=== PATIENT | female | born 1930 | race Caucasian/White ===

== ENCOUNTER 2016-11-09 01:35 | Inpatient (IN) | payer MEDICAID, OTHER ==
[~2016-11-09] VITALS: Ht 160 cm; Wt 65.2 kg
[~2016-11-09 01:35] MED LIST: ASPI325T4 PO; ATEN-138 PO; ATOR40TA21 PO; CARV3.1238 PO; CLOP75TA19 PO; DOCU-144 PO; FAMO-18 PO; FURO40TA4 PO; HYDR-906 PO; POTA20PA PO; ZOLP5TAB PO
[2016-11-09 02:07] LABS: ADD SCAN DIFF NO
[2016-11-09 02:17] LABS: BASOPHILS % 0.7 % (0.0-2.0); EOSINOPHILS # 0.3 10^3/ul (0.0-0.5); EOSINOPHILS % 4.7 % (0.0-7.0); HEMATOCRIT 34.3 % (37.0-47.0); HEMOGLOBIN 11.3 g/dl (12.0-16.0); LYMPHOCYTES # 1.2 10^3/ul (0.8-2.9); MEAN CORPUSCULAR HEMOGLOBIN 32.8 pg (29.0-33.0); MEAN CORPUSCULAR HGB CONC 32.9 g/dl (32.0-37.0); MEAN CORPUSCULAR VOLUME 99.4 fl (82.0-101.0); MEAN PLATELET VOLUME 9.7 fl (7.4-10.4); MONOCYTES % 18.6 % (0.0-11.0); NEUTROPHILS % 53.8 % (39.0-77.0); PLATELET COUNT 319 10^3/UL (140-415); RED BLOOD COUNT 3.45 10^6/ul (4.20-5.40); WHITE BLOOD COUNT 5.6 10^3/ul (4.8-10.8)
[2016-11-09 02:25] LABS: ALBUMIN 3.4 g/dl (3.3-4.9)
[2016-11-09 02:26] LABS: POTASSIUM 4.1 mmol/L (3.5-5.1)
[2016-11-09 02:28] LABS: ALBUMIN/GLOBULIN RATIO 0.91; BILIRUBIN,INDIRECT 0.2 mg/dl (0-1.1); BILIRUBIN,TOTAL 0.2 mg/dl (0.2-1.3); TOTAL PROTEIN 7.1 g/dl (6.1-8.1)
[2016-11-09 02:29] LABS: CALCIUM 8.9 mg/dl (8.4-10.2)
--- NOTE | 2016-11-09 02:48 | RADRPT ---
PROCEDURE: US Non-OB Pelvis. CLINICAL INDICATION: Vaginal bleeding. TECHNIQUE: Multiple sonographic images of the pelvis were obtained utilizing a transabdominal and endovaginal technique. The images were reviewed on a PACS workstation. COMPARISON: None. FINDINGS: The uterus is visualized and measures 4.8 x 1.8 x 2.5 cm. The endometrial echo complex is heterogene ous and measures 7 mm. The ovaries are not visualized. No adnexal masses are noted. There is no evidence of free fluid. IMPRESSION: 1. Heterogeneous endometrium measuring 7 mm in thickness. This is abnormal for a postmenopausal pat ient, and endometrial carcinoma cannot be excluded. Referral to gynecology is recommended. Endomet rial biopsy should be considered. 2. The ovaries are not visualized. RPTAT: HTAR .Vinny Castro MD, Date Time Electronically viewed and signed by .Vinny Castro MD, on 11/09/2016 02:47 .R/
[2016-11-09 03:02] LABS: ADD UMIC YES; URINE BILIRUBIN (Dip) NEGATIVE (NEGATIVE); URINE BLOOD (Dip) TRACE (NEGATIVE); URINE COLOR LT. YELLOW (YELLOW); URINE GLUCOSE (Dip) NEGATIVE (NEGATIVE); URINE KETONES (Dip) NEGATIVE (NEGATIVE); URINE LEUKOCYTE ESTERASE (Dip) TRACE (NEGATIVE); URINE NITRITE (Dip) NEGATIVE (NEGATIVE); URINE TOTAL PROTEIN (Dip) NEGATIVE (NEGATIVE); URINE UROBILINOGEN (Dip) 2.0 E.U./dL (0.1-1.0)
[2016-11-09 03:29] LABS: BACTERIA,URINE OCCASIONAL; SQUAMOUS EPITHELIAL CELL,UR MANY
--- NOTE | 2016-11-09 03:53 | ERA ---
ER Documentation Chief Complaint Date/Time DATE: 11/09/16 TIME: 03:52 Chief Complaint PT BIB ambulance for VB X 2 weeks. HPI This is a 86-year-old female by my months of vaginal bleeding for the past 2 weeks. Patient denies any pain. Denies any fevers or chills. Denies any nausea vomiting. Denies any other current complaints. ROS All systems reviewed and are negative except as per history of present illness. Medications Home Meds Reported Medications Potassium Chloride (Klor-Con) 20 Meq/Pkt Packet, PO DAILY 09/22/11 Furosemide (Lasix) 40 Mg Tab, 1 TAB PO DAILY 09/22/11 Famotidine* (Pepcid*) 20 Mg Tablet, 1 TAB PO DAILY 09/22/11 Clopidogrel Bisulfate (Plavix) 75 Mg Tablet, 1 TAB PO DAILY 09/22/11 Carvedilol* (Coreg*) 3.125 Mg Tablet, 1 TAB PO BID 09/22/11 Atorvastatin (Lipitor) 40 Mg Tablet, 40 MG PO DAILY 09/22/11 Zolpidem Tartrate* (Ambien*) 5 Mg Tablet, 5 MG PO 09/15/11 Docusate Sodium* (Colace*) 100 Mg Capsule, 100 MG PO DAILY 09/15/11 Hydrocodone Bit-Acetaminophen (Ferron) 1 Tab Tablet, 5 MG PO 09/15/11 Atenolol (Tenormin) 25 Mg Tab, 25 MG PO DAILY 09/15/11 Aspirin* (Aspirin*) 325 Mg Tablet, 325 MG PO DAILY 09/15/11 Allergies Allergies: Coded Allergies: No Known Drug Allergies (Verified Allergy, Unknown, 09/22/11) PMhx/Soc History of Surgery: Yes (STENT PLACEMENT 09/15/11) Anesthesia Reaction: No Hx Neurological Disorder: No Hx Respiratory Disorders: No Hx Cardiac Disorders: Yes (CARDIAC CATH, STENT, A FIB, HTN, HYPERLIPI) Hx Psychiatric Problems: No Hx Miscellaneous Medical Probl: Yes (HTN, HYPERLIPIDEMIA, A-FIB, , S/P REP. HIP FX) Hx Alcohol Use: No Hx Substance Use: No Hx Tobacco Use: No Smoking Status: Never smoker Physical Exam Vitals Vital Signs Date Time Temp Pulse Resp B/P Pulse Ox O2 Delivery O2 Flow Rate FiO2 11/09/16 02:01 97.9 64 18 116/80 98 Physical Exam Const: [] Head: Atraumatic Eyes: Normal Conjunctiva ENT: Normal External Ears, Nose and Mouth. Neck: Full range of motion..~ No meningismus. Resp: Clear to auscultation bilaterally Cardio: Regular rate and rhythm, no murmurs Abd: Soft, non tender, non distended. Normal bowel sounds Skin: No petechiae or rashes Back: No midline or flank tenderness Ext: No cyanosis, or edema Neur: Awake and alert Psych: Normal Mood and Affect Result Diagram: 11/09/16 0200 11/09/16 0200 Results 24 hrs Laboratory Tests Test 11/09/16 02:00 11/09/16 02:26 White Blood Count 5.610^3/ul Red Blood Count 3.4510^6/ul Hemoglobin 11.3g/dl Hematocrit 34.3% Mean Corpuscular Volume 99.4fl Mean Corpuscular Hemoglobin 32.8pg Mean Corpuscular Hemoglobin Concent 32.9g/dl Red Cell Distribution Width 13.0% Platelet Count 64767^3/UL Mean Platelet Volume 9.7fl Neutrophils % 53.8% Lymphocytes % 22.0% Monocytes % 18.6% Eosinophils % 4.7% Basophils % 0.7% Nucleated Red Blood Cells % 0.0/100WBC Neutrophils # 3.010^3/ul Lymphocytes # 1.210^3/ul Monocytes # 1.010^3/ul Eosinophils # 0.310^3/ul Basophils # 0.010^3/ul Nucleated Red Blood Cells # 0.010^3/ul Sodium Level 142mmol/L Potassium Level 4.1mmol/L Chloride Level 100mmol/L Carbon Dioxide Level 29mmol/L Anion Gap 17 Blood Urea Nitrogen 16mg/dl Creatinine 1.00mg/dl Glucose Level 112mg/dl Calcium Level 8.9mg/dl Total Bilirubin 0.2mg/dl Direct Bilirubin 0.00mg/dl Indirect Bilirubin 0.2mg/dl Aspartate Amino Transf (AST/SGOT) 18IU/L Alanine Aminotransferase (ALT/SGPT) 22IU/L Alkaline Phosphatase 91IU/L Total Protein 7.1g/dl Albumin 3.4g/dl Globulin 3.70g/dl Albumin/Globulin Ratio 0.91 Urine Color LT. 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 Patient was admitted for further evaluation study. Dr. Mann will admit the patient as he is admitted previously Departure Diagnosis: Primary Impression: Vaginal bleeding Condition: Serious SWETHA HANSON November 09, 2016 03:53
[2016-11-09 04:07] VITALS: TEMP 98.1
[2016-11-09 04:56] VITALS: BP 120/64; RESP 18; Ht 160 cm; Wt 65.2 kg
[2016-11-09] MEDS ORDERED: morphine 2 MG INJ IV PRN (05:30)
[2016-11-09] MEDS ORDERED: HYDROCODONE/APAP (5/325) TAB PO PRN (05:30)
[2016-11-09] MEDS: SOD CHLORIDE 0.45% 1,000 ML IV SCH ×2 (05:52→22:10)
[2016-11-09 08:31] VITALS: BP 139/79; RESP 24
--- NOTE | 2016-11-09 09:52 | RADRPT ---
PROCEDURE: XR Chest. CLINICAL INDICATION: Hematuria TECHNIQUE: An AP view of the chest was obtained. COMPARISON: Chest x-ray dated 09/15/2011 FINDINGS: Lung volumes are low. There is prominence of the interstitial and central pulmonary vascular hiram ng. No pleural effusion or pneumothorax is seen. The cardiomediastinal silhouette is mildly enla rged . Calcifications are seen within the aortic arch. The osseous structures demonstrate senescent changes. IMPRESSION: 1. Findings suggestive of pulmonary vascular congestion. 2. Mild cardiomegaly and aortic atherosclerosis. RPTAT: HH .Jennifer Cooper MD, MD Date Time Electronically viewed and signed by .Jennifer Cooper MD, on 11/09/2016 09:51 .G/
[2016-11-09 11:17] LABS: ADD SCAN DIFF NO
[2016-11-09 11:42] LABS: BASOPHILS % 0.5 % (0.0-2.0); EOSINOPHILS # 0.2 10^3/ul (0.0-0.5); EOSINOPHILS % 5.5 % (0.0-7.0); HEMATOCRIT 34.1 % (37.0-47.0); HEMOGLOBIN 11.2 g/dl (12.0-16.0); LYMPHOCYTES # 0.9 10^3/ul (0.8-2.9); LYMPHOCYTES % 23.7 % (15.0-51.0); MEAN CORPUSCULAR HEMOGLOBIN 32.8 pg (29.0-33.0); MEAN CORPUSCULAR HGB CONC 32.8 g/dl (32.0-37.0); MEAN PLATELET VOLUME 9.9 fl (7.4-10.4); MONOCYTE # 0.7 10^3/ul (0.3-0.9); MONOCYTES % 17.1 % (0.0-11.0); NEUTROPHILS % 53.2 % (39.0-77.0); PLATELET COUNT 302 10^3/UL (140-415); RED BLOOD COUNT 3.41 10^6/ul (4.20-5.40); WHITE BLOOD COUNT 3.8 10^3/ul (4.8-10.8)
[2016-11-09 12:02] LABS: INR 2.09; PROTIME 23.7 Sec (12.2-14.2); PT RATIO 1.9
[2016-11-09 12:03] LABS: PARTIAL THROMBOPLASTIN TIME 49.9 Sec (25.0-35.0)
[2016-11-09 13:30] VITALS: BP 115/70; PULSE 56
[2016-11-09] MEDS ORDERED: ATENOLOL 25 MG TAB PO SCH (13:30)
--- NOTE | 2016-11-09 14:27 | HP ---
DATE OF ADMISSION: 11/09/2016 CHIEF COMPLAINT: Vaginal bleeding. HISTORY OF PRESENT ILLNESS: The patient is an 86-year-old [place]-speaking female. The patient pre sented to the emergency room with complaints of vaginal bleeding for the past 2 weeks. The patient is a poor historian, cannot provide detailed history. I tried to contact the patient's daughter, Maria Fernanda toledo; however, nobody answered the phone, so most of the history was obtained from talking to the pat ient and from medical records. The patient with a past medical history of coronary artery disease a nd stent placement in 2011, history of atrial fibrillation, hypertension, hyperlipidemia, status pos t hip fracture. The patient with a history of ischemic cardiomyopathy with ejection fraction of 25% to 30%, history of anemia of chronic disease, and history of left femoral neck fracture, status pos t hemiarthroplasty in 2011. The patient a pelvic ultrasound with notion of a heterogenous endometri um 7 mm thickness which is abnormal for postmenopausal patient. Endometrial carcinoma cannot be exc luded. The ovaries not visualized. The patient's hemoglobin was 11.3, hematocrit 34.3 on admission . There is no leukocytosis. The patient denies any fever or chills. The patient denies any chest pain. The patient denies any nausea, vomiting, diarrhea. The patient is admitted for further evalu ation and management. PAST MEDICAL HISTORY: Per HPI. PAST SURGICAL HISTORY: Status post percutaneous coronary intervention with stent placement to the m id left anterior descending artery in 2011, status post left femoral neck hemiarthroplasty in 2011. FAMILY HISTORY: Noncontributory. SOCIAL HISTORY: The patient denies any tobacco use, denies any alcohol use, denies any illicit drug use. ALLERGIES: NO KNOWN ALLERGIES. MEDICATIONS: On admission: 1. Klor-Con. 2. Lasix. 3. Pepcid. 4. Plavix. 5. Coreg. 6. Lipitor. 7. Ambien. 8. Colace. 9. [place]. 10. Tenormin. 11. Aspirin. REVIEW OF SYSTEMS: A 12-point review of systems is negative unless what is mentioned in the HPI. T he patient also has chronic gait instability. PHYSICAL EXAMINATION: GENERAL: Well-developed well-nourished elderly female. Currently awake, awake, alert. VITAL SIGNS: Temperature 97.7, pulse is 54, blood pressure 139/79, respiratory rate 24, oxygen satu ration 97% on room air. HEENT: Head is atraumatic, normocephalic. Pupils equal, round, reactive to light and accommodation . Oral mucosa is pink, moist. NECK: Supple, no cervical lymphadenopathy, no thyromegaly. CHEST: Lungs clear bilaterally. There is no rhonchi, wheezes, or rales noted. CARDIOVASCULAR: Irregularly irregular rhythm. No murmurs, gallops, clicks, rubs noted. ABDOMEN: Round, soft, nondistended, nontender. Bowel sounds present. There is no guarding, no denise ound tenderness. EXTREMITIES: Mild edema, no cyanosis noted. SKIN: Left lower extremity wound. PSYCHOLOGICAL: The patient is awake, alert and oriented to name and situation. LABORATORY DATA: On admission, white blood cells 5.6, hemoglobin 11.6, hematocrit 34.3, platelets 3 19. Chemistry: Sodium is 142, potassium 4.1, chloride 100, carbon dioxide 29, anion gap 17, BUN is 16, creatinine 1, glucose 112, calcium 8.9. AST is 18, ALT is 22, alkaline phosphatase is 91. PT is 23.7, INR is 2.09, aPTT is 49.9. ASSESSMENT AND PLAN: 1. Vaginal bleeding with ultrasound suspicious for endometrial carcinoma. Will continue to monitor hemoglobin and hematocrit. I will ask Dr. Bah to see patient in surgical consultation. 3. History of atrial fibrillation. Will obtain a 12-lead EKG and 2-D echo. 4. Hypertension by history. Continue patient on atenolol. 5. Hyperlipidemia. Continue statin. 6. Coronary artery disease with history of stent placement in 2011. Will obtain a cardiology consu lt for clearance for any future surgical intervention. 7. Continue sequential compression device for deep venous thrombosis prophylaxis and Pepcid for pep tic ulcer disease prophylaxis. Further recommendations based on clinical course. Plan of care discussed with Dr. Shah. Dictated By: NILES LOPEZ INSTRUCTIONAL COORDINATOR for EMILY SHAH MD SR/NTS Conf#: [id number] DID#: [id number]
[2016-11-09] MEDS: BISACODYL 10 MG SUPP PR PRN (19:50)
[2016-11-09 20:33] VITALS: BP 142/68; RESP 20
--- NOTE | 2016-11-10 00:04 | CONS ---
DATE OF ADMISSION: 11/09/2016 DATE OF CONSULTATION: 11/09/2016 TYPE OF CONSULTATION: Cardiology. REASON FOR CONSULTATION: Cardiomyopathy with decreased left ventricular ejection fraction, history of PA, history of PTCA and stent placement, possible need for surgical intervention. REQUESTING PHYSICIAN: Jayesh An MD HISTORY OF PRESENT ILLNESS: Ms. Brown is an 86-year-old female with a history of PTCA and stent p lacement to LAD in 2011, left femoral neck arthroplasty in 2011, prior PA, ischemic cardiomyopathy w ith last known left ventricular ejection fraction of approximately 30% by chart biopsy from [place] 08/2016 who presents with 2 weeks of vaginal bleeding. Upon arrival, temperature 97.9, blood p ressure 116/80, pulse 64, respiratory rate 18, saturating 98%. The patient's labs revealed a white cell count of 5.6, hemoglobin 11.3, platelet count of 319. Sodium 142, potassium 4.1, creatinine 1, BUN 16, AST 18, ALT 22. INR 2.0. UA positive. The patient underwent a pelvic ultrasound revealin g heterogeneous endometrium measuring 7 mm in thickness and a chest x-ray that revealed findings sug gestive of pulmonary vascular congestion, mild cardiomegaly and aortic atherosclerosis. The patient 's electrocardiogram revealed atrial fibrillation at a rate of 71, normal axis, normal intervals, an teroseptal Q's, nonspecific ST and T abnormalities. The patient subsequently has been admitted to [facility] floor and since admit to the floor denies chest pain, shortness of breath, has had stable vital s igns with some elevated systolic blood pressures. PAST MEDICAL HISTORY: As above in HPI. MEDICATIONS CURRENTLY IN HOSPITAL: 1. Lipitor 40 mg at bedtime. 2. Colace 100 mg daily. 3. Lasix 20 mg daily. 4. Pepcid 20 mg daily. 5. Aspirin 81 mg daily. 6. Carvedilol 6.25 mg p.o. b.i.d. 7. Atenolol 25 mg daily. 8. Dulcolax. 9. IV fluid hydration at 60 mL an hour. 10. Morphine p.r.n. ALLERGIES: NO KNOWN DRUG ALLERGIES. SOCIAL HISTORY: No tobacco, ETOH, illicit drug use. FAMILY HISTORY: No history of sudden cardiac or early CAD. REVIEW OF SYSTEMS: As above in HPI. CONSTITUTIONAL: No fevers, chills. PULMONARY: No shortness of breath. CARDIOVASCULAR: Cardiomyopathy, decreased left ventricular ejection fraction. GASTROINTESTINAL: No vomiting. GENITOURINARY: No hematuria. MUSCULOSKELETAL: Degenerative joint disease. PSYCHIATRIC: The patient denies depression. NEUROLOGIC: No documented history of CVA. ENDOCRINE: No documented history of diabetes mellitus. PHYSICAL EXAMINATION: VITAL SIGNS: Temperature 97.6, blood pressure most recently 142/68, pulse 74, respiratory 20, satur ating 97%. GENERAL: The patient is alert, awake. No acute distress. NECK: JVP approximately 8 to 9 cm water. CHEST: Fair air movement throughout. HEART: Regular rate and rhythm. Normal S1, S2. I/ systolic murmur. Nondisplaced PMI. ABDOMEN: Positive bowel sounds. Soft. EXTREMITIES: No pitting edema. Pulses 1+ bilaterally at posterior tibial. LABORATORY DATA: As above in HPI. No further labs for my review at this time. IMAGING STUDIES: As above in HPI. No further imaging studies for my review at this time. ELECTROCARDIOGRAM: As above in HPI. No further electrocardiograms for my review at this time. IMPRESSION: 1. Cardiomyopathy with decreased left ventricular ejection fraction last seen approximately 30% by echo at outside hospital 08/2016. 2. Hypertension. 3. History of myocardial infarction. 4. History of percutaneous transluminal coronary angioplasty and stent placement last 2011. 5. Coagulopathy, INR of 2.0 at this time. 6. Anemia. 7. Vaginal bleed. 8. Possible endometrial mass, abnormal thickening. RECOMMENDATIONS: 1. At this time would check serial EKGs, assess for any significant ongoing changes and complete a rule-out for myocardial infarction, ensure that the patient's EKG abnormalities are chronic in natur e and not due to any recent acute coronary syndrome. 2. Continue the patient's current carvedilol for control of blood pressure and will discontinue the patient's atenolol, the second beta michael. 3. Will initiate the patient on low-dose ANIL inhibitor, afterload reduction. 4. Continue the patient's statin therapy and adjust it according to a fasting lipid panel that juan aguillon be checked. 5. Continue the patient's gentle Lasix, check a BNP to further assess patient's current volume stat us on IV fluid hydration and will consider holding IV fluid hydration. 6. Given the patient's low EF, if the patient does rule out, then would consider stress testing thi s patient to further evaluate for the possibility of significant obstructive coronary artery disease lending to a low ejection fraction. 7. Pending IMPLEMENTATION PROJECT MANAGER consultation for further evaluation of vaginal bleed and will consider correction of coagulopathy. Thank you for allowing me to take part in the care of this patient. I will continue to follow along very closely with you with further recommendations to be made as the patient progresses through her inpatient hospital clinical course. Dictated By: DEBBIE PRICE/VIDA Conf#: [id number] DID#: [id number]
--- NOTE | 2016-11-10 00:17 | RADRPT ---
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 Location: 2265 Ref. Physician: EMILY SHAH Quality: Adequate Procedures: Transthoracic echocardiogram with complete 2D, M-Mode, and doppler examination. Indications: Per MD Order. 2D/M Mode Doppler Measurement Value Normal Ranges Measurement Value Normal Ranges LVIDd 2D 4.3 3.5 - 5.6 cm MARGARITA Vmax 1.0 cm2 LVIDs 2D 3.8 2.1 - 4.1 cm MARGARITA VTI 1.1 cm2 LVPWd 2D 1.0 0.6 - 1.1 cm AV Mean PG 13.6 mmHg IVSd 2D 1.1 0.6 - 1.1 cm AV Peak Aba 2.4 m/sec AoR Diam 2D 2.7 2.0 - 3.7 cm AV Peak PG 23.8 mmHg EDV 2D 84.4 cm3 LVOT Mean Aba 0.7 m/sec ESV 2D 53.4 cm3 LVOT Mean PG 2.1 mmHg LA Dimen 2D 4.9 2.3 - 4.0 cm LVOT Peak Aba 1.0 m/sec LVOT Diam 1.8 cm LVOT Peak PG 4.0 mmHg LVOT VTI 25.0 cm TR Peak Aba 3.7 m/sec TR Peak PG 54.0 mmHg RVSP 69.0 mmHg Findings Left Ventricle: Normal left ventricular cavity size. Normal left ventricular wall thickness. Moderate global left ventricular systolic dysfunction. Ejection fraction is visually estimated at 35 %. Abnormal Diastolic Function. These segments of the LV are akinetic inferoseptum mid segment, apical cap, apical septum segment and Apical inferior segment. Right Ventricle: Normal right ventricular systolic function. Mild enlargement of right ventricle. Left Atrium: There is moderate enlargement of left atrium. Right Atrium: The right atrium is normal in size. Right atrium at upper limits of normal. Mitral Valve: Mitral valve leaflets appear mildly thickened. Mild mitral annular calcification. Mild to moderate mitral valve regurgitation. Aortic Valve: Moderate aortic stenosis. Aortic valve Max velocity 2.44 m/sec. Max PG 23.80 mmHg. Mean PG 13.60 mmHg. Aortic valve area 1.10 cm2. Aortic cusps appear moderately calcified. Mild aortic valve regurgitation. Tricuspid Valve: Normal appearance of the tricuspid valve. Estimated peak PA systolic pressure 69 mmHg. There is moderate tricuspid regurgitation. Pulmonic Valve: Pulmonic valve not well visualized. There is trace pulmonic regurgitation. Pericardium: There is an anterior echo free space consistent with epicardial fat pad. Aorta: Normal aortic root. IVC: Dilated IVC without respiratory collapse consistent with elevated right atrial pressure. Conclusions 1.Normal left ventricular cavity size. Normal left ventricular wall thickness. Moderate global left ventricular systolic dysfunction. Ejection fraction is visually estimated at 35 %. Abnormal Diastolic Function. 2.Normal right ventricular systolic function. Mild enlargement of right ventricle. 3.There is moderate enlargement of left atrium. 4.Mild to moderate mitral valve regurgitation. 5.Trace aortic valve regurgitation. 6.Significant mismatch between aortic valve gradient and calculated aortic valve area, visually likely consistent with moderate aortic stenosis. 7.Tricuspid valve not well visualized. Estimated peak PA systolic pressure 61 mmHg. There is moderate tricuspid regurgitation. 8.There is trace pulmonic regurgitation. Electronically Signed By: Reynold Egan 11-Nov-2016 20:39:29 -0700 [ADDENDUM] Patient Name: HOSSEIN SENA Study Date: 09-Nov-2016 [id number]
[2016-11-10 05:55] LABS: ADD SCAN DIFF NO
[2016-11-10 06:03] LABS: BASOPHILS % 0.5 % (0.0-2.0); EOSINOPHILS # 0.2 10^3/ul (0.0-0.5); EOSINOPHILS % 3.1 % (0.0-7.0); HEMATOCRIT 35.8 % (37.0-47.0); LYMPHOCYTES % 17.6 % (15.0-51.0); MEAN CORPUSCULAR HEMOGLOBIN 32.9 pg (29.0-33.0); MEAN CORPUSCULAR HGB CONC 33.5 g/dl (32.0-37.0); MEAN CORPUSCULAR VOLUME 98.1 fl (82.0-101.0); MEAN PLATELET VOLUME 9.7 fl (7.4-10.4); MONOCYTE # 0.7 10^3/ul (0.3-0.9); MONOCYTES % 13.2 % (0.0-11.0); NEUTROPHIL # 3.6 10^3/ul (1.6-7.5); NEUTROPHILS % 65.4 % (39.0-77.0); PLATELET COUNT 297 10^3/UL (140-415); RED BLOOD COUNT 3.65 10^6/ul (4.20-5.40); RED CELL DISTRIBUTION WIDTH 12.7 % (11.5-14.5); WHITE BLOOD COUNT 5.5 10^3/ul (4.8-10.8)
[2016-11-10 06:21] LABS: INR 1.33; PROTIME 16.6 Sec (12.2-14.2); PT RATIO 1.3
[2016-11-10 06:24] LABS: POTASSIUM 3.9 mmol/L (3.5-5.1)
[2016-11-10] MEDS: SOD CHLORIDE 0.45% 1,000 ML IV SCH (06:25)
[2016-11-10 06:26] LABS: CREATININE 0.72 mg/dl (0.44-1.00)
[2016-11-10 06:27] LABS: CALCIUM 8.7 mg/dl (8.4-10.2)
[2016-11-10 08:45] VITALS: BP 130/71; RESP 19
[2016-11-10] MEDS: FAMOTIDINE 20 MG TAB PO SCH (09:05)
[2016-11-10] MEDS: FUROSEMIDE 20 MG TAB PO SCH (09:05)
[2016-11-10] MEDS: DOCUSATE SODIUM 100 MG CAP PO SCH (09:05)
[2016-11-10] MEDS: POTASSIUM CHLORIDE 20 MEQ POWDER FOR ORAL SOLN PO SCH (09:05)
[2016-11-10] MEDS: ASPIRIN 81 MG TAB PO SCH (09:06)
[2016-11-10] MEDS: ATORVASTATIN 40 MG TAB PO SCH (09:06)
--- NOTE | 2016-11-10 09:58 | CONS ---
Date/Time of Note Date/Time of Note DATE: 11/10/16 TIME: 09:56 Assessment/Plan Assessment/Plan Additional Assessment/Plan 1. Cardiomyopathy with decreased left ventricular ejection fraction last seen approximately 30% by echo at outside hospital 08/2016- Stress test planned. 2. Hypertension- well Rx, will adjust Rx as needed. 3. History of myocardial infarction- felipe await stress test results, 4. History of percutaneous transluminal coronary angioplasty and stent placement last 2011. 5. Coagulopathy, INR of 2.0 on admit . 6. Anemia- no active bleed now. 7. Vaginal bleed. 8. Possible endometrial mass, abnormal thickening. Consultation Date/Type/Reason Admit Date/Time November 09, 2016 at 04:52 Initial Consult Date 24 HR Interval Summary Free Text/Dictation No acute events - off tele - Stress test planned. ROS: No fever, no chills, no nausea, no vomiting, no diarrhea/constipation No recent weight changes No chest pain, no PND, no orthopnea No dizziness, blurred vision No thirst, no heat or cold intolerance Exam/Review of Systems Vital Signs Vitals Vital Signs Date Time Temp Pulse Resp B/P Pulse Ox O2 Delivery O2 Flow Rate FiO2 11/10/16 08:45 98.5 80 19 130/71 100 11/09/16 04:07 Room Air Intake and Output 11/09/16 11/09/16 11/10/16 15:00 23:00 07:00 Intake Total 500 ml 940 ml Balance 500 ml 940 ml Exam /General: WN/WD/NAD, AOx 1-2 HEENT: Unicetric/atraumatic/EOMI (follows some commands) NECK: JVD elevated, no thyromegaly Lymph: no lymphadenopathy HEART: regular with no S3, II/ systolic murmur at apex and 2/6 at base (mild to mod per ECHO) LUNGS: Coarse sounds ABD: soft, NT, ND, +BS : Intact Neuro: non focal SKIN: chronic changes EXT: trace edema Results Result Diagram: 11/10/1651911/10/16 0520 Results 24 hrs Laboratory Tests Test 11/09/16 10:59 11/09/16 21:45 11/10/16 00:30 11/10/16 05:20 White Blood Count 3.8 #L 5.5 # Red Blood Count 3.41 L 3.65 L Hemoglobin 11.2 L 12.0 Hematocrit 34.1 L 35.8 L Mean Corpuscular Volume 100.0 98.1 Mean Corpuscular Hemoglobin 32.8 32.9 Mean Corpuscular Hemoglobin Concent 32.8 33.5 Red Cell Distribution Width 13.0 12.7 Platelet Count 302 297 Mean Platelet Volume 9.9 9.7 Neutrophils % 53.2 65.4 Lymphocytes % 23.7 17.6 Monocytes % 17.1 H 13.2 H Eosinophils % 5.5 3.1 Basophils % 0.5 0.5 Nucleated Red Blood Cells % 0.0 0.0 Neutrophils # 2.0 3.6 Lymphocytes # 0.9 1.0 Monocytes # 0.7 0.7 Eosinophils # 0.2 0.2 Basophils # 0.0 0.0 Nucleated Red Blood Cells # 0.0 0.0 Prothrombin Time 23.7 H 16.6 #H Prothrombin Time Ratio 1.9 1.3 INR International Normalized Ratio 2.09 1.33 Activated Partial Thromboplast Time 49.9 H B-Type Natriuretic Peptide 4860 H Thyroid Stimulating Hormone (TSH) 5.450 H Troponin I < 0.012 0.017 Sodium Level 137 Potassium Level 3.9 Chloride Level 101 Carbon Dioxide Level 26 Anion Gap 14 Blood Urea Nitrogen 11 Creatinine 0.72 Glucose Level 105 Calcium Level 8.7 Medications Medications Current Medications Sodium Chloride (1/2 NS) 1,000 ml @ 40 mls/hr Q24H IV Last administered on 06:25; Admin Dose 40 MLS/HR; Start 11/09/16 at 05:30 Acetaminophen (Tylenol Tab) 650 mg Q4H PRN PO PAIN AND OR ELEVATED TEMP; Start 11/09/16 at 05:30 Morphine Sulfate (morphine) 2 mg Q3H PRN IV PAIN; Start 11/09/16 at 05:30 Atorvastatin Calcium (Lipitor) 40 mg DAILY PO Last administered on 11/10/16 09 :06; Admin Dose 40 MG; Start 11/10/16 at 09:00 Carvedilol (Coreg) 6.25 mg BID PO Last administered on 11/10/16 09:06; Admin Dose 6.25 MG; Start 11/09/16 at 21:00 Docusate Sodium (Colace) 100 mg DAILY PO Last administered on 11/10/16 09:05; Admin Dose 100 MG; Start 11/10/16 at 09:00 Famotidine (Pepcid) 20 mg DAILY PO Last administered on 11/10/16 09:05; Admin Dose 20 MG; Start 11/10/16 at 09:00 Furosemide (Lasix) 20 mg DAILY PO Last administered on 11/10/16 09:05; Admin Dose 20 MG; Start 11/10/16 at 09:00 Potassium Chloride (Potassium Chloride Pwd/Soln) 20 meq DAILY PO Last administered on 11/10/16 09:05; Admin Dose 20 MEQ; Start 11/10/16 at 09:00 Zolpidem Tartrate (Ambien) 5 mg QHS PRN PO INSOMNIA; Start 11/09/16 at 13:30 Aspirin (Aspirin) 81 mg DAILY PO Last administered on 11/10/16 09:06; Admin Dose 81 MG; Start 11/10/16 at 09:00 Acetaminophen/ Hydrocodone Bitart ([place] (5/325)) 1 tab Q4H PRN PO PAIN LEVEL 4 -7; Start 11/09/16 at 13:30 Bisacodyl (Dulcolax Supp) 10 mg DAILY PRN AL CONSTIPATION Last administered on 11/09/16 19:50; Admin Dose 10 MG; Start 11/09/16 at 20:00 MICHAEL MORE MD November 10, 2016 09:58
[2016-11-10 11:47] LABS: ALBUMIN 3.3 g/dl (3.3-4.9); ALBUMIN/GLOBULIN RATIO 0.8; BILIRUBIN,INDIRECT 0.6 mg/dl (0-1.1); BILIRUBIN,TOTAL 0.6 mg/dl (0.2-1.3); CALCIUM 8.7 mg/dl (8.4-10.2); CREATININE 0.65 mg/dl (0.44-1.00); POTASSIUM 5.7 mmol/L (3.5-5.1); TOTAL PROTEIN 7.4 g/dl (6.1-8.1)
[2016-11-10] MEDS ORDERED: REGADENOSON 0.4 MG/5 ML SYG ONE (11:57)
--- NOTE | 2016-11-10 12:23 | PN ---
Date/Time of Note Date/Time of Note DATE: 11/10/16 TIME: 12:17 Assessment/Plan VTE Prophylaxis VTE Prophylaxis Intervention: SCD's Lines/Catheters IV Catheter Type (from Nrs): Peripheral IV Urinary Cath still in place: No Assessment/Plan Chief Complaint/Hosp Course Patient is currently going to stress test, denies any chest pain denies shortness of breath, continue to have vaginal bleeding. ASSESSMENT AND PLAN: - Vaginal bleeding with ultrasound suspicious for endometrial carcinoma. Continue to monitor hemoglobin and hematocrit. Dr. Bah is following in surgical consultation. Plan for possible biopsy after cardiology clearance. 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 - History of atrial fibrillation. Will obtain a 12-lead EKG and 2-D echo. - Hypertension by history. Continue patient on atenolol. - Hyperlipidemia. Continue statin. - Coronary artery disease with history of stent placement in 2011. Continue sequential compression device for deep venous thrombosis prophylaxis and Pepcid for peptic ulcer disease prophylaxis. Patient's condition and plan of care was discussed in details with daughter Jael at the bedside, all questions answered. Further recommendations based on clinical course. Plan of care discussed with Dr. An. Problems: Exam/Review of Systems Vital Signs Vitals Vital Signs Date Time Temp Pulse Resp B/P Pulse Ox O2 Delivery O2 Flow Rate FiO2 11/10/16 08:45 98.5 80 19 130/71 100 11/09/16 04:07 Room Air Intake and Output 11/09/16 11/09/16 11/10/16 15:00 23:00 07:00 Intake Total 500 ml 940 ml Balance 500 ml 940 ml Exam Constitutional: alert, oriented Head: normocephalic Eyes: nl conjunctiva ENMT: nl external ears & nose Neck: supple Respiratory: clear to auscultation Cardiovascular: irregular rhythm Gastrointestinal: non-tender, soft Genitourinary - Female: nl adnexae Musculoskeletal: nl extremities to inspection Extremities: normal pulses Neurological: BACK WEDGER II-XII intact Results Result Diagram: 11/10/16 0520 11/10/16 1051 Results 24 hrs Laboratory Tests Test 11/09/16 21:45 11/10/16 00:30 11/10/16 05:20 11/10/16 10:51 B-Type Natriuretic Peptide 4860 H Thyroid Stimulating Hormone (TSH) 5.450 H Troponin I < 0.012 0.017 White Blood Count 5.5 # Red Blood Count 3.65 L Hemoglobin 12.0 Hematocrit 35.8 L Mean Corpuscular Volume 98.1 Mean Corpuscular Hemoglobin 32.9 Mean Corpuscular Hemoglobin Concent 33.5 Red Cell Distribution Width 12.7 Platelet Count 297 Mean Platelet Volume 9.7 Neutrophils % 65.4 Lymphocytes % 17.6 Monocytes % 13.2 H Eosinophils % 3.1 Basophils % 0.5 Nucleated Red Blood Cells % 0.0 Neutrophils # 3.6 Lymphocytes # 1.0 Monocytes # 0.7 Eosinophils # 0.2 Basophils # 0.0 Nucleated Red Blood Cells # 0.0 Prothrombin Time 16.6 #H Prothrombin Time Ratio 1.3 INR International Normalized Ratio 1.33 Sodium Level 137 132 L Potassium Level 3.9 5.7 H Chloride Level 101 105 Carbon Dioxide Level 26 22 Anion Gap 14 11 Blood Urea Nitrogen 11 10 Creatinine 0.72 0.65 Glucose Level 105 95 Calcium Level 8.7 8.7 Total Bilirubin 0.6 Direct Bilirubin 0.00 Indirect Bilirubin 0.6 Aspartate Amino Transf (AST/SGOT) 42 Alanine Aminotransferase (ALT/SGPT) 14 Alkaline Phosphatase 79 Total Protein 7.4 Albumin 3.3 Globulin 4.10 H Albumin/Globulin Ratio 0.80 Medications Medications Current Medications Sodium Chloride (1/2 NS) 1,000 ml @ 40 mls/hr Q24H IV Last administered on 06:25; Admin Dose 40 MLS/HR; Start 11/09/16 at 05:30 Acetaminophen (Tylenol Tab) 650 mg Q4H PRN PO PAIN AND OR ELEVATED TEMP; Start 11/09/16 at 05:30 Morphine Sulfate (morphine) 2 mg Q3H PRN IV PAIN; Start 11/09/16 at 05:30 Atorvastatin Calcium (Lipitor) 40 mg DAILY PO Last administered on 11/10/16 09 :06; Admin Dose 40 MG; Start 11/10/16 at 09:00 Carvedilol (Coreg) 6.25 mg BID PO Last administered on 11/10/16 09:06; Admin Dose 6.25 MG; Start 11/09/16 at 21:00 Docusate Sodium (Colace) 100 mg DAILY PO Last administered on 11/10/16 09:05; Admin Dose 100 MG; Start 11/10/16 at 09:00 Famotidine (Pepcid) 20 mg DAILY PO Last administered on 11/10/16 09:05; Admin Dose 20 MG; Start 11/10/16 at 09:00 Furosemide (Lasix) 20 mg DAILY PO Last administered on 11/10/16 09:05; Admin Dose 20 MG; Start 11/10/16 at 09:00 Potassium Chloride (Potassium Chloride Pwd/Soln) 20 meq DAILY PO Last administered on 11/10/16 09:05; Admin Dose 20 MEQ; Start 11/10/16 at 09:00 Zolpidem Tartrate (Ambien) 5 mg QHS PRN PO INSOMNIA; Start 11/09/16 at 13:30 Aspirin (Aspirin) 81 mg DAILY PO Last administered on 11/10/16 09:06; Admin Dose 81 MG; Start 11/10/16 at 09:00 Acetaminophen/ Hydrocodone Bitart ([place] (5/325)) 1 tab Q4H PRN PO PAIN LEVEL 4 -7; Start 11/09/16 at 13:30 Bisacodyl (Dulcolax Supp) 10 mg DAILY PRN [place] CONSTIPATION Last administered on 11/09/16 19:50; Admin Dose 10 MG; Start 11/09/16 at 20:00 NILES LOPEZ November 10, 2016 12:23
--- NOTE | 2016-11-10 14:12 | RADRPT ---
Vent Rate: 71 bpm RR Interval: 0 msec WA Interval: 0 msec QRS Duration: 94 msec QT Interval: 390 msec QTC Interval: 423 msec P-R-T [place]: 0 - 18 - 61 degrees Atrial fibrillation Low voltage QRS Septal infarct , age undetermined Abnormal ECG Electronically Signed By: Hugh Orourke [id number]
--- NOTE | 2016-11-10 14:22 | RADRPT ---
Vent Rate: 74 bpm RR Interval: 0 msec [place] Interval: 0 msec QRS Duration: 92 msec QT Interval: 400 msec QTC Interval: 444 msec P-R-T [place]: 0 - -7 - 68 degrees Atrial fibrillation Low voltage QRS Cannot rule out Anteroseptal infarct , age undetermined Abnormal ECG Electronically Signed By: Hugh Orourke [id number]
--- NOTE | 2016-11-10 15:03 | RADRPT ---
PROCEDURE: Lexiscan myocardial perfusion study CLINICAL INDICATION: 86 -year-old patient complaining of chest pain. TECHNIQUE: Lexiscan 0.4 mg intravenously separate acquisition gated myocardial perfusion SPECT usi ng Tc 99m Myoview 29.3 mCi intravenously at stress and Tc-99m Myoview, 8.6 mCi intravenously at rest was performed using the rest/stress sequence. Poststress Myoview SPECT images were obtained in the supine position. COMPARISON: No prior studies. FINDINGS: Perfusion images reveal a large size moderate to severe in degree nonreversible perfusion defect inv olving the apical, distal anterior, distal to mid septal, distal lateral and distal inferior jiménez. Lexiscan post stress gated SPECT images demonstrate akinetic apical wall and mild hypokinesis of the remainder of the left ventricle. IMPRESSION: 1. The type and distribution of the scintigraphic abnormalities are most consistent with a large si ze nonreversible perfusion defect in the apex, distal anterior, distal to mid septal, distal lateral and distal inferior jiménez. 2. Akinetic apical wall and mild hypokinesis of the remainder of the left ventricle. 3. The left ventricle ejection fraction at stress is 41%. A call report was made to Dr. Nielsen at 03:00 p.m. on November 10, 2016. RPTAT: HH .Amanda Hobbs MD, MD Date Time Electronically viewed and signed by .Amanda Hobbs MD, on 11/10/2016 15:03 .L/
--- NOTE | 2016-11-10 17:05 | CONS ---
Date/Time of Note Date/Time of Note DATE: 11/10/16 TIME: 17:04 Consultation Date/Type/Reason Admit Date/Time November 09, 2016 at 04:52 Reason for Consultation Woody Bah M.D. [facility] History and Physical Examination Amanda Brown November 10, 2016 Age: 86 : 1930 Physicians: Reliability Technician: Guitar Teacher: Oncologist: Other: History of the Present Illness: An 86- year old admitted with SOB and some chest pain and several weeks of post menopausal bleeding. SHERIDAN revealed a 7mm endometrium. Past Medical History: Surgical: reviewed Medical: reviewed Medications: gardisil Colonoscopy Allergies: No active allergies recorded Family History: Noncontributory Social History: Noncontributory Review of Systems: Negative except for above noted Physical Examination General: Alert but not conversational HEENT: Pupils are equal, round, reactive to light and accommodation. Neck: Supple with no masses of lymphadenopathy. Breast: Deferred due to recent examination and responsibility of primary care physician. Chest: Clear to auscultation and percussion with no rales, ronchi, or wheeze. Heart: Normal rhythm Abdomen: Non tender. No masses, ascites, or organomegaly. Pelvis: Vagina very narrow and long, cervix small and difficult to access. Uterus sl enlgd, no masses Rectal: Confirmatory with pelvic exam. Neurological: Grossly intact Assessment: Possibly endometrial cancer. Plan: D&C as EMB not feasible. All risks and benefits of this procedure have been discussed in detail with the patient, as well as alternative treatment strategies and their implications. The patient is aware that there is some possibility of a blood transfusion and its associated risks and benefits. She wishes to proceed and gives her informed consent. Woody Bah M.D. Social History Smoking Status: Never smoker Exam/Review of Systems Vital Signs Vitals Vital Signs Date Time Temp Pulse Resp B/P Pulse Ox O2 Delivery O2 Flow Rate FiO2 11/10/16 08:45 98.5 80 19 130/71 100 11/09/16 04:07 Room Air Intake and Output 11/09/16 11/09/16 11/10/16 15:00 23:00 07:00 Intake Total 500 ml 940 ml Balance 500 ml 940 ml Results Result Diagram: 11/10/16 0520 11/10/16 1051 Results 24 hrs Laboratory Tests Test 11/09/16 21:45 11/10/16 00:30 11/10/16 05:20 11/10/16 10:51 B-Type Natriuretic Peptide 4860 H Thyroid Stimulating Hormone (TSH) 5.450 H Troponin I < 0.012 0.017 White Blood Count 5.5 # Red Blood Count 3.65 L Hemoglobin 12.0 Hematocrit 35.8 L Mean Corpuscular Volume 98.1 Mean Corpuscular Hemoglobin 32.9 Mean Corpuscular Hemoglobin Concent 33.5 Red Cell Distribution Width 12.7 Platelet Count 297 Mean Platelet Volume 9.7 Neutrophils % 65.4 Lymphocytes % 17.6 Monocytes % 13.2 H Eosinophils % 3.1 Basophils % 0.5 Nucleated Red Blood Cells % 0.0 Neutrophils # 3.6 Lymphocytes # 1.0 Monocytes # 0.7 Eosinophils # 0.2 Basophils # 0.0 Nucleated Red Blood Cells # 0.0 Prothrombin Time 16.6 #H Prothrombin Time Ratio 1.3 INR International Normalized Ratio 1.33 Sodium Level 137 132 L Potassium Level 3.9 5.7 H Chloride Level 101 105 Carbon Dioxide Level 26 22 Anion Gap 14 11 Blood Urea Nitrogen 11 10 Creatinine 0.72 0.65 Glucose Level 105 95 Calcium Level 8.7 8.7 Total Bilirubin 0.6 Direct Bilirubin 0.00 Indirect Bilirubin 0.6 Aspartate Amino Transf (AST/SGOT) 42 Alanine Aminotransferase (ALT/SGPT) 14 Alkaline Phosphatase 79 Total Protein 7.4 Albumin 3.3 Globulin 4.10 H Albumin/Globulin Ratio 0.80 Test 11/10/16 16:00 Troponin I < 0.012 Medications Medications Current Medications Sodium Chloride (1/2 NS) 1,000 ml @ 40 mls/hr Q24H IV Last administered on 06:25; Admin Dose 40 MLS/HR; Start 11/09/16 at 05:30 Acetaminophen (Tylenol Tab) 650 mg Q4H PRN PO PAIN AND OR ELEVATED TEMP; Start 11/09/16 at 05:30 Morphine Sulfate (morphine) 2 mg Q3H PRN IV PAIN; Start 11/09/16 at 05:30 Atorvastatin Calcium (Lipitor) 40 mg DAILY PO Last administered on 11/10/16 09 :06; Admin Dose 40 MG; Start 11/10/16 at 09:00 Carvedilol (Coreg) 6.25 mg BID PO Last administered on 11/10/16 09:06; Admin Dose 6.25 MG; Start 11/09/16 at 21:00 Docusate Sodium (Colace) 100 mg DAILY PO Last administered on 11/10/16 09:05; Admin Dose 100 MG; Start 11/10/16 at 09:00 Famotidine (Pepcid) 20 mg DAILY PO Last administered on 11/10/16 09:05; Admin Dose 20 MG; Start 11/10/16 at 09:00 Furosemide (Lasix) 20 mg DAILY PO Last administered on 11/10/16 09:05; Admin Dose 20 MG; Start 11/10/16 at 09:00 Potassium Chloride (Potassium Chloride Pwd/Soln) 20 meq DAILY PO Last administered on 11/10/16 09:05; Admin Dose 20 MEQ; Start 11/10/16 at 09:00 Zolpidem Tartrate (Ambien) 5 mg QHS PRN PO INSOMNIA; Start 11/09/16 at 13:30 Aspirin (Aspirin) 81 mg DAILY PO Last administered on 11/10/16 09:06; Admin Dose 81 MG; Start 11/10/16 at 09:00 Acetaminophen/ Hydrocodone Bitart ([place] (5/325)) 1 tab Q4H PRN PO PAIN LEVEL 4 -7; Start 11/09/16 at 13:30 Bisacodyl (Dulcolax Supp) 10 mg DAILY PRN [place] CONSTIPATION Last administered on 11/09/16 19:50; Admin Dose 10 MG; Start 11/09/16 at 20:00 WOODY BAH MD November 10, 2016 17:05
--- NOTE | 2016-11-10 19:29 | CARRPT ---
DATE OF PROCEDURE: PROCEDURE: Lexiscan cardiac stress test REASON FOR PROCEDURE: Chest pain. PREOPERATIVE ASSESSMENT: ____ The patient had Lexiscan cardiac stress test performed. Blood press ure was 102/68. She tolerated the procedure well. ____ Dictated By: MICHAEL MORE MD ML/NTS Conf#: [id number] DID#: [id number] CC: EMILY SHAH MD; ____;*End*
[2016-11-10 20:00] VITALS: BP 140/59; RESP 18
[2016-11-10] MEDS: ZOLPIDEM 5 MG TAB PO PRN (21:16)
[2016-11-11 06:44] LABS: ADD SCAN DIFF NO
[2016-11-11 06:55] LABS: BASOPHILS % 0.4 % (0.0-2.0); EOSINOPHILS # 0.2 10^3/ul (0.0-0.5); EOSINOPHILS % 4.2 % (0.0-7.0); HEMATOCRIT 35.8 % (37.0-47.0); LYMPHOCYTES % 19.9 % (15.0-51.0); MEAN CORPUSCULAR HEMOGLOBIN 33.1 pg (29.0-33.0); MEAN CORPUSCULAR HGB CONC 33.5 g/dl (32.0-37.0); MEAN CORPUSCULAR VOLUME 98.9 fl (82.0-101.0); MEAN PLATELET VOLUME 9.9 fl (7.4-10.4); MONOCYTE # 0.6 10^3/ul (0.3-0.9); MONOCYTES % 12.5 % (0.0-11.0); NEUTROPHIL # 3.1 10^3/ul (1.6-7.5); NEUTROPHILS % 62.8 % (39.0-77.0); PLATELET COUNT 304 10^3/UL (140-415); RED BLOOD COUNT 3.62 10^6/ul (4.20-5.40); RED CELL DISTRIBUTION WIDTH 12.6 % (11.5-14.5)
[2016-11-11 07:20] VITALS: BP 140/64; RESP 20
[2016-11-11 07:54] LABS: CALCIUM 8.9 mg/dl (8.4-10.2); CREATININE 0.7 mg/dl (0.44-1.00)
[2016-11-11] MEDS: POTASSIUM CHLORIDE 20 MEQ POWDER FOR ORAL SOLN PO SCH (09:51)
[2016-11-11] MEDS: ATORVASTATIN 40 MG TAB PO SCH (09:51)
[2016-11-11] MEDS: ASPIRIN 81 MG TAB PO SCH (09:51)
[2016-11-11] MEDS: DOCUSATE SODIUM 100 MG CAP PO SCH (09:51)
[2016-11-11] MEDS: FAMOTIDINE 20 MG TAB PO SCH (09:51)
[2016-11-11] MEDS: FUROSEMIDE 20 MG TAB PO SCH (09:52)
--- NOTE | 2016-11-11 15:55 | CONS ---
Date/Time of Note Date/Time of Note DATE: 11/11/16 TIME: 15:46 Assessment/Plan Assessment/Plan Chief Complaint/Hosp Course IMPRESSION: 1. Cardiomyopathy with decreased left ventricular ejection fraction last seen approximately 30% by echo at outside hospital 08/2016. EF 35% by echo this admit with lexiscan negative for ischemia with scar and EF 40%. 2. Hypertension. 3. History of myocardial infarction. 4. History of percutaneous transluminal coronary angioplasty and stent placement last 2011. 5. Coagulopathy, INR of 2.0 at this time. 6. Anemia. 7. Vaginal bleed. 8. Possible endometrial mass, abnormal thickening. Rec: -OK to proceed to OR at moderate CV risk, due to low EF, on current medications continued pre-postoperatively without further non-invasive evaluation. Check post-op ECG and follow closely for s/sx of cv complications -Contineu BB/lasix and start ACEI afterload reduction -ASA as tolerated only given vaginal bleeding Problems: Consultation Date/Type/Reason Admit Date/Time November 11, 2016 at 10:47 Initial Consult Date 11/09/2016 Type of Consultation: Cardiology Reason for Consultation Pre-op Referring Provider: EMILY SHAH MD Exam/Review of Systems Vital Signs Vitals Vital Signs Date Time Temp Pulse Resp B/P Pulse Ox O2 Delivery O2 Flow Rate FiO2 11/11/16 07:20 98.6 76 20 140/64 96 11/09/16 04:07 Room Air Intake and Output 11/10/16 11/10/16 11/11/16 15:00 23:00 07:00 Intake Total 760 ml 120 ml Balance 760 ml 120 ml Exam Review of Systems: CONSTITUTIONAL: No fevers, chills. PULMONARY: No sob CARDIOVASCULAR: No chest pain/palpitations GASTROINTESTINAL: No nausea/vomiting. GENITOURINARY: No hematuria/dysuria. MUSCULOSKELETAL: No myagias/arthalgias. PSYCHIATRIC: The patient denies depression. NEUROLOGIC: No weakness Constitutional: alert Psych: no complaints Head: normocephalic ENMT: mucosa pink and moist Neck: jvd (9 cm water), supple Respiratory: diminished breath sounds Cardiovascular: regular rate and rhythm Gastrointestinal: non-tender, soft Musculoskeletal: muscle tone (normal) Extremities: edema (none) Neurological: other (No focal deficits) Results Result Diagram: 11/11/16 0550 11/11/16 0550 Results 24 hrs Laboratory Tests Test 11/10/16 16:00 11/11/16 05:50 Troponin I < 0.012 White Blood Count 5.0 Red Blood Count 3.62 L Hemoglobin 12.0 Hematocrit 35.8 L Mean Corpuscular Volume 98.9 Mean Corpuscular Hemoglobin 33.1 H Mean Corpuscular Hemoglobin Concent 33.5 Red Cell Distribution Width 12.6 Platelet Count 304 Mean Platelet Volume 9.9 Neutrophils % 62.8 Lymphocytes % 19.9 Monocytes % 12.5 H Eosinophils % 4.2 Basophils % 0.4 Nucleated Red Blood Cells % 0.0 Neutrophils # 3.1 Lymphocytes # 1.0 Monocytes # 0.6 Eosinophils # 0.2 Basophils # 0.0 Nucleated Red Blood Cells # 0.0 Sodium Level 134 L Potassium Level 4.0 Chloride Level 103 Carbon Dioxide Level 27 Anion Gap 8 Blood Urea Nitrogen 9 Creatinine 0.70 Glucose Level 112 Calcium Level 8.9 Medications Medications Current Medications Acetaminophen (Tylenol Tab) 650 mg Q4H PRN PO PAIN AND OR ELEVATED TEMP; Start 11/09/16 at 05:30 Morphine Sulfate (morphine) 2 mg Q3H PRN IV PAIN; Start 11/09/16 at 05:30 Atorvastatin Calcium (Lipitor) 40 mg DAILY PO Last administered on 11/11/16 09 :51; Admin Dose 40 MG; Start 11/10/16 at 09:00 Carvedilol (Coreg) 6.25 mg BID PO Last administered on 11/11/16 09:52; Admin Dose 6.25 MG; Start 11/09/16 at 21:00 Docusate Sodium (Colace) 100 mg DAILY PO Last administered on 11/11/16 09:51; Admin Dose 100 MG; Start 11/10/16 at 09:00 Famotidine (Pepcid) 20 mg DAILY PO Last administered on 11/11/16 09:51; Admin Dose 20 MG; Start 11/10/16 at 09:00 Furosemide (Lasix) 20 mg DAILY PO Last administered on 11/11/16 09:52; Admin Dose 20 MG; Start 11/10/16 at 09:00 Potassium Chloride (Potassium Chloride Pwd/Soln) 20 meq DAILY PO Last administered on 11/11/16 09:51; Admin Dose 20 MEQ; Start 11/10/16 at 09:00 Zolpidem Tartrate (Ambien) 5 mg QHS PRN PO INSOMNIA Last administered on 21:16; Admin Dose 5 MG; Start 11/09/16 at 13:30 Aspirin (Aspirin) 81 mg DAILY PO Last administered on 11/11/16 09:51; Admin Dose 81 MG; Start 11/10/16 at 09:00 Acetaminophen/ Hydrocodone Bitart ([place] (5/325)) 1 tab Q4H PRN PO PAIN LEVEL 4 -7; Start 11/09/16 at 13:30 Bisacodyl (Dulcolax Supp) 10 mg DAILY PRN [place] CONSTIPATION Last administered on 11/09/16 19:50; Admin Dose 10 MG; Start 11/09/16 at 20:00 DEBBIE QUINTANA November 11, 2016 15:55
[2016-11-11] MEDS: BISACODYL 10 MG SUPP PR PRN (17:04)
--- NOTE | 2016-11-11 18:25 | PN ---
Date/Time of Note Date/Time of Note DATE: 11/11/16 TIME: 18:22 Assessment/Plan VTE Prophylaxis VTE Prophylaxis Intervention: LMWH Lines/Catheters IV C[facility]from [facility] [place] Urinary Cath still in place: No Assessment/Plan Chief Complaint/Hosp Course Post menopausal bleeding with thickened endometrium, medical issues Problems: Assessment/Plan A- doing reasonably well and medically cleared P- discussed with Family and patient and will proceed with D&C tomorrow Subjective 24 Hr Interval Summary Free Text/Dictation Feels about the same with impvt in SOB Exam/Review of Systems Vital Signs Vitals Vital Signs Date Time Temp Pulse Resp B/P Pulse Ox O2 Delivery O2 Flow Rate FiO2 11/11/16 07:20 98.6 76 20 140/64 96 11/09/16 04:07 Room Air Intake and Output 11/10/16 11/10/16 11/11/16 15:00 23:00 07:00 Intake Total 760 ml 120 ml Balance 760 ml 120 ml Results Result Diagram: 11/11/16 0550 11/11/16 0550 Results 24 hrs Laboratory Tests Test 11/11/16 05:50 White Blood Count 5.0 Red Blood Count 3.62 L Hemoglobin 12.0 Hematocrit 35.8 L Mean Corpuscular Volume 98.9 Mean Corpuscular Hemoglobin 33.1 H Mean Corpuscular Hemoglobin Concent 33.5 Red Cell Distribution Width 12.6 Platelet Count 304 Mean Platelet Volume 9.9 Neutrophils % 62.8 Lymphocytes % 19.9 Monocytes % 12.5 H Eosinophils % 4.2 Basophils % 0.4 Nucleated Red Blood Cells % 0.0 Neutrophils # 3.1 Lymphocytes # 1.0 Monocytes # 0.6 Eosinophils # 0.2 Basophils # 0.0 Nucleated Red Blood Cells # 0.0 Sodium Level 134 L Potassium Level 4.0 Chloride Level 103 Carbon Dioxide Level 27 Anion Gap 8 Blood Urea Nitrogen 9 Creatinine 0.70 Glucose Level 112 Calcium Level 8.9 Medications Medications Current Medications Acetaminophen (Tylenol Tab) 650 mg Q4H PRN PO PAIN AND OR ELEVATED TEMP; Start 11/09/16 at 05:30 Morphine Sulfate (morphine) 2 mg Q3H PRN IV PAIN; Start 11/09/16 at 05:30 Atorvastatin Calcium (Lipitor) 40 mg DAILY PO Last administered on 11/11/16t 09 :51; Admin Dose 40 MG; Start 11/10/16 at 09:00 Carvedilol (Coreg) 6.25 mg BID PO Last administered on 11/11/16 09:52; Admin Dose 6.25 MG; Start 11/09/16 at 21:00 Docusate Sodium (Colace) 100 mg DAILY PO Last administered on 11/11/16 09:51; Admin Dose 100 MG; Start 11/10/16 at 09:00 Famotidine (Pepcid) 20 mg DAILY PO Last administered on 11/11/16 09:51; Admin Dose 20 MG; Start 11/10/16 at 09:00 Furosemide (Lasix) 20 mg DAILY PO Last administered on 11/11/16 09:52; Admin Dose 20 MG; Start 11/10/16 at 09:00 Potassium Chloride (Potassium Chloride Pwd/Soln) 20 meq DAILY PO Last administered on 11/11/16 09:51; Admin Dose 20 MEQ; Start 11/10/16 at 09:00 Zolpidem Tartrate (Ambien) 5 mg QHS PRN PO INSOMNIA Last administered on 21:16; Admin Dose 5 MG; Start 11/09/16 at 13:30 Aspirin (Aspirin) 81 mg DAILY PO Last administered on 11/11/16 09:51; Admin Dose 81 MG; Start 11/10/16 at 09:00 Acetaminophen/ Hydrocodone Bitart ([place] (5/325)) 1 tab Q4H PRN PO PAIN LEVEL 4 -7; Start 11/09/16 at 13:30 Bisacodyl (Dulcolax Supp) 10 mg DAILY PRN [place] CONSTIPATION Last administered on 11/11/16 17:04; Admin Dose 10 MG; Start 11/09/16 at 20:00 Lisinopril (Zestril) 5 mg DAILY PO ; Start 11/12/16 at 09:00 STEFFANIE KATE MD November 11, 2016 18:25
--- NOTE | 2016-11-11 19:17 | PN ---
Date/Time of Note Date/Time of Note DATE: 11/11/16 TIME: 19:11 Assessment/Plan VTE Prophylaxis VTE Prophylaxis Intervention: SCD's Lines/Catheters IV Catheter Type (from [facility] [place] Urinary Cath still in place: No Assessment/Plan Chief Complaint/Hosp Course No acute events of the night, patient looks comfortable. Discussed with Dr. Egan cardiology, patient is cleared for D&C tomorrow. N.p.o. after midnight. ASSESSMENT AND PLAN: - Vaginal bleeding with ultrasound suspicious for endometrial carcinoma. Continue to monitor hemoglobin and hematocrit. Dr. Bah is following in surgical consultation. Medically cleared for procedure tomorrow. 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 Stress test is negative for ischemia with scar. - Atrial fibrillation, continue aspirin. Patient is not a candidate for anticoagulation due to bleeding. - History of [place]. - Hypertension, continue Coreg and lisinopril. - Hyperlipidemia. Continue statin. - Coronary artery disease with history of stent placement in 2011. Continue aspirin. - Coagulopathy, INR is 1.33 yesterday. Continue sequential compression device for deep venous thrombosis prophylaxis and Pepcid for peptic ulcer disease prophylaxis. Patient's condition and plan of care was discussed in details with daughter Jael at the bedside, all questions answered. Further recommendations based on clinical course. Plan of care discussed with Dr. An. Problems: Exam/Review of Systems Vital Signs Vitals Vital Signs Date Time Temp Pulse Resp B/P Pulse Ox O2 Delivery O2 Flow Rate FiO2 11/11/16 07:20 98.6 76 20 140/64 96 11/09/16 04:07 Room Air Intake and Output 11/10/16 11/10/16 11/11/16 15:00 23:00 07:00 Intake Total 760 ml 120 ml Balance 760 ml 120 ml Exam Constitutional: alert Head: normocephalic Neck: supple Respiratory: clear to auscultation Cardiovascular: regular rate and rhythm Gastrointestinal: non-tender, soft Extremities: normal pulses Results Result Diagram: 11/11/16 0550 11/11/16 0550 Results 24 hrs Laboratory Tests Test 11/11/16 05:50 White Blood Count 5.0 Red Blood Count 3.62 L Hemoglobin 12.0 Hematocrit 35.8 L Mean Corpuscular Volume 98.9 Mean Corpuscular Hemoglobin 33.1 H Mean Corpuscular Hemoglobin Concent 33.5 Red Cell Distribution Width 12.6 Platelet Count 304 Mean Platelet Volume 9.9 Neutrophils % 62.8 Lymphocytes % 19.9 Monocytes % 12.5 H Eosinophils % 4.2 Basophils % 0.4 Nucleated Red Blood Cells % 0.0 Neutrophils # 3.1 Lymphocytes # 1.0 Monocytes # 0.6 Eosinophils # 0.2 Basophils # 0.0 Nucleated Red Blood Cells # 0.0 Sodium Level 134 L Potassium Level 4.0 Chloride Level 103 Carbon Dioxide Level 27 Anion Gap 8 Blood Urea Nitrogen 9 Creatinine 0.70 Glucose Level 112 Calcium Level 8.9 Medications Medications Current Medications Acetaminophen (Tylenol Tab) 650 mg Q4H PRN PO PAIN AND OR ELEVATED TEMP; Start 11/09/16 at 05:30 Morphine Sulfate (morphine) 2 mg Q3H PRN IV PAIN; Start 11/09/16 at 05:30 Atorvastatin Calcium (Lipitor) 40 mg DAILY PO Last administered on 11/11/16 09 :51; Admin Dose 40 MG; Start 11/10/16 at 09:00 Carvedilol (Coreg) 6.25 mg BID PO Last administered on 11/11/16 09:52; Admin Dose 6.25 MG; Start 11/09/16 at 21:00 Docusate Sodium (Colace) 100 mg DAILY PO Last administered on 11/11/16 09:51; Admin Dose 100 MG; Start 11/10/16 at 09:00 Famotidine (Pepcid) 20 mg DAILY PO Last administered on 11/11/16 09:51; Admin Dose 20 MG; Start 11/10/16 at 09:00 Furosemide (Lasix) 20 mg DAILY PO Last administered on 11/11/16 09:52; Admin Dose 20 MG; Start 11/10/16 at 09:00 Potassium Chloride (Potassium Chloride Pwd/Soln) 20 meq DAILY PO Last administered on 11/11/16 09:51; Admin Dose 20 MEQ; Start 11/10/16 at 09:00 Zolpidem Tartrate (Ambien) 5 mg QHS PRN PO INSOMNIA Last administered on 21:16; Admin Dose 5 MG; Start 11/09/16 at 13:30 Aspirin (Aspirin) 81 mg DAILY PO Last administered on 11/11/16 09:51; Admin Dose 81 MG; Start 11/10/16 at 09:00 Acetaminophen/ Hydrocodone Bitart ([place] (5/325)) 1 tab Q4H PRN PO PAIN LEVEL 4 -7; Start 11/09/16 at 13:30 Bisacodyl (Dulcolax Supp) 10 mg DAILY PRN [place] CONSTIPATION Last administered on 11/11/16t 17:04; Admin Dose 10 MG; Start 11/09/16 at 20:00 Lisinopril (Zestril) 5 mg DAILY PO ; Start 11/12/16 at 09:00 NILES LOPEZ November 11, 2016 19:17
[2016-11-11 20:10] VITALS: BP 105/68; RESP 17
[2016-11-12] VITALS (10 sets, daily range): BP systolic 100–165; BP diastolic 62–90; PULSE 74–94; RESP 14–23
[2016-11-12] MEDS: DEXTROSE 5%-0.45% NACL 1,000 ML IV SCH ×2 (00:13→15:21)
[2016-11-12 05:14] LABS: ADD SCAN DIFF NO
[2016-11-12 05:17] LABS: BASOPHILS % 0.5 % (0.0-2.0); EOSINOPHILS # 0.3 10^3/ul (0.0-0.5); EOSINOPHILS % 4.2 % (0.0-7.0); HEMATOCRIT 35.7 % (37.0-47.0); HEMOGLOBIN 12.1 g/dl (12.0-16.0); LYMPHOCYTES # 1.3 10^3/ul (0.8-2.9); LYMPHOCYTES % 21.6 % (15.0-51.0); MEAN CORPUSCULAR HEMOGLOBIN 32.8 pg (29.0-33.0); MEAN CORPUSCULAR HGB CONC 33.9 g/dl (32.0-37.0); MEAN CORPUSCULAR VOLUME 96.7 fl (82.0-101.0); MEAN PLATELET VOLUME 9.9 fl (7.4-10.4); MONOCYTE # 0.9 10^3/ul (0.3-0.9); MONOCYTES % 15.6 % (0.0-11.0); NEUTROPHIL # 3.5 10^3/ul (1.6-7.5); NEUTROPHILS % 57.8 % (39.0-77.0); PLATELET COUNT 355 10^3/UL (140-415); RED BLOOD COUNT 3.69 10^6/ul (4.20-5.40); RED CELL DISTRIBUTION WIDTH 12.6 % (11.5-14.5)
[2016-11-12 05:34] LABS: POTASSIUM 4.1 mmol/L (3.5-5.1)
[2016-11-12 05:36] LABS: CREATININE 0.72 mg/dl (0.44-1.00)
[2016-11-12 05:37] LABS: CALCIUM 8.9 mg/dl (8.4-10.2)
[2016-11-12 06:02] LABS: INR 1.14; PROTIME 14.6 Sec (12.2-14.2); PT RATIO 1.1
[2016-11-12 06:04] LABS: THROMBIN TIME 15.3 SEC (13.8-19.1)
[2016-11-12 06:08] LABS: PARTIAL THROMBOPLASTIN TIME 36.4 Sec (25.0-35.0)
[2016-11-12] MEDS ORDERED: FENTAnyl 50 MCG/ML VIAL ONE (08:00)
[2016-11-12] MEDS ORDERED: MIDAZOLAM 1 MG/ML 2 ML INJ ONE (08:00)
[2016-11-12] MEDS ORDERED: SILVER NITRATE SWAB ONE (08:27)
[2016-11-12] MEDS ORDERED: CEFAZOLIN 1 GM INJ ONE (08:53)
[2016-11-12] MEDS ORDERED: ONDANSETRON 4 MG INJ ONE (08:53)
[2016-11-12] MEDS ORDERED: LIDOCAINE 2% (SDV) 5 ML INJ ONE (08:53)
[2016-11-12] MEDS ORDERED: ETOMIDATE 20 MG INJ ONE (08:53)
[2016-11-12] MEDS ORDERED: MEPERIDINE 25 MG INJ IV PRN (09:00)
[2016-11-12] MEDS: FUROSEMIDE 20 MG TAB PO SCH (09:00)
[2016-11-12] MEDS: ASPIRIN 81 MG TAB PO SCH (09:00)
[2016-11-12] MEDS: LISINOPRIL 5 MG TAB PO SCH ×2 (09:00→16:25)
[2016-11-12] MEDS ORDERED: morphine (1 MG/ML) 10ML SYRINGE IV PRN (09:00)
[2016-11-12] MEDS: ATORVASTATIN 40 MG TAB PO SCH (09:00)
[2016-11-12] MEDS: DOCUSATE SODIUM 100 MG CAP PO SCH (09:00)
[2016-11-12] MEDS ORDERED: DIPHENHYDRAMINE 50 MG INJ IV PRN (09:00)
[2016-11-12] MEDS: FAMOTIDINE 20 MG TAB PO SCH (09:00)
[2016-11-12] MEDS ORDERED: ONDANSETRON 4 MG INJ IV PRN (09:00)
[2016-11-12] MEDS: POTASSIUM CHLORIDE 20 MEQ POWDER FOR ORAL SOLN PO SCH (09:00)
[2016-11-12 10:12] LABS: CREATININE 0.65 mg/dl (0.44-1.00)
[2016-11-12 10:13] LABS: CALCIUM 8.6 mg/dl (8.4-10.2)
[2016-11-12 17:26] LABS: INR 1.15; PROTIME 14.7 Sec (12.2-14.2); PT RATIO 1.1
[2016-11-12 17:45] LABS: POTASSIUM 4.2 mmol/L (3.5-5.1)
[2016-11-12 17:47] LABS: CREATININE 0.66 mg/dl (0.44-1.00)
[2016-11-12 17:48] LABS: CALCIUM 8.7 mg/dl (8.4-10.2)
[2016-11-12 17:48] LABS: ADD SCAN DIFF NO
[2016-11-12 17:49] LABS: BASOPHILS % 0.3 % (0.0-2.0); EOSINOPHILS # 0.2 10^3/ul (0.0-0.5); EOSINOPHILS % 3.1 % (0.0-7.0); HEMATOCRIT 34.9 % (37.0-47.0); HEMOGLOBIN 11.5 g/dl (12.0-16.0); LYMPHOCYTES % 16.2 % (15.0-51.0); MEAN CORPUSCULAR HEMOGLOBIN 32.6 pg (29.0-33.0); MEAN CORPUSCULAR VOLUME 98.9 fl (82.0-101.0); MEAN PLATELET VOLUME 9.4 fl (7.4-10.4); MONOCYTE # 0.9 10^3/ul (0.3-0.9); MONOCYTES % 14.7 % (0.0-11.0); NEUTROPHIL # 4.2 10^3/ul (1.6-7.5); NEUTROPHILS % 65.4 % (39.0-77.0); PLATELET COUNT 300 10^3/UL (140-415); RED BLOOD COUNT 3.53 10^6/ul (4.20-5.40); RED CELL DISTRIBUTION WIDTH 12.7 % (11.5-14.5); WHITE BLOOD COUNT 6.4 10^3/ul (4.8-10.8)
--- NOTE | 2016-11-12 18:38 | CONS ---
Date/Time of Note Date/Time of Note DATE: 11/12/16 TIME: 18:35 Assessment/Plan Assessment/Plan Chief Complaint/Hosp Course IMPRESSION: 1. Cardiomyopathy with decreased left ventricular ejection fraction last seen approximately 30% by echo at outside hospital 08/2016. EF 35% by echo this admit with lexiscan negative for ischemia with scar and EF 40%. 2. Hypertension. 3. History of myocardial infarction. 4. History of percutaneous transluminal coronary angioplasty and stent placement last 2011. 5. Coagulopathy, INR of 2.0 at this time. 6. Anemia. 7. Vaginal bleed now post-op s/p D+C with Bx POD#0 8. Possible endometrial mass, abnormal thickening. Rec: -Check post-op ECG and follow closely for s/sx of cv complications -Continue BB/ACEI -Continue lasix and follow volume status closely -ASA as tolerated only given vaginal bleeding Problems: Consultation Date/Type/Reason Admit Date/Time November 11, 2016 at 10:47 Initial Consult Date 11/09/2016 Type of Consultation: Cardiology Reason for Consultation pre-op/cardiomyopathy Referring Provider: EMILY SHAH MD Exam/Review of Systems Vital Signs Vitals Vital Signs Date Time Temp Pulse Resp B/P Pulse Ox O2 Delivery O2 Flow Rate FiO2 11/12/16 10:21 98.0 18 125/80 97 Room Air 11/12/16 09:23 88 Intake and Output 11/11/16 11/11/16 11/12/16 15:00 23:00 07:00 Intake Total 120 ml 550 ml 460 ml Balance 120 ml 550 ml 460 ml Exam Review of Systems: CONSTITUTIONAL: No fevers, chills. PULMONARY: No sob CARDIOVASCULAR: No chest pain/palpitations GASTROINTESTINAL: No nausea/vomiting. GENITOURINARY: No hematuria/dysuria. MUSCULOSKELETAL: No myagias/arthalgias. PSYCHIATRIC: The patient denies depression. NEUROLOGIC: No weakness Constitutional: alert Psych: no complaints Head: normocephalic ENMT: mucosa pink and moist Neck: jvd (9 cm water), supple Respiratory: diminished breath sounds (at bases/B) Cardiovascular: regular rate and rhythm Gastrointestinal: non-tender, soft Musculoskeletal: muscle tone (normal) Extremities: edema (none) Neurological: other (No focal deficits) Results Result Diagram: 11/12/16 1740 11/12/16 1645 Results 24 hrs Laboratory Tests Test 11/12/16 04:20 11/12/16 04:30 11/12/16 09:42 11/12/16 16:45 Sodium Level 137 138 138 Potassium Level 4.1 4.0 4.2 Chloride Level 101 102 102 Carbon Dioxide Level 25 27 26 Anion Gap 15 # 13 14 Blood Urea Nitrogen 10 8 7 Creatinine 0.72 0.65 0.66 Glucose Level 113 107 104 Calcium Level 8.9 8.6 8.7 White Blood Count 6.0 Red Blood Count 3.69 L Hemoglobin 12.1 Hematocrit 35.7 L Mean Corpuscular Volume 96.7 Mean Corpuscular Hemoglobin 32.8 Mean Corpuscular Hemoglobin Concent 33.9 Red Cell Distribution Width 12.6 Platelet Count 349 Mean Platelet Volume 9.9 Neutrophils % 57.8 Lymphocytes % 21.6 Monocytes % 15.6 H Eosinophils % 4.2 Basophils % 0.5 Nucleated Red Blood Cells % 0.0 Neutrophils # 3.5 Lymphocytes # 1.3 Monocytes # 0.9 Eosinophils # 0.3 Basophils # 0.0 Nucleated Red Blood Cells # 0.0 Prothrombin Time 14.6 H 14.7 H Prothrombin Time Ratio 1.1 1.1 INR International Normalized Ratio 1.14 1.15 Activated Partial Thromboplast Time 36.4 H Thrombin Time 15.3 Test 11/12/16 17:40 White Blood Count 6.4 Red Blood Count 3.53 L Hemoglobin 11.5 L Hematocrit 34.9 L Mean Corpuscular Volume 98.9 Mean Corpuscular Hemoglobin 32.6 Mean Corpuscular Hemoglobin Concent 33.0 Red Cell Distribution Width 12.7 Platelet Count 300 Mean Platelet Volume 9.4 Neutrophils % 65.4 Lymphocytes % 16.2 Monocytes % 14.7 H Eosinophils % 3.1 Basophils % 0.3 Nucleated Red Blood Cells % 0.0 Neutrophils # 4.2 Lymphocytes # 1.0 Monocytes # 0.9 Eosinophils # 0.2 Basophils # 0.0 Nucleated Red Blood Cells # 0.0 Medications Medications Current Medications Acetaminophen (Tylenol Tab) 650 mg Q4H PRN PO PAIN AND OR ELEVATED TEMP; Start 11/09/16 at 05:30 Morphine Sulfate (morphine) 2 mg Q3H PRN IV PAIN; Start 11/09/16 at 05:30 Atorvastatin Calcium (Lipitor) 40 mg DAILY PO Last administered on 11/11/16 09 :51; Admin Dose 40 MG; Start 11/10/16 at 09:00 Carvedilol (Coreg) 6.25 mg BID PO Last administered on 11/12/16 16:25; Admin Dose 6.25 MG; Start 11/09/16 at 21:00 Docusate Sodium (Colace) 100 mg DAILY PO Last administered on 11/11/16 09:51; Admin Dose 100 MG; Start 11/10/16 at 09:00 Famotidine (Pepcid) 20 mg DAILY PO Last administered on 11/11/16 09:51; Admin Dose 20 MG; Start 11/10/16 at 09:00 Furosemide (Lasix) 20 mg DAILY PO Last administered on 11/11/16 09:52; Admin Dose 20 MG; Start 11/10/16 at 09:00 Potassium Chloride (Potassium Chloride Pwd/Soln) 20 meq DAILY PO Last administered on 11/11/16 09:51; Admin Dose 20 MEQ; Start 11/10/16 at 09:00 Zolpidem Tartrate (Ambien) 5 mg QHS PRN PO INSOMNIA Last administered on 21:16; Admin Dose 5 MG; Start 11/09/16 at 13:30 Acetaminophen/ Hydrocodone Bitart ([place] (5/325)) 1 tab Q4H PRN PO PAIN LEVEL 4 -7; Start 11/09/16 at 13:30 Bisacodyl (Dulcolax Supp) 10 mg DAILY PRN [place] CONSTIPATION Last administered on 11/11/16 17:04; Admin Dose 10 MG; Start 11/09/16 at 20:00 Lisinopril 5 mg 5 mg DAILY PO Last administered on 11/12/16 16:25; Admin Dose 5 MG; Start 11/12/16 at 09:00 Dextrose/Sodium Chloride (D5-1/2ns) 1,000 ml @ 60 mls/hr [id number] IV Last administered on 11/12/16 00:13; Admin Dose 60 MLS/HR; Start 11/12/16 at 00:00 DEBBIE QUINTANA November 12, 2016 18:38
--- NOTE | 2016-11-12 19:20 | PN ---
Date/Time of Note Date/Time of Note DATE: 11/12/16 TIME: 19:06 Assessment/Plan VTE Prophylaxis VTE Prophylaxis Intervention: SCD's Lines/Catheters IV [facility] Type [facility]from [facility]): Peripheral IV Urinary Cath still in place: No Assessment/Plan Assessment/Plan -Hyperplastic or Prolapsed urethral meatus noted.Will consult Dr Rosen - Dr Rosen notified - Vaginal bleeding with ultrasound suspicious for endometrial carcinoma. Continue to monitor hemoglobin and hematocrit. - sp D & C today- During procedure, Hyperplastic or Prolapsed urethral meatus noted.. Will consult Dr Rosen - per Dr. Bah in surgery . 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 Stress test is negative for ischemia with scar. - Atrial fibrillation, continue aspirin. Patient is not a candidate for anticoagulation due to bleeding. - History of [place]. - Hypertension, continue Coreg and lisinopril. - Hyperlipidemia. Continue statin. - Coronary artery disease with history of stent placement in 2011. Continue aspirin. - Coagulopathy- improving - PTT 14.7, INR is 1.15 today Continue sequential compression device for deep venous thrombosis prophylaxis and Pepcid for peptic ulcer disease prophylaxis. Further recommendations based on clinical course. Plan of care discussed with Dr. An. Subjective 24 Hr Interval Summary Free Text/Dictation alert, awake, denies any abdominal pain, vaginal bleeding, , afebrile, family at bed side- all Qs answered. During doing her D and C, hyperplastic or prolapsed urethral meatus wa found by Dr Bah and he recommended urologist consultation.we will notify Dr Rosen. staff Respiratory: no complaints Cardiovascular: no complaints Gastrointestinal: no complaints Genitourinary: other (sp D&C today.vaginal bledding - none now.) Musculoskeletal: no complaints Skin: no complaints Neurologic: no complaints Exam/Review of Systems Vital Signs Vitals Vital Signs Date Time Temp Pulse Resp B/P Pulse Ox O2 Delivery O2 Flow Rate FiO2 11/12/16 18:36 127/69 11/12/16 16:25 18 Room Air 11/12/16 10:21 98.0 97 11/12/16 09:23 88 Intake and Output 11/11/16 11/11/16 11/12/16 15:00 23:00 07:00 Intake Total 120 ml 550 ml 460 ml Balance 120 ml 550 ml 460 ml Exam Constitutional: alert, well developed Psych: no complaints Eyes: EOMI, nl sclera Neck: non-tender, supple Respiratory: diminished breath sounds, normal air movement Cardiovascular: nl pulses, regular rate and rhythm Gastrointestinal: non-tender, soft Musculoskeletal: nl extremities to inspection Extremities: normal pulses Neurological: nl mental status, nl speech Skin: other Lymph: nontender Results Result Diagram: 11/12/16 1740 11/12/16 1645 Results 24 hrs Laboratory Tests Test 11/12/16 04:20 11/12/16 04:30 11/12/16 09:42 11/12/16 16:45 Sodium Level 137 138 138 Potassium Level 4.1 4.0 4.2 Chloride Level 101 102 102 Carbon Dioxide Level 25 27 26 Anion Gap 15 # 13 14 Blood Urea Nitrogen 10 8 7 Creatinine 0.72 0.65 0.66 Glucose Level 113 107 104 Calcium Level 8.9 8.6 8.7 White Blood Count 6.0 Red Blood Count 3.69 L Hemoglobin 12.1 Hematocrit 35.7 L Mean Corpuscular Volume 96.7 Mean Corpuscular Hemoglobin 32.8 Mean Corpuscular Hemoglobin Concent 33.9 Red Cell Distribution Width 12.6 Platelet Count 349 Mean Platelet Volume 9.9 Neutrophils % 57.8 Lymphocytes % 21.6 Monocytes % 15.6 H Eosinophils % 4.2 Basophils % 0.5 Nucleated Red Blood Cells % 0.0 Neutrophils # 3.5 Lymphocytes # 1.3 Monocytes # 0.9 Eosinophils # 0.3 Basophils # 0.0 Nucleated Red Blood Cells # 0.0 Prothrombin Time 14.6 H 14.7 H Prothrombin Time Ratio 1.1 1.1 INR International Normalized Ratio 1.14 1.15 Activated Partial Thromboplast Time 36.4 H Thrombin Time 15.3 Test 11/12/16 17:40 White Blood Count 6.4 Red Blood Count 3.53 L Hemoglobin 11.5 L Hematocrit 34.9 L Mean Corpuscular Volume 98.9 Mean Corpuscular Hemoglobin 32.6 Mean Corpuscular Hemoglobin Concent 33.0 Red Cell Distribution Width 12.7 Platelet Count 300 Mean Platelet Volume 9.4 Neutrophils % 65.4 Lymphocytes % 16.2 Monocytes % 14.7 H Eosinophils % 3.1 Basophils % 0.3 Nucleated Red Blood Cells % 0.0 Neutrophils # 4.2 Lymphocytes # 1.0 Monocytes # 0.9 Eosinophils # 0.2 Basophils # 0.0 Nucleated Red Blood Cells # 0.0 Medications Medications Current Medications Acetaminophen (Tylenol Tab) 650 mg Q4H PRN PO PAIN AND OR ELEVATED TEMP; Start 11/09/16 at 05:30 Morphine Sulfate (morphine) 2 mg Q3H PRN IV PAIN; Start 11/09/16 at 05:30 Atorvastatin Calcium (Lipitor) 40 mg DAILY PO Last administered on 11/11/16 09 :51; Admin Dose 40 MG; Start 11/10/16 at 09:00 Carvedilol (Coreg) 6.25 mg BID PO Last administered on 11/12/16 16:25; Admin Dose 6.25 MG; Start 11/09/16 at 21:00 Docusate Sodium (Colace) 100 mg DAILY PO Last administered on 11/11/16 09:51; Admin Dose 100 MG; Start 11/10/16 at 09:00 Famotidine (Pepcid) 20 mg DAILY PO Last administered on 11/11/16 09:51; Admin Dose 20 MG; Start 11/10/16 at 09:00 Furosemide (Lasix) 20 mg DAILY PO Last administered on 11/11/16 09:52; Admin Dose 20 MG; Start 11/10/16 at 09:00 Potassium Chloride (Potassium Chloride Pwd/Soln) 20 meq DAILY PO Last administered on 11/11/16 09:51; Admin Dose 20 MEQ; Start 11/10/16 at 09:00 Zolpidem Tartrate (Ambien) 5 mg QHS PRN PO INSOMNIA Last administered on 21:16; Admin Dose 5 MG; Start 11/09/16 at 13:30 Acetaminophen/ Hydrocodone Bitart ([place] (5/325)) 1 tab Q4H PRN PO PAIN LEVEL 4 -7; Start 11/09/16 at 13:30 Bisacodyl (Dulcolax Supp) 10 mg DAILY PRN [place] CONSTIPATION Last administered on 11/11/16 17:04; Admin Dose 10 MG; Start 11/09/16 at 20:00 Lisinopril 5 mg 5 mg DAILY PO Last administered on 11/12/16 16:25; Admin Dose 5 MG; Start 11/12/16 at 09:00 Dextrose/Sodium Chloride (D5-1/2ns) 1,000 ml @ 60 mls/hr [id number] IV Last administered on 11/12/16 00:13; Admin Dose 60 MLS/HR; Start 11/12/16 at 00:00 DEIRDRE MORSE November 12, 2016 19:18
--- NOTE | 2016-11-12 19:32 | OPR ---
Date/Time of Note Date/Time of Note DATE: 11/12/16 TIME: 19:32 Operative Report Free Text/Dictation OPERATIVE REPORT [facility] Name: Amanda Brown Medical Date: 11/12/16 Preoperative Diagnosis: Post menopausal bleeding and endometrial stripe 7 mm Postoperative Diagnosis: 1- Same with pathology pending 2- Circumferential urethral mass- pathology pending Procedures: 1- EUA with periurethral biopsy 2- Dilatation and curettage Surgeon: Dr. Bah Analyst Microbiology Lab: [facility] Anaesthesia: General Findings and Procedure: After being prepped and draped an EUA was performed with the following findings : the cervix was not palpated and a tiny dot was noted at the apex of the vagina consistent with the opening. Most notably, the urethral meatus was surrounded by a circumferential exophytic firm but friable nodular lesion that would bleed on contact. Biopsies were taken and on frozen section hyperplasia was noted. Subsequently, narrow deavors were placed and the aforementioned cervix was dilated appropriately. At this time the cavity was curetted without incident, although minimal tissue was obtaine. A frozen section was was not performed. Tissue was sent for permanent section. The patient tolerated the procedure well. Steffanie Bah M.D. STEFFANIE BAH MD November 12, 2016 19:32
[2016-11-13 05:54] LABS: ADD SCAN DIFF NO
[2016-11-13 05:58] LABS: BASOPHILS % 0.5 % (0.0-2.0); EOSINOPHILS # 0.3 10^3/ul (0.0-0.5); EOSINOPHILS % 4.5 % (0.0-7.0); HEMATOCRIT 32.6 % (37.0-47.0); LYMPHOCYTES # 1.1 10^3/ul (0.8-2.9); LYMPHOCYTES % 18.1 % (15.0-51.0); MEAN CORPUSCULAR HEMOGLOBIN 33.2 pg (29.0-33.0); MEAN CORPUSCULAR HGB CONC 33.7 g/dl (32.0-37.0); MEAN CORPUSCULAR VOLUME 98.5 fl (82.0-101.0); MEAN PLATELET VOLUME 9.8 fl (7.4-10.4); MONOCYTE # 0.7 10^3/ul (0.3-0.9); MONOCYTES % 12.7 % (0.0-11.0); NEUTROPHIL # 3.7 10^3/ul (1.6-7.5); PLATELET COUNT 281 10^3/UL (140-415); RED BLOOD COUNT 3.31 10^6/ul (4.20-5.40); RED CELL DISTRIBUTION WIDTH 12.7 % (11.5-14.5); WHITE BLOOD COUNT 5.8 10^3/ul (4.8-10.8)
[2016-11-13 06:59] LABS: POTASSIUM 4.5 mmol/L (3.5-5.1)
[2016-11-13 07:01] LABS: CREATININE 0.66 mg/dl (0.44-1.00)
[2016-11-13 07:30] VITALS: BP 160/56; RESP 20
[2016-11-13] MEDS: POTASSIUM CHLORIDE 20 MEQ POWDER FOR ORAL SOLN PO SCH (08:55)
[2016-11-13] MEDS: ATORVASTATIN 40 MG TAB PO SCH (08:55)
[2016-11-13] MEDS: FUROSEMIDE 20 MG TAB PO SCH (08:55)
[2016-11-13] MEDS: FAMOTIDINE 20 MG TAB PO SCH (08:55)
[2016-11-13] MEDS: LISINOPRIL 5 MG TAB PO SCH (08:55)
[2016-11-13] MEDS: DOCUSATE SODIUM 100 MG CAP PO SCH (08:55)
--- NOTE | 2016-11-13 09:04 | CONS ---
DATE OF ADMISSION: 11/11/2016 DATE OF CONSULTATION: 11/13/2016 REQUESTING PHYSICIAN: Emily An MD Dear Dr. An: Thank you for asking me to see this patient in urological consultation. HISTORY OF PRESENT ILLNESS: This is an 86-year-old [place] female who has been having vaginal bleed for about 2 weeks. She presented to the emergency room and was evaluated and admitted. She did hav e a pelvic ultrasound which showed some thickening in the endometrium and therefore the patient unde rwent an endometrial biopsy yesterday by Dr. Bah. Also it was noted that she has urethral meata l mass that was biopsied and had a frozen section which showed hyperplasia. The [facility]rological [facility]at [facility] was therefore requested. The patient herself speaks [place]cu[place], however, her daughter, Sanaz, was at her bedside and the daughter stated that the patient is usually constipated and she has to strain to have a bowel movement and that makes her bleeding even worse. PAST MEDICAL HISTORY: The patient does have a history of atrial fibrillation, hypertension, hyperli pidemia, left hip fracture status post left hemiarthroplasty and the patient has also coronary arter y disease, has had stent placement and the patient has been on Plavix and aspirin, but these were st opped after admission. SOCIAL HISTORY: Patient does not smoke, does not drink any alcohol, and there is no history of drug abuse. ALLERGIES: SHE HAS NO KNOWN DRUG ALLERGIES. MEDICATIONS: That she presently is on include: 1. Lisinopril. 2. Atorvastatin. 3. Colace. 4. Pepcid. 5. Lasix. 6. Potassium chloride. 7. Coreg. 8. Dulcolax. 9. Ambien. 10. [place]. 11. Tylenol. 12. Morphine sulfate. PHYSICAL EXAMINATION: GENERAL: Reveals an elderly female. VITAL SIGNS: Temperature is 97.8, pulse is 95, respiration 20, blood pressure 160/56. ABDOMEN: Soft. There is no abdominal mass palpable. PELVIC: Revealed a urethral meatal mass protruding out of the meatus and has some necrosis and may be because of the electrocoagulation from the biopsy yesterday. The pelvic exam otherwise did not sh ow any additional mass, but she did have also the endometrial biopsy yesterday. EXTREMITIES: Normal. LABORATORY DATA: Her CBC shows a white count of 5.8, hemoglobin is 11.0, hematocrit 32.6. BUN is 7 , creatinine 0.66. Electrolytes are normal. The PT is 14.7, INR 1.15. The urine culture is no attila wth after 48 hours. 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 PLAN: To excise this and do a cystoscopy and see if there is any mass in the bladder and if there i s any mass we shall biopsy and electrocoagulate it/fulgurate it. I have explained this to the daught er and to the patient and the daughter did translate to her and they understood and they are agreeab le to proceed. Dictated By: MILANA BOSE MD BB/VIDA Conf#: [id number] DID#: [id number] CC: EMILY AN MD;*EndCC*
[2016-11-13 10:00] VITALS: BP 125/75
--- NOTE | 2016-11-13 11:30 | RADRPT ---
Vent Rate: 80 bpm RR Interval: 0 msec ND Interval: 0 msec QRS Duration: 92 msec QT Interval: 380 msec QTC Interval: 438 msec P-R-T [place]: 0 - 0 - 82 degrees Atrial fibrillation Abnormal ECG Electronically Signed By: Hugh Orourke [id number]
--- NOTE | 2016-11-13 15:10 | CONS ---
Date/Time of Note Date/Time of Note DATE: 11/13/16 TIME: 15:08 Assessment/Plan Assessment/Plan Chief Complaint/Hosp Course IMPRESSION: 1. Cardiomyopathy with decreased left ventricular ejection fraction last seen approximately 30% by echo at outside hospital 08/2016. EF 35% by echo this admit with lexiscan negative for ischemia with scar and EF 40%. 2. Hypertension. 3. History of myocardial infarction. 4. History of percutaneous transluminal coronary angioplasty and stent placement last 2011. 5. Coagulopathy, INR of 2.0 at this time. 6. Anemia. 7. Vaginal bleed now post-op s/p D+C with Bx POD#0 8. Possible endometrial mass, abnormal thickening. Rec: -Check post-op ECG and follow closely for s/sx of cv complications -Continue BB/ACEI -Continue lasix and follow volume status closely -check cxr to assess for ongoing CHF and need for increased diuresis -ASA d/c'd given vaginal bleeding Problems: Consultation Date/Type/Reason Admit Date/Time November 11, 2016 at 10:47 Initial Consult Date 11/09/2016 Type of Consultation: Cardiology Reason for Consultation cardiomyopathy Referring Provider: EMILY SHAH MD Exam/Review of Systems Vital Signs Vitals Vital Signs Date Time Temp Pulse Resp B/P Pulse Ox O2 Delivery O2 Flow Rate FiO2 11/13/16 10:00 125/75 11/13/16 07:30 97.8 95 20 98 11/12/16 16:25 Room Air Intake and Output 11/12/16 11/12/16 11/13/16 15:00 23:00 07:00 Intake Total 800 ml 460 ml 350 ml Output Total 655 ml 4 ml Balance 145 ml 456 ml 350 ml Exam Review of Systems: CONSTITUTIONAL: No fevers, chills. PULMONARY: No sob CARDIOVASCULAR: No chest pain/palpitations GASTROINTESTINAL: No nausea/vomiting. GENITOURINARY: No hematuria/dysuria. MUSCULOSKELETAL: No myagias/arthalgias. PSYCHIATRIC: The patient denies depression. NEUROLOGIC: somewhat lethargic Constitutional: alert Psych: no complaints Head: normocephalic ENMT: mucosa pink and moist Neck: jvd (9 cm water), supple Respiratory: diminished breath sounds (at bases/B) Cardiovascular: regular rate and rhythm Gastrointestinal: non-tender, soft Musculoskeletal: muscle tone (normal), muscle weakness (mild generalized) Extremities: edema (none) Neurological: lethargic Results Result Diagram: 11/13/16 0530 11/13/16 0530 Results 24 hrs Laboratory Tests Test 11/12/16 16:45 11/12/16 17:40 11/13/16 05:30 Prothrombin Time 14.7 H Prothrombin Time Ratio 1.1 INR International Normalized Ratio 1.15 Sodium Level 138 138 Potassium Level 4.2 4.5 Chloride Level 102 105 Carbon Dioxide Level 26 22 Anion Gap 14 16 Blood Urea Nitrogen 7 7 Creatinine 0.66 0.66 Glucose Level 104 95 Calcium Level 8.7 9.0 B-Type Natriuretic Peptide 3910 H White Blood Count 6.4 5.8 Red Blood Count 3.53 L 3.31 L Hemoglobin 11.5 L 11.0 L Hematocrit 34.9 L 32.6 L Mean Corpuscular Volume 98.9 98.5 Mean Corpuscular Hemoglobin 32.6 33.2 H Mean Corpuscular Hemoglobin Concent 33.0 33.7 Red Cell Distribution Width 12.7 12.7 Platelet Count 300 281 Mean Platelet Volume 9.4 9.8 Neutrophils % 65.4 64.0 Lymphocytes % 16.2 18.1 Monocytes % 14.7 H 12.7 H Eosinophils % 3.1 4.5 Basophils % 0.3 0.5 Nucleated Red Blood Cells % 0.0 0.0 Neutrophils # 4.2 3.7 Lymphocytes # 1.0 1.1 Monocytes # 0.9 0.7 Eosinophils # 0.2 0.3 Basophils # 0.0 0.0 Nucleated Red Blood Cells # 0.0 0.0 Medications Medications Current Medications Acetaminophen (Tylenol Tab) 650 mg Q4H PRN PO PAIN AND OR ELEVATED TEMP; Start 11/09/16 at 05:30 Morphine Sulfate (morphine) 2 mg Q3H PRN IV PAIN; Start 11/09/16 at 05:30 Atorvastatin Calcium (Lipitor) 40 mg DAILY PO Last administered on 11/13/16 08 :55; Admin Dose 40 MG; Start 11/10/16 at 09:00 Carvedilol (Coreg) 6.25 mg BID PO Last administered on 11/13/16 08:56; Admin Dose 6.25 MG; Start 11/09/16 at 21:00 Docusate Sodium (Colace) 100 mg DAILY PO Last administered on 11/13/16 08:55; Admin Dose 100 MG; Start 11/10/16 at 09:00 Famotidine (Pepcid) 20 mg DAILY PO Last administered on 11/13/16 08:55; Admin Dose 20 MG; Start 11/10/16 at 09:00 Furosemide (Lasix) 20 mg DAILY PO Last administered on 11/13/16 08:55; Admin Dose 20 MG; Start 11/10/16 at 09:00 Potassium Chloride (Potassium Chloride Pwd/Soln) 20 meq DAILY PO Last administered on 11/13/16 08:55; Admin Dose 20 MEQ; Start 11/10/16 at 09:00 Zolpidem Tartrate (Ambien) 5 mg QHS PRN PO INSOMNIA Last administered on 21:16; Admin Dose 5 MG; Start 11/09/16 at 13:30 Acetaminophen/ Hydrocodone Bitart ([place] (5/325)) 1 tab Q4H PRN PO PAIN LEVEL 4 -7; Start 11/09/16 at 13:30 Bisacodyl (Dulcolax Supp) 10 mg DAILY PRN [place] CONSTIPATION Last administered on 11/11/16 17:04; Admin Dose 10 MG; Start 11/09/16 at 20:00 Lisinopril (Zestril) 5 mg DAILY PO Last administered on 11/13/16 08:55; Admin Dose 5 MG; Start 11/12/16 at 09:00 DEBBIE QUINTANA November 13, 2016 15:10
--- NOTE | 2016-11-13 16:44 | PN ---
Date/Time of Note Date/Time of Note DATE: 11/13/16 TIME: 16:40 Assessment/Plan VTE Prophylaxis VTE Prophylaxis Intervention: SCD's Lines/Catheters IV C[facility]ter Type (from [facility] Saline [facility] Urinary Cath still in place: No Assessment/Plan Chief Complaint/Hosp Course Hemoglobin is stable however patient's daughter stated that patient is as generalized weakness, here to monitor hemoglobin and hematocrit, start physical therapy. Anticipate discharge back to [facility] over the weekend if patient is stable. 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 Dr. Rosen evaluated patient in urology consultation. Patient daughter refused cystoscopy. - Vaginal bleeding with ultrasound suspicious for endometrial carcinoma. Continue to monitor hemoglobin and hematocrit. Dr. Bah is following in surgical consultation. 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 Stress test is negative for ischemia with scar. - Atrial fibrillation, continue aspirin. Patient is not a candidate for anticoagulation due to bleeding. - History of [place]. - Hypertension, continue Coreg and lisinopril. - Hyperlipidemia. Continue statin. - Coronary artery disease with history of stent placement in 2011. Continue aspirin. Continue sequential compression device for deep venous thrombosis prophylaxis and Pepcid for peptic ulcer disease prophylaxis. Patient's condition and plan of care was discussed in details with daughter Jael at the bedside, all questions answered. Further recommendations based on clinical course. Plan of care discussed with Dr. An. Problems: Exam/Review of Systems Vital Signs Vitals Vital Signs Date Time Temp Pulse Resp B/P Pulse Ox O2 Delivery O2 Flow Rate FiO2 11/13/16 10:00 125/75 11/13/16 07:30 97.8 95 20 98 11/12/16 16:25 Room Air Intake and Output 11/12/16 11/12/16 11/13/16 15:00 23:00 07:00 Intake Total 800 ml 460 ml 350 ml Output Total 655 ml 4 ml Balance 145 ml 456 ml 350 ml Exam Constitutional: alert Head: normocephalic Neck: supple Respiratory: clear to auscultation Cardiovascular: regular rate and rhythm Gastrointestinal: non-tender, soft Extremities: normal pulses Results Result Diagram: 11/13/16 0530 11/13/16 0530 Results 24 hrs Laboratory Tests Test 11/12/16 16:45 11/12/16 17:40 11/13/16 05:30 Prothrombin Time 14.7 H Prothrombin Time Ratio 1.1 INR International Normalized Ratio 1.15 Sodium Level 138 138 Potassium Level 4.2 4.5 Chloride Level 102 105 Carbon Dioxide Level 26 22 Anion Gap 14 16 Blood Urea Nitrogen 7 7 Creatinine 0.66 0.66 Glucose Level 104 95 Calcium Level 8.7 9.0 B-Type Natriuretic Peptide 3910 H White Blood Count 6.4 5.8 Red Blood Count 3.53 L 3.31 L Hemoglobin 11.5 L 11.0 L Hematocrit 34.9 L 32.6 L Mean Corpuscular Volume 98.9 98.5 Mean Corpuscular Hemoglobin 32.6 33.2 H Mean Corpuscular Hemoglobin Concent 33.0 33.7 Red Cell Distribution Width 12.7 12.7 Platelet Count 300 281 Mean Platelet Volume 9.4 9.8 Neutrophils % 65.4 64.0 Lymphocytes % 16.2 18.1 Monocytes % 14.7 H 12.7 H Eosinophils % 3.1 4.5 Basophils % 0.3 0.5 Nucleated Red Blood Cells % 0.0 0.0 Neutrophils # 4.2 3.7 Lymphocytes # 1.0 1.1 Monocytes # 0.9 0.7 Eosinophils # 0.2 0.3 Basophils # 0.0 0.0 Nucleated Red Blood Cells # 0.0 0.0 Medications Medications Current Medications Acetaminophen (Tylenol Tab) 650 mg Q4H PRN PO PAIN AND OR ELEVATED TEMP; Start 11/09/16 at 05:30 Morphine Sulfate (morphine) 2 mg Q3H PRN IV PAIN; Start 11/09/16 at 05:30 Atorvastatin Calcium (Lipitor) 40 mg DAILY PO Last administered on 11/13/16 08 :55; Admin Dose 40 MG; Start 11/10/16 at 09:00 Carvedilol (Coreg) 6.25 mg BID PO Last administered on 11/13/16 08:56; Admin Dose 6.25 MG; Start 11/09/16 at 21:00 Docusate Sodium (Colace) 100 mg DAILY PO Last administered on 11/13/16 08:55; Admin Dose 100 MG; Start 11/10/16 at 09:00 Famotidine (Pepcid) 20 mg DAILY PO Last administered on 11/13/16 08:55; Admin Dose 20 MG; Start 11/10/16 at 09:00 Furosemide (Lasix) 20 mg DAILY PO Last administered on 11/13/16 08:55; Admin Dose 20 MG; Start 11/10/16 at 09:00 Potassium Chloride (Potassium Chloride Pwd/Soln) 20 meq DAILY PO Last administered on 11/13/16 08:55; Admin Dose 20 MEQ; Start 11/10/16 at 09:00 Zolpidem Tartrate (Ambien) 5 mg QHS PRN PO INSOMNIA Last administered on 21:16; Admin Dose 5 MG; Start 11/09/16 at 13:30 Acetaminophen/ Hydrocodone Bitart ([place] (5/325)) 1 tab Q4H PRN PO PAIN LEVEL 4 -7; Start 11/09/16 at 13:30 Bisacodyl (Dulcolax Supp) 10 mg DAILY PRN [place] CONSTIPATION Last administered on 11/11/16 17:04; Admin Dose 10 MG; Start 11/09/16 at 20:00 Lisinopril (Zestril) 5 mg DAILY PO Last administered on 11/13/16 08:55; Admin Dose 5 MG; Start 11/12/16 at 09:00 NILES LOPEZ November 13, 2016 16:44
[2016-11-13 22:35] VITALS: BP 129/70; RESP 18
[2016-11-13 23:50] VITALS: BP 129/70; RESP 18
--- NOTE | 2016-11-14 00:25 | PN ---
Date/Time of Note Date/Time of Note DATE: 11/14/16 TIME: 00:21 Assessment/Plan VTE Prophylaxis VTE Prophylaxis Intervention: SCD's Lines/Catheters IV Catheter Type (from Nrs): Saline Lock Urinary Cath still in place: No Assessment/Plan Chief Complaint/Hosp Course Post menopausal bleeding with thickened endometrium, medical issues Problems: Assessment/Plan A- stable and improved; path pending P- Will discuss with Dr. Goss; Note thart minimal electrocautery was done. Urethral meatus was quite friable, vascular and hemorrhagic; all of which necessitated cautery Subjective 24 Hr Interval Summary Free Text/Dictation Feels less pain and less bleeding. Exam/Review of Systems Vital Signs Vitals Vital Signs Date Time Temp Pulse Resp B/P Pulse Ox O2 Delivery O2 Flow Rate FiO2 11/13/16 22:35 97.7 57 18 129/70 100 11/12/16 16:25 Room Air Intake and Output 11/13/16 11/13/16 11/14/16 15:00 23:00 07:00 Intake Total 450 ml Balance 450 ml Exam Resp- clear CVS- NSR Abd- NT Ext- Nt Results Result Diagram: 11/13/16 0530 11/13/16 0530 Results 24 hrs Laboratory Tests Test 11/13/16 05:30 White Blood Count 5.8 Red Blood Count 3.31 L Hemoglobin 11.0 L Hematocrit 32.6 L Mean Corpuscular Volume 98.5 Mean Corpuscular Hemoglobin 33.2 H Mean Corpuscular Hemoglobin Concent 33.7 Red Cell Distribution Width 12.7 Platelet Count 281 Mean Platelet Volume 9.8 Neutrophils % 64.0 Lymphocytes % 18.1 Monocytes % 12.7 H Eosinophils % 4.5 Basophils % 0.5 Nucleated Red Blood Cells % 0.0 Neutrophils # 3.7 Lymphocytes # 1.1 Monocytes # 0.7 Eosinophils # 0.3 Basophils # 0.0 Nucleated Red Blood Cells # 0.0 Sodium Level 138 Potassium Level 4.5 Chloride Level 105 Carbon Dioxide Level 22 Anion Gap 16 Blood Urea Nitrogen 7 Creatinine 0.66 Glucose Level 95 Calcium Level 9.0 Medications Medications Current Medications Acetaminophen (Tylenol Tab) 650 mg Q4H PRN PO PAIN AND OR ELEVATED TEMP; Start 11/09/16 at 05:30 Morphine Sulfate (morphine) 2 mg Q3H PRN IV PAIN; Start 11/09/16 at 05:30 Atorvastatin Calcium (Lipitor) 40 mg DAILY PO Last administered on 11/13/16 08 :55; Admin Dose 40 MG; Start 11/10/16 at 09:00 Carvedilol (Coreg) 6.25 mg BID PO Last administered on 11/13/16 21:49; Admin Dose 6.25 MG; Start 11/09/16 at 21:00 Docusate Sodium (Colace) 100 mg DAILY PO Last administered on 11/13/16 08:55; Admin Dose 100 MG; Start 11/10/16 at 09:00 Famotidine (Pepcid) 20 mg DAILY PO Last administered on 11/13/16 08:55; Admin Dose 20 MG; Start 11/10/16 at 09:00 Furosemide (Lasix) 20 mg DAILY PO Last administered on 11/13/16 08:55; Admin Dose 20 MG; Start 11/10/16 at 09:00 Potassium Chloride (Potassium Chloride Pwd/Soln) 20 meq DAILY PO Last administered on 11/13/16 08:55; Admin Dose 20 MEQ; Start 11/10/16 at 09:00 Zolpidem Tartrate (Ambien) 5 mg QHS PRN PO INSOMNIA Last administered on 21:16; Admin Dose 5 MG; Start 11/09/16 at 13:30 Acetaminophen/ Hydrocodone Bitart ([place] (5/325)) 1 tab Q4H PRN PO PAIN LEVEL 4 -7; Start 11/09/16 at 13:30 Bisacodyl (Dulcolax Supp) 10 mg DAILY PRN [place] CONSTIPATION Last administered on 11/11/16 17:04; Admin Dose 10 MG; Start 11/09/16 at 20:00 Lisinopril (Zestril) 5 mg DAILY PO Last administered on 11/13/16 08:55; Admin Dose 5 MG; Start 11/12/16 at 09:00 STEFFANIE KATE MD November 14, 2016 00:25
[2016-11-14 06:02] LABS: ADD SCAN DIFF NO
[2016-11-14 06:14] LABS: BASOPHILS % 0.3 % (0.0-2.0); EOSINOPHILS # 0.3 10^3/ul (0.0-0.5); EOSINOPHILS % 3.9 % (0.0-7.0); HEMATOCRIT 33.4 % (37.0-47.0); LYMPHOCYTES # 0.9 10^3/ul (0.8-2.9); LYMPHOCYTES % 14.1 % (15.0-51.0); MEAN CORPUSCULAR HEMOGLOBIN 32.6 pg (29.0-33.0); MEAN CORPUSCULAR HGB CONC 32.9 g/dl (32.0-37.0); MEAN CORPUSCULAR VOLUME 99.1 fl (82.0-101.0); MEAN PLATELET VOLUME 9.9 fl (7.4-10.4); MONOCYTES % 15.4 % (0.0-11.0); NEUTROPHIL # 4.4 10^3/ul (1.6-7.5); NEUTROPHILS % 66.2 % (39.0-77.0); PLATELET COUNT 299 10^3/UL (140-415); RED BLOOD COUNT 3.37 10^6/ul (4.20-5.40); RED CELL DISTRIBUTION WIDTH 12.3 % (11.5-14.5); WHITE BLOOD COUNT 6.7 10^3/ul (4.8-10.8)
[2016-11-14 06:35] LABS: POTASSIUM 4.2 mmol/L (3.5-5.1)
[2016-11-14 06:37] LABS: CREATININE 0.63 mg/dl (0.44-1.00)
[2016-11-14 06:39] LABS: CALCIUM 8.5 mg/dl (8.4-10.2)
[2016-11-14 08:32] VITALS: BP 127/66; RESP 15
[2016-11-14] MEDS: POTASSIUM CHLORIDE 20 MEQ POWDER FOR ORAL SOLN PO SCH (09:01)
[2016-11-14] MEDS: DOCUSATE SODIUM 100 MG CAP PO SCH (09:01)
[2016-11-14] MEDS: ATORVASTATIN 40 MG TAB PO SCH (09:02)
[2016-11-14] MEDS: FAMOTIDINE 20 MG TAB PO SCH (09:02)
[2016-11-14] MEDS: LISINOPRIL 5 MG TAB PO SCH (09:02)
[2016-11-14] MEDS: FUROSEMIDE 20 MG TAB PO SCH (09:02)
--- NOTE | 2016-11-14 11:04 | RADRPT ---
PROCEDURE: XR Chest. CLINICAL INDICATION: CHF. TECHNIQUE: Single frontal view of the chest was obtained. COMPARISON: Chest x-ray 09/15/2011 07:43 a.m. FINDINGS: The soft tissues are normal. There is a dextroscoliosis of the lower thoracic spine. The heart is enlarged. The cardiomediastinal silhouette and hilar structures are normal. The pulmonary vasculatu re is equilibrated. There are vascular calcifications and ectasia of the left-sided thoracic aorta. There is compressive atelectasis in the bases of the lungs from a poor inspiration. The costophren ic angles are normal. IMPRESSION: 1. Cardiomegaly. 2. Atherosclerosis with ectasia of the thoracic aorta. 3. Equilibration the pulmonary vasculature. Mild pulmonary venous obstruction is not excluded. 4. Minimal apical pleural scarring. RPTAT:AAJJ Physician Noni Date Time Electronically viewed and signed by Primo Lauren Physician on 11/14/2016 11:03 VIDAL/
--- NOTE | 2016-11-14 11:08 | PN ---
DATE: 11/14/2016 SUBJECTIVE: Urethral meatal lesion mass from which she does bleed and according to her daughter radha breen, she just had a stain, a few drops of blood came out from that. OBJECTIVE: VITAL SIGNS: She is afebrile, temperature 97.6, pulse is 80, respirations 15, blood pressure 127/66 . LABORATORY DATA: Her CBC shows a white count of 6.7, hemoglobin 11.0, hematocrit 33.4, platelet cou nt is 299,000. BUN is 6, creatinine 0.63. The pathology report from the procedure that Dr. Bah did is still pending. I did see Dr. oJrge alonzo's note and the patient does have from the clinical examination, that she does have either a uret hral caruncle or urethral mucosal prolapse. In either case, that mass is big and eventually it will need to be excised and removed. Usually, it is a vascular mass and that it does bleed, but I was g oing to do that yesterday and the daughter was afraid because her mother is old and she already had one time anesthesia. So at the present, we will just watch and wait until we get the pathology repo rt. Then, if she has a problem and she is in the hospital, we shall go ahead and do the procedure i f she agrees. Dictated By: MILANA THOMAS/VIDA Conf#: [id number] DID#: [id number]
--- NOTE | 2016-11-14 14:01 | PN ---
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 Dr. Rosen evaluated patient in urology consultation. Patient daughter refused cystoscopy. - Vaginal bleeding with ultrasound suspicious for endometrial carcinoma. Continue to monitor hemoglobin and hematocrit. Dr. Bah is following in surgical consultation. 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 Stress test is negative for ischemia with scar. - Atrial fibrillation, continue aspirin. Patient is not a candidate for anticoagulation due to bleeding. - History of [place]. - Hypertension, continue Coreg and lisinopril. - Hyperlipidemia. Continue statin. - Coronary artery disease with history of stent placement in 2011. Continue aspirin. Problems: Subjective 24 Hr Interval Summary Free Text/Dictation Patient has no complaints Exam/Review of Systems Vital Signs Vitals Vital Signs Date Time Temp Pulse Resp B/P Pulse Ox O2 Delivery O2 Flow Rate FiO2 11/14/16 08:32 97.6 80 15 127/66 100 11/14/16 08:15 2.0 11/12/16 16:25 Room Air Intake and Output 11/13/16 11/13/16 11/14/16 15:00 23:00 07:00 Intake Total 450 ml 80 ml Balance 450 ml 80 ml Exam Constitutional: well developed Head: atraumatic, normocephalic Neck: supple Respiratory: clear to auscultation Cardiovascular: regular rate and rhythm Gastrointestinal: non-tender, soft Extremities: normal pulses Results Result Diagram: 11/14/16 0544 11/14/16 0544 Results 24 hrs Laboratory Tests Test 11/14/16 05:44 White Blood Count 6.7 Red Blood Count 3.37 L Hemoglobin 11.0 L Hematocrit 33.4 L Mean Corpuscular Volume 99.1 Mean Corpuscular Hemoglobin 32.6 Mean Corpuscular Hemoglobin Concent 32.9 Red Cell Distribution Width 12.3 Platelet Count 299 Mean Platelet Volume 9.9 Neutrophils % 66.2 Lymphocytes % 14.1 L Monocytes % 15.4 H Eosinophils % 3.9 Basophils % 0.3 Nucleated Red Blood Cells % 0.0 Neutrophils # 4.4 Lymphocytes # 0.9 Monocytes # 1.0 H Eosinophils # 0.3 Basophils # 0.0 Nucleated Red Blood Cells # 0.0 Sodium Level 134 L Potassium Level 4.2 Chloride Level 100 Carbon Dioxide Level 25 Anion Gap 13 Blood Urea Nitrogen 6 L Creatinine 0.63 Glucose Level 104 Calcium Level 8.5 Medications Medications Current Medications Acetaminophen (Tylenol Tab) 650 mg Q4H PRN PO PAIN AND OR ELEVATED TEMP; Start 11/09/16 at 05:30 Morphine Sulfate (morphine) 2 mg Q3H PRN IV PAIN; Start 11/09/16 at 05:30 Atorvastatin Calcium (Lipitor) 40 mg DAILY PO Last administered on 11/14/16 09 :02; Admin Dose 40 MG; Start 11/10/16 at 09:00 Carvedilol (Coreg) 6.25 mg BID PO Last administered on 11/14/16 09:02; Admin Dose 6.25 MG; Start 11/09/16 at 21:00 Docusate Sodium (Colace) 100 mg DAILY PO Last administered on 11/14/16 09:01; Admin Dose 100 MG; Start 11/10/16 at 09:00 Famotidine (Pepcid) 20 mg DAILY PO Last administered on 11/14/16 09:02; Admin Dose 20 MG; Start 11/10/16 at 09:00 Furosemide (Lasix) 20 mg DAILY PO Last administered on 11/14/16 09:02; Admin Dose 20 MG; Start 11/10/16 at 09:00 Potassium Chloride (Potassium Chloride Pwd/Soln) 20 meq DAILY PO Last administered on 11/14/16 09:01; Admin Dose 20 MEQ; Start 11/10/16 at 09:00 Zolpidem Tartrate (Ambien) 5 mg QHS PRN PO INSOMNIA Last administered on 21:16; Admin Dose 5 MG; Start 11/09/16 at 13:30 Acetaminophen/ Hydrocodone Bitart ([place] (5/325)) 1 tab Q4H PRN PO PAIN LEVEL 4 -7; Start 11/09/16 at 13:30 Bisacodyl (Dulcolax Supp) 10 mg DAILY PRN [place] CONSTIPATION Last administered on 11/11/16 17:04; Admin Dose 10 MG; Start 11/09/16 at 20:00 Lisinopril (Zestril) 5 mg DAILY PO Last administered on 11/14/16t 09:02; Admin Dose 5 MG; Start 11/12/16 at 09:00 LILLI RUIZ November 14, 2016 14:01
--- NOTE | 2016-11-14 14:55 | CONS ---
Date/Time of Note Date/Time of Note DATE: 11/14/16 TIME: 14:49 Assessment/Plan Assessment/Plan Additional Assessment/Plan CAD s/ p OR, s/p PTCA and stenting Ischemic cardiomyopathy with EF 30-35% Acute exacerbation of CHF Hypertension Anemia Vaginal bleeding s/p excision of urethral meatal mass and fulguration. Hemodynamically stable Continue Coreg Continue Lisinopril Continue Lipitor Continue Lasix Continue GI and DVT Prophylaxis Consultation Date/Type/Reason Admit Date/Time November 11, 2016 at 10:47 Psychological: no complaints Social History Smoking Status: Never smoker Exam/Review of Systems Vital Signs Vitals Vital Signs Date Time Temp Pulse Resp B/P Pulse Ox O2 Delivery O2 Flow Rate FiO2 11/14/16 08:32 97.6 80 15 127/66 100 11/14/16 08:15 2.0 11/12/16 16:25 Room Air Intake and Output 11/13/16 11/13/16 11/14/16 15:00 23:00 07:00 Intake Total 450 ml 80 ml Balance 450 ml 80 ml Exam Constitutional: alert, oriented Head: atraumatic, normocephalic Neck: non-tender, supple Respiratory: clear to auscultation Cardiovascular: regular rate and rhythm Gastrointestinal: nl liver, spleen, non-tender, soft Extremities: normal pulses Results Result Diagram: 11/14/16 0544 11/14/16 0544 Results 24 hrs Laboratory Tests Test 11/14/16 05:44 White Blood Count 6.7 Red Blood Count 3.37 L Hemoglobin 11.0 L Hematocrit 33.4 L Mean Corpuscular Volume 99.1 Mean Corpuscular Hemoglobin 32.6 Mean Corpuscular Hemoglobin Concent 32.9 Red Cell Distribution Width 12.3 Platelet Count 299 Mean Platelet Volume 9.9 Neutrophils % 66.2 Lymphocytes % 14.1 L Monocytes % 15.4 H Eosinophils % 3.9 Basophils % 0.3 Nucleated Red Blood Cells % 0.0 Neutrophils # 4.4 Lymphocytes # 0.9 Monocytes # 1.0 H Eosinophils # 0.3 Basophils # 0.0 Nucleated Red Blood Cells # 0.0 Sodium Level 134 L Potassium Level 4.2 Chloride Level 100 Carbon Dioxide Level 25 Anion Gap 13 Blood Urea Nitrogen 6 L Creatinine 0.63 Glucose Level 104 Calcium Level 8.5 Medications Medications Current Medications Acetaminophen (Tylenol Tab) 650 mg Q4H PRN PO PAIN AND OR ELEVATED TEMP; Start 11/09/16 at 05:30 Morphine Sulfate (morphine) 2 mg Q3H PRN IV PAIN; Start 11/09/16 at 05:30 Atorvastatin Calcium (Lipitor) 40 mg DAILY PO Last administered on 11/14/16 09 :02; Admin Dose 40 MG; Start 11/10/16 at 09:00 Carvedilol (Coreg) 6.25 mg BID PO Last administered on 11/14/16 09:02; Admin Dose 6.25 MG; Start 11/09/16 at 21:00 Docusate Sodium (Colace) 100 mg DAILY PO Last administered on 11/14/16 09:01; Admin Dose 100 MG; Start 11/10/16 at 09:00 Famotidine (Pepcid) 20 mg DAILY PO Last administered on 11/14/16 09:02; Admin Dose 20 MG; Start 11/10/16 at 09:00 Furosemide (Lasix) 20 mg DAILY PO Last administered on 11/14/16 09:02; Admin Dose 20 MG; Start 11/10/16 at 09:00 Potassium Chloride (Potassium Chloride Pwd/Soln) 20 meq DAILY PO Last administered on 11/14/16 09:01; Admin Dose 20 MEQ; Start 11/10/16 at 09:00 Zolpidem Tartrate (Ambien) 5 mg QHS PRN PO INSOMNIA Last administered on 21:16; Admin Dose 5 MG; Start 11/09/16 at 13:30 Acetaminophen/ Hydrocodone Bitart ([place] (5/325)) 1 tab Q4H PRN PO PAIN LEVEL 4 -7; Start 11/09/16 at 13:30 Bisacodyl (Dulcolax Supp) 10 mg DAILY PRN [place] CONSTIPATION Last administered on 11/11/16 17:04; Admin Dose 10 MG; Start 11/09/16 at 20:00 Lisinopril (Zestril) 5 mg DAILY PO Last administered on 11/14/16 09:02; Admin Dose 5 MG; Start 11/12/16 at 09:00 JAYNE TAPIA M.D. November 14, 2016 14:55
[2016-11-14 20:58] VITALS: BP 121/73; RESP 19
[2016-11-15 08:04] VITALS: BP 140/72; RESP 18
[2016-11-15] MEDS: LISINOPRIL 5 MG TAB PO SCH (09:13)
[2016-11-15] MEDS: FAMOTIDINE 20 MG TAB PO SCH (09:13)
[2016-11-15] MEDS: POTASSIUM CHLORIDE 20 MEQ POWDER FOR ORAL SOLN PO SCH (09:13)
[2016-11-15] MEDS: DOCUSATE SODIUM 100 MG CAP PO SCH (09:13)
[2016-11-15] MEDS: FUROSEMIDE 20 MG TAB PO SCH (09:14)
[2016-11-15] MEDS: ATORVASTATIN 40 MG TAB PO SCH (09:14)
--- NOTE | 2016-11-15 11:45 | PN ---
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 Rosen P- path still pending and await Attempted to locate family member able to communicate to encourage to cooperate with Dr. Rosen; left message to call me. Subjective 24 Hr Interval Summary Free Text/Dictation Feels better and tolerates diet but not OOB. Minimal communication due to communication barrier. Exam/Review of Systems Vital Signs Vitals Vital Signs Date Time Temp Pulse Resp B/P Pulse Ox O2 Delivery O2 Flow Rate FiO2 11/15/16 08:04 98.5 77 18 140/72 97 11/14/16 08:15 2.0 11/12/16 16:25 Room Air Intake and Output 11/14/16 11/14/16 11/15/16 15:00 23:00 07:00 Intake Total 960 ml 480 ml Balance 960 ml 480 ml Exam Resp- clear CVS- NSR Abd - soft NT Ext- NT Pelvis- deferred but no bleeding Results Result Diagram: 11/14/16 0544 11/14/16 0544 Medications Medications Current Medications Acetaminophen (Tylenol Tab) 650 mg Q4H PRN PO PAIN AND OR ELEVATED TEMP; Start 11/09/16 at 05:30 Morphine Sulfate (morphine) 2 mg Q3H PRN IV PAIN; Start 11/09/16 at 05:30 Atorvastatin Calcium (Lipitor) 40 mg DAILY PO Last administered on 11/15/16 09 :14; Admin Dose 40 MG; Start 11/10/16 at 09:00 Carvedilol (Coreg) 6.25 mg BID PO Last administered on 11/15/16 09:13; Admin Dose 6.25 MG; Start 11/09/16 at 21:00 Docusate Sodium (Colace) 100 mg DAILY PO Last administered on 11/15/16 09:13; Admin Dose 100 MG; Start 11/10/16 at 09:00 Famotidine (Pepcid) 20 mg DAILY PO Last administered on 11/15/16 09:13; Admin Dose 20 MG; Start 11/10/16 at 09:00 Furosemide (Lasix) 20 mg DAILY PO Last administered on 11/15/16 09:14; Admin Dose 20 MG; Start 11/10/16 at 09:00 Potassium Chloride (Potassium Chloride Pwd/Soln) 20 meq DAILY PO Last administered on 11/15/16 09:13; Admin Dose 20 MEQ; Start 11/10/16 at 09:00 Zolpidem Tartrate (Ambien) 5 mg QHS PRN PO INSOMNIA Last administered on 21:16; Admin Dose 5 MG; Start 11/09/16 at 13:30 Acetaminophen/ Hydrocodone Bitart ([place] (5/325)) 1 tab Q4H PRN PO PAIN LEVEL 4 -7; Start 11/09/16 at 13:30 Bisacodyl (Dulcolax Supp) 10 mg DAILY PRN [place] CONSTIPATION Last administered on 11/11/16 17:04; Admin Dose 10 MG; Start 11/09/16 at 20:00 Lisinopril (Zestril) 5 mg DAILY PO Last administered on 11/15/16 09:13; Admin Dose 5 MG; Start 11/12/16 at 09:00 STEFFANIE KATE MD November 15, 2016 11:45
--- NOTE | 2016-11-15 14:01 | PN ---
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 Dr. Rosen evaluated patient in urology consultation. Patient daughter refused cystoscopy. - Vaginal bleeding with ultrasound suspicious for endometrial carcinoma. Continue to monitor hemoglobin and hematocrit. Dr. Bah is following in surgical consultation. 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 Stress test is negative for ischemia with scar. - Atrial fibrillation, continue aspirin. Patient is not a candidate for anticoagulation due to bleeding. - History of [place]. - Hypertension, continue Coreg and lisinopril. - Hyperlipidemia. Continue statin. - Coronary artery disease with history of stent placement in 2011. Continue aspirin. - right knee pain - will check xray of knee and further treatment as needed Problems: Subjective 24 Hr Interval Summary Free Text/Dictation Patient complain of right knee pain and swelling Exam/Review of Systems Vital Signs Vitals Vital Signs Date Time Temp Pulse Resp B/P Pulse Ox O2 Delivery O2 Flow Rate FiO2 11/15/16 08:04 98.5 77 18 140/72 97 11/14/16 08:15 2.0 11/12/16 16:25 Room Air Intake and Output 11/14/16 11/14/16 11/15/16 15:00 23:00 07:00 Intake Total 960 ml 480 ml Balance 960 ml 480 ml Exam Constitutional: well developed Head: atraumatic, normocephalic Neck: supple Respiratory: diminished breath sounds Cardiovascular: regular rate and rhythm Gastrointestinal: non-tender, soft Extremities: normal pulses Results Result Diagram: 11/14/16 0544 11/14/16 0544 Medications Medications Current Medications Acetaminophen (Tylenol Tab) 650 mg Q4H PRN PO PAIN AND OR ELEVATED TEMP; Start 11/09/16 at 05:30 Morphine Sulfate (morphine) 2 mg Q3H PRN IV PAIN; Start 11/09/16 at 05:30 Atorvastatin Calcium (Lipitor) 40 mg DAILY PO Last administered on 11/15/16t 09 :14; Admin Dose 40 MG; Start 11/10/16 at 09:00 Carvedilol (Coreg) 6.25 mg BID PO Last administered on 11/15/16 09:13; Admin Dose 6.25 MG; Start 11/09/16 at 21:00 Docusate Sodium (Colace) 100 mg DAILY PO Last administered on 11/15/16 09:13; Admin Dose 100 MG; Start 11/10/16 at 09:00 Famotidine (Pepcid) 20 mg DAILY PO Last administered on 11/15/16 09:13; Admin Dose 20 MG; Start 11/10/16 at 09:00 Furosemide (Lasix) 20 mg DAILY PO Last administered on 11/15/16 09:14; Admin Dose 20 MG; Start 11/10/16 at 09:00 Potassium Chloride (Potassium Chloride Pwd/Soln) 20 meq DAILY PO Last administered on 11/15/16 09:13; Admin Dose 20 MEQ; Start 11/10/16 at 09:00 Zolpidem Tartrate (Ambien) 5 mg QHS PRN PO INSOMNIA Last administered on 21:16; Admin Dose 5 MG; Start 11/09/16 at 13:30 Acetaminophen/ Hydrocodone Bitart ([place] (5/325)) 1 tab Q4H PRN PO PAIN LEVEL 4 -7; Start 11/09/16 at 13:30 Bisacodyl (Dulcolax Supp) 10 mg DAILY PRN [place] CONSTIPATION Last administered on 11/11/16 17:04; Admin Dose 10 MG; Start 11/09/16 at 20:00 Lisinopril (Zestril) 5 mg DAILY PO Last administered on 11/15/16 09:13; Admin Dose 5 MG; Start 11/12/16 at 09:00 LILLI RUIZ November 15, 2016 14:01
--- NOTE | 2016-11-15 14:42 | RADRPT ---
PROCEDURE: XR Knee. CLINICAL INDICATION: Right knee pain and swelling TECHNIQUE: 2 images of the right knee are available for review. COMPARISON: None available FINDINGS: The bones are osteopenic. There are moderate to severe patellofemoral and mild medial/lateral femor otibial compartment degenerative change with chondrocalcinosis and a moderate sized knee joint effus ion with some chronic appearing density in the superior aspect of the joint effusion. There is no r adiographic evidence of acute osseous abnormality. IMPRESSION: 1. No radiographic evidence of acute fracture noting osteopenia. 2. Tricompartmental degenerative changes, patellofemoral compartment predominant with chondrocalcin osis and moderate nonspecific joint effusion, query CBD arthropathy/pseudogout flare. RPTAT: UU .Bang Baird MD, Date Time Electronically viewed and signed by .Bang Baird MD, on 11/15/2016 14:41 .K/
--- NOTE | 2016-11-15 16:03 | CONS ---
Date/Time of Note Date/Time of Note DATE: 11/15/16 TIME: 16:01 Assessment/Plan Assessment/Plan Additional Assessment/Plan CAD s/ p [place], s/p PTCA and stenting Ischemic cardiomyopathy with EF 30-35% Acute exacerbation of CHF Hypertension Anemia Vaginal bleeding s/p excision of urethral meatal mass and fulguration. Hemodynamically stable Continue Coreg Continue Lisinopril Continue Lipitor Continue Lasix Continue GI and DVT Prophylaxis Scheduled for Knee X Ray Consultation Date/Type/Reason Admit Date/Time November 11, 2016 at 10:47 Initial Consult Date Type of Consultation: Cardiology Referring Provider: EMILY SHAH MD Exam/Review of Systems Vital Signs Vitals Vital Signs Date Time Temp Pulse Resp B/P Pulse Ox O2 Delivery O2 Flow Rate FiO2 11/15/16 08:04 98.5 77 18 140/72 97 11/14/16 08:15 2.0 11/12/16 16:25 Room Air Intake and Output 11/14/16 11/14/16 11/15/16 15:00 23:00 07:00 Intake Total 960 ml 480 ml Balance 960 ml 480 ml Exam Constitutional: alert, oriented Head: atraumatic, normocephalic Neck: non-tender, supple Respiratory: clear to auscultation Cardiovascular: regular rate and rhythm Gastrointestinal: nl liver, spleen, non-tender, soft Extremities: normal pulses Results Result Diagram: 11/14/16 0544 11/14/16 0544 Medications Medications Current Medications Acetaminophen (Tylenol Tab) 650 mg Q4H PRN PO PAIN AND OR ELEVATED TEMP; Start 11/09/16 at 05:30 Morphine Sulfate (morphine) 2 mg Q3H PRN IV PAIN; Start 11/09/16 at 05:30 Atorvastatin Calcium (Lipitor) 40 mg DAILY PO Last administered on 11/15/16 09 :14; Admin Dose 40 MG; Start 11/10/16 at 09:00 Carvedilol (Coreg) 6.25 mg BID PO Last administered on 11/15/16 09:13; Admin Dose 6.25 MG; Start 11/09/16 at 21:00 Docusate Sodium (Colace) 100 mg DAILY PO Last administered on 11/15/16 09:13; Admin Dose 100 MG; Start 11/10/16 at 09:00 Famotidine (Pepcid) 20 mg DAILY PO Last administered on 11/15/16 09:13; Admin Dose 20 MG; Start 11/10/16 at 09:00 Furosemide (Lasix) 20 mg DAILY PO Last administered on 11/15/16 09:14; Admin Dose 20 MG; Start 11/10/16 at 09:00 Potassium Chloride (Potassium Chloride Pwd/Soln) 20 meq DAILY PO Last administered on 11/15/16 09:13; Admin Dose 20 MEQ; Start 11/10/16 at 09:00 Zolpidem Tartrate (Ambien) 5 mg QHS PRN PO INSOMNIA Last administered on 21:16; Admin Dose 5 MG; Start 11/09/16 at 13:30 Acetaminophen/ Hydrocodone Bitart ([place] (5/325)) 1 tab Q4H PRN PO PAIN LEVEL 4 -7; Start 11/09/16 at 13:30 Bisacodyl (Dulcolax Supp) 10 mg DAILY PRN [place] CONSTIPATION Last administered on 11/11/16 17:04; Admin Dose 10 MG; Start 11/09/16 at 20:00 Lisinopril (Zestril) 5 mg DAILY PO Last administered on 11/15/16 09:13; Admin Dose 5 MG; Start 11/12/16 at 09:00 JAYNE TAPIA M.D. November 15, 2016 16:03
[2016-11-15 20:10] VITALS: BP 99/58; RESP 18
[2016-11-15 20:57] VITALS: BP 109/61; PULSE 79
[2016-11-16 07:46] VITALS: BP 100/53; RESP 18
[2016-11-16] MEDS: LISINOPRIL 5 MG TAB PO SCH (09:00)
[2016-11-16] MEDS: POTASSIUM CHLORIDE 20 MEQ POWDER FOR ORAL SOLN PO SCH (09:18)
[2016-11-16] MEDS: DOCUSATE SODIUM 100 MG CAP PO SCH (09:18)
[2016-11-16] MEDS: FAMOTIDINE 20 MG TAB PO SCH (09:19)
[2016-11-16] MEDS: ATORVASTATIN 40 MG TAB PO SCH (09:19)
[2016-11-16] MEDS: FUROSEMIDE 20 MG TAB PO SCH (09:20)
--- NOTE | 2016-11-16 11:46 | PN ---
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 Dr. Rosen evaluated patient in urology consultation. Patient daughter refused cystoscopy. - Vaginal bleeding with ultrasound suspicious for endometrial carcinoma. Continue to monitor hemoglobin and hematocrit. Dr. Bah is following in surgical consultation. 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 Stress test is negative for ischemia with scar. - Atrial fibrillation, continue aspirin. Patient is not a candidate for anticoagulation due to bleeding. - History of [place]. - Hypertension, continue Coreg and lisinopril. - Hyperlipidemia. Continue statin. - Coronary artery disease with history of stent placement in 2011. Continue aspirin. - right knee pain - will check xray of knee and further treatment as needed Problems: Subjective 24 Hr Interval Summary Free Text/Dictation Patient continues to have joint pain in right knee Exam/Review of Systems Vital Signs Vitals Vital Signs Date Time Temp Pulse Resp B/P Pulse Ox O2 Delivery O2 Flow Rate FiO2 11/16/16 07:46 97.6 84 18 100/53 95 11/14/16 08:15 2.0 11/12/16 16:25 Room Air Intake and Output 11/15/16 11/15/16 11/16/16 15:00 23:00 07:00 Intake Total 650 ml 100 ml Balance 650 ml 100 ml Exam Constitutional: well developed Head: atraumatic, normocephalic Neck: supple Respiratory: diminished breath sounds Cardiovascular: regular rate and rhythm Gastrointestinal: non-tender, soft Extremities: normal pulses Results Result Diagram: 11/14/16 0544 11/14/16 0544 Medications Medications Current Medications Acetaminophen (Tylenol Tab) 650 mg Q4H PRN PO PAIN AND OR ELEVATED TEMP; Start 11/09/16 at 05:30 Morphine Sulfate (morphine) 2 mg Q3H PRN IV PAIN; Start 11/09/16 at 05:30 Atorvastatin Calcium (Lipitor) 40 mg DAILY PO Last administered on 11/16/16t 09 :19; Admin Dose 40 MG; Start 11/10/16 at 09:00 Carvedilol (Coreg) 6.25 mg BID PO Last administered on 11/15/16 20:58; Admin Dose 6.25 MG; Start 11/09/16 at 21:00 Docusate Sodium (Colace) 100 mg DAILY PO Last administered on 11/16/16 09:18; Admin Dose 100 MG; Start 11/10/16 at 09:00 Famotidine (Pepcid) 20 mg DAILY PO Last administered on 11/16/16 09:19; Admin Dose 20 MG; Start 11/10/16 at 09:00 Furosemide (Lasix) 20 mg DAILY PO Last administered on 11/16/16 09:20; Admin Dose 20 MG; Start 11/10/16 at 09:00 Potassium Chloride (Potassium Chloride Pwd/Soln) 20 meq DAILY PO Last administered on 11/16/16 09:18; Admin Dose 20 MEQ; Start 11/10/16 at 09:00 Zolpidem Tartrate (Ambien) 5 mg QHS PRN PO INSOMNIA Last administered on 21:16; Admin Dose 5 MG; Start 11/09/16 at 13:30 Acetaminophen/ Hydrocodone Bitart ([place] (5/325)) 1 tab Q4H PRN PO PAIN LEVEL 4 -7; Start 11/09/16 at 13:30 Bisacodyl (Dulcolax Supp) 10 mg DAILY PRN [place] CONSTIPATION Last administered on 11/11/16 17:04; Admin Dose 10 MG; Start 11/09/16 at 20:00 Lisinopril (Zestril) 5 mg DAILY PO Last administered on 11/15/16 09:13; Admin Dose 5 MG; Start 11/12/16 at 09:00 LILLI RUIZ November 16, 2016 11:46
--- NOTE | 2016-11-16 12:19 | CONS ---
Date/Time of Note Date/Time of Note DATE: 11/16/16 TIME: 12:18 Assessment/Plan Assessment/Plan Additional Assessment/Plan CAD s/ p [place], s/p PTCA and stenting Ischemic cardiomyopathy with EF 30-35% Acute exacerbation of CHF Hypertension Anemia Vaginal bleeding s/p excision of urethral meatal mass and fulguration. Hemodynamically stable Knee X Ray - Joint effusion ? Pseudo gout Continue Coreg Continue Lisinopril Continue Lipitor Continue Lasix Continue GI and DVT Prophylaxis Consultation Date/Type/Reason Admit Date/Time November 11, 2016 at 10:47 Type of Consultation: Cardiology Referring Provider: EMILY SHAH MD Exam/Review of Systems Vital Signs Vitals Vital Signs Date Time Temp Pulse Resp B/P Pulse Ox O2 Delivery O2 Flow Rate FiO2 11/16/16 07:46 97.6 84 18 100/53 95 11/14/16 08:15 2.0 11/12/16 16:25 Room Air Intake and Output 11/15/16 11/15/16 11/16/16 15:00 23:00 07:00 Intake Total 650 ml 100 ml Balance 650 ml 100 ml Exam Constitutional: alert, oriented Head: atraumatic, normocephalic Neck: non-tender, supple Respiratory: clear to auscultation Cardiovascular: regular rate and rhythm Gastrointestinal: nl liver, spleen, non-tender, soft Extremities: normal pulses Results Result Diagram: 11/14/16 0544 11/14/16 0544 Medications Medications Current Medications Acetaminophen (Tylenol Tab) 650 mg Q4H PRN PO PAIN AND OR ELEVATED TEMP; Start 11/09/16 at 05:30 Morphine Sulfate (morphine) 2 mg Q3H PRN IV PAIN; Start 11/09/16 at 05:30 Atorvastatin Calcium (Lipitor) 40 mg DAILY PO Last administered on 11/16/16 09 :19; Admin Dose 40 MG; Start 11/10/16 at 09:00 Carvedilol (Coreg) 6.25 mg BID PO Last administered on 11/15/16 20:58; Admin Dose 6.25 MG; Start 11/09/16 at 21:00 Docusate Sodium (Colace) 100 mg DAILY PO Last administered on 11/16/16 09:18; Admin Dose 100 MG; Start 11/10/16 at 09:00 Famotidine (Pepcid) 20 mg DAILY PO Last administered on 11/16/16 09:19; Admin Dose 20 MG; Start 11/10/16 at 09:00 Furosemide (Lasix) 20 mg DAILY PO Last administered on 11/16/16 09:20; Admin Dose 20 MG; Start 11/10/16 at 09:00 Potassium Chloride (Potassium Chloride Pwd/Soln) 20 meq DAILY PO Last administered on 11/16/16 09:18; Admin Dose 20 MEQ; Start 11/10/16 at 09:00 Zolpidem Tartrate (Ambien) 5 mg QHS PRN PO INSOMNIA Last administered on 21:16; Admin Dose 5 MG; Start 11/09/16 at 13:30 Acetaminophen/ Hydrocodone Bitart ([place] (5/325)) 1 tab Q4H PRN PO PAIN LEVEL 4 -7; Start 11/09/16 at 13:30 Bisacodyl (Dulcolax Supp) 10 mg DAILY PRN [place] CONSTIPATION Last administered on 11/11/16 17:04; Admin Dose 10 MG; Start 11/09/16 at 20:00 Lisinopril (Zestril) 5 mg DAILY PO Last administered on 11/15/16 09:13; Admin Dose 5 MG; Start 11/12/16 at 09:00 JAYNE TAPIA M.D. November 16, 2016 12:19
[2016-11-16 20:27] VITALS: BP 103/68; RESP 18
[2016-11-17 08:11] VITALS: BP 120/70; RESP 17
[2016-11-17] MEDS: DOCUSATE SODIUM 100 MG CAP PO SCH (08:50)
[2016-11-17] MEDS: FUROSEMIDE 20 MG TAB PO SCH (08:51)
[2016-11-17] MEDS: FAMOTIDINE 20 MG TAB PO SCH (08:51)
[2016-11-17] MEDS: POTASSIUM CHLORIDE 20 MEQ POWDER FOR ORAL SOLN PO SCH (08:52)
[2016-11-17] MEDS: LISINOPRIL 5 MG TAB PO SCH (08:52)
[2016-11-17] MEDS: ATORVASTATIN 40 MG TAB PO SCH (08:52)
--- NOTE | 2016-11-17 09:44 | CONS ---
Date/Time of Note Date/Time of Note DATE: 11/17/16 TIME: 09:42 Assessment/Plan Assessment/Plan Additional Assessment/Plan 1. Cardiomyopathy with decreased left ventricular ejection fraction last seen approximately 30% by echo at outside hospital 08/2016. EF 35% by echo this admit with lexiscan negative for ischemia with scar and EF 40%. MED Rx - no intervention planned. 2. Hypertension- well rx, in good status now. 3. History of myocardial infarction - on meds, now moistly fixed defect. 4. History of percutaneous transluminal coronary angioplasty and stent placement last 2011. 5. Coagulopathy, INR of 2.0 at this time. 6. Anemia. 7. Vaginal bleed now post-op s/p D+C with Bx - family declined surgery for now 8. Possible endometrial mass, abnormal thickening. Consultation Date/Type/Reason Admit Date/Time November 11, 2016 at 10:47 Type of Consultation: Cardiology Referring Provider: EMILY SHAH MD 24 HR Interval Summary Free Text/Dictation NO acute events - knee pain - awaiting ortho evaluation ROS: No fever, no chills, no nausea, no vomiting, no diarrhea/constipation No recent weight changes No chest pain, no PND, no orthopnea No dizziness, blurred vision No thirst, no heat or cold intolerance Exam/Review of Systems Vital Signs Vitals Vital Signs Date Time Temp Pulse Resp B/P Pulse Ox O2 Delivery O2 Flow Rate FiO2 11/17/16 08:11 98.5 80 17 120/70 98 11/14/16 08:15 2.0 Intake and Output 11/16/16 11/16/16 11/17/16 15:00 23:00 07:00 Intake Total 590 ml 300 ml Balance 590 ml 300 ml Exam General: WN/WD/NAD, AOx 0-1 HEENT: Unicetric/atraumatic/EOMI (follow commands) NECK: JVD elevated, no thyromegaly Lymph: no lymphadenopathy HEART: regular with no S3, II/ systolic murmur at apex LUNGS: Coarse sounds ABD: soft, NT, ND, +BS : Intact Neuro: non focal SKIN: chronic changes EXT: trace edema, knee swelling Results Result Diagram: 11/14/16 0544 11/14/1644 Medications Medications Current Medications Acetaminophen (Tylenol Tab) 650 mg Q4H PRN PO PAIN AND OR ELEVATED TEMP; Start 11/09/16 at 05:30 Morphine Sulfate (morphine) 2 mg Q3H PRN IV PAIN; Start 11/09/16 at 05:30 Atorvastatin Calcium (Lipitor) 40 mg DAILY PO Last administered on 11/17/16 08 :52; Admin Dose 40 MG; Start 11/10/16 at 09:00 Carvedilol (Coreg) 6.25 mg BID PO Last administered on 11/17/16 08:52; Admin Dose 6.25 MG; Start 11/09/16 at 21:00 Docusate Sodium (Colace) 100 mg DAILY PO Last administered on 11/17/16 08:50; Admin Dose 100 MG; Start 11/10/16 at 09:00 Famotidine (Pepcid) 20 mg DAILY PO Last administered on 11/17/16 08:51; Admin Dose 20 MG; Start 11/10/16 at 09:00 Furosemide (Lasix) 20 mg DAILY PO Last administered on 11/17/16 08:51; Admin Dose 20 MG; Start 11/10/16 at 09:00 Potassium Chloride (Potassium Chloride Pwd/Soln) 20 meq DAILY PO Last administered on 11/17/16 08:52; Admin Dose 20 MEQ; Start 11/10/16 at 09:00 Zolpidem Tartrate (Ambien) 5 mg QHS PRN PO INSOMNIA Last administered on 21:16; Admin Dose 5 MG; Start 11/09/16 at 13:30 Acetaminophen/ Hydrocodone Bitart ([place] (5/325)) 1 tab Q4H PRN PO PAIN LEVEL 4 -7; Start 11/09/16 at 13:30 Bisacodyl (Dulcolax Supp) 10 mg DAILY PRN [place] CONSTIPATION Last administered on 11/11/16 17:04; Admin Dose 10 MG; Start 11/09/16 at 20:00 Lisinopril (Zestril) 5 mg DAILY PO Last administered on 11/17/16 08:52; Admin Dose 5 MG; Start 11/12/16 at 09:00 MICHAEL MORE MD November 17, 2016 09:44
[2016-11-17] MEDS ORDERED: BETAMET NA PHOS/AC(6 MG/ML) 5ML INJ INJ ONE (17:00)
[2016-11-17] MEDS ORDERED: BUPIVACAINE 0.5%/EPI (SDV) 30 ML INJ INJ ONE (17:00)
--- NOTE | 2016-11-17 17:22 | PN ---
Date/Time of Note Date/Time of Note DATE: 11/17/16 TIME: 17:15 Assessment/Plan VTE Prophylaxis VTE Prophylaxis Intervention: SCD's Lines/Catheters IV [facility]from [facility] Saline Lock Urinary Cath still in place: No Assessment/Plan Chief Complaint/Hosp Course Patient's complains of right knee swelling and tenderness, unable to get out of bed. ASSESSMENT AND PLAN: - Right knee swelling and tenderness, Dr. Hernandez is asked to see patient in orthopedic surgery consultation. 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 Dr. Rosen evaluated patient in urology consultation. Patient daughter refused cystoscopy. - Vaginal bleeding with ultrasound suspicious for endometrial carcinoma. Continue to monitor hemoglobin and hematocrit. Dr. Bah is following in surgical consultation. 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 Stress test is negative for ischemia with scar. - Atrial fibrillation, continue aspirin. Patient is not a candidate for anticoagulation due to bleeding. - History of [place]. - Hypertension, continue Coreg and lisinopril. - Hyperlipidemia. Continue statin. - Coronary artery disease with history of stent placement in 2011. Continue aspirin. Continue sequential compression device for deep venous thrombosis prophylaxis and Pepcid for peptic ulcer disease prophylaxis. Patient's condition and plan of care was discussed in details with daughter Jael at the bedside, all questions answered. Further recommendations based on clinical course. Plan of care discussed with Dr. An. Problems: Exam/Review of Systems Vital Signs Vitals Vital Signs Date Time Temp Pulse Resp B/P Pulse Ox O2 Delivery O2 Flow Rate FiO2 11/17/16 08:11 98.5 80 17 120/70 98 11/14/16 08:15 2.0 Intake and Output 11/16/16 11/16/16 11/17/16 15:00 23:00 07:00 Intake Total 590 ml 300 ml Balance 590 ml 300 ml Exam Constitutional: alert, oriented Head: normocephalic Neck: supple Respiratory: clear to auscultation Cardiovascular: nl pulses Gastrointestinal: non-tender, soft Extremities: normal pulses, other (Left knee swelling and tenderness) Results Result Diagram: 11/14/16 0544 11/14/16 0544 Medications Medications Current Medications Acetaminophen (Tylenol Tab) 650 mg Q4H PRN PO PAIN AND OR ELEVATED TEMP; Start 11/09/16 at 05:30 Morphine Sulfate (morphine) 2 mg Q3H PRN IV PAIN; Start 11/09/16 at 05:30 Atorvastatin Calcium (Lipitor) 40 mg DAILY PO Last administered on 11/17/16 08 :52; Admin Dose 40 MG; Start 11/10/16 at 09:00 Carvedilol (Coreg) 6.25 mg BID PO Last administered on 11/17/16 08:52; Admin Dose 6.25 MG; Start 11/09/16 at 21:00 Docusate Sodium (Colace) 100 mg DAILY PO Last administered on 11/17/16 08:50; Admin Dose 100 MG; Start 11/10/16 at 09:00 Famotidine (Pepcid) 20 mg DAILY PO Last administered on 11/17/16 08:51; Admin Dose 20 MG; Start 11/10/16 at 09:00 Furosemide (Lasix) 20 mg DAILY PO Last administered on 11/17/16 08:51; Admin Dose 20 MG; Start 11/10/16 at 09:00 Potassium Chloride (Potassium Chloride Pwd/Soln) 20 meq DAILY PO Last administered on 11/17/16 08:52; Admin Dose 20 MEQ; Start 11/10/16 at 09:00 Zolpidem Tartrate (Ambien) 5 mg QHS PRN PO INSOMNIA Last administered on 21:16; Admin Dose 5 MG; Start 11/09/16 at 13:30 Acetaminophen/ Hydrocodone Bitart ([place] (5/325)) 1 tab Q4H PRN PO PAIN LEVEL 4 -7; Start 11/09/16 at 13:30 Bisacodyl (Dulcolax Supp) 10 mg DAILY PRN [place] CONSTIPATION Last administered on 11/11/16 17:04; Admin Dose 10 MG; Start 11/09/16 at 20:00 Lisinopril (Zestril) 5 mg DAILY PO Last administered on 11/17/16 08:52; Admin Dose 5 MG; Start 11/12/16 at 09:00 NILES LOPEZ November 17, 2016 17:22
[2016-11-17 20:00] VITALS: BP 130/60; RESP 19
--- NOTE | 2016-11-18 00:40 | PN ---
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 The patient did have an endometrial biopsy last week, and the patient at the present is feeling comfortable and she denies having any pain except for pain in her right knee. OBJECTIVE: VITAL SIGNS: Temperature is 98.5, blood pressure 120/70, respirations 17, pulse is 80. ABDOMEN: Soft. There is no tenderness and the daughter states that she still had some blood stain on the pad that she has on. LABORATORY DATA: Her CBC shows a white count 6.7, hemoglobin 11.0. The BUN is 6, creatinine 0.63. Electrolytes are normal. The pathology report from the endometrial biopsy shows blood fragments of squamous epithelial tissue and rare strips of glandular epithelium. No evidence of malignancy. Clin ical correlation is recommended. The preurethral biopsy was showing squamous mucosa, showing acute and chronic inflammation with parakeratoses. 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 The patient will do better if this is excised and removed. However, as the daughter is concerned about her having anesthesia and so I would basically for now watch it. If the daughter agrees to have it resected then we could add her on to the schedule and do it whenever she is agreeable to do it. Dictated By: MILANA THOMAS/VIDA Conf#: [id number] DID#: [id number]
[2016-11-18 04:51] LABS: ADD SCAN DIFF NO
[2016-11-18 04:53] LABS: BASOPHILS % 0.3 % (0.0-2.0); EOSINOPHILS # 0.2 10^3/ul (0.0-0.5); EOSINOPHILS % 2.5 % (0.0-7.0); HEMATOCRIT 28.8 % (37.0-47.0); LYMPHOCYTES # 0.8 10^3/ul (0.8-2.9); LYMPHOCYTES % 13.3 % (15.0-51.0); MEAN CORPUSCULAR HGB CONC 34.7 g/dl (32.0-37.0); MEAN PLATELET VOLUME 10.2 fl (7.4-10.4); MONOCYTE # 1.1 10^3/ul (0.3-0.9); NEUTROPHIL # 4.2 10^3/ul (1.6-7.5); NEUTROPHILS % 66.8 % (39.0-77.0); PLATELET COUNT 363 10^3/UL (140-415); RED BLOOD COUNT 3.03 10^6/ul (4.20-5.40); RED CELL DISTRIBUTION WIDTH 11.9 % (11.5-14.5); WHITE BLOOD COUNT 6.3 10^3/ul (4.8-10.8)
[2016-11-18 05:13] LABS: MONOCYTES % 16.8 % (0.0-11.0)
[2016-11-18 05:47] LABS: CALCIUM 8.1 mg/dl (8.4-10.2); CREATININE 0.6 mg/dl (0.44-1.00); POTASSIUM 4.6 mmol/L (3.5-5.1)
[2016-11-18 07:45] VITALS: BP 125/66; RESP 18
[2016-11-18] MEDS: ATORVASTATIN 40 MG TAB PO SCH (08:34)
[2016-11-18] MEDS: FAMOTIDINE 20 MG TAB PO SCH (08:34)
[2016-11-18] MEDS: POTASSIUM CHLORIDE 20 MEQ POWDER FOR ORAL SOLN PO SCH (08:34)
[2016-11-18] MEDS: DOCUSATE SODIUM 100 MG CAP PO SCH (08:34)
[2016-11-18] MEDS: FUROSEMIDE 20 MG TAB PO SCH (08:35)
[2016-11-18] MEDS: LISINOPRIL 5 MG TAB PO SCH (08:36)
--- NOTE | 2016-11-18 11:12 | PN ---
DATE: 11/18/2016 SUBJECTIVE: This patient is comfortable at the present, and she still has some spotting of blood on her diaper. 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 Bah, and certainly did not show any cancer. I was supposed to excise that the d ay I was consulted on her, but the daughter did refuse at that time and so far now her condition has not changed OBJECTIVE: VITAL SIGNS: Temperature 98, respirations 18, pulse is 93, blood pressure 125/66. LABORATORY DATA: CBC shows a white count of 6.3, hemoglobin 10.0, hematocrit 28.8. BUN is 13, crea tinine 0.6. The urine culture no growth after 48 hours. IMPRESSION: Urethral caruncle and/or urethral meatal prolapse. I recommend that that should be exc ised, but if the daughter does not agree, therefore we just leave it alone and observe. Hopefully, she does not bleed to where she may need intervention later on. Dictated By: MILANA THOMAS/VIDA Conf#: [id number] DID#: [id number]
[2016-11-18] MEDS ORDERED: SOD CHLORIDE 0.9% 1,000 ML IV SCH (11:30)
[2016-11-18] MEDS: ACETAMINOPHEN 325 MG TAB PO PRN ×2 (12:55→20:37)
--- NOTE | 2016-11-18 14:47 | PN ---
Date/Time of Note Date/Time of Note DATE: 11/18/16 TIME: 14:43 Assessment/Plan VTE Prophylaxis VTE Prophylaxis Intervention: SCD's Lines/Catheters IV [facility]ter [facility]from [facility] [facility] Urinary Cath still in place: No Assessment/Plan Chief Complaint/Hosp Course No acute events overnight, patient continues to complain of right knee swelling and tenderness. ASSESSMENT AND PLAN: - Right knee swelling and tenderness, Dr. Hernandez is following in orthopedic surgery consultation. 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 Dr. Rosen evaluated patient in urology consultation. Patient daughter refused any interventions. - Vaginal bleeding with ultrasound suspicious for endometrial carcinoma. Continue to monitor hemoglobin and hematocrit. Dr. Bah is following in surgical consultation. 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 Stress test is negative for ischemia with scar. - Atrial fibrillation, continue aspirin. Patient is not a candidate for anticoagulation due to bleeding. - History of [place]. - Hypertension, continue Coreg and lisinopril. - Hyperlipidemia. Continue statin. - Coronary artery disease with history of stent placement in 2011. Continue aspirin. - Hyponatremia. Continue IV fluids. Continue sequential compression device for deep venous thrombosis prophylaxis and Pepcid for peptic ulcer disease prophylaxis. Patient's condition and plan of care was discussed in details with daughter Jael at the bedside, all questions answered. Further recommendations based on clinical course. Plan of care discussed with Dr. An. Problems: Exam/Review of Systems Vital Signs Vitals Vital Signs Date Time Temp Pulse Resp B/P Pulse Ox O2 Delivery O2 Flow Rate FiO2 11/18/16 07:45 98.0 93 18 125/66 100 11/14/16 08:15 2.0 Intake and Output 11/17/16 11/17/16 11/18/16 15:00 23:00 07:00 Intake Total 940 ml 250 ml Balance 940 ml 250 ml Exam Constitutional: alert, oriented Head: normocephalic Neck: supple Respiratory: clear to auscultation Cardiovascular: nl pulses Gastrointestinal: non-tender, soft Extremities: normal pulses, other (Left knee swelling and tenderness) Results Result Diagram: 11/18/16 0430 11/18/16 0430 Results 24 hrs Laboratory Tests Test 11/18/16 04:30 White Blood Count 6.3 Red Blood Count 3.03 L Hemoglobin 10.0 L Hematocrit 28.8 L Mean Corpuscular Volume 95.0 Mean Corpuscular Hemoglobin 33.0 Mean Corpuscular Hemoglobin Concent 34.7 Red Cell Distribution Width 11.9 Platelet Count 363 # Mean Platelet Volume 10.2 Neutrophils % 66.8 Lymphocytes % 13.3 L Monocytes % 16.8 H Eosinophils % 2.5 Basophils % 0.3 Nucleated Red Blood Cells % 0.0 Neutrophils # 4.2 Lymphocytes # 0.8 Monocytes # 1.1 H Eosinophils # 0.2 Basophils # 0.0 Nucleated Red Blood Cells # 0.0 Sodium Level 121 L Potassium Level 4.6 Chloride Level 94 L Carbon Dioxide Level 23 Anion Gap 9 Blood Urea Nitrogen 13 Creatinine 0.60 Glucose Level 125 Calcium Level 8.1 L Medications Medications Current Medications Acetaminophen (Tylenol Tab) 650 mg Q4H PRN PO PAIN AND OR ELEVATED TEMP Last administered on 11/18/16 12:55; Admin Dose 650 MG; Start 11/09/16 at 05:30 Morphine Sulfate (morphine) 2 mg Q3H PRN IV PAIN; Start 11/09/16 at 05:30 Atorvastatin Calcium (Lipitor) 40 mg DAILY PO Last administered on 11/18/16 08 :34; Admin Dose 40 MG; Start 11/10/16 at 09:00 Carvedilol (Coreg) 6.25 mg BID PO Last administered on 11/18/16 08:36; Admin Dose 6.25 MG; Start 11/09/16 at 21:00 Docusate Sodium (Colace) 100 mg DAILY PO Last administered on 11/18/16 08:34; Admin Dose 100 MG; Start 11/10/16 at 09:00 Famotidine (Pepcid) 20 mg DAILY PO Last administered on 11/18/16 08:34; Admin Dose 20 MG; Start 11/10/16 at 09:00 Furosemide (Lasix) 20 mg DAILY PO Last administered on 11/18/16 08:35; Admin Dose 20 MG; Start 11/10/16 at 09:00 Potassium Chloride (Potassium Chloride Pwd/Soln) 20 meq DAILY PO Last administered on 11/18/16 08:34; Admin Dose 20 MEQ; Start 11/10/16 at 09:00 Zolpidem Tartrate (Ambien) 5 mg QHS PRN PO INSOMNIA Last administered on 21:16; Admin Dose 5 MG; Start 11/09/16 at 13:30 Acetaminophen/ Hydrocodone Bitart ([place] (5/325)) 1 tab Q4H PRN PO PAIN LEVEL 4 -7; Start 11/09/16 at 13:30 Bisacodyl (Dulcolax Supp) 10 mg DAILY PRN [place] CONSTIPATION Last administered on 11/11/16 17:04; Admin Dose 10 MG; Start 11/09/16 at 20:00 Lisinopril 5 mg 5 mg DAILY PO Last administered on 11/18/16 08:36; Admin Dose 5 MG; Start 11/12/16 at 09:00 Sodium Chloride (NS) 1,000 ml @ 70 mls/hr [id number] IV Last administered on 11/18 11:36; Admin Dose 70 MLS/HR; Start 11/18/16 at 11:30 NILES LOPEZ November 18, 2016 14:47
--- NOTE | 2016-11-18 15:01 | CONS ---
Date/Time of Note Date/Time of Note DATE: 11/18/16 TIME: 14:56 Assessment/Plan Assessment/Plan Chief Complaint/Hosp Course IMPRESSION: 1. Cardiomyopathy with decreased left ventricular ejection fraction last seen approximately 30% by echo at outside hospital 08/2016. EF 35% by echo this admit with lexiscan negative for ischemia with scar and EF 40%. 2. Hypertension. 3. History of myocardial infarction. 4. History of percutaneous transluminal coronary angioplasty and stent placement last 2011. 5. Coagulopathy-improved 6. Anemia. 7. Vaginal bleed now post-op s/p D+C with Bx 8. Possible endometrial mass, abnormal thickening. 9. 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 PULMONARY: No sob CARDIOVASCULAR: No chest pain/palpitations GASTROINTESTINAL: No nausea/vomiting. GENITOURINARY: No hematuria/dysuria. MUSCULOSKELETAL: Pain in knee PSYCHIATRIC: The patient denies depression. NEUROLOGIC: No weakness Constitutional: alert Psych: no complaints Head: normocephalic ENMT: mucosa pink and moist Neck: jvd (9 cm water), supple Respiratory: diminished breath sounds (at bases/B) Cardiovascular: regular rate and rhythm Gastrointestinal: non-tender, soft Musculoskeletal: muscle weakness (generalized), other Extremities: other (trace) Results Result Diagram: 11/18/16 0430 11/18/16 0430 Results 24 hrs Laboratory Tests Test 11/18/16 04:30 White Blood Count 6.3 Red Blood Count 3.03 L Hemoglobin 10.0 L Hematocrit 28.8 L Mean Corpuscular Volume 95.0 Mean Corpuscular Hemoglobin 33.0 Mean Corpuscular Hemoglobin Concent 34.7 Red Cell Distribution Width 11.9 Platelet Count 363 # Mean Platelet Volume 10.2 Neutrophils % 66.8 Lymphocytes % 13.3 L Monocytes % 16.8 H Eosinophils % 2.5 Basophils % 0.3 Nucleated Red Blood Cells % 0.0 Neutrophils # 4.2 Lymphocytes # 0.8 Monocytes # 1.1 H Eosinophils # 0.2 Basophils # 0.0 Nucleated Red Blood Cells # 0.0 Sodium Level 121 L Potassium Level 4.6 Chloride Level 94 L Carbon Dioxide Level 23 Anion Gap 9 Blood Urea Nitrogen 13 Creatinine 0.60 Glucose Level 125 Calcium Level 8.1 L Medications Medications Current Medications Acetaminophen (Tylenol Tab) 650 mg Q4H PRN PO PAIN AND OR ELEVATED TEMP Last administered on 11/18/16 12:55; Admin Dose 650 MG; Start 11/09/16 at 05:30 Morphine Sulfate (morphine) 2 mg Q3H PRN IV PAIN; Start 11/09/16 at 05:30 Atorvastatin Calcium (Lipitor) 40 mg DAILY PO Last administered on 11/18/16 08 :34; Admin Dose 40 MG; Start 11/10/16 at 09:00 Carvedilol (Coreg) 6.25 mg BID PO Last administered on 11/18/16 08:36; Admin Dose 6.25 MG; Start 11/09/16 at 21:00 Docusate Sodium (Colace) 100 mg DAILY PO Last administered on 11/18/16 08:34; Admin Dose 100 MG; Start 11/10/16 at 09:00 Famotidine (Pepcid) 20 mg DAILY PO Last administered on 11/18/16 08:34; Admin Dose 20 MG; Start 11/10/16 at 09:00 Furosemide (Lasix) 20 mg DAILY PO Last administered on 11/18/16 08:35; Admin Dose 20 MG; Start 11/10/16 at 09:00 Potassium Chloride (Potassium Chloride Pwd/Soln) 20 meq DAILY PO Last administered on 11/18/16 08:34; Admin Dose 20 MEQ; Start 11/10/16 at 09:00 Zolpidem Tartrate (Ambien) 5 mg QHS PRN PO INSOMNIA Last administered on 21:16; Admin Dose 5 MG; Start 11/09/16 at 13:30 Acetaminophen/ Hydrocodone Bitart ([place] (5/325)) 1 tab Q4H PRN PO PAIN LEVEL 4 -7; Start 11/09/16 at 13:30 Bisacodyl (Dulcolax Supp) 10 mg DAILY PRN [place] CONSTIPATION Last administered on 11/11/16 17:04; Admin Dose 10 MG; Start 11/09/16 at 20:00 Lisinopril 5 mg 5 mg DAILY PO Last administered on 11/18/16 08:36; Admin Dose 5 MG; Start 11/12/16 at 09:00 Sodium Chloride (NS) 1,000 ml @ 70 mls/hr [id number] IV Last administered on 11/18 11:36; Admin Dose 70 MLS/HR; Start 11/18/16 at 11:30 DEBBIE QUINTANA November 18, 2016 15:01
[2016-11-18] MEDS ORDERED: morphine 2 MG INJ IV PRN (15:03)
[2016-11-18] MEDS ORDERED: FUROSEMIDE 20 MG INJ IV ONE (15:30)
--- NOTE | 2016-11-18 15:57 | RADRPT ---
PROCEDURE: CHEST 1VW CLINICAL INDICATION: Congestive heart failure TECHNIQUE: Single frontal view of the chest was obtained COMPARISON: 11/13/2016 FINDINGS: The cardiac size is normal. Aortic vascular calcifications are demonstrated. There is no pulmonary vascular congestion. Senescent interstitial changes are seen. The lungs are clear. No consolidation, effusion, or pneumothorax. Mild degenerative changes of the visualized osseous structures are visualized. IMPRESSION: 1. No acute cardiopulmonary process. Senescent interstitial changes are stable from prior study. 2. Atherosclerosis. 3. No significant congestive failure seen. RPTAT:PP .Samir Grant MD, Date Time Electronically viewed and signed by .Samir Grant MD, on 11/18/2016 15:57 .V/
--- NOTE | 2016-11-18 16:41 | CONS ---
DATE OF ADMISSION: 11/11/2016 DATE OF CONSULTATION: 11/18/2016 TYPE OF CONSULTATION: Orthopedic surgical consultation. HISTORY OF PRESENT ILLNESS: The patient is an 86-year-old [place]-speaking female who was a dmitted on 11/09/2016 when she came to the emergency room complaining of vaginal bleeding of 2 weeks ' duration. Orthopedic surgery was consulted because of the painful swelling involving her right kn ee which she developed about 2 or 3 days before my evaluation. PHYSICAL EXAMINATION: My examination revealed an 86-year-old female who was not in any acute distre ss. There was considerable effusion involving the right knee and the range of motion of the right k nee was limited because of the effusion and also because of the pain. There was tenderness along th e joint line. There were no effusions or tenderness or limit of motion involving the left knee. In the right knee, there were no signs of acute pyogenic process such as acute tenderness or increased warmth or redness. There were no signs of acute trauma such as ecchymosis or abrasions. X-rays of the right knee revealed the presence of fairly advanced degenerative osteoarthritis involv ing all 3 compartments. There also seems to be signs of a chondrocalcinosis. DIAGNOSTIC IMPRESSION: Painful effusion of the right knee, possible differential diagnosis should i nclude symptomatic exacerbation of the preexisting degenerative osteoarthritis and possible crystall ine arthritis such as pseudogout. RECOMMENDATIONS FOR MANAGEMENT: A steroid injection into the right knee joint, and this was carried out right after my evaluation. The patient has been afebrile since her admission. There has not b een any leukocytosis on CBC. Dictated By: ADILIA COLBERT/VIDA Conf#: [id number] DID#: [id number]
[2016-11-18 20:18] VITALS: BP 124/75; RESP 18
[2016-11-19 06:15] LABS: ADD SCAN DIFF NO
[2016-11-19 06:29] LABS: ABNORMAL IP MESSAGE 1; HEMATOCRIT 31.4 % (37.0-47.0); HEMOGLOBIN 10.9 g/dl (12.0-16.0); LYMPHOCYTES # 0.5 10^3/ul (0.8-2.9); LYMPHOCYTES % 11.3 % (15.0-51.0); MEAN CORPUSCULAR HEMOGLOBIN 32.8 pg (29.0-33.0); MEAN CORPUSCULAR HGB CONC 34.7 g/dl (32.0-37.0); MEAN CORPUSCULAR VOLUME 94.6 fl (82.0-101.0); MONOCYTE # 0.1 10^3/ul (0.3-0.9); MONOCYTES % 3.2 % (0.0-11.0); NEUTROPHIL # 3.7 10^3/ul (1.6-7.5); PLATELET COUNT 388 10^3/UL (140-415); RED BLOOD COUNT 3.32 10^6/ul (4.20-5.40); RED CELL DISTRIBUTION WIDTH 11.8 % (11.5-14.5); WHITE BLOOD COUNT 4.3 10^3/ul (4.8-10.8)
[2016-11-19 06:40] LABS: CALCIUM 8.4 mg/dl (8.4-10.2); CREATININE 0.56 mg/dl (0.44-1.00); POTASSIUM 4.8 mmol/L (3.5-5.1)
[2016-11-19 07:51] VITALS: BP 113/55; RESP 16
[2016-11-19] MEDS: DOCUSATE SODIUM 100 MG CAP PO SCH (08:37)
[2016-11-19] MEDS: POTASSIUM CHLORIDE 20 MEQ POWDER FOR ORAL SOLN PO SCH (08:38)
[2016-11-19] MEDS: ATORVASTATIN 40 MG TAB PO SCH (08:39)
[2016-11-19] MEDS: LISINOPRIL 5 MG TAB PO SCH (08:39)
[2016-11-19] MEDS: FAMOTIDINE 20 MG TAB PO SCH (08:39)
[2016-11-19] MEDS: FUROSEMIDE 20 MG TAB PO SCH (08:39)
--- NOTE | 2016-11-19 15:41 | PN ---
DATE: 11/19/2016 SUBJECTIVE: The patient does have a urethral caruncle and urethral meatal prolapse and she has had bleeding from that area and she did have a biopsy done that showed it is benign. The patient speaks very little [place]ovan and her other daughter at her bedside also does not speak much [place]ovan. The nu rse's notes were reviewed and she did have, it looks earlier, an episode of confusion and anxiety an d they called her daughter and talked to her. The patient is urinating and she still has a stain of blood from the urethral caruncle. OBJECTIVE: VITAL SIGNS: Her temperature is 98.0, pulse is 69, respirations 16, blood pressure 113/55. LABORATORY DATA: Her CBC shows a white count of 4.3, hemoglobin 10.9, hematocrit 31.4. BUN is 10, creatinine 0.56, sodium 129, potassium 4.8, chloride 99, CO2 24. IMPRESSION: Urethral caruncle and urethral meatal collapse causing some bleeding. [facility] has refused to have the surgery at the present time. Therefore, we will just watc h it and hopefully that could not bleed to where we would be forced to operate on her on emergency. Dictated By: MILANA THOMAS/VIDA Conf#: [id number] DID#: [id number]
--- NOTE | 2016-11-19 18:26 | CONS ---
Date/Time of Note Date/Time of Note DATE: 11/19/16 TIME: 18:25 Assessment/Plan Assessment/Plan Chief Complaint/Hosp Course IMPRESSION: 1. Cardiomyopathy with decreased left ventricular ejection fraction last seen approximately 30% by echo at outside hospital 08/2016. EF 35% by echo this admit with lexiscan negative for ischemia with scar and EF 40%. 2. Hypertension. 3. History of myocardial infarction. 4. History of percutaneous transluminal coronary angioplasty and stent placement last 2011. 5. Coagulopathy-improved 6. Anemia. 7. Vaginal bleed now post-op s/p D+C with Bx 8. Possible endometrial mass, abnormal thickening. 9. 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 PULMONARY: No sob CARDIOVASCULAR: No chest pain/palpitations GASTROINTESTINAL: No nausea/vomiting. GENITOURINARY: No hematuria/dysuria. MUSCULOSKELETAL: Mild pain in knee PSYCHIATRIC: The patient denies depression. NEUROLOGIC: No weakness Constitutional: alert Psych: no complaints Head: normocephalic ENMT: mucosa pink and moist Neck: jvd (8 cm water), supple Respiratory: clear to auscultation Cardiovascular: regular rate and rhythm Gastrointestinal: non-tender, soft Musculoskeletal: muscle tone (normal) Extremities: edema (none) Neurological: other (No focal deficits) Results Result Diagram: 11/19/16 0529 11/19/1629 Results 24 hrs Laboratory Tests Test 11/19/16 05:29 White Blood Count 4.3 #L Red Blood Count 3.32 L Hemoglobin 10.9 L Hematocrit 31.4 L Mean Corpuscular Volume 94.6 Mean Corpuscular Hemoglobin 32.8 Mean Corpuscular Hemoglobin Concent 34.7 Red Cell Distribution Width 11.8 Platelet Count 388 Mean Platelet Volume 10.0 Neutrophils % 85.0 H Lymphocytes % 11.3 L Monocytes % 3.2 Eosinophils % 0.0 Basophils % 0.0 Nucleated Red Blood Cells % 0.0 Neutrophils # 3.7 Lymphocytes # 0.5 L Monocytes # 0.1 L Eosinophils # 0.0 Basophils # 0.0 Nucleated Red Blood Cells # 0.0 Sodium Level 129 L Potassium Level 4.8 Chloride Level 99 Carbon Dioxide Level 24 Anion Gap 11 Blood Urea Nitrogen 10 Creatinine 0.56 Glucose Level 193 Calcium Level 8.4 Medications Medications Current Medications Acetaminophen (Tylenol Tab) 650 mg Q4H PRN PO PAIN AND OR ELEVATED TEMP Last administered on 11/18/16 20:37; Admin Dose 650 MG; Start 11/09/16 at 05:30 Atorvastatin Calcium (Lipitor) 40 mg DAILY PO Last administered on 11/19/16 08: 39; Admin Dose 40 MG; Start 11/10/16 at 09:00 Carvedilol (Coreg) 6.25 mg BID PO Last administered on 11/19/16 08:38; Admin Dose 6.25 MG; Start 11/09/16 at 21:00 Docusate Sodium (Colace) 100 mg DAILY PO Last administered on 11/19/16 08:37; Admin Dose 100 MG; Start 11/10/16 at 09:00 Famotidine (Pepcid) 20 mg DAILY PO Last administered on 11/19/16 08:39; Admin Dose 20 MG; Start 11/10/16 at 09:00 Furosemide (Lasix) 20 mg DAILY PO Last administered on 11/19/16 08:39; Admin Dose 20 MG; Start 11/10/16 at 09:00 Potassium Chloride (Potassium Chloride Pwd/Soln) 20 meq DAILY PO Last administered on 11/19/16 08:38; Admin Dose 20 MEQ; Start 11/10/16 at 09:00 Zolpidem Tartrate (Ambien) 5 mg QHS PRN PO INSOMNIA Last administered on 21:16; Admin Dose 5 MG; Start 11/09/16 at 13:30 Acetaminophen/ Hydrocodone Bitart ([place] (5/325)) 1 tab Q4H PRN PO PAIN LEVEL 4 -7; Start 11/09/16 at 13:30 Bisacodyl (Dulcolax Supp) 10 mg DAILY PRN [place] CONSTIPATION Last administered on 11/11/16 17:04; Admin Dose 10 MG; Start 11/09/16 at 20:00 Lisinopril (Zestril) 5 mg DAILY PO Last administered on 11/19/16 08:39; Admin Dose 5 MG; Start 11/12/16 at 09:00 Morphine Sulfate (morphine) 1 mg Q3H PRN IV PAIN Last administered on 15:07; Admin Dose 1 MG; Start 11/18/16 at 15:03 DEBBIE QUINTANA Nov 19, 2016 18:26
[2016-11-19 20:24] VITALS: BP 124/76; RESP 18
[2016-11-19] MEDS: SOD CHLORIDE 0.9% 1,000 ML IV SCH (20:55)
--- NOTE | 2016-11-19 22:51 | CONS ---
DATE OF ADMISSION: 11/11/2016 DATE OF CONSULTATION: 11/19/2016 REASON FOR CONSULTATION: Hyponatremia, persistent, with a sodium of 121. HISTORY OF PRESENT ILLNESS: This is an 86-year-old female with a past medical history of dementia, spinal stenosis, Alzheimer's dementia, hypertension, hyperlipidemia, congestive heart failure, coron minesh artery disease, status post previous stent placement, and history of right hip replacement. She has been admitted because of right knee swelling and tenderness, evaluated by Dr. Callie Hernandez for ort hopedic consultation. She also has vaginal bleeding with a possible suspicious endometrial carcinom a. Cardiology has been following for her congestive heart failure. She is noted to have a hyponatr emia with a sodium of 121 and then nephrology has been consulted. Because of hyponatremia. The pat ient had a BNP of 4930 and there is also concern about congestive heart failure, systolic and diasto lic, for which cardiology has been following. REVIEW OF SYSTEMS: Unable to obtain from the patient since she is currently demented. PAST MEDICAL HISTORY: As per HPI. PAST SURGICAL HISTORY: History of right knee replacement, history of coronary artery stent placemen t with cardiac catheterization, history of previous falls and requiring surgery for that. SOCIAL HISTORY: The patient is living in a senior living facility. No smoking, alcohol, or recre ational drug use. FAMILY HISTORY: Not available. PHYSICAL EXAMINATION: VITAL SIGNS: Temperature 97.6, heart rate 68, respiration 18, blood pressure 124/76, saturation 97 to 98% on room air. GENERAL: Awake, alert, not oriented to place and person. HEENT: Pupils equal, round, reactive to light and accommodation. Extraocular muscles are intact. NECK: Supple. No JVD, no lymphadenopathy. LUNGS: Decreased breath sounds at both lung bases. HEART: S1, S2, with regular rhythm. No murmur. ABDOMEN: Soft, nontender, nondistended. Bowel sounds are present. EXTREMITIES: Tender to palpation in the left lower quadrant. No rebound, no guarding. NEUROLOGICAL: Uncooperative for exam. LABORATORY DATA/DIAGNOSTIC IMAGIN. Sodium 121, potassium 4.6, chloride 94, bicarbonate 22, BUN 13, creatinine 0.6, calcium 8.1. BN P 4930, WBC 4.3, hemoglobin 10.9, platelet count 388. Urinalysis: Trace leukocyte esterase. PT 14 .7, INR 1.1. 2. Chest x-ray shows no acute cardiopulmonary process. Atherosclerosis. 2. The patient had a Lexiscan myocardial perfusion scan done on 11/10/2016, which shows a large siz ed nonreversible perfusion defect in the apex, distal anterior, distal to mid septal, distal lateral , and distal inferior jiménez. Ejection fraction 41%. Akinesis of the apical wall and mild hypokines is of the remainder of the left ventricle. IMPRESSION: This is an 86-year-old female who has been admitted for right knee swelling. Also note d to have possible endometrial carcinoma. The patient is also being treated and followed up by card iology for congestive heart failure and nephrology has been consulted for hyponatremia. IMPRESSION: 1. Hyponatremia, multifactorial secondary to hypovolemic hyponatremia and possible component of ashly stolic heart failure. 2. Hypokalemia. 3. Right knee swelling and erythema. 4. 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 5. History of coronary artery disease, status post previous stent placement in 2011. 6. History of atrial fibrillation. 7. History of vaginal bleeding, now status post dilatation and curettage with biopsy. 8. Coagulopathy, improved. 9. History of hypertension. PLAN: 1. Thank you, Dr. An, for this consultation. The patient likely has hypovolemic hyponatremia . Her chest x-ray is negative for any congestion. She will need IV fluid hydration at 40 mL per ho ur x1 liter and then we will reassess her sodium in morning. 2. Continue the current potassium replacement with Lasix 20 mg p.o. daily for her congestive heart failure, lisinopril 5 mg p.o. daily for her afterload reduction, and potassium chloride 20 mEq p.o. daily. 3. The patient's current creatinine has been normal, so I would avoid doing any kidney ultrasound a t this point. Depending on the patient's course and response to the IV fluid hydration, we will fol low up on her sodium in the morning labs. Currently, she is seen on the med/surg floor, and she felipe l be followed up along with cardiology service and primary care service. Dictated By: DEMETRIO OLSEN MD, KP/VIDA Conf#: [id number] DID#: [id number]
[2016-11-20 07:35] VITALS: BP 142/74; RESP 24
[2016-11-20] MEDS: FAMOTIDINE 20 MG TAB PO SCH (10:00)
[2016-11-20] MEDS: FUROSEMIDE 20 MG TAB PO SCH (10:01)
[2016-11-20] MEDS: DOCUSATE SODIUM 100 MG CAP PO SCH (10:02)
[2016-11-20] MEDS: POTASSIUM CHLORIDE 20 MEQ POWDER FOR ORAL SOLN PO SCH (10:03)
[2016-11-20] MEDS: ATORVASTATIN 40 MG TAB PO SCH (10:03)
[2016-11-20] MEDS: LISINOPRIL 5 MG TAB PO SCH (10:03)
--- NOTE | 2016-11-20 11:53 | CONS ---
Date/Time of Note Date/Time of Note DATE: 11/20/16 TIME: 11:51 Assessment/Plan Assessment/Plan Additional Assessment/Plan 1. Hyponatremia, multifactorial secondary to hypovolemic hyponatremia and possible component of diastolic heart failure. 2. Hypokalemia. 3. Right knee swelling and erythema. 4. 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 5. History of coronary artery disease, status post previous stent placement in 2011. 6. History of atrial fibrillation. 7. History of vaginal bleeding, now status post dilatation and curettage with biopsy. 8. Coagulopathy, improved. 9. History of hypertension. PLAN: Na imrpoved to 129- IVF NS at 40cc/hr x 1 liter then stop it due to patient age and other comorbidites BP stable, continue lisinopril and other BP meds continue lasix 20mg po daily will follow up Consultation Date/Type/Reason Admit Date/Time November 11, 2016 at 10:47 Initial Consult Date Type of Consultation: NEPHROLOGY Referring Provider: EMILY SHAH MD 24 HR Interval Summary Free Text/Dictation Na imrpoved to 129 with gentle IVF at 40 cc/hr, no acute events overnight k Exam/Review of Systems Vital Signs Vitals Vital Signs Date Time Temp Pulse Resp B/P Pulse Ox O2 Delivery O2 Flow Rate FiO2 11/20/16 07:35 97.6 72 24 142/74 98 Intake and Output 11/19/16 11/19/16 11/20/16 15:00 23:00 07:00 Intake Total 780 ml 610 ml Balance 780 ml 610 ml Exam GENERAL: Awake, alert, not oriented to place and person. HEENT: Pupils equal, round, reactive to light and accommodation. Extraocular muscles are intact. NECK: Supple. No JVD, no lymphadenopathy. LUNGS: Decreased breath sounds at both lung bases. HEART: S1, S2, with regular rhythm. No murmur. ABDOMEN: Soft, nontender, nondistended. Bowel sounds are present. EXTREMITIES: Tender to palpation in the left lower quadrant. No rebound, no guarding. NEUROLOGICAL: Uncooperative for exam. Results Result Diagram: 11/19/1629 11/19/16528 Medications Medications Current Medications Acetaminophen (Tylenol Tab) 650 mg Q4H PRN PO PAIN AND OR ELEVATED TEMP Last administered on 11/18/16 20:37; Admin Dose 650 MG; Start 11/09/16 at 05:30 Atorvastatin Calcium (Lipitor) 40 mg DAILY PO Last administered on 11/20/16 10: 03; Admin Dose 40 MG; Start 11/10/16 at 09:00 Carvedilol (Coreg) 6.25 mg BID PO Last administered on 11/20/16 10:02; Admin Dose 6.25 MG; Start 11/09/16 at 21:00 Docusate Sodium (Colace) 100 mg DAILY PO Last administered on 11/20/16 10:02; Admin Dose 100 MG; Start 11/10/16 at 09:00 Famotidine (Pepcid) 20 mg DAILY PO Last administered on 11/20/16 10:00; Admin Dose 20 MG; Start 11/10/16 at 09:00 Furosemide (Lasix) 20 mg DAILY PO Last administered on 11/20/16 10:01; Admin Dose 20 MG; Start 11/10/16 at 09:00 Potassium Chloride (Potassium Chloride Pwd/Soln) 20 meq DAILY PO Last administered on 11/20/16 10:03; Admin Dose 20 MEQ; Start 11/10/16 at 09:00 Zolpidem Tartrate (Ambien) 5 mg QHS PRN PO INSOMNIA Last administered on 21:16; Admin Dose 5 MG; Start 11/09/16 at 13:30 Acetaminophen/ Hydrocodone Bitart ([place] (5/325)) 1 tab Q4H PRN PO PAIN LEVEL 4 -7; Start 11/09/16 at 13:30 Bisacodyl (Dulcolax Supp) 10 mg DAILY PRN [place] CONSTIPATION Last administered on 11/11/16 17:04; Admin Dose 10 MG; Start 11/09/16 at 20:00 Lisinopril (Zestril) 5 mg DAILY PO Last administered on 11/20/16 10:03; Admin Dose 5 MG; Start 11/12/16 at 09:00 Morphine Sulfate 1 mg 1 mg Q3H PRN IV PAIN Last administered on 11/18/16 15:07 ; Admin Dose 1 MG; Start 11/18/16 at 15:03 Sodium Chloride (NS) 1,000 ml @ 40 mls/hr Q24H IV Last administered on 6/1/ 17at 20:55; Admin Dose 40 MLS/HR; Start 11/19/16 at 20:00 DEMETRIO OLSEN MD Nov 20, 2016 11:53
[2016-11-20 12:10] LABS: CALCIUM 8.6 mg/dl (8.4-10.2); CREATININE 0.6 mg/dl (0.44-1.00); POTASSIUM 5.5 mmol/L (3.5-5.1)
--- NOTE | 2016-11-20 16:15 | CONS ---
Date/Time of Note Date/Time of Note DATE: 11/20/16 TIME: 16:12 Assessment/Plan Assessment/Plan Chief Complaint/Hosp Course IMPRESSION: 1. Cardiomyopathy with decreased left ventricular ejection fraction last seen approximately 30% by echo at outside hospital 08/2016. EF 35% by echo this admit with lexiscan negative for ischemia with scar and EF 40%. 2. Hypertension. 3. History of myocardial infarction. 4. History of percutaneous transluminal coronary angioplasty and stent placement last 2011. 5. Coagulopathy-improved 6. Anemia. 7. Vaginal bleed now post-op s/p D+C with Bx 8. Possible endometrial mass, abnormal thickening. 9. R knee pain and swelling acute s/p steroid injection with improvement in sx 10.Hyponatremia-ow slowly iproving Rec: - continue BB/ACEI -Continue lasix PO and follow volume status closely on gentle IVF NS -ASA d/c'd given vaginal bleeding -Follow hgb closely -F/U [employer] Rec[employer]iter path -PT as tolerated Problems: Consultation Date/Type/Reason Admit Date/Time November 11, 2016 at 10:47 Initial Consult Date 11/09/2016 Type of Consultation: Cardiology Reason for Consultation CHF/AF Referring Provider: EMILY SHAH MD Exam/Review of Systems Vital Signs Vitals Vital Signs Date Time Temp Pulse Resp B/P Pulse Ox O2 Delivery O2 Flow Rate FiO2 11/20/16 07:35 97.6 72 24 142/74 98 Intake and Output 11/19/16 11/19/16 11/20/16 15:00 23:00 07:00 Intake Total 780 ml 610 ml Balance 780 ml 610 ml Exam Review of Systems: CONSTITUTIONAL: No fevers, chills. PULMONARY: No sob CARDIOVASCULAR: No chest pain/palpitations GASTROINTESTINAL: No nausea/vomiting. GENITOURINARY: No hematuria/dysuria. MUSCULOSKELETAL: No myagias/arthalgias. PSYCHIATRIC: The patient denies depression. NEUROLOGIC: No weakness Constitutional: alert Psych: no complaints Head: normocephalic ENMT: mucosa pink and moist Neck: jvd (9 cm water), supple Respiratory: diminished breath sounds (at bases/B) Cardiovascular: regular rate and rhythm Gastrointestinal: non-tender, soft Musculoskeletal: muscle tone (normal) Extremities: edema (none) Neurological: other (No mfocal deficits) Results Result Diagram: 11/19/16 0529 11/20/16 1130 Results 24 hrs Laboratory Tests Test 11/20/16 11:30 Sodium Level 130 L Potassium Level 5.5 H Chloride Level 98 Carbon Dioxide Level 25 Anion Gap 13 Blood Urea Nitrogen 13 Creatinine 0.60 Glucose Level 149 # Calcium Level 8.6 Medications Medications Current Medications Acetaminophen (Tylenol Tab) 650 mg Q4H PRN PO PAIN AND OR ELEVATED TEMP Last administered on 11/18/16 20:37; Admin Dose 650 MG; Start 11/09/16 at 05:30 Atorvastatin Calcium (Lipitor) 40 mg DAILY PO Last administered on 11/20/16 10: 03; Admin Dose 40 MG; Start 11/10/16 at 09:00 Carvedilol (Coreg) 6.25 mg BID PO Last administered on 11/20/16 10:02; Admin Dose 6.25 MG; Start 11/09/16 at 21:00 Docusate Sodium (Colace) 100 mg DAILY PO Last administered on 11/20/16 10:02; Admin Dose 100 MG; Start 11/10/16 at 09:00 Famotidine (Pepcid) 20 mg DAILY PO Last administered on 11/20/16 10:00; Admin Dose 20 MG; Start 11/10/16 at 09:00 Furosemide (Lasix) 20 mg DAILY PO Last administered on 11/20/16 10:01; Admin Dose 20 MG; Start 11/10/16 at 09:00 Potassium Chloride (Potassium Chloride Pwd/Soln) 20 meq DAILY PO Last administered on 11/20/16 10:03; Admin Dose 20 MEQ; Start 11/10/16 at 09:00 Zolpidem Tartrate (Ambien) 5 mg QHS PRN PO INSOMNIA Last administered on 21:16; Admin Dose 5 MG; Start 11/09/16 at 13:30 Acetaminophen/ Hydrocodone Bitart ([place] (5/325)) 1 tab Q4H PRN PO PAIN LEVEL 4 -7; Start 11/09/16 at 13:30 Bisacodyl (Dulcolax Supp) 10 mg DAILY PRN [place] CONSTIPATION Last administered on 11/11/16 17:04; Admin Dose 10 MG; Start 11/09/16 at 20:00 Lisinopril (Zestril) 5 mg DAILY PO Last administered on 11/20/16 10:03; Admin Dose 5 MG; Start 11/12/16 at 09:00 Morphine Sulfate 1 mg 1 mg Q3H PRN IV PAIN Last administered on 11/18/16 15:07 ; Admin Dose 1 MG; Start 11/18/16 at 15:03 Sodium Chloride (NS) 1,000 ml @ 40 mls/hr Q24H IV Last administered on 20:55; Admin Dose 40 MLS/HR; Start 11/19/16 at 20:00; Stop 11/21/16 at 20:00 DEBBIE QUINTANA Nov 20, 2016 16:15
--- NOTE | 2016-11-20 18:33 | PN ---
Date/Time of Note Date/Time of Note DATE: 11/20/16 TIME: 18:33 Assessment/Plan VTE Prophylaxis VTE Prophylaxis Intervention: SCD's Lines/Catheters IV Catheter Type (from [facility]): Peripheral IV Urinary Cath still in place: No Assessment/Plan Chief Complaint/Hosp Course Pt s/p steroid injection in to r knee, was able to get out of bed with PT. K is 5.5, Pt is on Lasix, K supplements d/mayela. BMP tomorrow. ASSESSMENT AND PLAN: - Right knee swelling and tenderness, Dr. Hernandez is following in orthopedic surgery consultation. S/p steroid injection in R knee joint. 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 Dr. Rosen evaluated patient in urology consultation. Patient daughter refused any surgical interventions. - Vaginal bleeding with ultrasound suspicious for endometrial carcinoma. S/p D& C with biopsy by Dr. Bah. 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 Stress test is negative for ischemia with scar. Continue Lasix. - Atrial fibrillation, continue aspirin. Patient is not a candidate for anticoagulation due to bleeding. - History of UT. - Hypertension, continue Coreg and lisinopril. - Hyperlipidemia. Continue statin. - Coronary artery disease with history of stent placement in 2011. Continue aspirin. Continue sequential compression device for deep venous thrombosis prophylaxis and Pepcid for peptic ulcer disease prophylaxis. Patient's condition and plan of care was discussed in details with daughter Jael at the bedside, all questions answered. Further recommendations based on clinical course. Plan of care discussed with Dr. An. Problems: Exam/Review of Systems Vital Signs Vitals Vital Signs Date Time Temp Pulse Resp B/P Pulse Ox O2 Delivery O2 Flow Rate FiO2 11/20/16 07:35 97.6 72 24 142/74 98 Intake and Output 11/19/16 11/19/16 11/20/16 15:00 23:00 07:00 Intake Total 780 ml 610 ml Balance 780 ml 610 ml Exam Constitutional: alert, oriented Head: normocephalic Neck: supple Respiratory: clear to auscultation Cardiovascular: nl pulses Gastrointestinal: soft, BS+ Extremities: normal pulses Results Result Diagram: 11/19/16 0546 11/20/16 1130 Results 24 hrs Laboratory Tests Test 11/20/16 11:30 Sodium Level 130 L Potassium Level 5.5 H Chloride Level 98 Carbon Dioxide Level 25 Anion Gap 13 Blood Urea Nitrogen 13 Creatinine 0.60 Glucose Level 149 # Calcium Level 8.6 Medications Medications Current Medications Acetaminophen (Tylenol Tab) 650 mg Q4H PRN PO PAIN AND OR ELEVATED TEMP Last administered on 11/18/16 20:37; Admin Dose 650 MG; Start 11/09/16 at 05:30 Atorvastatin Calcium (Lipitor) 40 mg DAILY PO Last administered on 11/20/16 10: 03; Admin Dose 40 MG; Start 11/10/16 at 09:00 Carvedilol (Coreg) 6.25 mg BID PO Last administered on 11/20/16 10:02; Admin Dose 6.25 MG; Start 11/09/16 at 21:00 Docusate Sodium (Colace) 100 mg DAILY PO Last administered on 11/20/16 10:02; Admin Dose 100 MG; Start 11/10/16 at 09:00 Famotidine (Pepcid) 20 mg DAILY PO Last administered on 11/20/16 10:00; Admin Dose 20 MG; Start 11/10/16 at 09:00 Furosemide (Lasix) 20 mg DAILY PO Last administered on 11/20/16 10:01; Admin Dose 20 MG; Start 11/10/16 at 09:00 Zolpidem Tartrate (Ambien) 5 mg QHS PRN PO INSOMNIA Last administered on 21:16; Admin Dose 5 MG; Start 11/09/16 at 13:30 Acetaminophen/ Hydrocodone Bitart ([place] (5/325)) 1 tab Q4H PRN PO PAIN LEVEL 4 -7; Start 11/09/16 at 13:30 Bisacodyl (Dulcolax Supp) 10 mg DAILY PRN [place] CONSTIPATION Last administered on 11/11/16 17:04; Admin Dose 10 MG; Start 11/09/16 at 20:00 Lisinopril (Zestril) 5 mg DAILY PO Last administered on 11/20/16 10:03; Admin Dose 5 MG; Start 11/12/16 at 09:00 Morphine Sulfate 1 mg 1 mg Q3H PRN IV PAIN Last administered on 11/18/16 15:07 ; Admin Dose 1 MG; Start 11/18/16 at 15:03 Sodium Chloride (NS) 1,000 ml @ 40 mls/hr Q24H IV Last administered on t 20:55; Admin Dose 40 MLS/HR; Start 11/19/16 at 20:00; Stop 11/21/16 at 20:00 NILES LOPEZ Nov 20, 2016 18:33
[2016-11-20] MEDS ORDERED: NA POLYST SULFON 15 GM/60 ML BTL PO ONE (19:00)
[2016-11-20] MEDS: SOD CHLORIDE 0.9% 1,000 ML IV SCH (20:00)
[2016-11-20 21:56] VITALS: BP 115/63; RESP 20
[2016-11-21] VITALS (24 sets, daily range): BP systolic 113–171; BP diastolic 62–122; PULSE 70–115; RESP 14–30
[2016-11-21] MEDS: SOD CHLORIDE 0.9% 1,000 ML IV SCH (05:58)
[2016-11-21 08:03] LABS: CALCIUM 8.4 mg/dl (8.4-10.2); CREATININE 0.65 mg/dl (0.44-1.00); POTASSIUM 4.3 mmol/L (3.5-5.1)
[2016-11-21] MEDS: DOCUSATE SODIUM 100 MG CAP PO SCH (08:34)
[2016-11-21] MEDS: FAMOTIDINE 20 MG TAB PO SCH (08:36)
[2016-11-21] MEDS: ATORVASTATIN 40 MG TAB PO SCH (08:36)
[2016-11-21] MEDS: FUROSEMIDE 20 MG TAB PO SCH (08:36)
[2016-11-21] MEDS: LISINOPRIL 5 MG TAB PO SCH (08:37)
[2016-11-21] MEDS ORDERED: DEXTROSE 50% 50 ML SYRINGE ONE (09:52)
[2016-11-21] MEDS ORDERED: DEXTROSE 50% 50 ML SYRINGE IV ONE (10:00)
--- NOTE | 2016-11-21 10:22 | RADRPT ---
PROCEDURE: CT Brain without contrast. CLINICAL INDICATION: Altered mental status. Rapid response. TECHNIQUE: A CT of the brain was performed on a multidetector CT scanner utilizing axial sections from the skull base through the vertex without contrast. Images were reviewed on a high-resolution [employer] workstation. Exam CTDI = 44.19 mGy and the DLP = 720.23 mGy-cm. One or more of the following dose reduction techniques were used: Automated exposure control Adjustment of the mA and/or kV according to patient size. Use of iterative reconstruction technique. COMPARISON: None available FINDINGS: There is an area of hypoattenuation in the right parietal lobe with sulcal effacement suggesting rec ent infarction. There is no hemorrhagic conversion or significant associated mass effect. 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 Mild diffuse cerebral and cerebellar atrophy is presen t. There is proportionate dilatation of the ventricular system and sulci in a symmetric fashion. Th ere is prominence of the extraaxial spaces secondary to atrophy. There is no evidence of intracrania l hemorrhage, mass effect or midline shift. No abnormal intra-axial or extra-axial fluid collection s are seen. The density of the brain is normal and the yuan/white matter differentiation is well pr eserved. Mild to moderate patchy diffuse deep white matter microangiopathic ischemic change is seen . The osseous structures are unremarkable. There is a small osteoma in the right ethmoidal air c ells. The patient is status post right mastoidectomy and resection of the middle ear ossicles. Soft tissue thickening is seen in the mastoid vault. Vascular calcifications are identified. A call report was made to Blanca Chavez at 11/21/2016 10:21:21 AM following completion of the e xamination. IMPRESSION: 1. Hypoattenuated area with sulcal effacement in the right parietal lobe suggesting recent infarcti on. No hemorrhagic conversion. 2. No intracranial hemorrhage, mass effect or midline shift. 3. Mild generalized atrophy. Mild to moderate microangiopathic ischemic change. 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 4. Intracranial atherosclerosis. RPTAT: EE .Gerda Sargent MD, MD Date Time Electronically viewed and signed by .Gerda Sargent MD, on 11/21/2016 10:22 .O/
[2016-11-21 10:23] LABS: INR 1.09; PROTIME 14.1 Sec (12.2-14.2); PT RATIO 1.1
[2016-11-21 10:25] LABS: MAGNESIUM 1.9 mg/dl (1.7-2.5)
--- NOTE | 2016-11-21 10:27 | EN ---
Date/Time of Note Date/Time of Note DATE: 11/21/16 TIME: 10:21 Event Note Medicine Medicine Event Note RELATIONSHIP ADVISOR Note Date: November 21, 2016 Indication: Acute alteration in mental status Findings: Slurred speech and left-sided weakness and the patient was reviewed as normal blood lethargic earlier Vitals: Reviewed , good oxygenation on NC at 2L, systolic blood pressure in the 140s heart rates between 80 and 90, atrial fibrillation on the monitor Quick Physical Exam: GENERAL: Altered, Afebrile to touch, mildly responsive to deep sternal rub NEUROLOGIC: Slurred, difficult to understand but oriented speech,patient seemingly unresponsive to stimuli on the left side, able however to move both upper extremity against gravity, seemed to have a delay on the left side and responding to commands. HEENT: NC/AT, LONNIE SKIN: Gross inspection of the skin reveals no rashes, ulcerations or petechiae. NECK: Supple and symmetric. CHEST: Normal AP diameter and movement . LUNGS: Auscultation of the lungs revealed normal breath sounds without any other adventitious sounds or rubs. CARDIOVASCULAR: Irregular rhythm with normal rate without any murmurs, gallops , rubs. Radial pulses were 1+ and symmetric. ABDOMEN: Soft and nontender with normal bowel sounds. No ascites was noted. MUSCULOSKELETAL: There was no tenderness or effusions noted. Muscle strength and tone were normal. EXTREMITIES: No cyanosis, clubbing or edema. PSYCHIATRIC:Unable to assess LABs: Recent Labs were reviewed and compared with prior and the following interventions were done 1. Code stroke was activated 2. Stat EKG on my review showed atrial fibrillation with controlled ventricular rate in the 70s 3. Stat bedside blood glucose was 107, I ordered half an amp of D50 to be given 4. Reviewed medication list from the last 2 days, no narcotic or mood altering medication had been given 5. Patient was immediately transferred and transported to CT scan for a stat CT of the brain from where she will be transferred to the intensive care unit for telemetry neurology review and possible TPA therapy if CT is negative for acute bleed. 6. Stat ABG ordered will be done in the intensive care unit and reviewed by myself or primary attending Disposition: Transfer to ICU, await radiology findings, awaiting neurology recommendations. Time spent with patient is critical care time. REMEDIOS GUPTA Nov 21, 2016 10:27
[2016-11-21 10:37] LABS: CK-MB 1.68 ng/ml (0.0-2.4); TROPONIN-I 0.013 ng/ml (0.00-0.12)
[2016-11-21 10:50] LABS: Allen Test ACCEPTAB; Arterial Base Excess 3.8 mmol/L (-3.0-3); Arterial COHb 0.2 % (0.0-3.0); Arterial Fraction of Oxyhgb 98.3 % (93.0-99.0); Arterial HCO3 26.5 mmol/L (22.0-26.0); Arterial MetHb 0.1 % (0.0-1.5); Arterial Total Hemglobin 11.4 g/dl (12.0-18.0); MODE ROOM AIR
[2016-11-21] MEDS ORDERED: ASPIRIN 300 MG SUPP PR ONE (11:00)
[2016-11-21] MEDS ORDERED: LIDOCAINE 1% (MPF) 5 ML VIAL SC ONE (11:00)
[2016-11-21] MEDS ORDERED: CEFTRIAXONE 1 GM/50 ML (PMX) 50 ML IVPB SCH (11:00)
[2016-11-21 11:02] LABS: CHOL/HDL RATIO 4.1 RATIO
--- NOTE | 2016-11-21 11:13 | PN ---
Date/Time of Note Date/Time of Note DATE: 11/21/16 TIME: 10:45 Assessment/Plan VTE Prophylaxis VTE Prophylaxis Intervention: other Lines/Catheters IV Catheter Type (from [facility]): Saline Lock Urinary Cath still in place: No Assessment/Plan Assessment/Plan DO NOT RESUSCITATE - Altered Mental status - Code stroke called - ICU monitoring - aspiration precautions - ASA 300 mg NE X1, daily - Lipid Panel, MRI brain, Neurochecks Q 4hrs, NPO, scd - Bilateral Carotid Doppler stat - Gentle fluids- d51/2 ns at 40 cc /hr - FC - Neurology consult- Dr Huizar notified - Possible Afib stroke with left Hemiplegia - per cardio - per neuro - Right knee swelling and tenderness, Dr. Hernandez is following in orthopedic surgery consultation. S/p steroid injection in R knee joint. 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 Dr. Rosen evaluated patient in urology consultation. Patient daughter refused any surgical interventions. - Vaginal bleeding with ultrasound suspicious for endometrial carcinoma. S/p D& C with biopsy by Dr. Bah. 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 Stress test is negative for ischemia with scar. Continue Lasix. - Atrial fibrillation, continue aspirin. Patient is not a candidate for anticoagulation due to bleeding. - History of [place]. - Hypertension, continue Coreg and lisinopril. - Hyperlipidemia. Continue statin. - Coronary artery disease with history of stent placement in 2011. Continue aspirin. Continue sequential compression device for deep venous thrombosis prophylaxis and Pepcid for peptic ulcer disease prophylaxis. Patient's condition and plan of care was discussed in details with daughter Jael at the bedside, all questions answered. Further recommendations based on clinical course. Dr An has discussed with daughter regarding Code Status- patient will be " Do Not Resuscitate" per daughter. Total critical care time spent 60 mins.Plan of care discussed with Dr. An. Subjective 24 Hr Interval Summary Free Text/Dictation Alert, open eyes, awake, Dr An has discussed with daughter regarding Code Status- patient is " Do Not Resuscitate" per daughter.Patient's condition and plan of care was discussed in details with yari Elder at the bedside, all questions answered. By mistake, RN gave wrong information about Elevated Lactic Acid- Dr Cooper consult was notified- Cancelled, - Rocephin 1 gm IV daily- DCD Exam/Review of Systems Vital Signs Vitals Vital Signs Date Time Temp Pulse Resp B/P Pulse Ox O2 Delivery O2 Flow Rate FiO2 11/21/16 10:23 97.9 82 20 128/96 98 Room Air Intake and Output 11/20/16 11/20/16 11/21/16 15:00 23:00 07:00 Intake Total 1250 ml 480 ml Balance 1250 ml 480 ml Exam Constitutional: alert, well developed Psych: nl mood/affect Eyes: nl sclera Neck: non-tender Respiratory: clear to auscultation, normal air movement Cardiovascular: nl pulses Gastrointestinal: non-tender, soft Musculoskeletal: nl extremities to inspection Extremities: normal pulses Neurological: confused, other (left sidedd weakness) Skin: laceration Lymph: nontender Results Result Diagram: 11/19/16 0529 11/21/16 0552 Results 24 hrs Laboratory Tests Test 11/20/16 11:30 11/21/16 05:52 11/21/16 09:37 11/21/16 09:50 Sodium Level 130 L 134 L Potassium Level 5.5 H 4.3 Chloride Level 98 101 Carbon Dioxide Level 25 25 Anion Gap 13 12 Blood Urea Nitrogen 13 14 Creatinine 0.60 0.65 Glucose Level 149 # 114 Calcium Level 8.6 8.4 Bedside Glucose 107 Prothrombin Time 14.1 Prothrombin Time Ratio 1.1 INR International Normalized Ratio 1.09 Magnesium Level 1.9 Creatine Kinase 41 Creatine Kinase Index 4.1 Creatinine Kinase MB (Mass) 1.68 Troponin I 0.013 Medications Medications Current Medications Acetaminophen (Tylenol Tab) 650 mg Q4H PRN PO PAIN AND OR ELEVATED TEMP Last administered on 11/18/16 20:37; Admin Dose 650 MG; Start 11/09/16 at 05:30 Atorvastatin Calcium (Lipitor) 40 mg DAILY PO Last administered on 11/21/16 08: 36; Admin Dose 40 MG; Start 11/10/16 at 09:00 Carvedilol (Coreg) 6.25 mg BID PO Last administered on 11/21/16 08:36; Admin Dose 6.25 MG; Start 11/09/16 at 21:00 Docusate Sodium (Colace) 100 mg DAILY PO Last administered on 11/21/16 08:34; Admin Dose 100 MG; Start 11/10/16 at 09:00 Famotidine (Pepcid) 20 mg DAILY PO Last administered on 11/21/16 08:36; Admin Dose 20 MG; Start 11/10/16 at 09:00 Furosemide (Lasix) 20 mg DAILY PO Last administered on 11/21/16 08:36; Admin Dose 20 MG; Start 11/10/16 at 09:00 Zolpidem Tartrate (Ambien) 5 mg QHS PRN PO INSOMNIA Last administered on 21:16; Admin Dose 5 MG; Start 11/09/16 at 13:30 Acetaminophen/ Hydrocodone Bitart ([place] (5/325)) 1 tab Q4H PRN PO PAIN LEVEL 4 -7; Start 11/09/16 at 13:30 Bisacodyl (Dulcolax Supp) 10 mg DAILY PRN [place] CONSTIPATION Last administered on 11/11/16 17:04; Admin Dose 10 MG; Start 11/09/16 at 20:00 Lisinopril (Zestril) 5 mg DAILY PO Last administered on 11/21/16 08:37; Admin Dose 5 MG; Start 11/12/16 at 09:00 Morphine Sulfate (morphine) 1 mg Q3H PRN IV PAIN Last administered on 15:07; Admin Dose 1 MG; Start 11/18/16 at 15:03 Lidocaine (Xylocaine 1% (Mpf)) 5 ml ONCE ONCE SC ; Start 11/21/16 at 11:00; Stop 11/21/16 at 11:01 Aspirin (Aspirin) 300 mg DAILY NE ; Start 11/22/16 at 09:00; Status UNV Aspirin 300 mg 300 mg ONCE ONCE NE ; Start 11/21/16 at 11:00; Stop 11/21/16 at 11 :01; Status UNV Dextrose/Sodium Chloride (D5-1/2ns) 1,000 ml @ 40 mls/hr Q24H IV ; Start at 11:00; Status UNV DEIRDRE MORSE Nov 21, 2016 11:04 DEIRDRE MROSE Nov 21, 2016 11:04
--- NOTE | 2016-11-21 11:36 | CONS ---
Date/Time of Note Date/Time of Note DATE: 11/21/16 TIME: 11:27 Assessment/Plan Assessment/Plan Chief Complaint/Hosp Course Altered mental status and left-sided weakness Problems: Additional Assessment/Plan 86-year-old woman with history of cardiomyopathy with ejection fraction of about 30% has been followed by cardiology and a history of hypertension, myocardial infarction, status post angioplasty was admitted on 11/09/2016 with vagina bleeding. 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 She was noted to be confused and left-sided weakness this morning and was seen by telemetry neurology and was transferred to ICU for further management. A stat CT scan of the brain has been ordered but is pending at this time. Neurology consult was called to evaluate her neurological status. CT scan of the brain without contrast showed hypoattenuated area with sulcal effacement in the right parietal lobe suggesting recent infarction, mild generalized atrophy, mild to moderate microangiopathic ischemic change, chronic infarct in the left occipital lobe. Plan 1 MRI of the brain 2 carotid ultrasound 3 no anticoagulation due to recent vaginal bleeding and surgery 4 neuro check per ICU protocol 5 discussed with patient daughter who is present in the room 6 DNR status as per family 7 will follow Consultation Date/Type/Reason Admit Date/Time November 11, 2016 at 10:47 Date of Consultation: Nov 21, 2016 Type of Consultation: Neurology Reason for Consultation Altered mental status and left-sided weakness Referring Provider: DEIRDRE MORSE Hx of Present Illness Patient is a 86-year-old woman with history of cardiomyopathy with ejection fraction of about 30% has been followed by cardiology and a history of hypertension, myocardial infarction, status post angioplasty was admitted on with vagina bleeding. 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 She was noted to be confused and left-sided weakness this morning and was seen by telemetry neurology and was transferred to ICU for further management. A stat CT scan of the brain has been ordered but is pending at this time. Neurology consult was called to evaluate her neurological status. CT scan of the brain without contrast showed hypoattenuated area with sulcal effacement in the right parietal lobe suggesting recent infarction, mild generalized atrophy, mild to moderate microangiopathic ischemic change, chronic infarct in the left occipital lobe. RPTAT: EE .Gerda Sargent MD, MD Date Time Electronically viewed and signed by .Gerda Sargent MD, on 11/21/2016 10:22 Respiratory: no complaints Cardiovascular: no complaints Gastrointestinal: no complaints Genitourinary: other (sp D&C today.vaginal bledding - none now.) Musculoskeletal: no complaints Skin: no complaints Neurologic: no complaints Psychological: no complaints Past Medical History Medical History: hypertension, other (Cardiomyopathy) Past Surgical History Past Surgical Hx: other (D&C and endometrial biopsy) Social History Alcohol Use: none Smoking Status: Never smoker Exam/Review of Systems Vital Signs Vitals Vital Signs Date Time Temp Pulse Resp B/P Pulse Ox O2 Delivery O2 Flow Rate FiO2 11/21/16 10:23 97.9 82 20 128/96 98 Room Air Intake and Output 11/20/16 11/20/16 11/21/16 15:00 23:00 07:00 Intake Total 1250 ml 480 ml Balance 1250 ml 480 ml Exam Constitutional: non-verbal Head: atraumatic, normocephalic Eyes: EOMI, nl conjunctiva, nl lids, nl sclera ENMT: mucosa pink and moist, nl external ears & nose, nl lips & teeth, nl nasal mucosa & septum Neck: non-tender, supple Respiratory: clear to auscultation, normal air movement Gastrointestinal: nl liver, spleen, non-tender, soft Neurological: other (Alert but confused, does not follow commands, left facial droop, left hemiparesis, limited exam) Skin: nl turgor, rash or lesions Results Result Diagram: 11/19/16 0529 11/21/16 0552 Results 24 hrs Laboratory Tests Test 11/20/16 11:30 11/21/16 05:52 11/21/16 09:37 11/21/16 09:43 Sodium Level 130 L 134 L Potassium Level 5.5 H 4.3 Chloride Level 98 101 Carbon Dioxide Level 25 25 Anion Gap 13 12 Blood Urea Nitrogen 13 14 Creatinine 0.60 0.65 Glucose Level 149 # 114 Calcium Level 8.6 8.4 Bedside Glucose 107 Blood Gas Specimen Source Blood arterial Arterial Blood Date Drawn 11/21/2016 10:39:51 AM Arterial Blood pH (Temp corrected) 7.514 H Arterial Blood pCO2 (Temp correct) 33.7 L Arterial Blood pO2 (Temp corrected) 125.8 H Arterial Blood HCO3 26.5 H Arterial Blood Base Excess 3.8 H Arterial Blood Oxygen Saturation 98.6 Sancho Test ACCEPTAB Arterial Blood Gas Puncture Site Right Radial Arterial Blood Carboxyhemoglobin 0.2 Arterial Blood Methemoglobin 0.1 Oxyhemoglobin Percent 98.3 Total Hemoglobin 11.4 L Blood Gas Temperature 37.0 Blood Gas Modality ROOM AIR FiO2 21.0 Blood Gas Critical Value Read Back MAGEN OSBORN Blood Gas Notified Whom LYUBOV Blood Gas Notified Time 11/21/2016 10:49:48 AM Test 11/21/16 09:50 11/21/16 09:52 Prothrombin Time 14.1 Prothrombin Time Ratio 1.1 INR International Normalized Ratio 1.09 Magnesium Level 1.9 Creatine Kinase 41 Creatine Kinase Index 4.1 Creatinine Kinase MB (Mass) 1.68 Troponin I 0.013 Triglycerides Level 80 Cholesterol Level 111 LDL Cholesterol, Calculated 68 HDL Cholesterol 27 L Cholesterol/HDL Ratio 4.1 Medications Medications Current Medications Acetaminophen (Tylenol Tab) 650 mg Q4H PRN PO PAIN AND OR ELEVATED TEMP Last administered on 11/18/16 20:37; Admin Dose 650 MG; Start 11/09/16 at 05:30 Atorvastatin Calcium (Lipitor) 40 mg DAILY PO Last administered on 11/21/16 08: 36; Admin Dose 40 MG; Start 11/10/16 at 09:00 Carvedilol (Coreg) 6.25 mg BID PO Last administered on 11/21/16 08:36; Admin Dose 6.25 MG; Start 11/09/16 at 21:00 Docusate Sodium (Colace) 100 mg DAILY PO Last administered on 11/21/16 08:34; Admin Dose 100 MG; Start 11/10/16 at 09:00 Famotidine (Pepcid) 20 mg DAILY PO Last administered on 11/21/16 08:36; Admin Dose 20 MG; Start 11/10/16 at 09:00 Furosemide (Lasix) 20 mg DAILY PO Last administered on 11/21/16 08:36; Admin Dose 20 MG; Start 11/10/16 at 09:00 Zolpidem Tartrate (Ambien) 5 mg QHS PRN PO INSOMNIA Last administered on 21:16; Admin Dose 5 MG; Start 11/09/16 at 13:30 Acetaminophen/ Hydrocodone Bitart ([place] (5/325)) 1 tab Q4H PRN PO PAIN LEVEL 4 -7; Start 11/09/16 at 13:30 Bisacodyl (Dulcolax Supp) 10 mg DAILY PRN [place] CONSTIPATION Last administered on 11/11/16 17:04; Admin Dose 10 MG; Start 11/09/16 at 20:00 Lisinopril (Zestril) 5 mg DAILY PO Last administered on 11/21/16 08:37; Admin Dose 5 MG; Start 11/12/16 at 09:00 Morphine Sulfate (morphine) 1 mg Q3H PRN IV PAIN Last administered on 15:07; Admin Dose 1 MG; Start 11/18/16 at 15:03 Aspirin 300 mg 300 mg DAILY MA ; Start 11/22/16 at 09:00 Dextrose/Sodium Chloride 1,000 ml @ 40 mls/hr Q24H IV ; Start 11/21/16 at 11:00 Ceftriaxone Sodium (Rocephin) 50 ml @ 100 mls/hr Q24H IVPB ; Start 11/21/16 at 11:[address] scan of the brain 11/21/2016 IMPRESSION: 1. Hypoattenuated area with sulcal effacement in the right parietal lobe suggesting recent infarction. No hemorrhagic conversion. 2. No intracranial hemorrhage, mass effect or midline shift. 3. Mild generalized atrophy. Mild to moderate microangiopathic ischemic change. 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 4. Intracranial atherosclerosis. RPTAT: EE .Gerda Sargent MD, MD Date Time Electronically viewed and signed by .Gerda Sargent MD, MD on 11/21/2016 10:22 ABILIO PERERA MD Nov 21, 2016 11:36
--- NOTE | 2016-11-21 11:45 | CONS ---
Date/Time of Note Date/Time of Note DATE: 11/21/16 TIME: 11:41 Assessment/Plan Assessment/Plan Additional Assessment/Plan 1. Cardiomyopathy with decreased left ventricular ejection fraction last seen approximately 30% by echo at outside hospital 08/2016. EF 35% by echo this admit with lexiscan negative for ischemia with scar and EF 40%- no intervention planned now 2. Hypertension- well rx, allow for now given CVA 3. History of myocardial infarction- no cp now 4. History of percutaneous transluminal coronary angioplasty and stent placement last 2011. 5. Coagulopathy-improved 6. Anemia. 7. Vaginal bleed now post-op s/p D+C with Bx 8. Possible endometrial mass, abnormal thickening. 9. R knee pain and swelling acute s/p steroid injection with improvement in sx 10.Hyponatremia-ow slowly iproving 11. now with aCUTE CVA - neuro recs noted, not a candidate for TPA - medr x now 12. A. fib - rate controled - con't to follow Consultation Date/Type/Reason Admit Date/Time November 11, 2016 at 10:47 Type of Consultation: Neurology Referring Provider: DEIRDRE MORSE 24 HR Interval Summary Free Text/Dictation Nos with acute CVA and a.fib - not a candidate for ant-coagulatin - family does not want any agressive measures - will monitor clinically DNR/DNI now ROS: No fever, no chills, no nausea, no vomiting, no diarrhea/constipation No recent weight changes No chest pain, no PND, no orthopnea s/p CVA No thirst, no heat or cold intolerance Exam/Review of Systems Vital Signs Vitals Vital Signs Date Time Temp Pulse Resp B/P Pulse Ox O2 Delivery O2 Flow Rate FiO2 11/21/16 10:23 97.9 82 20 128/96 98 Room Air Intake and Output 11/20/16 11/20/16 11/21/16 15:00 23:00 07:00 Intake Total 1250 ml 480 ml Balance 1250 ml 480 ml Exam General: WN/WD/NAD, AOx0 s/p CVA, agitated HEENT: Unicetric/atraumatic/EOMI (does not follow commands) NECK: JVD elevated, no thyromegaly Lymph: no lymphadenopathy HEART: IRregular with no S3, II/ systolic murmur at apex LUNGS: Coarse sounds ABD: soft, NT, ND, +BS : Intact Neuro: non focal SKIN: chronic changes EXT: trace edema Results Result Diagram: 11/19/16 0529 11/21/16 0552 Results 24 hrs Laboratory Tests Test 11/21/16 05:52 11/21/16 09:37 11/21/16 09:43 11/21/16 09:50 Sodium Level 134 L Potassium Level 4.3 Chloride Level 101 Carbon Dioxide Level 25 Anion Gap 12 Blood Urea Nitrogen 14 Creatinine 0.65 Glucose Level 114 Calcium Level 8.4 Bedside Glucose 107 Blood Gas Specimen Source Blood arterial Arterial Blood Date Drawn 11/21/2016 10:39:51 AM Arterial Blood pH (Temp corrected) 7.514 H Arterial Blood pCO2 (Temp correct) 33.7 L Arterial Blood pO2 (Temp corrected) 125.8 H Arterial Blood HCO3 26.5 H Arterial Blood Base Excess 3.8 H Arterial Blood Oxygen Saturation 98.6 Sancho Test ACCEPTAB Arterial Blood Gas Puncture Site Right Radial Arterial Blood Carboxyhemoglobin 0.2 Arterial Blood Methemoglobin 0.1 Oxyhemoglobin Percent 98.3 Total Hemoglobin 11.4 L Blood Gas Temperature 37.0 Blood Gas Modality ROOM AIR FiO2 21.0 Blood Gas Critical Value Read Back MAGEN OSBORN Blood Gas Notified Whom LYUBOV Blood Gas Notified Time 11/21/2016 10:49:48 AM Prothrombin Time 14.1 Prothrombin Time Ratio 1.1 INR International Normalized Ratio 1.09 Magnesium Level 1.9 Creatine Kinase 41 Creatine Kinase Index 4.1 Creatinine Kinase MB (Mass) 1.68 Troponin I 0.013 Test 11/21/16 09:52 Triglycerides Level 80 Cholesterol Level 111 LDL Cholesterol, Calculated 68 HDL Cholesterol 27 L Cholesterol/HDL Ratio 4.1 Medications Medications Current Medications Acetaminophen (Tylenol Tab) 650 mg Q4H PRN PO PAIN AND OR ELEVATED TEMP Last administered on 11/18/16 20:37; Admin Dose 650 MG; Start 11/09/16 at 05:30 Atorvastatin Calcium (Lipitor) 40 mg DAILY PO Last administered on 11/21/16 08: 36; Admin Dose 40 MG; Start 11/10/16 at 09:00 Carvedilol (Coreg) 6.25 mg BID PO Last administered on 11/21/16 08:36; Admin Dose 6.25 MG; Start 11/09/16 at 21:00 Docusate Sodium (Colace) 100 mg DAILY PO Last administered on 11/21/16 08:34; Admin Dose 100 MG; Start 11/10/16 at 09:00 Famotidine (Pepcid) 20 mg DAILY PO Last administered on 11/21/16 08:36; Admin Dose 20 MG; Start 11/10/16 at 09:00 Furosemide (Lasix) 20 mg DAILY PO Last administered on 11/21/16 08:36; Admin Dose 20 MG; Start 11/10/16 at 09:00 Zolpidem Tartrate (Ambien) 5 mg QHS PRN PO INSOMNIA Last administered on 21:16; Admin Dose 5 MG; Start 11/09/16 at 13:30 Acetaminophen/ Hydrocodone Bitart ([place] (5/325)) 1 tab Q4H PRN PO PAIN LEVEL 4 -7; Start 11/09/16 at 13:30 Bisacodyl (Dulcolax Supp) 10 mg DAILY PRN [place] CONSTIPATION Last administered on 11/11/16 17:04; Admin Dose 10 MG; Start 11/09/16 at 20:00 Lisinopril (Zestril) 5 mg DAILY PO Last administered on 11/21/16 08:37; Admin Dose 5 MG; Start 11/12/16 at 09:00 Morphine Sulfate (morphine) 1 mg Q3H PRN IV PAIN Last administered on 15:07; Admin Dose 1 MG; Start 11/18/16 at 15:03 Aspirin 300 mg 300 mg DAILY [place] ; Start 11/22/16 at 09:00 Dextrose/Sodium Chloride 1,000 ml @ 40 mls/hr Q24H IV ; Start 11/21/16 at 11:00 Ceftriaxone Sodium (Rocephin) 50 ml @ 100 mls/hr Q24H IVPB ; Start 11/21/16 at 11:00 Pantoprazole (Protonix Iv) 40 mg DAILY@06 IV ; Start 11/22/16 at 06:00; Status UNV Pantoprazole (Protonix Iv) 40 mg ONCE ONCE IV ; Start 11/21/16 at 12:00; Stop at 12:01; Status UNV MICHAEL MORE MD Nov 21, 2016 11:45
[2016-11-21] MEDS ORDERED: LORAZEPAM 2 MG INJ IV PRN (12:00)
[2016-11-21] MEDS ORDERED: PANTOPRAZOLE 40 MG INJ IV ONE (12:00)
--- NOTE | 2016-11-21 13:25 | RADRPT ---
PROCEDURE: Ultrasound guided PICC line placement CLINICAL INDICATION: PICC line placement COMPARISON: None available TECHNIQUE: Real-time high-resolution ultrasound imaging in transverse and longitudinal planes was p erformed in the upper arm to evaluate venous size and location for needle insertion during PICC line placement. Dialysis Tech images were submitted for interpretation. FINDINGS: Focused ultrasound imaging of the upper arm was performed for placement of PICC line. No radiologist was present for the procedure. No diagnosis was made from the images. IMPRESSION: 1. Focused ultrasound for placement of PICC line. RPTAT: QQ .Cory Dominguez MD, Date Time Electronically viewed and signed by .Cory Dominguez MD, on 11/21/2016 13:25 .M/
--- NOTE | 2016-11-21 13:50 | RADRPT ---
PROCEDURE: XR Chest. CLINICAL INDICATION: PICC line placement TECHNIQUE: PA and lateral chest x-ray. COMPARISON: 11/21/2016 1324 hours FINDINGS: Right-sided PICC line terminates in right atrium. Lung volumes are low. The lungs are clear. No pleural effusion identified. No evidence of pneumothorax. There is atherosclerotic calcification of the aorta. The cardiomediastinal silhouette is unremarkab le. The soft tissues are within normal limits. Bony structures are unremarkable. IMPRESSION: 1. Right-sided PICC line terminates in right atrium and should be withdrawn approximately 4 cm for appropriate positioning. 2. No acute disease is seen in the chest. RPTAT: QQ .Cory Dominguez MD, MD Date Time Electronically viewed and signed by .Cory Dominguez MD, on 11/21/2016 13:50 .M/
--- NOTE | 2016-11-21 13:52 | RADRPT ---
PROCEDURE: XR Chest. CLINICAL INDICATION: PICC line placement TECHNIQUE: PA and lateral chest x-ray. COMPARISON: 09/15/2011 FINDINGS: Right-sided PICC line terminates in the right atrium. Exam is limited due to rotated positioning. The lung volumes are low. The lungs are otherwise clear. No pleural effusion identified. No evidence of pneumothorax. There is atherosclerotic calcification of the aorta. The cardiomediastinal silhouette is unremarkab le. The soft tissues are within normal limits. Bony structures are unremarkable. IMPRESSION: 1. Limited exam due to rotated position, leaning to the right. PICC line appears to terminate in t he right atrium. Follow-up exam without rotated position is suggested prior to withdrawing PICC vasile e. 2. No acute disease is seen in the chest. 3. Atherosclerotic calcification of the aorta. RPTAT: QQ .Cory Dominguez MD, MD Date Time Electronically viewed and signed by .Cory Dominguez MD, on 11/21/2016 13:52 .M/
--- NOTE | 2016-11-21 13:54 | RADRPT ---
PROCEDURE: XR Chest. CLINICAL INDICATION: PICC line placement TECHNIQUE: PA and lateral chest x-ray. COMPARISON: 11/21/2016 at 1317 hours FINDINGS: Distal tip of PICC line is not well seen due to guide wire which appears to project from distal tip of catheter. The lung volumes are low. The lungs are clear. No pleural effusion identified. No evidence of pneumothorax. There is atherosclerotic calcification of the aorta. The cardiomediastinal silhouette is unremarkab le. The soft tissues are within normal limits. Bony structures are unremarkable. IMPRESSION: 1. Distal tip of PICC line is not well seen due to radiopaque wire which appears to protrude from t ip of catheter. Follow-up exam after withdrawing the guide wire is suggested. 2. No acute disease is seen in the chest. RPTAT: QQ .Cory Dominguez MD, Date Time Electronically viewed and signed by .Cory Dominguez MD, on 11/21/2016 13:53 .M/
[2016-11-21] MEDS: DEXTROSE 5%-0.45% NACL 1,000 ML IV SCH (14:52)
--- NOTE | 2016-11-21 15:45 | CONS ---
Date/Time of Note Date/Time of Note DATE: 11/21/16 TIME: 15:43 Assessment/Plan Assessment/Plan Additional Assessment/Plan 1. Hyponatremia, multifactorial secondary to hypovolemic hyponatremia and possible component of diastolic heart failure. 2. Hypokalemia. 3. Right knee swelling and erythema. 4. 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 5. History of coronary artery disease, status post previous stent placement in 2011. 6. History of atrial fibrillation. 7. History of vaginal bleeding, now status post dilatation and curettage with biopsy. 8. Coagulopathy, improved. 9. History of hypertension. PLAN: Na 134, stroke work up in progress IVF Changed to D51/2 NS will follow up BP stable Consultation Date/Type/Reason Admit Date/Time November 11, 2016 at 10:47 Type of Consultation: NEPHROLOGY Referring Provider: DEIRDRE MORSE 24 HR Interval Summary Free Text/Dictation pt had a code stroke called in for AMS- transferred to ICU,today Na stable, Cr normal Exam/Review of Systems Vital Signs Vitals Vital Signs Date Time Temp Pulse Resp B/P Pulse Ox O2 Delivery O2 Flow Rate FiO2 11/21/16 15:15 84 17 99 11/21/16 15:00 133/90 Room Air 11/21/16 12:00 97.5 Intake and Output 11/20/16 11/20/16 11/21/16 15:00 23:00 07:00 Intake Total 1250 ml 480 ml Balance 1250 ml 480 ml Results Result Diagram: 11/19/16 0529 11/21/16 0552 Results 24 hrs Laboratory Tests Test 11/21/16 05:52 11/21/16 09:37 11/21/16 09:43 11/21/16 09:50 Sodium Level 134 L Potassium Level 4.3 Chloride Level 101 Carbon Dioxide Level 25 Anion Gap 12 Blood Urea Nitrogen 14 Creatinine 0.65 Glucose Level 114 Calcium Level 8.4 Bedside Glucose 107 Blood Gas Specimen Source Blood arterial Arterial Blood Date Drawn 11/21/2016 10:39:51 AM Arterial Blood pH (Temp corrected) 7.514 H Arterial Blood pCO2 (Temp correct) 33.7 L Arterial Blood pO2 (Temp corrected) 125.8 H Arterial Blood HCO3 26.5 H Arterial Blood Base Excess 3.8 H Arterial Blood Oxygen Saturation 98.6 Sancho Test ACCEPTAB Arterial Blood Gas Puncture Site Right Radial Arterial Blood Carboxyhemoglobin 0.2 Arterial Blood Methemoglobin 0.1 Oxyhemoglobin Percent 98.3 Total Hemoglobin 11.4 L Blood Gas Temperature 37.0 Blood Gas Modality ROOM AIR FiO2 21.0 Blood Gas Critical Value Read Back MAGEN OSBORN Blood Gas Notified Whom LYUBOV Blood Gas Notified Time 11/21/2016 10:49:48 AM Prothrombin Time 14.1 Prothrombin Time Ratio 1.1 INR International Normalized Ratio 1.09 Magnesium Level 1.9 Creatine Kinase 41 Creatine Kinase Index 4.1 Creatinine Kinase MB (Mass) 1.68 Troponin I 0.013 Test 11/21/16 09:52 Triglycerides Level 80 Cholesterol Level 111 LDL Cholesterol, Calculated 68 HDL Cholesterol 27 L Cholesterol/HDL Ratio 4.1 Medications Medications Current Medications Acetaminophen (Tylenol Tab) 650 mg Q4H PRN PO PAIN AND OR ELEVATED TEMP Last administered on 11/18/16 20:37; Admin Dose 650 MG; Start 11/09/16 at 05:30 Atorvastatin Calcium (Lipitor) 40 mg DAILY PO Last administered on 11/21/16 08: 36; Admin Dose 40 MG; Start 11/10/16 at 09:00 Carvedilol (Coreg) 6.25 mg BID PO Last administered on 11/21/16 08:36; Admin Dose 6.25 MG; Start 11/09/16 at 21:00 Docusate Sodium (Colace) 100 mg DAILY PO Last administered on 11/21/16 08:34; Admin Dose 100 MG; Start 11/10/16 at 09:00 Famotidine (Pepcid) 20 mg DAILY PO Last administered on 11/21/16 08:36; Admin Dose 20 MG; Start 11/10/16 at 09:00 Furosemide (Lasix) 20 mg DAILY PO Last administered on 11/21/16 08:36; Admin Dose 20 MG; Start 11/10/16 at 09:00 Zolpidem Tartrate (Ambien) 5 mg QHS PRN PO INSOMNIA Last administered on 21:16; Admin Dose 5 MG; Start 11/09/16 at 13:30 Acetaminophen/ Hydrocodone Bitart ([place] (5/325)) 1 tab Q4H PRN PO PAIN LEVEL 4 -7; Start 11/09/16 at 13:30 Bisacodyl (Dulcolax Supp) 10 mg DAILY PRN [place] CONSTIPATION Last administered on 11/11/16 17:04; Admin Dose 10 MG; Start 11/09/16 at 20:00 Lisinopril (Zestril) 5 mg DAILY PO Last administered on 11/21/16 08:37; Admin Dose 5 MG; Start 11/12/16 at 09:00 Morphine Sulfate (morphine) 1 mg Q3H PRN IV PAIN Last administered on 15:07; Admin Dose 1 MG; Start 11/18/16 at 15:03 Aspirin 300 mg 300 mg DAILY [place] ; Start 11/22/16 at 09:00 Dextrose/Sodium Chloride (D5-1/2ns) 1,000 ml @ 40 mls/hr Q24H IV Last administered on 11/21/16 14:52; Admin Dose 40 MLS/HR; Start 11/21/16 at 11:00 Pantoprazole (Protonix Iv) 40 mg DAILY@06 IV ; Start 11/22/16 at 06:00 Lorazepam (Ativan) 0.5 mg Q6H PRN IV AGITATION/ANXIETY; Start 11/21/16 at 12:00 IV Flush (NS 10 ml) 10 ml PRN PRN IV FLUSH LINE; Start 11/21/16 at 15:30 DEMETRIO OLSEN MD Nov 21, 2016 15:45
[2016-11-21 16:17] LABS: CK-MB 1.53 ng/ml (0.0-2.4); TROPONIN-I 0.02 ng/ml (0.00-0.12)
[2016-11-21 17:10] LABS: ADD UMIC YES; URINE BILIRUBIN (Dip) NEGATIVE (NEGATIVE); URINE BLOOD (Dip) NEGATIVE (NEGATIVE); URINE COLOR LT. YELLOW (YELLOW); URINE GLUCOSE (Dip) NEGATIVE (NEGATIVE); URINE KETONES (Dip) NEGATIVE (NEGATIVE); URINE LEUKOCYTE ESTERASE (Dip) NEGATIVE (NEGATIVE); URINE NITRITE (Dip) NEGATIVE (NEGATIVE); URINE TOTAL PROTEIN (Dip) TRACE (NEGATIVE); URINE UROBILINOGEN (Dip) 4.0 E.U./dL (0.1-1.0)
[2016-11-21 17:17] LABS: URINE RBCS 0-2 /HPF (0)
[2016-11-21 19:06] LABS: ADD SCAN DIFF NO
[2016-11-21 19:09] LABS: BASOPHILS % 0.2 % (0.0-2.0); EOSINOPHILS # 0.1 10^3/ul (0.0-0.5); EOSINOPHILS % 0.7 % (0.0-7.0); HEMATOCRIT 30.6 % (37.0-47.0); HEMOGLOBIN 10.3 g/dl (12.0-16.0); LYMPHOCYTES # 1.2 10^3/ul (0.8-2.9); LYMPHOCYTES % 12.4 % (15.0-51.0); MEAN CORPUSCULAR HEMOGLOBIN 32.6 pg (29.0-33.0); MEAN CORPUSCULAR HGB CONC 33.7 g/dl (32.0-37.0); MEAN CORPUSCULAR VOLUME 96.8 fl (82.0-101.0); MEAN PLATELET VOLUME 9.5 fl (7.4-10.4); MONOCYTE # 1.4 10^3/ul (0.3-0.9); MONOCYTES % 14.3 % (0.0-11.0); NEUTROPHIL # 6.8 10^3/ul (1.6-7.5); PLATELET COUNT 446 10^3/UL (140-415); RED BLOOD COUNT 3.16 10^6/ul (4.20-5.40); RED CELL DISTRIBUTION WIDTH 12.2 % (11.5-14.5); WHITE BLOOD COUNT 9.5 10^3/ul (4.8-10.8)
--- NOTE | 2016-11-21 19:54 | RADRPT ---
PROCEDURE: Carotid ultrasound CLINICAL INDICATION: Altered mental status, carotid bruits TECHNIQUE: Haynes scale, color doppler, spectral doppler ultrasound of the bilateral carotid and pineda tebral arteries. This study indirectly references the measurement of the distal ICA diameter as the denominator for s tenosis measurement. Validated velocity measurements with angiographic measurements, velocity criter ia are extrapolated from diameter data as defined by: *Cartoid artery stenosis: haynes-scale and Doppl er US diagnosis. Society of Radiologists in Ultrasound Consensus Conference. Radiology 2003; 229: 34 0-346. SRU Consensus Conference Criteria for the Diagnosis of Carotid Artery Stenosis* Degree of Stenosis, % ICA PSV, cm/sec Plaque Estimate, % ICA/CCA PSV Ratio Normal <125 None <2.0 <50 <125 <50 <2.0 50 69 125-230 >50 2.0-4.0 >70 but less than near occlusion >230 >50 <4.0 Near occlusion High, low, or undetectable Visible Variable Total occlusion Undetectable Visible, no detectable lumen Not applicable COMPARISON: No prior studies are available for comparison. FINDINGS: Location Right CCA28 cm/sec Prox ICA 42 cm/sec Mid ICA30 cm/sec Dist ICA35 cm/sec ECA24 cm/sec ICA/CCA1.3 Left CCA31 cm/sec Prox ICA 37 cm/sec Mid ICA49 cm/sec Dist ICA29 cm/sec ECA27 cm/sec ICA/CCA1.4 Plaque burden: Small calcified plaques are present involving both internal carotid arteries. Antegrade flow is seen within the vertebral arteries bilaterally. IMPRESSION: Plaques are present within both internal carotid arteries without evidence of flow acceleration to s uggest a hemodynamically significant stenosis; less than 50% stenosis bilaterally. RPTAT: AADD .Efrain Hernandez MD, Date Time Electronically viewed and signed by .Efrain Hernandez MD, on 11/21/2016 19:54 .B/
[2016-11-21] MEDS: ACETAMINOPHEN 325 MG TAB PO PRN (22:09)
[2016-11-22] VITALS (13 sets, daily range): BP systolic 132–146; BP diastolic 67–85; PULSE 60–81; RESP 18–20
[2016-11-22] MEDS: PANTOPRAZOLE 40 MG INJ IV SCH (07:03)
[2016-11-22 08:34] LABS: ADD SCAN DIFF NO
--- NOTE | 2016-11-22 08:55 | RADRPT ---
Vent Rate: 74 bpm RR Interval: 0 msec ID Interval: 0 msec QRS Duration: 88 msec QT Interval: 378 msec QTC Interval: 419 msec P-R-T [place]: 0 - 11 - 84 degrees Atrial fibrillation Low voltage QRS Cannot rule out Anteroseptal infarct , age undetermined Abnormal ECG Electronically Signed By: Simeon Wilson [id number]
[2016-11-22 08:59] LABS: BASOPHILS % 0.3 % (0.0-2.0); EOSINOPHILS # 0.1 10^3/ul (0.0-0.5); HEMATOCRIT 27.9 % (37.0-47.0); HEMOGLOBIN 9.6 g/dl (12.0-16.0); LYMPHOCYTES # 0.9 10^3/ul (0.8-2.9); LYMPHOCYTES % 13.3 % (15.0-51.0); MEAN CORPUSCULAR HEMOGLOBIN 33.2 pg (29.0-33.0); MEAN CORPUSCULAR HGB CONC 34.4 g/dl (32.0-37.0); MEAN CORPUSCULAR VOLUME 96.5 fl (82.0-101.0); MEAN PLATELET VOLUME 9.7 fl (7.4-10.4); MONOCYTE # 0.9 10^3/ul (0.3-0.9); MONOCYTES % 12.9 % (0.0-11.0); NEUTROPHIL # 5.1 10^3/ul (1.6-7.5); NEUTROPHILS % 72.2 % (39.0-77.0); PLATELET COUNT 413 10^3/UL (140-415); RED BLOOD COUNT 2.89 10^6/ul (4.20-5.40); RED CELL DISTRIBUTION WIDTH 12.6 % (11.5-14.5); WHITE BLOOD COUNT 7.1 10^3/ul (4.8-10.8)
[2016-11-22] MEDS: ASPIRIN 300 MG SUPP PR SCH (09:00)
[2016-11-22 09:01] LABS: ALBUMIN 3.1 g/dl (3.3-4.9); ALBUMIN/GLOBULIN RATIO 1.19; BILIRUBIN,INDIRECT 0.3 mg/dl (0-1.1); BILIRUBIN,TOTAL 0.3 mg/dl (0.2-1.3); CALCIUM 8.5 mg/dl (8.4-10.2); CREATININE 0.59 mg/dl (0.44-1.00); POTASSIUM 4.5 mmol/L (3.5-5.1); TOTAL PROTEIN 5.7 g/dl (6.1-8.1)
[2016-11-22] MEDS: DOCUSATE SODIUM 100 MG CAP PO SCH (09:26)
[2016-11-22] MEDS: ATORVASTATIN 40 MG TAB PO SCH (09:26)
[2016-11-22] MEDS: FAMOTIDINE 20 MG TAB PO SCH (09:26)
[2016-11-22] MEDS: FUROSEMIDE 20 MG TAB PO SCH (09:26)
[2016-11-22] MEDS: LISINOPRIL 5 MG TAB PO SCH (09:26)
--- NOTE | 2016-11-22 11:23 | CONS ---
Date/Time of Note Date/Time of Note DATE: 11/22/16 TIME: 11:20 Assessment/Plan Assessment/Plan Additional Assessment/Plan 1. Cardiomyopathy with decreased left ventricular ejection fraction last seen approximately 30% by echo at outside hospital 08/2016. EF 35% by echo this admit with lexiscan negative for ischemia with scar and EF 40%- no intervention planned now 2. Hypertension- well rx, allow for now given CVA- stable 3. History of myocardial infarction- no cp now 4. History of percutaneous transluminal coronary angioplasty and stent placement last 2011. 5. Coagulopathy-improved 6. Anemia- H/H satble 7. Vaginal bleed now post-op s/p D+C with Bx 8. Possible endometrial mass, abnormal thickening. 9. R knee pain and swelling acute s/p steroid injection with improvement in sx 10.Hyponatremia-ow slowly iproving 11. now with ACUTE CVA - neuro recs noted, not a candidate for TPA - medr x now - MUCH BETTER now 12. A. fib - rate controled - con't to follow, no anti-coag now Consultation Date/Type/Reason Admit Date/Time November 11, 2016 at 10:47 Type of Consultation: NEPHROLOGY Referring Provider: DEIRDRE MORSE 24 HR Interval Summary Free Text/Dictation Pt with some recovery post CVA, still ignoring one side - a. fib, rate controlled - no aggressive rx per family ROS: No fever, no chills, no nausea, no vomiting, no diarrhea/constipation No recent weight changes No chest pain, no PND, no orthopnea No dizziness, blurred vision No thirst, no heat or cold intolerance Exam/Review of Systems Vital Signs Vitals Vital Signs Date Time Temp Pulse Resp B/P Pulse Ox O2 Delivery O2 Flow Rate FiO2 11/22/16 08:17 97.5 75 18 138/74 96 11/21/16 15:45 Room Air Intake and Output 11/21/16 11/21/16 11/22/16 15:00 23:00 07:00 Intake Total 40 ml Output Total 175 ml 150 ml Balance -175 ml -110 ml Exam General: WN/WD/NAD, AOx 1-2 confused HEENT: Unicetric/atraumatic/EOMI (does not follow commands) NECK: JVD elevated, no thyromegaly Lymph: no lymphadenopathy HEART: IRregular with no S3, II/ systolic murmur at apex LUNGS: Coarse sounds ABD: soft, NT, ND, +BS : Intact Neuro: s/p CVA SKIN: chronic changes EXT: trace edema Results Result Diagram: 11/22/16 0640 11/22/16 0640 Results 24 hrs Laboratory Tests Test 11/21/16 14:13 11/21/16 15:36 11/21/16 18:30 11/22/16 06:40 Urine Color LT. YELLOW Urine Clarity CLEAR Urine pH 8.0 Urine Specific [place] 1.015 Urine Ketones NEGATIVE Urine Nitrite NEGATIVE Urine Bilirubin NEGATIVE Urine Urobilinogen 4.0 E.U./dL H Urine Leukocyte Esterase NEGATIVE Urine Microscopic RBC 0-2 Urine Microscopic WBC 2-5 Urine Calcium Oxalate Crystals OCCASIONAL Urine Hemoglobin NEGATIVE Urine Glucose NEGATIVE Urine Total Protein TRACE Creatine Kinase 38 Creatine Kinase Index 4.0 Creatinine Kinase MB (Mass) 1.53 Troponin I 0.020 White Blood Count 9.5 # 7.1 # Red Blood Count 3.16 L 2.89 L Hemoglobin 10.3 L 9.6 L Hematocrit 30.6 L 27.9 L Mean Corpuscular Volume 96.8 96.5 Mean Corpuscular Hemoglobin 32.6 33.2 H Mean Corpuscular Hemoglobin Concent 33.7 34.4 Red Cell Distribution Width 12.2 12.6 Platelet Count 446 H 413 Mean Platelet Volume 9.5 9.7 Neutrophils % 72.0 72.2 Lymphocytes % 12.4 L 13.3 L Monocytes % 14.3 H 12.9 H Eosinophils % 0.7 1.0 Basophils % 0.2 0.3 Nucleated Red Blood Cells % 0.0 0.0 Neutrophils # 6.8 5.1 Lymphocytes # 1.2 0.9 Monocytes # 1.4 H 0.9 Eosinophils # 0.1 0.1 Basophils # 0.0 0.0 Nucleated Red Blood Cells # 0.0 0.0 Sodium Level 135 Potassium Level 4.5 Chloride Level 102 Carbon Dioxide Level 25 Anion Gap 13 Blood Urea Nitrogen 13 Creatinine 0.59 Glucose Level 128 Lactic Acid Level 1.2 Calcium Level 8.5 Total Bilirubin 0.3 Direct Bilirubin 0.00 Indirect Bilirubin 0.3 Aspartate Amino Transf (AST/SGOT) 41 Alanine Aminotransferase (ALT/SGPT) 49 Alkaline Phosphatase 64 Total Protein 5.7 L Albumin 3.1 L Globulin 2.60 Albumin/Globulin Ratio 1.19 Medications Medications Current Medications Acetaminophen (Tylenol Tab) 650 mg Q4H PRN PO PAIN AND OR ELEVATED TEMP Last administered on 11/18/16 20:37; Admin Dose 650 MG; Start 11/09/16 at 05:30 Atorvastatin Calcium (Lipitor) 40 mg DAILY PO Last administered on 11/22/16 09: 26; Admin Dose 40 MG; Start 11/10/16 at 09:00 Carvedilol (Coreg) 6.25 mg BID PO Last administered on 11/22/16 09:26; Admin Dose 6.25 MG; Start 11/09/16 at 21:00 Docusate Sodium (Colace) 100 mg DAILY PO Last administered on 11/22/16 09:; Admin Dose 100 MG; Start 11/10/16 at 09:00 Famotidine (Pepcid) 20 mg DAILY PO Last administered on 11/22/16 09:26; Admin Dose 20 MG; Start 11/10/16 at 09:00 Furosemide (Lasix) 20 mg DAILY PO Last administered on 11/22/16 09:26; Admin Dose 20 MG; Start 11/10/16 at 09:00 Zolpidem Tartrate (Ambien) 5 mg QHS PRN PO INSOMNIA Last administered on 21:16; Admin Dose 5 MG; Start 11/09/16 at 13:30 Acetaminophen/ Hydrocodone Bitart ([place] (5/325)) 1 tab Q4H PRN PO PAIN LEVEL 4 -7; Start 11/09/16 at 13:30 Bisacodyl (Dulcolax Supp) 10 mg DAILY PRN [place] CONSTIPATION Last administered on 11/11/16 17:04; Admin Dose 10 MG; Start 11/09/16 at 20:00 Lisinopril (Zestril) 5 mg DAILY PO Last administered on 11/22/16 09:26; Admin Dose 5 MG; Start 11/12/16 at 09:00 Morphine Sulfate (morphine) 1 mg Q3H PRN IV PAIN Last administered on 15:07; Admin Dose 1 MG; Start 11/18/16 at 15:03 Aspirin 300 mg 300 mg DAILY [place] ; Start 11/22/16 at 09:00 Dextrose/Sodium Chloride (D5-1/2ns) 1,000 ml @ 40 mls/hr Q24H IV Last administered on 11/21/16 14:52; Admin Dose 40 MLS/HR; Start 11/21/16 at 11:00 Pantoprazole (Protonix Iv) 40 mg DAILY@06 IV Last administered on 11/22/16 07: 03; Admin Dose 40 MG; Start 11/22/16 at 06:00 Lorazepam (Ativan) 0.5 mg Q6H PRN IV AGITATION/ANXIETY; Start 11/21/16 at 12:00 IV Flush (NS 10 ml) 10 ml PRN PRN IV FLUSH LINE; Start 11/21/16 at 15:30 MICHAEL MORE MD Nov 22, 2016 11:23
--- NOTE | 2016-11-22 13:49 | CONS ---
Date/Time of Note Date/Time of Note DATE: 11/22/16 TIME: 13:46 Assessment/Plan Assessment/Plan Chief Complaint/Hosp Course Altered mental status and left-sided weakness Problems: Additional Assessment/Plan 86-year-old woman with history of cardiomyopathy with ejection fraction of about 30% has been followed by cardiology and a history of hypertension, myocardial infarction, status post angioplasty was admitted on 11/09/2016 with vagina bleeding. 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 She was noted to be confused and left-sided weakness this morning and was seen by telemetry neurology and was transferred to ICU for further management. A stat CT scan of the brain has been ordered but is pending at this time. Neurology consult was called to evaluate her neurological status. CT scan of the brain without contrast showed hypoattenuated area with sulcal effacement in the right parietal lobe suggesting recent infarction, mild generalized atrophy, mild to moderate microangiopathic ischemic change, chronic infarct in the left occipital lobe. Carotid ultrasound showed no hemodynamically significant stenosis. Plan 1 MRI of the brain was not done as per patient's daughter request 2 no anticoagulation due to recent vaginal bleeding and surgery 3 neuro check every 4 hours 4 DNR status as per family 5 Dr. Lopez will follow in AM Consultation Date/Type/Reason Admit Date/Time November 11, 2016 at 10:47 Initial Consult Date 11/21/16 Type of Consultation: NEPHROLOGY Reason for Consultation Left hemiparesis Referring Provider: DEIRDRE MORSE 24 HR Interval Summary Free Text/Dictation More awake and alert. Out of ICU now Exam/Review of Systems Vital Signs Vitals Vital Signs Date Time Temp Pulse Resp B/P Pulse Ox O2 Delivery O2 Flow Rate FiO2 11/22/16 12:08 81 11/22/16 11:23 98.3 18 141/71 96 11/21/16 15:45 Room Air Intake and Output 11/21/16 11/21/16 11/22/16 15:00 23:00 07:00 Intake Total 40 ml Output Total 175 ml 150 ml Balance -175 ml -110 ml Exam Constitutional: alert Head: atraumatic, normocephalic Eyes: EOMI, nl conjunctiva, nl lids, nl sclera ENMT: mucosa pink and moist, nl external ears & nose, nl lips & teeth, nl nasal mucosa & septum Neck: non-tender, supple Respiratory: clear to auscultation, normal air movement Cardiovascular: nl pulses, regular rate and rhythm Gastrointestinal: nl liver, spleen, non-tender, soft Extremities: normal pulses Neurological: other (Alert and awake, left hemiparesis, left central facial droop, left Babinski, limited exam) Results Result Diagram: 11/22/16 0640 11/22/16 0640 Results 24 hrs Laboratory Tests Test 11/21/16 14:13 11/21/16 15:36 11/21/16 18:30 11/22/16 06:40 Urine Color LT. YELLOW Urine Clarity CLEAR Urine pH 8.0 Urine Specific [place] 1.015 Urine Ketones NEGATIVE Urine Nitrite NEGATIVE Urine Bilirubin NEGATIVE Urine Urobilinogen 4.0 E.U./dL H Urine Leukocyte Esterase NEGATIVE Urine Microscopic RBC 0-2 Urine Microscopic WBC 2-5 Urine Calcium Oxalate Crystals OCCASIONAL Urine Hemoglobin NEGATIVE Urine Glucose NEGATIVE Urine Total Protein TRACE Creatine Kinase 38 Creatine Kinase Index 4.0 Creatinine Kinase MB (Mass) 1.53 Troponin I 0.020 White Blood Count 9.5 # 7.1 # Red Blood Count 3.16 L 2.89 L Hemoglobin 10.3 L 9.6 L Hematocrit 30.6 L 27.9 L Mean Corpuscular Volume 96.8 96.5 Mean Corpuscular Hemoglobin 32.6 33.2 H Mean Corpuscular Hemoglobin Concent 33.7 34.4 Red Cell Distribution Width 12.2 12.6 Platelet Count 446 H 413 Mean Platelet Volume 9.5 9.7 Neutrophils % 72.0 72.2 Lymphocytes % 12.4 L 13.3 L Monocytes % 14.3 H 12.9 H Eosinophils % 0.7 1.0 Basophils % 0.2 0.3 Nucleated Red Blood Cells % 0.0 0.0 Neutrophils # 6.8 5.1 Lymphocytes # 1.2 0.9 Monocytes # 1.4 H 0.9 Eosinophils # 0.1 0.1 Basophils # 0.0 0.0 Nucleated Red Blood Cells # 0.0 0.0 Sodium Level 135 Potassium Level 4.5 Chloride Level 102 Carbon Dioxide Level 25 Anion Gap 13 Blood Urea Nitrogen 13 Creatinine 0.59 Glucose Level 128 Lactic Acid Level 1.2 Calcium Level 8.5 Total Bilirubin 0.3 Direct Bilirubin 0.00 Indirect Bilirubin 0.3 Aspartate Amino Transf (AST/SGOT) 41 Alanine Aminotransferase (ALT/SGPT) 49 Alkaline Phosphatase 64 Total Protein 5.7 L Albumin 3.1 L Globulin 2.60 Albumin/Globulin Ratio 1.19 Medications Medications Current Medications Acetaminophen (Tylenol Tab) 650 mg Q4H PRN PO PAIN AND OR ELEVATED TEMP Last administered on 11/18/16 20:37; Admin Dose 650 MG; Start 11/09/16 at 05:30 Atorvastatin Calcium (Lipitor) 40 mg DAILY PO Last administered on 11/22/16 09: 26; Admin Dose 40 MG; Start 11/10/16 at 09:00 Carvedilol (Coreg) 6.25 mg BID PO Last administered on 11/22/16 09:26; Admin Dose 6.25 MG; Start 11/09/16 at 21:00 Docusate Sodium (Colace) 100 mg DAILY PO Last administered on 11/22/16 09:26; Admin Dose 100 MG; Start 11/10/16 at 09:00 Famotidine (Pepcid) 20 mg DAILY PO Last administered on 11/22/16 09:26; Admin Dose 20 MG; Start 11/10/16 at 09:00 Furosemide (Lasix) 20 mg DAILY PO Last administered on 11/22/16 09:26; Admin Dose 20 MG; Start 11/10/16 at 09:00 Zolpidem Tartrate (Ambien) 5 mg QHS PRN PO INSOMNIA Last administered on 21:16; Admin Dose 5 MG; Start 11/09/16 at 13:30 Acetaminophen/ Hydrocodone Bitart ([place] (5/325)) 1 tab Q4H PRN PO PAIN LEVEL 4 -7; Start 11/09/16 at 13:30 Bisacodyl (Dulcolax Supp) 10 mg DAILY PRN [place] CONSTIPATION Last administered on 11/11/16 17:04; Admin Dose 10 MG; Start 11/09/16 at 20:00 Lisinopril (Zestril) 5 mg DAILY PO Last administered on 11/22/16 09:26; Admin Dose 5 MG; Start 11/12/16 at 09:00 Morphine Sulfate (morphine) 1 mg Q3H PRN IV PAIN Last administered on 15:07; Admin Dose 1 MG; Start 11/18/16 at 15:03 Aspirin 300 mg 300 mg DAILY [place] ; Start 11/22/16 at 09:00 Dextrose/Sodium Chloride (D5-1/2ns) 1,000 ml @ 40 mls/hr Q24H IV Last administered on 11/21/16 14:52; Admin Dose 40 MLS/HR; Start 11/21/16 at 11:00 Pantoprazole (Protonix Iv) 40 mg DAILY@06 IV Last administered on 11/22/16 07: 03; Admin Dose 40 MG; Start 11/22/16 at 06:00 Lorazepam (Ativan) 0.5 mg Q6H PRN IV AGITATION/ANXIETY; Start 11/21/16 at 12:00 IV Flush (NS 10 ml) 10 ml PRN PRN IV FLUSH LINE; Start 11/21/16 at 15:30 ABILIO PERERA MD Nov 22, 2016 13:49
[2016-11-22] MEDS: DEXTROSE 5%-0.45% NACL 1,000 ML IV SCH (13:52)
--- NOTE | 2016-11-22 14:42 | CONS ---
Date/Time of Note Date/Time of Note DATE: 11/22/16 TIME: 14:40 Assessment/Plan Assessment/Plan Additional Assessment/Plan 1. Hyponatremia, multifactorial secondary to hypovolemic hyponatremia and possible component of diastolic heart failure. 2. Hypokalemia. 3. Right knee swelling and erythema. 4. 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 5. History of coronary artery disease, status post previous stent placement in 2011. 6. History of atrial fibrillation. 7. History of vaginal bleeding, now status post dilatation and curettage with biopsy. 8. Coagulopathy, improved. 9. History of hypertension. PLAN: Stable Electrolytes today continue D51/2 NS at 40 cc/hr will follow up BP stable Consultation Date/Type/Reason Admit Date/Time November 11, 2016 at 10:47 Type of Consultation: NEPHROLOGY Referring Provider: DEIRDRE MORSE 24 HR Interval Summary Free Text/Dictation Stabel Na, cr normal, no acute events , pt is DNR Exam/Review of Systems Vital Signs Vitals Vital Signs Date Time Temp Pulse Resp B/P Pulse Ox O2 Delivery O2 Flow Rate FiO2 11/22/16 12:08 81 11/22/16 11:23 98.3 18 141/71 96 11/21/16 15:45 Room Air Intake and Output 11/21/16 11/21/16 11/22/16 15:00 23:00 07:00 Intake Total 40 ml Output Total 175 ml 150 ml Balance -175 ml -110 ml Exam GENERAL: Awake, alert, not oriented to place and person. HEENT: Pupils equal, round, reactive to light and accommodation. Extraocular muscles are intact. NECK: Supple. No JVD, no lymphadenopathy. LUNGS: Decreased breath sounds at both lung bases. HEART: S1, S2, with regular rhythm. No murmur. ABDOMEN: Soft, nontender, nondistended. Bowel sounds are present. EXTREMITIES: Tender to palpation in the left lower quadrant. No rebound, no guarding. NEUROLOGICAL: Uncooperative for exam. Results Result Diagram: 11/22/16 0640 11/22/16 0640 Results 24 hrs Laboratory Tests Test 11/21/16 15:36 11/21/16 18:30 11/22/16 06:40 Creatine Kinase 38 Creatine Kinase Index 4.0 Creatinine Kinase MB (Mass) 1.53 Troponin I 0.020 White Blood Count 9.5 # 7.1 # Red Blood Count 3.16 L 2.89 L Hemoglobin 10.3 L 9.6 L Hematocrit 30.6 L 27.9 L Mean Corpuscular Volume 96.8 96.5 Mean Corpuscular Hemoglobin 32.6 33.2 H Mean Corpuscular Hemoglobin Concent 33.7 34.4 Red Cell Distribution Width 12.2 12.6 Platelet Count 446 H 413 Mean Platelet Volume 9.5 9.7 Neutrophils % 72.0 72.2 Lymphocytes % 12.4 L 13.3 L Monocytes % 14.3 H 12.9 H Eosinophils % 0.7 1.0 Basophils % 0.2 0.3 Nucleated Red Blood Cells % 0.0 0.0 Neutrophils # 6.8 5.1 Lymphocytes # 1.2 0.9 Monocytes # 1.4 H 0.9 Eosinophils # 0.1 0.1 Basophils # 0.0 0.0 Nucleated Red Blood Cells # 0.0 0.0 Sodium Level 135 Potassium Level 4.5 Chloride Level 102 Carbon Dioxide Level 25 Anion Gap 13 Blood Urea Nitrogen 13 Creatinine 0.59 Glucose Level 128 Lactic Acid Level 1.2 Calcium Level 8.5 Total Bilirubin 0.3 Direct Bilirubin 0.00 Indirect Bilirubin 0.3 Aspartate Amino Transf (AST/SGOT) 41 Alanine Aminotransferase (ALT/SGPT) 49 Alkaline Phosphatase 64 Total Protein 5.7 L Albumin 3.1 L Globulin 2.60 Albumin/Globulin Ratio 1.19 Medications Medications Current Medications Acetaminophen (Tylenol Tab) 650 mg Q4H PRN PO PAIN AND OR ELEVATED TEMP Last administered on 11/18/16 20:37; Admin Dose 650 MG; Start 11/09/16 at 05:30 Atorvastatin Calcium (Lipitor) 40 mg DAILY PO Last administered on 11/22/16 09: 26; Admin Dose 40 MG; Start 11/10/16 at 09:00 Carvedilol (Coreg) 6.25 mg BID PO Last administered on 11/22/16 09:26; Admin Dose 6.25 MG; Start 11/09/16 at 21:00 Docusate Sodium (Colace) 100 mg DAILY PO Last administered on 11/22/16 09:26; Admin Dose 100 MG; Start 11/10/16 at 09:00 Famotidine (Pepcid) 20 mg DAILY PO Last administered on 11/22/16 09:26; Admin Dose 20 MG; Start 11/10/16 at 09:00 Furosemide (Lasix) 20 mg DAILY PO Last administered on 11/22/16 09:26; Admin Dose 20 MG; Start 11/10/16 at 09:00 Zolpidem Tartrate (Ambien) 5 mg QHS PRN PO INSOMNIA Last administered on 21:16; Admin Dose 5 MG; Start 11/09/16 at 13:30 Acetaminophen/ Hydrocodone Bitart ([place] (5/325)) 1 tab Q4H PRN PO PAIN LEVEL 4 -7; Start 11/09/16 at 13:30 Bisacodyl (Dulcolax Supp) 10 mg DAILY PRN [place] CONSTIPATION Last administered on 11/11/16 17:04; Admin Dose 10 MG; Start 11/09/16 at 20:00 Lisinopril (Zestril) 5 mg DAILY PO Last administered on 11/22/16 09:26; Admin Dose 5 MG; Start 11/12/16 at 09:00 Morphine Sulfate (morphine) 1 mg Q3H PRN IV PAIN Last administered on 15:07; Admin Dose 1 MG; Start 11/18/16 at 15:03 Aspirin 300 mg 300 mg DAILY [place] ; Start 11/22/16 at 09:00 Dextrose/Sodium Chloride (D5-1/2ns) 1,000 ml @ 40 mls/hr Q24H IV Last administered on 11/22/16 13:52; Admin Dose 40 MLS/HR; Start 11/21/16 at 11:00 Pantoprazole (Protonix Iv) 40 mg DAILY@06 IV Last administered on 11/22/16 07: 03; Admin Dose 40 MG; Start 11/22/16 at 06:00 Lorazepam (Ativan) 0.5 mg Q6H PRN IV AGITATION/ANXIETY; Start 11/21/16 at 12:00 IV Flush (NS 10 ml) 10 ml PRN PRN IV FLUSH LINE; Start 11/21/16 at 15:30 DEMETRIO OLSEN MD Nov 22, 2016 14:42
--- NOTE | 2016-11-22 16:10 | PN ---
Date/Time of Note Date/Time of Note DATE: 11/22/16 TIME: 16:07 Assessment/Plan VTE Prophylaxis VTE Prophylaxis Intervention: contraindicated, other VTE Contraindication Reason: anticoagulation not tolerated Lines/Catheters IV Catheter Type (from Nrs): PICC Line Central line still needed: Yes Urinary Cath still in place: Yes Reason Cath still needed: urinary retention Assessment/Plan Assessment/Plan - Altered Mental status- Sp Code stroke called -ICU Monitoring - aspiration precautions - cont. ASA 300 mg ND daily - NPO, scd - Bilateral Carotid Doppler stat - Gentle fluids- d51/2 ns at 40 cc /hr - insert FC - per Neurology consult- Dr Huizar - Possible Afib stroke with left Hemiplegia - per cardio - per neuro - cont. ASA 300 mg ND daily - Right knee swelling and tenderness - per Dr. Hernandez in orthopedic surgery consultation. - S/p steroid injection in R knee joint. 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 - pe Dr. Rosen in urology consultation. Patient daughter refused any surgical interventions. - Vaginal bleeding with ultrasound suspicious for endometrial carcinoma. S/p D& C with biopsy by Dr. Bah. 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 Stress test is negative for ischemia with scar. Continue Lasix. - per cardiology - ICU monitoring - Atrial fibrillation, continue aspirin. Patient is not a candidate for anticoagulation due to bleeding. - History of PA. - Hypertension, continue Coreg and lisinopril. - Hyperlipidemia. Continue statin. - Coronary artery disease with history of stent placement in 2011. Continue aspirin. Continue sequential compression device for deep venous thrombosis prophylaxis and Pepcid for peptic ulcer disease prophylaxis. Further recommendations based on clinical course. Daughter at bed side- all Qs answered. Total critical care time spent 60 mins.Plan of care discussed with Dr. An/saff/daughter. Subjective 24 Hr Interval Summary Free Text/Dictation SP code stroke this morning- transferred to ICU, awake, open eyes, confused, left hemiplegia,afebrile, daughter at bed side- all Qs answered, Dr Huizar - neurologist is informed. all orders done, stable, VSS, no s/s of aspiration.cont in ICU monitoring. dw staff. Exam/Review of Systems Vital Signs Vitals Vital Signs Date Time Temp Pulse Resp B/P Pulse Ox O2 Delivery O2 Flow Rate FiO2 6/4/17 15:52 97.9 80 18 132/69 99 11/21/16 15:45 Room Air Intake and Output 11/21/16 11/21/16 11/22/16 15:00 23:00 07:00 Intake Total 40 ml Output Total 175 ml 150 ml Balance -175 ml -110 ml Exam Constitutional: alert, non-verbal, well developed ENMT: nl external ears & nose Neck: non-tender, supple Respiratory: clear to auscultation, normal air movement Cardiovascular: nl pulses Gastrointestinal: non-tender, soft Musculoskeletal: nl extremities to inspection Extremities: normal pulses Neurological: confused, other (left side weakness- improving, ) Skin: nl turgor Lymph: nontender Results Result Diagram: 11/22/16 0640 11/22/16 0640 Results 24 hrs Laboratory Tests Test 11/21/16 18:30 11/22/16 06:40 White Blood Count 9.5 # 7.1 # Red Blood Count 3.16 L 2.89 L Hemoglobin 10.3 L 9.6 L Hematocrit 30.6 L 27.9 L Mean Corpuscular Volume 96.8 96.5 Mean Corpuscular Hemoglobin 32.6 33.2 H Mean Corpuscular Hemoglobin Concent 33.7 34.4 Red Cell Distribution Width 12.2 12.6 Platelet Count 446 H 413 Mean Platelet Volume 9.5 9.7 Neutrophils % 72.0 72.2 Lymphocytes % 12.4 L 13.3 L Monocytes % 14.3 H 12.9 H Eosinophils % 0.7 1.0 Basophils % 0.2 0.3 Nucleated Red Blood Cells % 0.0 0.0 Neutrophils # 6.8 5.1 Lymphocytes # 1.2 0.9 Monocytes # 1.4 H 0.9 Eosinophils # 0.1 0.1 Basophils # 0.0 0.0 Nucleated Red Blood Cells # 0.0 0.0 Sodium Level 135 Potassium Level 4.5 Chloride Level 102 Carbon Dioxide Level 25 Anion Gap 13 Blood Urea Nitrogen 13 Creatinine 0.59 Glucose Level 128 Lactic Acid Level 1.2 Calcium Level 8.5 Total Bilirubin 0.3 Direct Bilirubin 0.00 Indirect Bilirubin 0.3 Aspartate Amino Transf (AST/SGOT) 41 Alanine Aminotransferase (ALT/SGPT) 49 Alkaline Phosphatase 64 Total Protein 5.7 L Albumin 3.1 L Globulin 2.60 Albumin/Globulin Ratio 1.19 Medications Medications Current Medications Acetaminophen (Tylenol Tab) 650 mg Q4H PRN PO PAIN AND OR ELEVATED TEMP Last administered on 11/18/16 20:37; Admin Dose 650 MG; Start 11/09/16 at 05:30 Atorvastatin Calcium (Lipitor) 40 mg DAILY PO Last administered on 11/22/16 09: 26; Admin Dose 40 MG; Start 11/10/16 at 09:00 Carvedilol (Coreg) 6.25 mg BID PO Last administered on 11/22/16 09:26; Admin Dose 6.25 MG; Start 11/09/16 at 21:00 Docusate Sodium (Colace) 100 mg DAILY PO Last administered on 11/22/16 09:; Admin Dose 100 MG; Start 11/10/16 at 09:00 Famotidine (Pepcid) 20 mg DAILY PO Last administered on 11/22/16 09:; Admin Dose 20 MG; Start 11/10/16 at 09:00 Furosemide (Lasix) 20 mg DAILY PO Last administered on 11/22/16 09:26; Admin Dose 20 MG; Start 11/10/16 at 09:00 Zolpidem Tartrate (Ambien) 5 mg QHS PRN PO INSOMNIA Last administered on 21:16; Admin Dose 5 MG; Start 11/09/16 at 13:30 Acetaminophen/ Hydrocodone Bitart ([place] (5/325)) 1 tab Q4H PRN PO PAIN LEVEL 4 -7; Start 11/09/16 at 13:30 Bisacodyl (Dulcolax Supp) 10 mg DAILY PRN [place] CONSTIPATION Last administered on 11/11/16 17:04; Admin Dose 10 MG; Start 11/09/16 at 20:00 Lisinopril (Zestril) 5 mg DAILY PO Last administered on 11/22/16 09:26; Admin Dose 5 MG; Start 11/12/16 at 09:00 Morphine Sulfate (morphine) 1 mg Q3H PRN IV PAIN Last administered on 15:07; Admin Dose 1 MG; Start 11/18/16 at 15:03 Aspirin 300 mg 300 mg DAILY ND ; Start 11/22/16 at 09:00 Dextrose/Sodium Chloride (D5-1/2ns) 1,000 ml @ 40 mls/hr Q24H IV Last administered on 11/22/16 13:52; Admin Dose 40 MLS/HR; Start 11/21/16 at 11:00 Pantoprazole (Protonix Iv) 40 mg DAILY@06 IV Last administered on 11/22/16 07: 03; Admin Dose 40 MG; Start 11/22/16 at 06:00 Lorazepam (Ativan) 0.5 mg Q6H PRN IV AGITATION/ANXIETY; Start 11/21/16 at 12:00 IV Flush (NS 10 ml) 10 ml PRN PRN IV FLUSH LINE; Start 11/21/16 at 15:30 DEIRDRE MORSE Nov 22, 2016 16:10
[2016-11-23] VITALS (12 sets, daily range): BP systolic 106–143; BP diastolic 52–95; PULSE 70–87; RESP 16–19
[2016-11-23] MEDS: PANTOPRAZOLE 40 MG INJ IV SCH (05:52)
[2016-11-23 07:08] LABS: ADD SCAN DIFF NO
[2016-11-23 07:14] LABS: BASOPHILS % 0.3 % (0.0-2.0); EOSINOPHILS # 0.2 10^3/ul (0.0-0.5); EOSINOPHILS % 2.5 % (0.0-7.0); HEMATOCRIT 29.1 % (37.0-47.0); HEMOGLOBIN 9.7 g/dl (12.0-16.0); LYMPHOCYTES % 14.9 % (15.0-51.0); MEAN CORPUSCULAR HEMOGLOBIN 32.1 pg (29.0-33.0); MEAN CORPUSCULAR HGB CONC 33.3 g/dl (32.0-37.0); MEAN CORPUSCULAR VOLUME 96.4 fl (82.0-101.0); MEAN PLATELET VOLUME 9.4 fl (7.4-10.4); MONOCYTE # 0.9 10^3/ul (0.3-0.9); MONOCYTES % 14.1 % (0.0-11.0); NEUTROPHIL # 4.4 10^3/ul (1.6-7.5); NEUTROPHILS % 67.9 % (39.0-77.0); PLATELET COUNT 373 10^3/UL (140-415); RED BLOOD COUNT 3.02 10^6/ul (4.20-5.40); RED CELL DISTRIBUTION WIDTH 12.5 % (11.5-14.5); WHITE BLOOD COUNT 6.5 10^3/ul (4.8-10.8)
[2016-11-23 07:58] LABS: CREATININE 0.6 mg/dl (0.44-1.00); POTASSIUM 3.4 mmol/L (3.5-5.1)
[2016-11-23] MEDS: DOCUSATE SODIUM 100 MG CAP PO SCH (08:59)
[2016-11-23] MEDS: LISINOPRIL 5 MG TAB PO SCH (09:00)
[2016-11-23] MEDS: ATORVASTATIN 40 MG TAB PO SCH (09:00)
[2016-11-23] MEDS: FAMOTIDINE 20 MG TAB PO SCH (09:00)
[2016-11-23] MEDS: ASPIRIN 300 MG SUPP PR SCH (09:00)
[2016-11-23] MEDS: FUROSEMIDE 20 MG TAB PO SCH (09:00)
--- NOTE | 2016-11-23 09:34 | CONS ---
Date/Time of Note Date/Time of Note DATE: 11/23/16 TIME: 09:33 Assessment/Plan Assessment/Plan Additional Assessment/Plan 1. Hyponatremia, multifactorial secondary to hypovolemic hyponatremia and possible component of diastolic heart failure. 2. Hypokalemia. 3. Right knee swelling and erythema. 4. 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 5. History of coronary artery disease, status post previous stent placement in 2011. 6. History of atrial fibrillation. 7. History of vaginal bleeding, now status post dilatation and curettage with biopsy. 8. Coagulopathy, improved. 9. History of hypertension. PLAN: K low, will give KCl 20mEQ IV x 1 dose today continue D51/2 NS at 40 cc/hr will follow up BP stable Consultation Date/Type/Reason Admit Date/Time November 11, 2016 at 10:47 Type of Consultation: NEPHROLOGY Referring Provider: DEIRDRE MORSE 24 HR Interval Summary Free Text/Dictation K low, Cr normal, BP stable, afebrile Exam/Review of Systems Vital Signs Vitals Vital Signs Date Time Temp Pulse Resp B/P Pulse Ox O2 Delivery O2 Flow Rate FiO2 11/23/16 08:51 87 11/23/16 08:21 99.4 19 140/82 98 11/21/16 15:45 Room Air Intake and Output 11/22/16 11/22/16 11/23/16 15:00 23:00 07:00 Intake Total 40 ml Output Total 900 ml 800 ml Balance -860 ml -800 ml Exam GENERAL: Awake, alert, not oriented to place and person. HEENT: Pupils equal, round, reactive to light and accommodation. Extraocular muscles are intact. NECK: Supple. No JVD, no lymphadenopathy. LUNGS: Decreased breath sounds at both lung bases. HEART: S1, S2, with regular rhythm. No murmur. ABDOMEN: Soft, nontender, nondistended. Bowel sounds are present. EXTREMITIES: Tender to palpation in the left lower quadrant. No rebound, no guarding. Results Result Diagram: 11/23/16 0602 11/23/16 0602 Results 24 hrs Laboratory Tests Test 11/23/16 06:02 White Blood Count 6.5 Red Blood Count 3.02 L Hemoglobin 9.7 L Hematocrit 29.1 L Mean Corpuscular Volume 96.4 Mean Corpuscular Hemoglobin 32.1 Mean Corpuscular Hemoglobin Concent 33.3 Red Cell Distribution Width 12.5 Platelet Count 373 Mean Platelet Volume 9.4 Neutrophils % 67.9 Lymphocytes % 14.9 L Monocytes % 14.1 H Eosinophils % 2.5 Basophils % 0.3 Nucleated Red Blood Cells % 0.0 Neutrophils # 4.4 Lymphocytes # 1.0 Monocytes # 0.9 Eosinophils # 0.2 Basophils # 0.0 Nucleated Red Blood Cells # 0.0 Sodium Level 133 L Potassium Level 3.4 L Chloride Level 101 Carbon Dioxide Level 27 Anion Gap 8 Blood Urea Nitrogen 9 Creatinine 0.60 Glucose Level 106 Calcium Level 8.0 L Medications Medications Current Medications Acetaminophen (Tylenol Tab) 650 mg Q4H PRN PO PAIN AND OR ELEVATED TEMP Last administered on 11/18/16 20:37; Admin Dose 650 MG; Start 11/09/16 at 05:30 Atorvastatin Calcium (Lipitor) 40 mg DAILY PO Last administered on 11/23/16 09: 00; Admin Dose 40 MG; Start 11/10/16 at 09:00 Carvedilol (Coreg) 6.25 mg BID PO Last administered on 11/23/16 08:59; Admin Dose 6.25 MG; Start 11/09/16 at 21:00 Docusate Sodium (Colace) 100 mg DAILY PO Last administered on 11/23/16 08:59; Admin Dose 100 MG; Start 11/10/16 at 09:00 Famotidine (Pepcid) 20 mg DAILY PO Last administered on 11/23/16 09:00; Admin Dose 20 MG; Start 11/10/16 at 09:00 Furosemide (Lasix) 20 mg DAILY PO Last administered on 11/23/16 09:00; Admin Dose 20 MG; Start 11/10/16 at 09:00 Zolpidem Tartrate (Ambien) 5 mg QHS PRN PO INSOMNIA Last administered on 21:16; Admin Dose 5 MG; Start 11/09/16 at 13:30 Acetaminophen/ Hydrocodone Bitart ([place] (5/325)) 1 tab Q4H PRN PO PAIN LEVEL 4 -7; Start 11/09/16 at 13:30 Bisacodyl (Dulcolax Supp) 10 mg DAILY PRN [place] CONSTIPATION Last administered on 11/11/16 17:04; Admin Dose 10 MG; Start 11/09/16 at 20:00 Lisinopril (Zestril) 5 mg DAILY PO Last administered on 11/23/16 09:00; Admin Dose 5 MG; Start 11/12/16 at 09:00 Morphine Sulfate (morphine) 1 mg Q3H PRN IV PAIN Last administered on 15:07; Admin Dose 1 MG; Start 11/18/16 at 15:03 Aspirin 300 mg 300 mg DAILY [place] Last administered on 11/23/16 09:00; Admin Dose 300 MG; Start 11/22/16 at 09:00 Dextrose/Sodium Chloride (D5-1/2ns) 1,000 ml @ 40 mls/hr Q24H IV Last administered on 11/22/16 13:52; Admin Dose 40 MLS/HR; Start 11/21/16 at 11:00 Pantoprazole (Protonix Iv) 40 mg DAILY@06 IV Last administered on 11/23/16 05: 52; Admin Dose 40 MG; Start 11/22/16 at 06:00 Lorazepam (Ativan) 0.5 mg Q6H PRN IV AGITATION/ANXIETY; Start 11/21/16 at 12:00 IV Flush (NS 10 ml) 10 ml PRN PRN IV FLUSH LINE; Start 11/21/16 at 15:30 DEMETRIO OLSEN MD Nov 23, 2016 09:34
[2016-11-23] MEDS ORDERED: POTASSIUM CHLORIDE 20 MEQ in SOD CHLORIDE 0.9% 100 ML IVPB ONE (10:00)
[2016-11-23] MEDS: DEXTROSE 5%-0.45% NACL 1,000 ML IV SCH (11:00)
--- NOTE | 2016-11-23 13:02 | CONS ---
Date/Time of Note Date/Time of Note DATE: 11/23/16 TIME: 12:59 Consult Date/Type/Reason Admit Date/Time November 11, 2016 at 10:47 Initial Consult Date 11/21/16 Type of Consultation: Neurology Reason for Consultation CVA Ordering Provider: DEIRDRE MORSE Subjective Objective Vital Signs Date Time Temp Pulse Resp B/P Pulse Ox O2 Delivery O2 Flow Rate FiO2 11/23/16 12:41 83 11/23/16 11:46 98.8 18 106/52 98 11/21/16 15:45 Room Air Intake and Output 11/22/16 11/22/16 11/23/16 15:00 23:00 07:00 Intake Total 40 ml Output Total 900 ml 800 ml Balance -860 ml -800 ml Exam Constitutional: alert Head: atraumatic, normocephalic Eyes: EOMI, nl conjunctiva, nl lids, nl sclera ENMT: mucosa pink and moist, nl external ears & nose, nl lips & teeth, nl nasal mucosa & septum Neck: non-tender, supple Respiratory: clear to auscultation, normal air movement Cardiovascular: nl pulses, regular rate and rhythm Gastrointestinal: nl liver, spleen, non-tender, soft Extremities: normal pulses Neurological: other (Alert and awake, left hemiparesis, left central facial droop, left Babinski, limited exam) able to cross gaze to track examiner on left with repeat stimulation Results/Medications Result Diagram: 11/23/16 0602 11/23/16 0602 Results 24 hrs Laboratory Tests Test 11/23/16 06:02 White Blood Count 6.5 Red Blood Count 3.02 L Hemoglobin 9.7 L Hematocrit 29.1 L Mean Corpuscular Volume 96.4 Mean Corpuscular Hemoglobin 32.1 Mean Corpuscular Hemoglobin Concent 33.3 Red Cell Distribution Width 12.5 Platelet Count 373 Mean Platelet Volume 9.4 Neutrophils % 67.9 Lymphocytes % 14.9 L Monocytes % 14.1 H Eosinophils % 2.5 Basophils % 0.3 Nucleated Red Blood Cells % 0.0 Neutrophils # 4.4 Lymphocytes # 1.0 Monocytes # 0.9 Eosinophils # 0.2 Basophils # 0.0 Nucleated Red Blood Cells # 0.0 Sodium Level 133 L Potassium Level 3.4 L Chloride Level 101 Carbon Dioxide Level 27 Anion Gap 8 Blood Urea Nitrogen 9 Creatinine 0.60 Glucose Level 106 Calcium Level 8.0 L Medications Current Medications Acetaminophen (Tylenol Tab) 650 mg Q4H PRN PO PAIN AND OR ELEVATED TEMP Last administered on 11/18/16 20:37; Admin Dose 650 MG; Start 11/09/16 at 05:30 Atorvastatin Calcium (Lipitor) 40 mg DAILY PO Last administered on 11/23/16 09: 00; Admin Dose 40 MG; Start 11/10/16 at 09:00 Carvedilol (Coreg) 6.25 mg BID PO Last administered on 11/23/16 08:59; Admin Dose 6.25 MG; Start 11/09/16 at 21:00 Docusate Sodium (Colace) 100 mg DAILY PO Last administered on 11/23/16 08:59; Admin Dose 100 MG; Start 11/10/16 at 09:00 Famotidine (Pepcid) 20 mg DAILY PO Last administered on 11/23/16 09:00; Admin Dose 20 MG; Start 11/10/16 at 09:00 Furosemide (Lasix) 20 mg DAILY PO Last administered on 11/23/16 09:00; Admin Dose 20 MG; Start 11/10/16 at 09:00 Zolpidem Tartrate (Ambien) 5 mg QHS PRN PO INSOMNIA Last administered on 21:16; Admin Dose 5 MG; Start 11/09/16 at 13:30 Acetaminophen/ Hydrocodone Bitart ([place] (5/325)) 1 tab Q4H PRN PO PAIN LEVEL 4 -7; Start 11/09/16 at 13:30 Bisacodyl (Dulcolax Supp) 10 mg DAILY PRN [place] CONSTIPATION Last administered on 11/11/16 17:04; Admin Dose 10 MG; Start 11/09/16 at 20:00 Lisinopril (Zestril) 5 mg DAILY PO Last administered on 11/23/16 09:00; Admin Dose 5 MG; Start 11/12/16 at 09:00 Morphine Sulfate (morphine) 1 mg Q3H PRN IV PAIN Last administered on 15:07; Admin Dose 1 MG; Start 11/18/16 at 15:03 Aspirin 300 mg 300 mg DAILY [place] Last administered on 11/23/16 09:00; Admin Dose 300 MG; Start 11/22/16 at 09:00 Dextrose/Sodium Chloride (D5-1/2ns) 1,000 ml @ 40 mls/hr Q24H IV Last administered on 11/22/16 13:52; Admin Dose 40 MLS/HR; Start 11/21/16 at 11:00 Pantoprazole (Protonix Iv) 40 mg DAILY@06 IV Last administered on 11/23/16 05: 52; Admin Dose 40 MG; Start 11/22/16 at 06:00 Lorazepam (Ativan) 0.5 mg Q6H PRN IV AGITATION/ANXIETY; Start 11/21/16 at 12:00 IV Flush (NS 10 ml) 10 ml PRN PRN IV FLUSH LINE; Start 11/21/16 at 15:30 Assessment/Plan Chief Complaint/Hosp Course 86-year-old woman with history of cardiomyopathy with ejection fraction of about 30% has been followed by cardiology and a history of hypertension, myocardial infarction, status post angioplasty was admitted on 11/09/2016 with vaginal bleeding, s/p endometrial bipsy on 11/17 with newly dx right parietal lobe infarction. etiology cardioembolic CVA unable to anticoagulate due to vaginal bleeding/recent surgery -MRI Brain still pending -continue antiplatelet therapy -DNR status Problems: NOELLE MEREDITH MD Nov 23, 2016 13:02
--- NOTE | 2016-11-23 13:35 | CONS ---
Date/Time of Note Date/Time of Note DATE: 11/23/16 TIME: 13:32 Assessment/Plan Assessment/Plan Chief Complaint/Hosp Course IMPRESSION: 1. Cardiomyopathy with decreased left ventricular ejection fraction last seen approximately 30% by echo at outside hospital 08/2016. EF 35% by echo this admit with lexiscan negative for ischemia with scar and EF 40%. 2. Hypertension. 3. History of myocardial infarction. 4. History of percutaneous transluminal coronary angioplasty and stent placement last 2011. 5. Coagulopathy-improved 6. Anemia. 7. Vaginal bleed now post-op s/p D+C with Bx 8. Possible endometrial mass, abnormal thickening. 9. R knee pain and swelling acute s/p steroid injection with improvement in sx 10.Hyponatremia-ongoing and mildly labile 11.Probable CVA Rec: - continue BB/ACEI -Continue lasix PO and follow volume status closely -ASA had been held given vaginal bleeding but no resumed as tolerated to prevent in possible further thromoembolic complications -Follow hgb closely back on asa -F/U Desk Monitor path -Neuro following Problems: Consultation Date/Type/Reason Admit Date/Time November 11, 2016 at 10:47 Initial Consult Date 11/09/2016 Type of Consultation: Cardiology Reason for Consultation AF/cardiomyopathy Referring Provider: DEIRDRE MORSE Exam/Review of Systems Vital Signs Vitals Vital Signs Date Time Temp Pulse Resp B/P Pulse Ox O2 Delivery O2 Flow Rate FiO2 11/23/16 12:41 83 11/23/16 11:46 98.8 18 106/52 98 11/21/16 15:45 Room Air Intake and Output 11/22/16 11/22/16 11/23/16 15:00 23:00 07:00 Intake Total 40 ml Output Total 900 ml 800 ml Balance -860 ml -800 ml Exam Review of Systems: CONSTITUTIONAL: No fevers, chills. PULMONARY: No sob CARDIOVASCULAR: No chest pain/palpitations GASTROINTESTINAL: No nausea/vomiting. GENITOURINARY: No hematuria/dysuria. MUSCULOSKELETAL: No myagias/arthalgias. PSYCHIATRIC: The patient denies depression. NEUROLOGIC: lethargic Constitutional: other (sleeping) Psych: no complaints Head: normocephalic ENMT: mucosa pink and moist Neck: jvd, supple Respiratory: diminished breath sounds (at bases/B) Cardiovascular: irregular rhythm Gastrointestinal: non-tender, soft Musculoskeletal: muscle tone (normal) Extremities: edema (none) Neurological: confused, lethargic Results Result Diagram: 11/23/1660111/23/16 06 Results 24 hrs Laboratory Tests Test 11/23/16 06:02 White Blood Count 6.5 Red Blood Count 3.02 L Hemoglobin 9.7 L Hematocrit 29.1 L Mean Corpuscular Volume 96.4 Mean Corpuscular Hemoglobin 32.1 Mean Corpuscular Hemoglobin Concent 33.3 Red Cell Distribution Width 12.5 Platelet Count 373 Mean Platelet Volume 9.4 Neutrophils % 67.9 Lymphocytes % 14.9 L Monocytes % 14.1 H Eosinophils % 2.5 Basophils % 0.3 Nucleated Red Blood Cells % 0.0 Neutrophils # 4.4 Lymphocytes # 1.0 Monocytes # 0.9 Eosinophils # 0.2 Basophils # 0.0 Nucleated Red Blood Cells # 0.0 Sodium Level 133 L Potassium Level 3.4 L Chloride Level 101 Carbon Dioxide Level 27 Anion Gap 8 Blood Urea Nitrogen 9 Creatinine 0.60 Glucose Level 106 Calcium Level 8.0 L Medications Medications Current Medications Acetaminophen (Tylenol Tab) 650 mg Q4H PRN PO PAIN AND OR ELEVATED TEMP Last administered on 11/18/16 20:37; Admin Dose 650 MG; Start 11/09/16 at 05:30 Atorvastatin Calcium (Lipitor) 40 mg DAILY PO Last administered on 11/23/16 09: 00; Admin Dose 40 MG; Start 11/10/16 at 09:00 Carvedilol (Coreg) 6.25 mg BID PO Last administered on 11/23/16 08:59; Admin Dose 6.25 MG; Start 11/09/16 at 21:00 Docusate Sodium (Colace) 100 mg DAILY PO Last administered on 11/23/16 08:59; Admin Dose 100 MG; Start 11/10/16 at 09:00 Famotidine (Pepcid) 20 mg DAILY PO Last administered on 11/23/16 09:00; Admin Dose 20 MG; Start 11/10/16 at 09:00 Furosemide (Lasix) 20 mg DAILY PO Last administered on 11/23/16 09:00; Admin Dose 20 MG; Start 11/10/16 at 09:00 Zolpidem Tartrate (Ambien) 5 mg QHS PRN PO INSOMNIA Last administered on 21:16; Admin Dose 5 MG; Start 11/09/16 at 13:30 Acetaminophen/ Hydrocodone Bitart ([place] (5/325)) 1 tab Q4H PRN PO PAIN LEVEL 4 -7; Start 11/09/16 at 13:30 Bisacodyl (Dulcolax Supp) 10 mg DAILY PRN [place] CONSTIPATION Last administered on 11/11/16 17:04; Admin Dose 10 MG; Start 11/09/16 at 20:00 Lisinopril (Zestril) 5 mg DAILY PO Last administered on 11/23/16 09:00; Admin Dose 5 MG; Start 11/12/16 at 09:00 Morphine Sulfate (morphine) 1 mg Q3H PRN IV PAIN Last administered on 15:07; Admin Dose 1 MG; Start 11/18/16 at 15:03 Aspirin (Aspirin) 300 mg DAILY [place] Last administered on 11/23/16 09:00; Admin Dose 300 MG; Start 11/22/16 at 09:00 Pantoprazole (Protonix Iv) 40 mg DAILY@06 IV Last administered on 11/23/16 05: 52; Admin Dose 40 MG; Start 11/22/16 at 06:00 Lorazepam (Ativan) 0.5 mg Q6H PRN IV AGITATION/ANXIETY; Start 11/21/16 at 12:00 IV Flush (NS 10 ml) 10 ml PRN PRN IV FLUSH LINE; Start 11/21/16 at 15:30 DEBBIE QUINTANA Nov 23, 2016 13:35
--- NOTE | 2016-11-23 17:37 | PN ---
Date/Time of Note Date/Time of Note DATE: 11/23/16 TIME: 17:32 Assessment/Plan VTE Prophylaxis VTE Prophylaxis Intervention: SCD's Lines/Catheters [facility] PICC Line Central line still needed: Yes Urinary Cath still in place: Yes Reason Cath still needed: urinary retention Assessment/Plan Chief Complaint/Hosp Course Patient is lethargic but easily arousable, alert to name and situation, able to move all extremities was noted left-sided weakness. ASSESSMENT AND PLAN: - CVA, Dr Johnson is following in neurology consultation. - Right knee swelling and tenderness, Dr. Hernandez is following in orthopedic surgery consultation. S/p steroid injection in R knee joint. 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 Dr. Rosen evaluated patient in urology consultation. Patient daughter refused any surgical interventions. - Vaginal bleeding with ultrasound suspicious for endometrial carcinoma. S/p D& C with biopsy by Dr. Bah. 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 Stress test is negative for ischemia with scar. Continue Lasix. - Atrial fibrillation, continue aspirin. Patient is not a candidate for anticoagulation due to bleeding. - History of [place]. - Hypertension, continue Coreg and lisinopril. - Hyperlipidemia. Continue statin. - Coronary artery disease with history of stent placement in 2011. Continue aspirin. Continue sequential compression device for deep venous thrombosis prophylaxis and Pepcid for peptic ulcer disease prophylaxis. Further recommendations based on clinical course. Plan of care discussed with Dr. An. Problems: Exam/Review of Systems Vital Signs Vitals Vital Signs Date Time Temp Pulse Resp B/P Pulse Ox O2 Delivery O2 Flow Rate FiO2 11/23/16 16:23 84 11/23/16 15:38 99.1 17 112/67 99 11/21/16 15:45 Room Air Intake and Output 11/22/16 11/22/16 11/23/16 15:00 23:00 07:00 Intake Total 40 ml Output Total 900 ml 800 ml Balance -860 ml -800 ml Exam Constitutional: alert, oriented Head: normocephalic Neck: supple Respiratory: clear to auscultation Cardiovascular: nl pulses Gastrointestinal: soft, BS+ Extremities: normal pulses Results Result Diagram: 11/23/16 0602 11/23/16 0602 Results 24 hrs Laboratory Tests Test 11/23/16 06:02 White Blood Count 6.5 Red Blood Count 3.02 L Hemoglobin 9.7 L Hematocrit 29.1 L Mean Corpuscular Volume 96.4 Mean Corpuscular Hemoglobin 32.1 Mean Corpuscular Hemoglobin Concent 33.3 Red Cell Distribution Width 12.5 Platelet Count 373 Mean Platelet Volume 9.4 Neutrophils % 67.9 Lymphocytes % 14.9 L Monocytes % 14.1 H Eosinophils % 2.5 Basophils % 0.3 Nucleated Red Blood Cells % 0.0 Neutrophils # 4.4 Lymphocytes # 1.0 Monocytes # 0.9 Eosinophils # 0.2 Basophils # 0.0 Nucleated Red Blood Cells # 0.0 Sodium Level 133 L Potassium Level 3.4 L Chloride Level 101 Carbon Dioxide Level 27 Anion Gap 8 Blood Urea Nitrogen 9 Creatinine 0.60 Glucose Level 106 Calcium Level 8.0 L Medications Medications Current Medications Acetaminophen (Tylenol Tab) 650 mg Q4H PRN PO PAIN AND OR ELEVATED TEMP Last administered on 11/18/16 20:37; Admin Dose 650 MG; Start 11/09/16 at 05:30 Atorvastatin Calcium (Lipitor) 40 mg DAILY PO Last administered on 11/23/16 09: 00; Admin Dose 40 MG; Start 11/10/16 at 09:00 Carvedilol (Coreg) 6.25 mg BID PO Last administered on 11/23/16 08:59; Admin Dose 6.25 MG; Start 11/09/16 at 21:00 Docusate Sodium (Colace) 100 mg DAILY PO Last administered on 11/23/16 08:59; Admin Dose 100 MG; Start 11/10/16 at 09:00 Famotidine (Pepcid) 20 mg DAILY PO Last administered on 11/23/16 09:00; Admin Dose 20 MG; Start 11/10/16 at 09:00 Furosemide (Lasix) 20 mg DAILY PO Last administered on 11/23/16 09:00; Admin Dose 20 MG; Start 11/10/16 at 09:00 Zolpidem Tartrate (Ambien) 5 mg QHS PRN PO INSOMNIA Last administered on 21:16; Admin Dose 5 MG; Start 11/09/16 at 13:30 Acetaminophen/ Hydrocodone Bitart ([place] (5/325)) 1 tab Q4H PRN PO PAIN LEVEL 4 -7; Start 11/09/16 at 13:30 Bisacodyl (Dulcolax Supp) 10 mg DAILY PRN [place] CONSTIPATION Last administered on 11/11/16 17:04; Admin Dose 10 MG; Start 11/09/16 at 20:00 Lisinopril (Zestril) 5 mg DAILY PO Last administered on 11/23/16 09:00; Admin Dose 5 MG; Start 11/12/16 at 09:00 Morphine Sulfate (morphine) 1 mg Q3H PRN IV PAIN Last administered on 15:07; Admin Dose 1 MG; Start 11/18/16 at 15:03 Aspirin (Aspirin) 300 mg DAILY [place] Last administered on 11/23/16 09:00; Admin Dose 300 MG; Start 11/22/16 at 09:00 Pantoprazole (Protonix Iv) 40 mg DAILY@06 IV Last administered on 11/23/16 05: 52; Admin Dose 40 MG; Start 11/22/16 at 06:00 Lorazepam (Ativan) 0.5 mg Q6H PRN IV AGITATION/ANXIETY; Start 11/21/16 at 12:00 IV Flush (NS 10 ml) 10 ml PRN PRN IV FLUSH LINE; Start 11/21/16 at 15:30 NILES LOPEZ Nov 23, 2016 17:37 NILES LOPEZ Nov 23, 2016 17:37
[2016-11-24] VITALS (12 sets, daily range): BP systolic 110–153; BP diastolic 57–76; PULSE 73–90; RESP 17–20
[2016-11-24] MEDS: PANTOPRAZOLE 40 MG INJ IV SCH (06:11)
[2016-11-24 07:35] LABS: ADD SCAN DIFF NO
[2016-11-24 07:37] LABS: BASOPHILS % 0.1 % (0.0-2.0); EOSINOPHILS # 0.1 10^3/ul (0.0-0.5); EOSINOPHILS % 1.4 % (0.0-7.0); HEMATOCRIT 29.1 % (37.0-47.0); LYMPHOCYTES # 1.1 10^3/ul (0.8-2.9); LYMPHOCYTES % 15.1 % (15.0-51.0); MEAN CORPUSCULAR HGB CONC 34.4 g/dl (32.0-37.0); MEAN PLATELET VOLUME 9.5 fl (7.4-10.4); MONOCYTES % 14.3 % (0.0-11.0); NEUTROPHILS % 68.8 % (39.0-77.0); PLATELET COUNT 371 10^3/UL (140-415); RED BLOOD COUNT 3.03 10^6/ul (4.20-5.40); RED CELL DISTRIBUTION WIDTH 12.4 % (11.5-14.5); WHITE BLOOD COUNT 7.3 10^3/ul (4.8-10.8)
[2016-11-24 08:12] LABS: CALCIUM 8.2 mg/dl (8.4-10.2); CREATININE 0.62 mg/dl (0.44-1.00); POTASSIUM 3.8 mmol/L (3.5-5.1)
[2016-11-24] MEDS: DOCUSATE SODIUM 10 MG/ML (10ML CUP) PO SCH ×2 (09:37→22:35)
[2016-11-24] MEDS: ATORVASTATIN 40 MG TAB PO SCH (09:37)
[2016-11-24] MEDS: FUROSEMIDE 20 MG TAB PO SCH (09:37)
[2016-11-24] MEDS: FAMOTIDINE 20 MG TAB PO SCH (09:37)
[2016-11-24] MEDS: LISINOPRIL 5 MG TAB PO SCH (09:38)
--- NOTE | 2016-11-24 10:06 | CONS ---
Date/Time of Note Date/Time of Note DATE: 11/24/16 TIME: 10:04 Assessment/Plan Assessment/Plan Additional Assessment/Plan 1. Cardiomyopathy with decreased left ventricular ejection fraction last seen approximately 30% by echo at outside hospital 08/2016. EF 35% by echo this admit with lexiscan negative for ischemia with scar and EF 40%- no intervention planned now - stable 2. Hypertension- well rx, allow for now given CVA- stable 3. History of myocardial infarction- no cp now 4. History of percutaneous transluminal coronary angioplasty and stent placement last 2011. 5. Coagulopathy-improved 6. Anemia- H/H satble 7. Vaginal bleed now post-op s/p D+C with Bx 8. Possible endometrial mass, abnormal thickening. 9. R knee pain and swelling acute s/p steroid injection with improvement in sx 10.Hyponatremia-ow slowly iproving 11. now with ACUTE CVA - neuro recs noted, not a candidate for TPA - medr x now - MUCH BETTER now - con't post CVA care 12. A. fib - rate controled - con't to follow, no anti-coag now Consultation Date/Type/Reason Admit Date/Time November 11, 2016 at 10:47 Type of Consultation: Cardiology Referring Provider: DEIRDRE MORSE 24 HR Interval Summary Free Text/Dictation NO acute events - stillin a. fib - can not be anticoagulated now - con't post CVA care ROS: No fever, no chills, no nausea, no vomiting, no diarrhea/constipation No recent weight changes No chest pain, no PND, no orthopnea No dizziness, blurred vision No thirst, no heat or cold intolerance per family Exam/Review of Systems Vital Signs Vitals Vital Signs Date Time Temp Pulse Resp B/P Pulse Ox O2 Delivery O2 Flow Rate FiO2 11/24/16 08:00 79 11/24/16 07:25 98.3 18 147/64 100 11/23/16 20:16 Room Air Intake and Output 11/23/16 11/23/16 11/24/16 15:00 23:00 07:00 Intake Total 100 ml 220 ml Output Total 900 ml 400 ml Balance -800 ml -180 ml Exam General: WN/WD/NAD, AOx 1-2 stable HEENT: Unicetric/atraumatic/EOMI (does not follow commands) NECK: JVD elevated, no thyromegaly Lymph: no lymphadenopathy HEART: Ir IRregular with no S3, II/ systolic murmur at apex LUNGS: Coarse sounds ABD: soft, NT, ND, +BS : Intact Neuro: non focal SKIN: chronic changes EXT: trace edema Results Result Diagram: 11/24/16 0630 11/24/16 0630 Results 24 hrs Laboratory Tests Test 11/24/16 06:30 White Blood Count 7.3 Red Blood Count 3.03 L Hemoglobin 10.0 L Hematocrit 29.1 L Mean Corpuscular Volume 96.0 Mean Corpuscular Hemoglobin 33.0 Mean Corpuscular Hemoglobin Concent 34.4 Red Cell Distribution Width 12.4 Platelet Count 371 Mean Platelet Volume 9.5 Neutrophils % 68.8 Lymphocytes % 15.1 Monocytes % 14.3 H Eosinophils % 1.4 Basophils % 0.1 Nucleated Red Blood Cells % 0.0 Neutrophils # 5.0 Lymphocytes # 1.1 Monocytes # 1.0 H Eosinophils # 0.1 Basophils # 0.0 Nucleated Red Blood Cells # 0.0 Sodium Level 134 L Potassium Level 3.8 Chloride Level 101 Carbon Dioxide Level 26 Anion Gap 11 Blood Urea Nitrogen 10 Creatinine 0.62 Glucose Level 114 Calcium Level 8.2 L Medications Medications Current Medications Acetaminophen (Tylenol Tab) 650 mg Q4H PRN PO PAIN AND OR ELEVATED TEMP Last administered on 11/18/16 20:37; Admin Dose 650 MG; Start 11/09/16 at 05:30 Atorvastatin Calcium (Lipitor) 40 mg DAILY PO Last administered on 11/24/16 09: 37; Admin Dose 40 MG; Start 11/10/16 at 09:00 Carvedilol (Coreg) 6.25 mg BID PO Last administered on 11/24/16 09:38; Admin Dose 6.25 MG; Start 11/09/16 at 21:00 Famotidine (Pepcid) 20 mg DAILY PO Last administered on 11/24/16 09:37; Admin Dose 20 MG; Start 11/10/16 at 09:00 Furosemide (Lasix) 20 mg DAILY PO Last administered on 11/24/16 09:37; Admin Dose 20 MG; Start 11/10/16 at 09:00 Zolpidem Tartrate (Ambien) 5 mg QHS PRN PO INSOMNIA Last administered on 21:16; Admin Dose 5 MG; Start 11/09/16 at 13:30 Acetaminophen/ Hydrocodone Bitart ([place] (5/325)) 1 tab Q4H PRN PO PAIN LEVEL 4 -7; Start 11/09/16 at 13:30 Bisacodyl (Dulcolax Supp) 10 mg DAILY PRN [place] CONSTIPATION Last administered on 11/11/16 17:04; Admin Dose 10 MG; Start 11/09/16 at 20:00 Lisinopril (Zestril) 5 mg DAILY PO Last administered on 11/24/16 09:38; Admin Dose 5 MG; Start 11/12/16 at 09:00 Morphine Sulfate (morphine) 1 mg Q3H PRN IV PAIN Last administered on 15:07; Admin Dose 1 MG; Start 11/18/16 at 15:03 Aspirin (Aspirin) 300 mg DAILY [place] Last administered on 11/23/16 09:00; Admin Dose 300 MG; Start 11/22/16 at 09:00 Pantoprazole (Protonix Iv) 40 mg DAILY@06 IV Last administered on 11/24/16 06: 11; Admin Dose 40 MG; Start 11/22/16 at 06:00 Lorazepam (Ativan) 0.5 mg Q6H PRN IV AGITATION/ANXIETY; Start 11/21/16 at 12:00 IV Flush (NS 10 ml) 10 ml PRN PRN IV FLUSH LINE; Start 11/21/16 at 15:30 Docusate Sodium (Colace Liquid Cup) 100 mg BID PO Last administered on 09:37; Admin Dose 100 MG; Start 11/24/16 at 09:00 MICHAEL MORE MD Nov 24, 2016 10:06
--- NOTE | 2016-11-24 12:08 | CONS ---
Date/Time of Note Date/Time of Note DATE: 11/24/16 TIME: 12:05 Consult Date/Type/Reason Admit Date/Time November 11, 2016 at 10:47 Initial Consult Date 11/21/16 Type of Consultation: Neurology Reason for Consultation CVA Ordering Provider: DEIRDRE MORSE Subjective remains stable recognizes family can verbalize names of simple objects Objective Vital Signs Date Time Temp Pulse Resp B/P Pulse Ox O2 Delivery O2 Flow Rate FiO2 11/24/16 11:43 97.8 80 18 153/72 95 11/23/16 20:16 Room Air Intake and Output 11/23/16 11/23/16 11/24/16 15:00 23:00 07:00 Intake Total 100 ml 220 ml Output Total 900 ml 400 ml Balance -800 ml -180 ml Exam Constitutional: alert Head: atraumatic, normocephalic Eyes: EOMI, nl conjunctiva, nl lids, nl sclera ENMT: mucosa pink and moist, nl external ears & nose, nl lips & teeth, nl nasal mucosa & septum Neck: non-tender, supple Respiratory: clear to auscultation, normal air movement Cardiovascular: nl pulses, regular rate and rhythm Gastrointestinal: nl liver, spleen, non-tender, soft Extremities: normal pulses Neurological: other (Alert and awake, left hemiparesis, left central facial droop, left Babinski, limited exam) able to cross gaze to track examiner on left with repeat stimulation, briefly lifting her left arm anti-gravity suspect more left sided neglect than weakness Results/Medications Result Diagram: 11/24/16 0630 11/24/16 0630 Results 24 hrs Laboratory Tests Test 11/24/16 06:30 White Blood Count 7.3 Red Blood Count 3.03 L Hemoglobin 10.0 L Hematocrit 29.1 L Mean Corpuscular Volume 96.0 Mean Corpuscular Hemoglobin 33.0 Mean Corpuscular Hemoglobin Concent 34.4 Red Cell Distribution Width 12.4 Platelet Count 371 Mean Platelet Volume 9.5 Neutrophils % 68.8 Lymphocytes % 15.1 Monocytes % 14.3 H Eosinophils % 1.4 Basophils % 0.1 Nucleated Red Blood Cells % 0.0 Neutrophils # 5.0 Lymphocytes # 1.1 Monocytes # 1.0 H Eosinophils # 0.1 Basophils # 0.0 Nucleated Red Blood Cells # 0.0 Sodium Level 134 L Potassium Level 3.8 Chloride Level 101 Carbon Dioxide Level 26 Anion Gap 11 Blood Urea Nitrogen 10 Creatinine 0.62 Glucose Level 114 Calcium Level 8.2 L Medications Current Medications Acetaminophen (Tylenol Tab) 650 mg Q4H PRN PO PAIN AND OR ELEVATED TEMP Last administered on 11/18/16 20:37; Admin Dose 650 MG; Start 11/09/16 at 05:30 Atorvastatin Calcium (Lipitor) 40 mg DAILY PO Last administered on 11/24/16 09: 37; Admin Dose 40 MG; Start 11/10/16 at 09:00 Carvedilol (Coreg) 6.25 mg BID PO Last administered on 11/24/16 09:38; Admin Dose 6.25 MG; Start 11/09/16 at 21:00 Famotidine (Pepcid) 20 mg DAILY PO Last administered on 11/24/16 09:37; Admin Dose 20 MG; Start 11/10/16 at 09:00 Furosemide (Lasix) 20 mg DAILY PO Last administered on 11/24/16 09:37; Admin Dose 20 MG; Start 11/10/16 at 09:00 Zolpidem Tartrate (Ambien) 5 mg QHS PRN PO INSOMNIA Last administered on 21:16; Admin Dose 5 MG; Start 11/09/16 at 13:30 Acetaminophen/ Hydrocodone Bitart ([place] (5/325)) 1 tab Q4H PRN PO PAIN LEVEL 4 -7; Start 11/09/16 at 13:30 Bisacodyl (Dulcolax Supp) 10 mg DAILY PRN [place] CONSTIPATION Last administered on 11/11/16 17:04; Admin Dose 10 MG; Start 11/09/16 at 20:00 Lisinopril (Zestril) 5 mg DAILY PO Last administered on 11/24/16 09:38; Admin Dose 5 MG; Start 11/12/16 at 09:00 Morphine Sulfate (morphine) 1 mg Q3H PRN IV PAIN Last administered on 15:07; Admin Dose 1 MG; Start 11/18/16 at 15:03 Aspirin (Aspirin) 300 mg DAILY [place] Last administered on 11/23/16 09:00; Admin Dose 300 MG; Start 11/22/16 at 09:00 Pantoprazole (Protonix Iv) 40 mg DAILY@06 IV Last administered on 11/24/16 06: 11; Admin Dose 40 MG; Start 11/22/16 at 06:00 Lorazepam (Ativan) 0.5 mg Q6H PRN IV AGITATION/ANXIETY; Start 11/21/16 at 12:00 IV Flush (NS 10 ml) 10 ml PRN PRN IV FLUSH LINE; Start 11/21/16 at 15:30 Docusate Sodium (Colace Liquid Cup) 100 mg BID PO Last administered on 09:37; Admin Dose 100 MG; Start 11/24/16 at 09:00 Assessment/Plan Chief Complaint/Hosp Course 86-year-old woman with history of cardiomyopathy with ejection fraction of about 30% has been followed by cardiology and a history of hypertension, myocardial infarction, status post angioplasty was admitted on 11/09/2016 with vaginal bleeding, s/p endometrial bipsy on 11/17 with newly dx right parietal lobe infarction. etiology cardioembolic CVA unable to anticoagulate due to vaginal bleeding/recent surgery -MRI Brain still pending -continue antiplatelet therapy , Aspirin 81 mg if no contraindication -DNR status continue therapies, likely will require SNF Problems: NOELLE MEREDITH MD Nov 24, 2016 12:08
[2016-11-24] MEDS: ASPIRIN 300 MG SUPP PR SCH (13:39)
--- NOTE | 2016-11-24 19:48 | PN ---
Date/Time of Note Date/Time of Note DATE: 11/24/16 TIME: 19:45 Assessment/Plan VTE Prophylaxis VTE Prophylaxis Intervention: SCD's Lines/Catheters IV Catheter Type (from [facility]): PICC Line Central line still needed: Yes Urinary Cath still in place: Yes Reason Cath still needed: urinary retention Assessment/Plan Chief Complaint/Hosp Course Patient is lethargic but easily arousable, atrial fibrillation at controlled rate on telemetry. Patient remains hemodynamically stable. ASSESSMENT AND PLAN: - CVA, Dr Lopez is following in neurology consultation. Start PT OT. - Right knee swelling and tenderness, Dr. Hernandez is following in orthopedic surgery consultation. S/p steroid injection in R knee joint. 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 Dr. Rosen evaluated patient in urology consultation. Patient daughter refused any surgical interventions. - Vaginal bleeding with ultrasound suspicious for endometrial carcinoma. S/p D& C with biopsy by Dr. Bah. 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 Stress test is negative for ischemia with scar. Continue Lasix. - Atrial fibrillation, continue aspirin. Patient is not a candidate for anticoagulation due to bleeding. - History of [place]. - Hypertension, continue Coreg and lisinopril. - Hyperlipidemia. Continue statin. - Coronary artery disease with history of stent placement in 2011. Continue aspirin. Continue sequential compression device for deep venous thrombosis prophylaxis and Pepcid for peptic ulcer disease prophylaxis. Further recommendations based on clinical course. Plan of care discussed with Dr. An. Problems: Exam/Review of Systems Vital Signs Vitals Vital Signs Date Time Temp Pulse Resp B/P Pulse Ox O2 Delivery O2 Flow Rate FiO2 11/24/16 16:00 86 11/24/16 15:40 97.8 18 110/57 99 11/23/16 20:16 Room Air Intake and Output 11/23/16 11/23/16 11/24/16 15:00 23:00 07:00 Intake Total 100 ml 220 ml Output Total 900 ml 400 ml Balance -800 ml -180 ml Exam Constitutional: alert, oriented Head: normocephalic Neck: supple Respiratory: clear to auscultation Cardiovascular: nl pulses Gastrointestinal: soft, BS+ Extremities: normal pulses Results Result Diagram: 11/24/16 0630 11/24/16 0630 Results 24 hrs Laboratory Tests Test 11/24/16 06:30 White Blood Count 7.3 Red Blood Count 3.03 L Hemoglobin 10.0 L Hematocrit 29.1 L Mean Corpuscular Volume 96.0 Mean Corpuscular Hemoglobin 33.0 Mean Corpuscular Hemoglobin Concent 34.4 Red Cell Distribution Width 12.4 Platelet Count 371 Mean Platelet Volume 9.5 Neutrophils % 68.8 Lymphocytes % 15.1 Monocytes % 14.3 H Eosinophils % 1.4 Basophils % 0.1 Nucleated Red Blood Cells % 0.0 Neutrophils # 5.0 Lymphocytes # 1.1 Monocytes # 1.0 H Eosinophils # 0.1 Basophils # 0.0 Nucleated Red Blood Cells # 0.0 Sodium Level 134 L Potassium Level 3.8 Chloride Level 101 Carbon Dioxide Level 26 Anion Gap 11 Blood Urea Nitrogen 10 Creatinine 0.62 Glucose Level 114 Calcium Level 8.2 L Medications Medications Current Medications Acetaminophen (Tylenol Tab) 650 mg Q4H PRN PO PAIN AND OR ELEVATED TEMP Last administered on 11/18/16 20:37; Admin Dose 650 MG; Start 11/09/16 at 05:30 Atorvastatin Calcium (Lipitor) 40 mg DAILY PO Last administered on 11/24/16 09: 37; Admin Dose 40 MG; Start 11/10/16 at 09:00 Carvedilol (Coreg) 6.25 mg BID PO Last administered on 11/24/16 09:38; Admin Dose 6.25 MG; Start 11/09/16 at 21:00 Famotidine (Pepcid) 20 mg DAILY PO Last administered on 11/24/16 09:37; Admin Dose 20 MG; Start 11/10/16 at 09:00 Furosemide (Lasix) 20 mg DAILY PO Last administered on 11/24/16 09:37; Admin Dose 20 MG; Start 11/10/16 at 09:00 Zolpidem Tartrate (Ambien) 5 mg QHS PRN PO INSOMNIA Last administered on 21:16; Admin Dose 5 MG; Start 11/09/16 at 13:30 Acetaminophen/ Hydrocodone Bitart ([place] (5/325)) 1 tab Q4H PRN PO PAIN LEVEL 4 -7; Start 11/09/16 at 13:30 Bisacodyl (Dulcolax Supp) 10 mg DAILY PRN [place] CONSTIPATION Last administered on 11/11/16 17:04; Admin Dose 10 MG; Start 11/09/16 at 20:00 Lisinopril (Zestril) 5 mg DAILY PO Last administered on 11/24/16 09:38; Admin Dose 5 MG; Start 11/12/16 at 09:00 Morphine Sulfate (morphine) 1 mg Q3H PRN IV PAIN Last administered on 15:07; Admin Dose 1 MG; Start 11/18/16 at 15:03 Aspirin (Aspirin) 300 mg DAILY [place] Last administered on 11/24/16 13:39; Admin Dose 300 MG; Start 11/22/16 at 09:00 Pantoprazole (Protonix Iv) 40 mg DAILY@06 IV Last administered on 11/24/16 06: 11; Admin Dose 40 MG; Start 11/22/16 at 06:00 Lorazepam (Ativan) 0.5 mg Q6H PRN IV AGITATION/ANXIETY; Start 11/21/16 at 12:00 IV Flush (NS 10 ml) 10 ml PRN PRN IV FLUSH LINE; Start 11/21/16 at 15:30 Docusate Sodium (Colace Liquid Cup) 100 mg BID PO Last administered on 09:37; Admin Dose 100 MG; Start 11/24/16 at 09:00 NILES LOPEZ Nov 24, 2016 19:48
--- NOTE | 2016-11-24 21:46 | RADRPT ---
PROCEDURE: Left upper extremity venous ultrasound CLINICAL INDICATION: Left arm pain and swelling. Deep venous thrombosis. TECHNIQUE: Haynes scale, color doppler, spectral doppler ultrasound imaging of the venous system of the left upper extremity. Augmentation maneuvers were utilized. COMPARISON: No prior studies are available for comparison. FINDINGS: LEFT: Internal jugular vein: Patent. Subclavian vein: Appears compressible in spite of PICC line. Axillary vein: Incompressible where PICC line is present. Brachial vein: Incompressible PICC line is present. Basilic vein: Patent. Cephalic vein: Patent. Radial vein: Patent. Ulnar vein: Patent. Left upper extremity PICC line is present. IMPRESSION: Left upper extremity PICC line is present. Incomplete compressibility of the subclavian, axillary, brachial veins were the PICC line is present; there may be a minimal amount of catheter associated t hrombus although this is not clearly confirmed on color Doppler images. No evidence of deep venous thrombosis or focal fluid collection or subcutaneous edema elsewhere in t he arm. RPTAT: AADD .Efrain Hernandez MD, MD Date Time Electronically viewed and signed by .Efrain Hernandez MD, on 11/24/2016 21:46 .B/
--- NOTE | 2016-11-24 22:09 | CONS ---
Date/Time of Note Date/Time of Note DATE: 11/24/16 TIME: 22:06 Assessment/Plan Assessment/Plan Additional Assessment/Plan 1. Hyponatremia, multifactorial secondary to hypovolemic hyponatremia and possible component of diastolic heart failure. 2. Hypokalemia. 3. Right knee swelling and erythema. 4. 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 5. History of coronary artery disease, status post previous stent placement in 2011. 6. History of atrial fibrillation. 7. History of vaginal bleeding, now status post dilatation and curettage with biopsy. 8. Coagulopathy, improved. 9. History of hypertension. PLAN: K normal, Na 134 continue D51/2 NS at 40 cc/hr will follow up BP stable Consultation Date/Type/Reason Admit Date/Time November 11, 2016 at 10:47 Type of Consultation: NEPHROLOGY Referring Provider: DEIRDRE MORSE Exam/Review of Systems Vital Signs Vitals Vital Signs Date Time Temp Pulse Resp B/P Pulse Ox O2 Delivery O2 Flow Rate FiO2 11/24/16 20:15 79 11/24/16 19:46 98.4 20 133/73 96 11/23/16 20:16 Room Air Intake and Output 11/23/16 11/23/16 11/24/16 15:00 23:00 07:00 Intake Total 100 ml 220 ml Output Total 900 ml 400 ml Balance -800 ml -180 ml Exam Constitutional: alert Respiratory: clear to auscultation, normal air movement Cardiovascular: nl pulses, regular rate and rhythm Gastrointestinal: nl liver, spleen, non-tender, soft Extremities: normal pulses Neurological: left hemiparesis, left facial droop Results Result Diagram: 11/24/16 0630 11/24/16 0630 Results 24 hrs Laboratory Tests Test 11/24/16 06:30 White Blood Count 7.3 Red Blood Count 3.03 L Hemoglobin 10.0 L Hematocrit 29.1 L Mean Corpuscular Volume 96.0 Mean Corpuscular Hemoglobin 33.0 Mean Corpuscular Hemoglobin Concent 34.4 Red Cell Distribution Width 12.4 Platelet Count 371 Mean Platelet Volume 9.5 Neutrophils % 68.8 Lymphocytes % 15.1 Monocytes % 14.3 H Eosinophils % 1.4 Basophils % 0.1 Nucleated Red Blood Cells % 0.0 Neutrophils # 5.0 Lymphocytes # 1.1 Monocytes # 1.0 H Eosinophils # 0.1 Basophils # 0.0 Nucleated Red Blood Cells # 0.0 Sodium Level 134 L Potassium Level 3.8 Chloride Level 101 Carbon Dioxide Level 26 Anion Gap 11 Blood Urea Nitrogen 10 Creatinine 0.62 Glucose Level 114 Calcium Level 8.2 L Medications Medications Current Medications Acetaminophen (Tylenol Tab) 650 mg Q4H PRN PO PAIN AND OR ELEVATED TEMP Last administered on 11/18/16 20:37; Admin Dose 650 MG; Start 11/09/16 at 05:30 Atorvastatin Calcium (Lipitor) 40 mg DAILY PO Last administered on 11/24/16 09: 37; Admin Dose 40 MG; Start 11/10/16 at 09:00 Carvedilol (Coreg) 6.25 mg BID PO Last administered on 11/24/16 09:38; Admin Dose 6.25 MG; Start 11/09/16 at 21:00 Famotidine (Pepcid) 20 mg DAILY PO Last administered on 11/24/16 09:37; Admin Dose 20 MG; Start 11/10/16 at 09:00 Furosemide (Lasix) 20 mg DAILY PO Last administered on 11/24/16 09:37; Admin Dose 20 MG; Start 11/10/16 at 09:00 Zolpidem Tartrate (Ambien) 5 mg QHS PRN PO INSOMNIA Last administered on 21:16; Admin Dose 5 MG; Start 11/09/16 at 13:30 Acetaminophen/ Hydrocodone Bitart ([place] (5/325)) 1 tab Q4H PRN PO PAIN LEVEL 4 -7; Start 11/09/16 at 13:30 Bisacodyl (Dulcolax Supp) 10 mg DAILY PRN [place] CONSTIPATION Last administered on 11/11/16 17:04; Admin Dose 10 MG; Start 11/09/16 at 20:00 Lisinopril (Zestril) 5 mg DAILY PO Last administered on 11/24/16 09:38; Admin Dose 5 MG; Start 11/12/16 at 09:00 Morphine Sulfate (morphine) 1 mg Q3H PRN IV PAIN Last administered on 15:07; Admin Dose 1 MG; Start 11/18/16 at 15:03 Aspirin (Aspirin) 300 mg DAILY [place] Last administered on 11/24/16 13:39; Admin Dose 300 MG; Start 11/22/16 at 09:00 Pantoprazole (Protonix Iv) 40 mg DAILY@06 IV Last administered on 11/24/16 06: 11; Admin Dose 40 MG; Start 11/22/16 at 06:00 Lorazepam (Ativan) 0.5 mg Q6H PRN IV AGITATION/ANXIETY; Start 11/21/16 at 12:00 IV Flush (NS 10 ml) 10 ml PRN PRN IV FLUSH LINE; Start 11/21/16 at 15:30 Docusate Sodium (Colace Liquid Cup) 100 mg BID PO Last administered on 09:37; Admin Dose 100 MG; Start 11/24/16 at 09:00 DEMETRIO OLSEN MD Nov 24, 2016 22:08
[2016-11-25] VITALS (12 sets, daily range): BP systolic 93–138; BP diastolic 55–83; PULSE 72–85; RESP 18–20
[2016-11-25] MEDS: PANTOPRAZOLE 40 MG INJ IV SCH (05:57)
[2016-11-25 07:04] LABS: ADD SCAN DIFF NO
[2016-11-25 07:12] LABS: BASOPHILS % 0.3 % (0.0-2.0); EOSINOPHILS # 0.2 10^3/ul (0.0-0.5); EOSINOPHILS % 3.1 % (0.0-7.0); HEMATOCRIT 29.8 % (37.0-47.0); LYMPHOCYTES # 0.8 10^3/ul (0.8-2.9); LYMPHOCYTES % 12.9 % (15.0-51.0); MEAN CORPUSCULAR HEMOGLOBIN 32.5 pg (29.0-33.0); MEAN CORPUSCULAR HGB CONC 33.6 g/dl (32.0-37.0); MEAN CORPUSCULAR VOLUME 96.8 fl (82.0-101.0); MEAN PLATELET VOLUME 9.7 fl (7.4-10.4); MONOCYTES % 15.7 % (0.0-11.0); NEUTROPHIL # 4.4 10^3/ul (1.6-7.5); NEUTROPHILS % 67.7 % (39.0-77.0); PLATELET COUNT 368 10^3/UL (140-415); RED BLOOD COUNT 3.08 10^6/ul (4.20-5.40); RED CELL DISTRIBUTION WIDTH 12.6 % (11.5-14.5); WHITE BLOOD COUNT 6.4 10^3/ul (4.8-10.8)
[2016-11-25 07:47] LABS: CALCIUM 8.5 mg/dl (8.4-10.2); CREATININE 0.58 mg/dl (0.44-1.00); POTASSIUM 3.8 mmol/L (3.5-5.1)
[2016-11-25] MEDS: FAMOTIDINE 20 MG TAB PO SCH (10:31)
[2016-11-25] MEDS: ASPIRIN 300 MG SUPP PR SCH (10:32)
[2016-11-25] MEDS: DOCUSATE SODIUM 10 MG/ML (10ML CUP) PO SCH ×2 (10:32→20:54)
[2016-11-25] MEDS: BISACODYL 10 MG SUPP PR PRN (10:32)
[2016-11-25] MEDS: ATORVASTATIN 40 MG TAB PO SCH (10:32)
[2016-11-25] MEDS: FUROSEMIDE 20 MG TAB PO SCH (10:32)
[2016-11-25] MEDS: LISINOPRIL 5 MG TAB PO SCH (10:32)
--- NOTE | 2016-11-25 11:51 | CONS ---
Date/Time of Note Date/Time of Note DATE: 11/25/16 TIME: 11:50 Consult Date/Type/Reason Admit Date/Time November 11, 2016 at 10:47 Initial Consult Date 11/21/16 Type of Consultation: Neurology Reason for Consultation CVA Ordering Provider: DEIRDRE MORSE Subjective family refused MRI, order was cancelled had LUE swelling, ruled out for DVT Objective Vital Signs Date Time Temp Pulse Resp B/P Pulse Ox O2 Delivery O2 Flow Rate FiO2 11/25/16 11:15 98.2 73 18 132/75 97 11/23/16 20:16 Room Air Intake and Output 11/24/16 11/24/16 11/25/16 15:00 23:00 07:00 Intake Total 120 ml Output Total 1100 ml Balance -980 ml Exam Constitutional: alert Head: atraumatic, normocephalic Eyes: EOMI, nl conjunctiva, nl lids, nl sclera ENMT: mucosa pink and moist, nl external ears & nose, nl lips & teeth, nl nasal mucosa & septum Neck: non-tender, supple Respiratory: clear to auscultation, normal air movement Cardiovascular: nl pulses, regular rate and rhythm Gastrointestinal: nl liver, spleen, non-tender, soft Extremities: normal pulses, left arm swelling ecchymosis Neurological: other (Alert and awake, left hemiparesis, left central facial droop, left Babinski, limited exam) able to cross gaze to track examiner on left with repeat stimulation, briefly lifting her left arm anti-gravity suspect more left sided neglect than weakness Results/Medications Result Diagram: 11/25/16 0535 11/25/16 0538 Results 24 hrs Laboratory Tests Test 11/25/16 05:35 11/25/16 05:38 White Blood Count 6.4 Red Blood Count 3.08 L Hemoglobin 10.0 L Hematocrit 29.8 L Mean Corpuscular Volume 96.8 Mean Corpuscular Hemoglobin 32.5 Mean Corpuscular Hemoglobin Concent 33.6 Red Cell Distribution Width 12.6 Platelet Count 368 Mean Platelet Volume 9.7 Neutrophils % 67.7 Lymphocytes % 12.9 L Monocytes % 15.7 H Eosinophils % 3.1 Basophils % 0.3 Nucleated Red Blood Cells % 0.0 Neutrophils # 4.4 Lymphocytes # 0.8 Monocytes # 1.0 H Eosinophils # 0.2 Basophils # 0.0 Nucleated Red Blood Cells # 0.0 Sodium Level 135 Potassium Level 3.8 Chloride Level 100 Carbon Dioxide Level 27 Anion Gap 12 Blood Urea Nitrogen 9 Creatinine 0.58 Glucose Level 126 Calcium Level 8.5 Medications Current Medications Acetaminophen (Tylenol Tab) 650 mg Q4H PRN PO PAIN AND OR ELEVATED TEMP Last administered on 11/18/16 20:37; Admin Dose 650 MG; Start 11/09/16 at 05:30 Atorvastatin Calcium (Lipitor) 40 mg DAILY PO Last administered on 11/25/16 10: 32; Admin Dose 40 MG; Start 11/10/16 at 09:00 Carvedilol (Coreg) 6.25 mg BID PO Last administered on 11/25/16 10:31; Admin Dose 6.25 MG; Start 11/09/16 at 21:00 Famotidine (Pepcid) 20 mg DAILY PO Last administered on 11/25/16 10:31; Admin Dose 20 MG; Start 11/10/16 at 09:00 Furosemide (Lasix) 20 mg DAILY PO Last administered on 11/25/16 10:32; Admin Dose 20 MG; Start 11/10/16 at 09:00 Zolpidem Tartrate (Ambien) 5 mg QHS PRN PO INSOMNIA Last administered on 21:16; Admin Dose 5 MG; Start 11/09/16 at 13:30 Acetaminophen/ Hydrocodone Bitart ([place] (5/325)) 1 tab Q4H PRN PO PAIN LEVEL 4 -7; Start 11/09/16 at 13:30 Bisacodyl (Dulcolax Supp) 10 mg DAILY PRN [place] CONSTIPATION Last administered on 11/25/16 10:32; Admin Dose 10 MG; Start 11/09/16 at 20:00 Lisinopril (Zestril) 5 mg DAILY PO Last administered on 11/25/16 10:32; Admin Dose 5 MG; Start 11/12/16 at 09:00 Morphine Sulfate (morphine) 1 mg Q3H PRN IV PAIN Last administered on 15:07; Admin Dose 1 MG; Start 11/18/16 at 15:03 Aspirin (Aspirin) 300 mg DAILY [place] Last administered on 11/25/16 10:32; Admin Dose 300 MG; Start 11/22/16 at 09:00 Pantoprazole (Protonix Iv) 40 mg DAILY@06 IV Last administered on 11/25/16 05: 57; Admin Dose 40 MG; Start 11/22/16 at 06:00 Lorazepam (Ativan) 0.5 mg Q6H PRN IV AGITATION/ANXIETY; Start 11/21/16 at 12:00 IV Flush (NS 10 ml) 10 ml PRN PRN IV FLUSH LINE; Start 11/21/16 at 15:30 Docusate Sodium (Colace Liquid Cup) 100 mg BID PO Last administered on 10:32; Admin Dose 100 MG; Start 11/24/16 at 09:00 Assessment/Plan Chief Complaint/Hosp Course 86-year-old woman with history of cardiomyopathy with ejection fraction of about 30% has been followed by cardiology and a history of hypertension, myocardial infarction, status post angioplasty was admitted on 11/09/2016 with vaginal bleeding, s/p endometrial bipsy on 11/17 with newly dx right parietal lobe infarction. etiology cardioembolic CVA unable to anticoagulate due to vaginal bleeding/recent surgery -family decline MRI -continue antiplatelet therapy ASA 81 mg if no contraindication -DNR status continue therapies, likely will require SNF will sign off, please reconsult as needed Problems: NOELLE MEREDITH MD Nov 25, 2016 11:51
--- NOTE | 2016-11-25 12:09 | CONS ---
Date/Time of Note Date/Time of Note DATE: 11/25/16 TIME: 12:06 Assessment/Plan Assessment/Plan Chief Complaint/Hosp Course IMPRESSION: 1. Cardiomyopathy with decreased left ventricular ejection fraction last seen approximately 30% by echo at outside hospital 08/2016. EF 35% by echo this admit with lexiscan negative for ischemia with scar and EF 40%. 2. Hypertension. 3. History of myocardial infarction. 4. History of percutaneous transluminal coronary angioplasty and stent placement last 2011. 5. Coagulopathy-improved 6. Anemia. 7. Vaginal bleed now post-op s/p D+C with Bx 8. Possible endometrial mass, abnormal thickening. 9. R knee pain and swelling acute s/p steroid injection with improvement in sx 10.Hyponatremia-ongoing and mildly labile 11.Probable CVA by CT. Family refusing MRI Rec: - continue BB/ACEI -Continue lasix PO and follow volume status closely -ASA had been held given vaginal bleeding but now resumed as tolerated to prevent in possible further thromoembolic complications give likely CVA by head CT -Follow hgb closely back on asa -F/U [facility] path -Neuro following Problems: Consultation Date/Type/Reason Admit Date/Time November 11, 2016 at 10:47 Initial Consult Date 11/09/2016 Type of Consultation: cardiology Reason for Consultation CHF/AF Referring Provider: DEIRDRE MORSE Exam/Review of Systems Vital Signs Vitals Vital Signs Date Time Temp Pulse Resp B/P Pulse Ox O2 Delivery O2 Flow Rate FiO2 11/25/16 11:15 98.2 73 18 132/75 97 11/23/16 20:16 Room Air Intake and Output 11/24/16 11/24/16 11/25/16 15:00 23:00 07:00 Intake Total 120 ml Output Total 1100 ml Balance -980 ml Exam Review of Systems: CONSTITUTIONAL: No fevers, chills. PULMONARY: No sob CARDIOVASCULAR: No chest pain/palpitations GASTROINTESTINAL: No nausea/vomiting. GENITOURINARY: No hematuria/dysuria. MUSCULOSKELETAL: No myagias/arthalgias. PSYCHIATRIC: The patient denies depression. NEUROLOGIC: lethargic Constitutional: other Psych: no complaints Head: normocephalic Eyes: nl conjunctiva ENMT: mucosa pink and moist Neck: supple Respiratory: diminished breath sounds (at bases/B) Cardiovascular: irregular rhythm Gastrointestinal: non-tender, soft Musculoskeletal: muscle tone (normal) Extremities: edema (trace) Neurological: lethargic Results Result Diagram: 11/25/16 0535 11/25/16 0538 Results 24 hrs Laboratory Tests Test 11/25/16 05:35 11/25/16 05:38 White Blood Count 6.4 Red Blood Count 3.08 L Hemoglobin 10.0 L Hematocrit 29.8 L Mean Corpuscular Volume 96.8 Mean Corpuscular Hemoglobin 32.5 Mean Corpuscular Hemoglobin Concent 33.6 Red Cell Distribution Width 12.6 Platelet Count 368 Mean Platelet Volume 9.7 Neutrophils % 67.7 Lymphocytes % 12.9 L Monocytes % 15.7 H Eosinophils % 3.1 Basophils % 0.3 Nucleated Red Blood Cells % 0.0 Neutrophils # 4.4 Lymphocytes # 0.8 Monocytes # 1.0 H Eosinophils # 0.2 Basophils # 0.0 Nucleated Red Blood Cells # 0.0 Sodium Level 135 Potassium Level 3.8 Chloride Level 100 Carbon Dioxide Level 27 Anion Gap 12 Blood Urea Nitrogen 9 Creatinine 0.58 Glucose Level 126 Calcium Level 8.5 Medications Medications Current Medications Acetaminophen (Tylenol Tab) 650 mg Q4H PRN PO PAIN AND OR ELEVATED TEMP Last administered on 11/18/16 20:37; Admin Dose 650 MG; Start 11/09/16 at 05:30 Atorvastatin Calcium (Lipitor) 40 mg DAILY PO Last administered on 11/25/16 10: 32; Admin Dose 40 MG; Start 11/10/16 at 09:00 Carvedilol (Coreg) 6.25 mg BID PO Last administered on 11/25/16 10:31; Admin Dose 6.25 MG; Start 11/09/16 at 21:00 Famotidine (Pepcid) 20 mg DAILY PO Last administered on 11/25/16 10:31; Admin Dose 20 MG; Start 11/10/16 at 09:00 Furosemide (Lasix) 20 mg DAILY PO Last administered on 11/25/16 10:32; Admin Dose 20 MG; Start 11/10/16 at 09:00 Zolpidem Tartrate (Ambien) 5 mg QHS PRN PO INSOMNIA Last administered on 21:16; Admin Dose 5 MG; Start 11/09/16 at 13:30 Acetaminophen/ Hydrocodone Bitart ([place] (5/325)) 1 tab Q4H PRN PO PAIN LEVEL 4 -7; Start 11/09/16 at 13:30 Bisacodyl (Dulcolax Supp) 10 mg DAILY PRN [place] CONSTIPATION Last administered on 11/25/16 10:32; Admin Dose 10 MG; Start 11/09/16 at 20:00 Lisinopril (Zestril) 5 mg DAILY PO Last administered on 11/25/16 10:32; Admin Dose 5 MG; Start 11/12/16 at 09:00 Morphine Sulfate (morphine) 1 mg Q3H PRN IV PAIN Last administered on 15:07; Admin Dose 1 MG; Start 11/18/16 at 15:03 Aspirin (Aspirin) 300 mg DAILY [place] Last administered on 11/25/16 10:32; Admin Dose 300 MG; Start 11/22/16 at 09:00 Pantoprazole (Protonix Iv) 40 mg DAILY@06 IV Last administered on 11/25/16 05: 57; Admin Dose 40 MG; Start 11/22/16 at 06:00 Lorazepam (Ativan) 0.5 mg Q6H PRN IV AGITATION/ANXIETY; Start 11/21/16 at 12:00 IV Flush (NS 10 ml) 10 ml PRN PRN IV FLUSH LINE; Start 11/21/16 at 15:30 Docusate Sodium (Colace Liquid Cup) 100 mg BID PO Last administered on 10:32; Admin Dose 100 MG; Start 11/24/16 at 09:00 DEBBIE QUINTANA 7, 2017 12:09
--- NOTE | 2016-11-25 17:03 | CONS ---
Date/Time of Note Date/Time of Note DATE: 11/25/16 TIME: 17:01 Assessment/Plan Assessment/Plan Additional Assessment/Plan 1. Hyponatremia, multifactorial secondary to hypovolemic hyponatremia and possible component of diastolic heart failure. 2. Hypokalemia. 3. Right knee swelling and erythema. 4. 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 5. History of coronary artery disease, status post previous stent placement in 2011. 6. History of atrial fibrillation. 7. History of vaginal bleeding, now status post dilatation and curettage with biopsy. 8. Coagulopathy, improved. 9. History of hypertension. PLAN: K normal, Na 135 S/p IVF, on PO lasix will follow up BP stable Consultation Date/Type/Reason Admit Date/Time November 11, 2016 at 10:47 Type of Consultation: NEPHROLOGY Referring Provider: DEIRDRE MORSE Exam/Review of Systems Vital Signs Vitals Vital Signs Date Time Temp Pulse Resp B/P Pulse Ox O2 Delivery O2 Flow Rate FiO2 11/25/16 15:40 98.0 70 18 124/56 98 11/23/16 20:16 Room Air Intake and Output 11/24/16 11/24/16 11/25/16 15:00 23:00 07:00 Intake Total 120 ml Output Total 1100 ml Balance -980 ml Exam Constitutional: alert Respiratory: clear to auscultation, normal air movement Cardiovascular: nl pulses, regular rate and rhythm Gastrointestinal: nl liver, spleen, non-tender, soft Extremities: normal pulses Neurological: left hemiparesis, left facial droop Results Result Diagram: 11/25/16 0535 11/25/16 0538 Results 24 hrs Laboratory Tests Test 11/25/16 05:35 11/25/16 05:38 White Blood Count 6.4 Red Blood Count 3.08 L Hemoglobin 10.0 L Hematocrit 29.8 L Mean Corpuscular Volume 96.8 Mean Corpuscular Hemoglobin 32.5 Mean Corpuscular Hemoglobin Concent 33.6 Red Cell Distribution Width 12.6 Platelet Count 368 Mean Platelet Volume 9.7 Neutrophils % 67.7 Lymphocytes % 12.9 L Monocytes % 15.7 H Eosinophils % 3.1 Basophils % 0.3 Nucleated Red Blood Cells % 0.0 Neutrophils # 4.4 Lymphocytes # 0.8 Monocytes # 1.0 H Eosinophils # 0.2 Basophils # 0.0 Nucleated Red Blood Cells # 0.0 Sodium Level 135 Potassium Level 3.8 Chloride Level 100 Carbon Dioxide Level 27 Anion Gap 12 Blood Urea Nitrogen 9 Creatinine 0.58 Glucose Level 126 Calcium Level 8.5 Medications Medications Current Medications Acetaminophen (Tylenol Tab) 650 mg Q4H PRN PO PAIN AND OR ELEVATED TEMP Last administered on 11/18/16 20:37; Admin Dose 650 MG; Start 11/09/16 at 05:30 Atorvastatin Calcium (Lipitor) 40 mg DAILY PO Last administered on 11/25/16 10: 32; Admin Dose 40 MG; Start 11/10/16 at 09:00 Carvedilol (Coreg) 6.25 mg BID PO Last administered on 11/25/16 10:31; Admin Dose 6.25 MG; Start 11/09/16 at 21:00 Famotidine (Pepcid) 20 mg DAILY PO Last administered on 11/25/16 10:31; Admin Dose 20 MG; Start 11/10/16 at 09:00 Furosemide (Lasix) 20 mg DAILY PO Last administered on 11/25/16 10:32; Admin Dose 20 MG; Start 11/10/16 at 09:00 Zolpidem Tartrate (Ambien) 5 mg QHS PRN PO INSOMNIA Last administered on 21:16; Admin Dose 5 MG; Start 11/09/16 at 13:30 Acetaminophen/ Hydrocodone Bitart ([place] (5/325)) 1 tab Q4H PRN PO PAIN LEVEL 4 -7; Start 11/09/16 at 13:30 Bisacodyl (Dulcolax Supp) [address] CONSTIPATION Last administered on 11/25/16 10:32; Admin Dose 10 MG; Start 11/09/16 at 20:00 Lisinopril (Zestril) 5 mg DAILY PO Last administered on 11/25/16 10:32; Admin Dose 5 MG; Start 11/12/16 at 09:00 Morphine Sulfate (morphine) 1 mg Q3H PRN IV PAIN Last administered on 15:07; Admin Dose 1 MG; Start 11/18/16 at 15:03 Aspirin (Aspirin) [address] Last administered on 11/25/16 10:32; Admin Dose 300 MG; Start 11/22/16 at 09:00 Pantoprazole (Protonix Iv) 40 mg DAILY@06 IV Last administered on 11/25/16 05: 57; Admin Dose 40 MG; Start 11/22/16 at 06:00 Lorazepam (Ativan) 0.5 mg Q6H PRN IV AGITATION/ANXIETY; Start 11/21/16 at 12:00 IV Flush (NS 10 ml) 10 ml PRN PRN IV FLUSH LINE; Start 11/21/16 at 15:30 Docusate Sodium (Colace Liquid Cup) 100 mg BID PO Last administered on 10:32; Admin Dose 100 MG; Start 11/24/16 at 09:00 DEMETRIO OLSEN MD Nov 25, 2016 17:03
[2016-11-25] MEDS: HYDROCODONE/APAP (5/325) TAB PO PRN (20:53)
[2016-11-25] MEDS: ACETAMINOPHEN 325 MG TAB PO PRN (23:36)
[2016-11-25] MEDS: ZOLPIDEM 5 MG TAB PO PRN (23:36)
[2016-11-26] VITALS (12 sets, daily range): BP systolic 96–186; BP diastolic 62–96; PULSE 69–83; RESP 18–20
[2016-11-26] MEDS: PANTOPRAZOLE 40 MG INJ IV SCH (05:44)
[2016-11-26 06:16] LABS: ADD SCAN DIFF NO
[2016-11-26 06:32] LABS: BASOPHILS % 0.2 % (0.0-2.0); EOSINOPHILS # 0.3 10^3/ul (0.0-0.5); EOSINOPHILS % 4.3 % (0.0-7.0); HEMATOCRIT 29.1 % (37.0-47.0); HEMOGLOBIN 9.5 g/dl (12.0-16.0); LYMPHOCYTES # 1.3 10^3/ul (0.8-2.9); LYMPHOCYTES % 19.5 % (15.0-51.0); MEAN CORPUSCULAR HEMOGLOBIN 31.5 pg (29.0-33.0); MEAN CORPUSCULAR HGB CONC 32.6 g/dl (32.0-37.0); MEAN CORPUSCULAR VOLUME 96.4 fl (82.0-101.0); MEAN PLATELET VOLUME 9.9 fl (7.4-10.4); MONOCYTE # 1.1 10^3/ul (0.3-0.9); MONOCYTES % 17.5 % (0.0-11.0); NEUTROPHIL # 3.8 10^3/ul (1.6-7.5); NEUTROPHILS % 58.2 % (39.0-77.0); PLATELET COUNT 315 10^3/UL (140-415); RED BLOOD COUNT 3.02 10^6/ul (4.20-5.40); RED CELL DISTRIBUTION WIDTH 12.5 % (11.5-14.5); WHITE BLOOD COUNT 6.5 10^3/ul (4.8-10.8)
[2016-11-26 07:00] LABS: CALCIUM 8.7 mg/dl (8.4-10.2); CREATININE 0.71 mg/dl (0.44-1.00); POTASSIUM 3.9 mmol/L (3.5-5.1)
[2016-11-26 08:24] LABS: ADD UMIC NO; URINE BILIRUBIN (Dip) NEGATIVE (NEGATIVE); URINE BLOOD (Dip) NEGATIVE (NEGATIVE); URINE COLOR YELLOW (YELLOW); URINE GLUCOSE (Dip) NEGATIVE (NEGATIVE); URINE KETONES (Dip) NEGATIVE (NEGATIVE); URINE LEUKOCYTE ESTERASE (Dip) NEGATIVE (NEGATIVE); URINE NITRITE (Dip) NEGATIVE (NEGATIVE); URINE TOTAL PROTEIN (Dip) NEGATIVE (NEGATIVE); URINE UROBILINOGEN (Dip) >8.0 E.U./dL (0.1-1.0)
[2016-11-26] MEDS: DOCUSATE SODIUM 10 MG/ML (10ML CUP) PO SCH ×2 (09:00→21:00)
--- NOTE | 2016-11-26 10:13 | CONS ---
Date/Time of Note Date/Time of Note DATE: 11/26/16 TIME: 10:12 Assessment/Plan Assessment/Plan Additional Assessment/Plan 1. Hyponatremia, multifactorial secondary to hypovolemic hyponatremia and possible component of diastolic heart failure. 2. Hypokalemia. 3. Right knee swelling and erythema. 4. 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 5. History of coronary artery disease, status post previous stent placement in 2011. 6. History of atrial fibrillation. 7. History of vaginal bleeding, now status post dilatation and curettage with biopsy. 8. Coagulopathy, improved. 9. History of hypertension. PLAN: K normal, Na 134 S/p IVF, on PO lasix will follow up BP stable Consultation Date/Type/Reason Admit Date/Time November 11, 2016 at 10:47 Type of Consultation: NEPHROLOGY Referring Provider: DEIRDRE MORSE 24 HR Interval Summary Free Text/Dictation Cr 134, Cr normal ,other Electrolytes stable Exam/Review of Systems Vital Signs Vitals Vital Signs Date Time Temp Pulse Resp B/P Pulse Ox O2 Delivery O2 Flow Rate FiO2 11/26/16 08:21 69 11/26/16 07:58 98.2 18 141/67 98 11/23/16 20:16 Room Air Intake and Output 11/25/16 11/25/16 11/26/16 15:00 23:00 07:00 Intake Total 1480 ml 300 ml Output Total 450 ml 300 ml Balance 1030 ml 0 ml Exam Constitutional: alert Respiratory: clear to auscultation, normal air movement Cardiovascular: nl pulses, regular rate and rhythm Gastrointestinal: nl liver, spleen, non-tender, soft Extremities: normal pulses Neurological: left hemiparesis, left facial droop Results Result Diagram: 11/26/16 0550 11/26/16 0550 Results 24 hrs Laboratory Tests Test 11/26/16 05:40 11/26/16 05:50 Urine Color YELLOW Urine Clarity CLEAR Urine pH 7.5 Urine Specific [place] 1.010 Urine Ketones NEGATIVE Urine Nitrite NEGATIVE Urine Bilirubin NEGATIVE Urine Urobilinogen >8.0 E.U./dL H Urine Leukocyte Esterase NEGATIVE Urine Hemoglobin NEGATIVE Urine Glucose NEGATIVE Urine Total Protein NEGATIVE White Blood Count 6.5 Red Blood Count 3.02 L Hemoglobin 9.5 L Hematocrit 29.1 L Mean Corpuscular Volume 96.4 Mean Corpuscular Hemoglobin 31.5 Mean Corpuscular Hemoglobin Concent 32.6 Red Cell Distribution Width 12.5 Platelet Count 315 Mean Platelet Volume 9.9 Neutrophils % 58.2 Lymphocytes % 19.5 Monocytes % 17.5 H Eosinophils % 4.3 Basophils % 0.2 Nucleated Red Blood Cells % 0.0 Neutrophils # 3.8 Lymphocytes # 1.3 Monocytes # 1.1 H Eosinophils # 0.3 Basophils # 0.0 Nucleated Red Blood Cells # 0.0 Sodium Level 134 L Potassium Level 3.9 Chloride Level 99 Carbon Dioxide Level 27 Anion Gap 12 Blood Urea Nitrogen 11 Creatinine 0.71 Glucose Level 109 Calcium Level 8.7 Medications Medications Current Medications Acetaminophen (Tylenol Tab) 650 mg Q4H PRN PO PAIN AND OR ELEVATED TEMP Last administered on 11/25/16 23:36; Admin Dose 650 MG; Start 11/09/16 at 05:30 Atorvastatin Calcium (Lipitor) 40 mg DAILY PO Last administered on 11/25/16 10: 32; Admin Dose 40 MG; Start 11/10/16 at 09:00 Carvedilol (Coreg) 6.25 mg BID PO Last administered on 11/25/16 20:54; Admin Dose 6.25 MG; Start 11/09/16 at 21:00 Famotidine (Pepcid) 20 mg DAILY PO Last administered on 11/25/16 10:31; Admin Dose 20 MG; Start 11/10/16 at 09:00 Furosemide (Lasix) 20 mg DAILY PO Last administered on 11/25/16 10:32; Admin Dose 20 MG; Start 11/10/16 at 09:00 Zolpidem Tartrate (Ambien) 5 mg QHS PRN PO INSOMNIA Last administered on 23:36; Admin Dose 5 MG; Start 11/09/16 at 13:30 Acetaminophen/ Hydrocodone Bitart ([place] (5/325)) 1 tab Q4H PRN PO PAIN LEVEL 4 -7 Last administered on 11/25/16 20:53; Admin Dose 1 TAB; Start 11/09/16 at 13: 30 Bisacodyl (Dulcolax Supp) 10 mg DAILY PRN [place] CONSTIPATION Last administered on 11/25/16 10:32; Admin Dose 10 MG; Start 11/09/16 at 20:00 Lisinopril (Zestril) 5 mg DAILY PO Last administered on 11/25/16 10:32; Admin Dose 5 MG; Start 11/12/16 at 09:00 Morphine Sulfate (morphine) 1 mg Q3H PRN IV PAIN Last administered on 15:07; Admin Dose 1 MG; Start 11/18/16 at 15:03 Aspirin (Aspirin) 300 mg DAILY [place] Last administered on 11/25/16 10:32; Admin Dose 300 MG; Start 11/22/16 at 09:00 Pantoprazole (Protonix Iv) 40 mg DAILY@06 IV Last administered on 11/26/16 05: 44; Admin Dose 40 MG; Start 11/22/16 at 06:00 Lorazepam (Ativan) 0.5 mg Q6H PRN IV AGITATION/ANXIETY; Start 11/21/16 at 12:00 IV Flush (NS 10 ml) 10 ml PRN PRN IV FLUSH LINE; Start 11/21/16 at 15:30 Docusate Sodium (Colace Liquid Cup) 100 mg BID PO Last administered on 10:32; Admin Dose 100 MG; Start 11/24/16 at 09:00 DEMETRIO OLSEN MD Nov 26, 2016 10:13
[2016-11-26] MEDS: FUROSEMIDE 20 MG TAB PO SCH (10:15)
[2016-11-26] MEDS: FAMOTIDINE 20 MG TAB PO SCH (10:15)
[2016-11-26] MEDS: ATORVASTATIN 40 MG TAB PO SCH (10:16)
[2016-11-26] MEDS: LISINOPRIL 5 MG TAB PO SCH (10:16)
--- NOTE | 2016-11-26 13:19 | CONS ---
Date/Time of Note Date/Time of Note DATE: 11/26/16 TIME: 13:17 Assessment/Plan Assessment/Plan Chief Complaint/Hosp Course IMPRESSION: 1. Cardiomyopathy with decreased left ventricular ejection fraction last seen approximately 30% by echo at outside hospital 08/2016. EF 35% by echo this admit with lexiscan negative for ischemia with scar and EF 40%. 2. Hypertension. 3. History of myocardial infarction. 4. History of percutaneous transluminal coronary angioplasty and stent placement last 2011. 5. Coagulopathy-improved 6. Anemia. 7. Vaginal bleed now post-op s/p D+C with Bx 8. Possible endometrial mass, abnormal thickening. 9. R knee pain and swelling acute s/p steroid injection with improvement in sx 10.Hyponatremia-ongoing and mildly labile 11.Probable CVA by CT. Family refusing MRI Rec: - continue BB/ACEI -Continue lasix PO and follow volume status closely -ASA had been held given vaginal bleeding but now resumed as tolerated to prevent in possible further thromoembolic complications give likely CVA by head CT -Follow hgb closely back on asa -F/U [facility] Provider path -Neuro following -? PT Problems: Consultation Date/Type/Reason Admit Date/Time November 11, 2016 at 10:47 Initial Consult Date 11/09/2016 Type of Consultation: cardiology Reason for Consultation CHF/AF Referring Provider: DEIRDRE MORSE Exam/Review of Systems Vital Signs Vitals Vital Signs Date Time Temp Pulse Resp B/P Pulse Ox O2 Delivery O2 Flow Rate FiO2 11/26/16 12:28 70 11/26/16 11:35 98.5 18 115/62 99 11/23/16 20:16 Room Air Intake and Output 11/25/16 11/25/16 11/26/16 15:00 23:00 07:00 Intake Total 1480 ml 300 ml Output Total 450 ml 300 ml Balance 1030 ml 0 ml Exam Review of Systems: CONSTITUTIONAL: No fevers, chills. PULMONARY: No sob CARDIOVASCULAR: No chest pain/palpitations GASTROINTESTINAL: No nausea/vomiting. GENITOURINARY: No hematuria/dysuria. MUSCULOSKELETAL: No myagias/arthalgias. PSYCHIATRIC: The patient denies depression. NEUROLOGIC: lethargic Constitutional: other (sleeping) Psych: no complaints Head: normocephalic ENMT: mucosa pink and moist Neck: jvd (8-9 cm water), supple Respiratory: diminished breath sounds (at bases/B) Cardiovascular: regular rate and rhythm Gastrointestinal: non-tender, soft Musculoskeletal: muscle tone (normal) Extremities: edema Neurological: lethargic Results Result Diagram: 11/26/16 0550 11/26/16 0550 Results 24 hrs Laboratory Tests Test 11/26/16 05:40 11/26/16 05:50 Urine Color YELLOW Urine Clarity CLEAR Urine pH 7.5 Urine Specific [place] 1.010 Urine Ketones NEGATIVE Urine Nitrite NEGATIVE Urine Bilirubin NEGATIVE Urine Urobilinogen >8.0 E.U./dL H Urine Leukocyte Esterase NEGATIVE Urine Hemoglobin NEGATIVE Urine Glucose NEGATIVE Urine Total Protein NEGATIVE White Blood Count 6.5 Red Blood Count 3.02 L Hemoglobin 9.5 L Hematocrit 29.1 L Mean Corpuscular Volume 96.4 Mean Corpuscular Hemoglobin 31.5 Mean Corpuscular Hemoglobin Concent 32.6 Red Cell Distribution Width 12.5 Platelet Count 315 Mean Platelet Volume 9.9 Neutrophils % 58.2 Lymphocytes % 19.5 Monocytes % 17.5 H Eosinophils % 4.3 Basophils % 0.2 Nucleated Red Blood Cells % 0.0 Neutrophils # 3.8 Lymphocytes # 1.3 Monocytes # 1.1 H Eosinophils # 0.3 Basophils # 0.0 Nucleated Red Blood Cells # 0.0 Sodium Level 134 L Potassium Level 3.9 Chloride Level 99 Carbon Dioxide Level 27 Anion Gap 12 Blood Urea Nitrogen 11 Creatinine 0.71 Glucose Level 109 Calcium Level 8.7 Medications Medications Current Medications Acetaminophen (Tylenol Tab) 650 mg Q4H PRN PO PAIN AND OR ELEVATED TEMP Last administered on 11/25/16 23:36; Admin Dose 650 MG; Start 11/09/16 at 05:30 Atorvastatin Calcium (Lipitor) 40 mg DAILY PO Last administered on 11/26/16 10: 16; Admin Dose 40 MG; Start 11/10/16 at 09:00 Carvedilol (Coreg) 6.25 mg BID PO Last administered on 11/26/16 10:15; Admin Dose 6.25 MG; Start 11/09/16 at 21:00 Famotidine (Pepcid) 20 mg DAILY PO Last administered on 11/26/16 10:15; Admin Dose 20 MG; Start 11/10/16 at 09:00 Furosemide (Lasix) 20 mg DAILY PO Last administered on 11/26/16 10:15; Admin Dose 20 MG; Start 11/10/16 at 09:00 Zolpidem Tartrate (Ambien) 5 mg QHS PRN PO INSOMNIA Last administered on 23:36; Admin Dose 5 MG; Start 11/09/16 at 13:30 Acetaminophen/ Hydrocodone Bitart ([place] (5/325)) 1 tab Q4H PRN PO PAIN LEVEL 4 -7 Last administered on 11/25/16 20:53; Admin Dose 1 TAB; Start 11/09/16 at 13: 30 Bisacodyl (Dulcolax Supp) 10 mg DAILY PRN [place] CONSTIPATION Last administered on 11/25/16 10:32; Admin Dose 10 MG; Start 11/09/16 at 20:00 Lisinopril (Zestril) 5 mg DAILY PO Last administered on 11/26/16 10:16; Admin Dose 5 MG; Start 11/12/16 at 09:00 Morphine Sulfate (morphine) 1 mg Q3H PRN IV PAIN Last administered on 15:07; Admin Dose 1 MG; Start 11/18/16 at 15:03 Aspirin (Aspirin) 300 mg DAILY [place] Last administered on 11/25/16 10:32; Admin Dose 300 MG; Start 11/22/16 at 09:00 Pantoprazole (Protonix Iv) 40 mg DAILY@06 IV Last administered on 11/26/16 05: 44; Admin Dose 40 MG; Start 11/22/16 at 06:00 Lorazepam (Ativan) 0.5 mg Q6H PRN IV AGITATION/ANXIETY; Start 11/21/16 at 12:00 IV Flush (NS 10 ml) 10 ml PRN PRN IV FLUSH LINE; Start 11/21/16 at 15:30 Docusate Sodium (Colace Liquid Cup) 100 mg BID PO Last administered on 10:32; Admin Dose 100 MG; Start 11/24/16 at 09:00 DEBBIE QUINTANA Nov 26, 2016 13:19
--- NOTE | 2016-11-26 17:17 | PN ---
Date/Time of Note Date/Time of Note DATE: 11/26/16 TIME: 17:13 Assessment/Plan VTE Prophylaxis VTE Prophylaxis Intervention: other Lines/Catheters IV Catheter Type (from [place]): PICC Line Urinary Cath still in place: Yes Assessment/Plan Assessment/Plan Patient is lethargic but easily arousable, atrial fibrillation at controlled rate on telemetry. Patient remains hemodynamically stable. - CVA, Dr Lopez is following in neurology consultation. Start PT OT. - Right knee swelling and tenderness, Dr. Hernandez is following in orthopedic surgery consultation. S/p steroid injection in R knee joint. 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 Dr. Rosen evaluated patient in urology consultation. Patient daughter refused any surgical interventions. - Vaginal bleeding with ultrasound suspicious for endometrial carcinoma. S/p D& C with biopsy by Dr. Bah. 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 Stress test is negative for ischemia with scar. Continue Lasix. - Atrial fibrillation, continue aspirin. Patient is not a candidate for anticoagulation due to bleeding. - History of [place]. - Hypertension, continue Coreg and lisinopril. - Hyperlipidemia. Continue statin. - Coronary artery disease with history of stent placement in 2011. Continue aspirin. Continue sequential compression device for deep venous thrombosis prophylaxis and Pepcid for peptic ulcer disease prophylaxis. Further recommendations based on clinical course. Plan of care discussed with Dr. An. Subjective 24 Hr Interval Summary Free Text/Dictation daughter at bed side.- would like to have more PT for her mother before patient gets transferred to SNF. Dw staff Exam/Review of Systems Vital Signs Vitals Vital Signs Date Time Temp Pulse Resp B/P Pulse Ox O2 Delivery O2 Flow Rate FiO2 11/26/16 15:32 98.2 96 19 113/69 98 11/23/16 20:16 Room Air Intake and Output 11/25/16 11/25/16 11/26/16 15:00 23:00 07:00 Intake Total 1480 ml 300 ml Output Total 450 ml 300 ml Balance 1030 ml 0 ml Exam ENMT: nl external ears & nose Neck: non-tender Respiratory: clear to auscultation, normal air movement Gastrointestinal: non-tender, soft Musculoskeletal: nl extremities to inspection Extremities: normal pulses Neurological: lethargic Results Result Diagram: 11/26/16 0550 11/26/16 0550 Results 24 hrs Laboratory Tests Test 11/26/16 05:40 11/26/16 05:50 Urine Color YELLOW Urine Clarity CLEAR Urine pH 7.5 Urine Specific [place] 1.010 Urine Ketones NEGATIVE Urine Nitrite NEGATIVE Urine Bilirubin NEGATIVE Urine Urobilinogen >8.0 E.U./dL H Urine Leukocyte Esterase NEGATIVE Urine Hemoglobin NEGATIVE Urine Glucose NEGATIVE Urine Total Protein NEGATIVE White Blood Count 6.5 Red Blood Count 3.02 L Hemoglobin 9.5 L Hematocrit 29.1 L Mean Corpuscular Volume 96.4 Mean Corpuscular Hemoglobin 31.5 Mean Corpuscular Hemoglobin Concent 32.6 Red Cell Distribution Width 12.5 Platelet Count 315 Mean Platelet Volume 9.9 Neutrophils % 58.2 Lymphocytes % 19.5 Monocytes % 17.5 H Eosinophils % 4.3 Basophils % 0.2 Nucleated Red Blood Cells % 0.0 Neutrophils # 3.8 Lymphocytes # 1.3 Monocytes # 1.1 H Eosinophils # 0.3 Basophils # 0.0 Nucleated Red Blood Cells # 0.0 Sodium Level 134 L Potassium Level 3.9 Chloride Level 99 Carbon Dioxide Level 27 Anion Gap 12 Blood Urea Nitrogen 11 Creatinine 0.71 Glucose Level 109 Calcium Level 8.7 Medications Medications Current Medications Acetaminophen (Tylenol Tab) 650 mg Q4H PRN PO PAIN AND OR ELEVATED TEMP Last administered on 11/25/16 23:36; Admin Dose 650 MG; Start 11/09/16 at 05:30 Atorvastatin Calcium (Lipitor) 40 mg DAILY PO Last administered on 11/26/16 10: 16; Admin Dose 40 MG; Start 11/10/16 at 09:00 Carvedilol (Coreg) 6.25 mg BID PO Last administered on 11/26/16 10:15; Admin Dose 6.25 MG; Start 11/09/16 at 21:00 Famotidine (Pepcid) 20 mg DAILY PO Last administered on 11/26/16 10:15; Admin Dose 20 MG; Start 11/10/16 at 09:00 Furosemide (Lasix) 20 mg DAILY PO Last administered on 11/26/16 10:15; Admin Dose 20 MG; Start 11/10/16 at 09:00 Zolpidem Tartrate (Ambien) 5 mg QHS PRN PO INSOMNIA Last administered on 23:36; Admin Dose 5 MG; Start 11/09/16 at 13:30 Acetaminophen/ Hydrocodone Bitart ([place] (5/325)) 1 tab Q4H PRN PO PAIN LEVEL 4 -7 Last administered on 11/25/16 20:53; Admin Dose 1 TAB; Start 11/09/16 at 13: 30 Bisacodyl (Dulcolax Supp) 10 mg DAILY PRN [place] CONSTIPATION Last administered on 11/25/16 10:32; Admin Dose 10 MG; Start 11/09/16 at 20:00 Lisinopril (Zestril) 5 mg DAILY PO Last administered on 11/26/16 10:16; Admin Dose 5 MG; Start 11/12/16 at 09:00 Morphine Sulfate (morphine) 1 mg Q3H PRN IV PAIN Last administered on 15:07; Admin Dose 1 MG; Start 11/18/16 at 15:03 Pantoprazole (Protonix Iv) 40 mg DAILY@06 IV Last administered on 11/26/16 05: 44; Admin Dose 40 MG; Start 11/22/16 at 06:00 Lorazepam (Ativan) 0.5 mg Q6H PRN IV AGITATION/ANXIETY; Start 11/21/16 at 12:00 IV Flush (NS 10 ml) 10 ml PRN PRN IV FLUSH LINE; Start 11/21/16 at 15:30 Docusate Sodium (Colace Liquid Cup) 100 mg BID PO Last administered on 10:32; Admin Dose 100 MG; Start 11/24/16 at 09:00 Aspirin (Aspirin) 325 mg DAILY PO ; Start 11/27/16 at 09:00 DEIRDRE MORSE Nov 26, 2016 17:17
[2016-11-26] MEDS: ZOLPIDEM 5 MG TAB PO PRN (21:51)
[2016-11-27] VITALS (21 sets, daily range): BP systolic 63–171; BP diastolic 44–90; PULSE 56–158; RESP 17–20
[2016-11-27] MEDS: PANTOPRAZOLE 40 MG INJ IV SCH (05:06)
[2016-11-27 07:55] LABS: ADD SCAN DIFF NO
[2016-11-27 07:58] LABS: BASOPHILS % 0.3 % (0.0-2.0); EOSINOPHILS # 0.3 10^3/ul (0.0-0.5); EOSINOPHILS % 3.8 % (0.0-7.0); HEMOGLOBIN 10.5 g/dl (12.0-16.0); LYMPHOCYTES # 1.1 10^3/ul (0.8-2.9); LYMPHOCYTES % 14.2 % (15.0-51.0); MEAN CORPUSCULAR HEMOGLOBIN 32.4 pg (29.0-33.0); MEAN CORPUSCULAR HGB CONC 33.9 g/dl (32.0-37.0); MEAN CORPUSCULAR VOLUME 95.7 fl (82.0-101.0); MEAN PLATELET VOLUME 9.9 fl (7.4-10.4); MONOCYTE # 1.1 10^3/ul (0.3-0.9); MONOCYTES % 15.4 % (0.0-11.0); NEUTROPHIL # 4.9 10^3/ul (1.6-7.5); NEUTROPHILS % 65.9 % (39.0-77.0); PLATELET COUNT 393 10^3/UL (140-415); RED BLOOD COUNT 3.24 10^6/ul (4.20-5.40); RED CELL DISTRIBUTION WIDTH 12.3 % (11.5-14.5); WHITE BLOOD COUNT 7.4 10^3/ul (4.8-10.8)
[2016-11-27 08:27] LABS: CALCIUM 8.9 mg/dl (8.4-10.2); CREATININE 0.61 mg/dl (0.44-1.00); POTASSIUM 3.7 mmol/L (3.5-5.1)
[2016-11-27] MEDS: ASPIRIN 325 MG TAB PO SCH (08:50)
[2016-11-27] MEDS: HYDROCODONE/APAP (5/325) TAB PO PRN (08:51)
[2016-11-27] MEDS: FUROSEMIDE 20 MG TAB PO SCH (08:51)
[2016-11-27] MEDS: FAMOTIDINE 20 MG TAB PO SCH (08:51)
[2016-11-27] MEDS: LISINOPRIL 5 MG TAB PO SCH (08:51)
[2016-11-27] MEDS: ATORVASTATIN 40 MG TAB PO SCH (08:51)
[2016-11-27] MEDS: DOCUSATE SODIUM 10 MG/ML (10ML CUP) PO SCH ×2 (08:58→21:06)
--- NOTE | 2016-11-27 12:12 | CONS ---
Date/Time of Note Date/Time of Note DATE: 11/27/16 TIME: 12:07 Assessment/Plan Assessment/Plan Chief Complaint/Hosp Course IMPRESSION: 1. Cardiomyopathy with decreased left ventricular ejection fraction last seen approximately 30% by echo at outside hospital 08/2016. EF 35% by echo this admit with lexiscan negative for ischemia with scar and EF 40%. 2. Hypertension-now Hypotension this AM 3. History of myocardial infarction. 4. History of percutaneous transluminal coronary angioplasty and stent placement last 2011. 5. Coagulopathy-improved 6. Anemia. 7. Vaginal bleed now post-op s/p D+C with Bx 8. Possible endometrial mass, abnormal thickening. 9. R knee pain and swelling acute s/p steroid injection with improvement in sx 10.Hyponatremia-ongoing and mildly labile 11.Probable CVA by CT. Family refusing MRI Rec: - Willl make slight decrease in dose of BB/ACEI given currently low BP -ASA had been held given vaginal bleeding but now resumed as tolerated to prevent in possible further thromoembolic complications give likely CVA by head CT -Follow hgb closely back on asa -Neuro following -? PT -Hold Lasix and give IVF bolus and follow BP Problems: Consultation Date/Type/Reason Admit Date/Time November 11, 2016 at 10:47 Initial Consult Date 11/09/2016 Type of Consultation: cardiology Reason for Consultation CHF Referring Provider: DEIRDRE MORSE Exam/Review of Systems Vital Signs Vitals Vital Signs Date Time Temp Pulse Resp B/P Pulse Ox O2 Delivery O2 Flow Rate FiO2 11/27/16 12:03 56 77/50 100 2.0 11/27/16 11:50 Nasal Cannula 11/27/16 11:40 98.3 17 Intake and Output 11/26/16 11/26/16 11/27/16 15:00 23:00 07:00 Intake Total 100 ml 300 ml Output Total 1300 ml 400 ml Balance -1200 ml -100 ml Exam Review of Systems: CONSTITUTIONAL: No fevers, chills. PULMONARY: No sob CARDIOVASCULAR: No chest pain/palpitations GASTROINTESTINAL: No nausea/vomiting. GENITOURINARY: No hematuria/dysuria. MUSCULOSKELETAL: No myagias/arthalgias. PSYCHIATRIC: The patient denies depression. NEUROLOGIC: No weakness Constitutional: alert Psych: no complaints ENMT: mucosa pink and moist Neck: supple Respiratory: clear to auscultation Cardiovascular: regular rate and rhythm Gastrointestinal: soft Musculoskeletal: muscle tone Extremities: normal pulses Neurological: other (No focal deficits) Results Result Diagram: 11/27/16 0640 11/27/16 0640 Results 24 hrs Laboratory Tests Test 11/27/16 06:40 White Blood Count 7.4 Red Blood Count 3.24 L Hemoglobin 10.5 L Hematocrit 31.0 L Mean Corpuscular Volume 95.7 Mean Corpuscular Hemoglobin 32.4 Mean Corpuscular Hemoglobin Concent 33.9 Red Cell Distribution Width 12.3 Platelet Count 393 # Mean Platelet Volume 9.9 Neutrophils % 65.9 Lymphocytes % 14.2 L Monocytes % 15.4 H Eosinophils % 3.8 Basophils % 0.3 Nucleated Red Blood Cells % 0.0 Neutrophils # 4.9 Lymphocytes # 1.1 Monocytes # 1.1 H Eosinophils # 0.3 Basophils # 0.0 Nucleated Red Blood Cells # 0.0 Sodium Level 135 Potassium Level 3.7 Chloride Level 100 Carbon Dioxide Level 28 Anion Gap 11 Blood Urea Nitrogen 8 Creatinine 0.61 Glucose Level 117 Calcium Level 8.9 Magnesium Level 1.8 Medications Medications Current Medications Acetaminophen (Tylenol Tab) 650 mg Q4H PRN PO PAIN AND OR ELEVATED TEMP Last administered on 11/25/16 23:36; Admin Dose 650 MG; Start 11/09/16 at 05:30 Atorvastatin Calcium (Lipitor) 40 mg DAILY PO Last administered on 11/27/16 08: 51; Admin Dose 40 MG; Start 11/10/16 at 09:00 Carvedilol (Coreg) 6.25 mg BID PO Last administered on 11/27/16 08:51; Admin Dose 6.25 MG; Start 11/09/16 at 21:00 Famotidine (Pepcid) 20 mg DAILY PO Last administered on 11/27/16 08:51; Admin Dose 20 MG; Start 11/10/16 at 09:00 Furosemide (Lasix) 20 mg DAILY PO Last administered on 11/27/16 08:51; Admin Dose 20 MG; Start 11/10/16 at 09:00 Zolpidem Tartrate (Ambien) 5 mg QHS PRN PO INSOMNIA Last administered on 21:51; Admin Dose 5 MG; Start 11/09/16 at 13:30 Acetaminophen/ Hydrocodone Bitart ([place] (5/325)) 1 tab Q4H PRN PO PAIN LEVEL 4 -7 Last administered on 11/27/16 08:51; Admin Dose 1 TAB; Start 11/09/16 at 13: 30 Bisacodyl (Dulcolax Supp) 10 mg DAILY PRN [place] CONSTIPATION Last administered on 11/25/16 10:32; Admin Dose 10 MG; Start 11/09/16 at 20:00 Lisinopril (Zestril) 5 mg DAILY PO Last administered on 11/27/16 08:51; Admin Dose 5 MG; Start 11/12/16 at 09:00 Morphine Sulfate (morphine) 1 mg Q3H PRN IV PAIN Last administered on 15:07; Admin Dose 1 MG; Start 11/18/16 at 15:03 Pantoprazole (Protonix Iv) 40 mg DAILY@06 IV Last administered on 11/27/16 05: 06; Admin Dose 40 MG; Start 11/22/16 at 06:00 Lorazepam (Ativan) 0.5 mg Q6H PRN IV AGITATION/ANXIETY; Start 11/21/16 at 12:00 IV Flush (NS 10 ml) 10 ml PRN PRN IV FLUSH LINE; Start 11/21/16 at 15:30 Docusate Sodium (Colace Liquid Cup) 100 mg BID PO Last administered on 10:32; Admin Dose 100 MG; Start 11/24/16 at 09:00 Aspirin (Aspirin) 325 mg DAILY PO Last administered on 11/27/16 08:50; Admin Dose 325 MG; Start 11/27/16 at 09:00 DEBBIE QUINTANA Nov 27, 2016 12:12
[2016-11-27] MEDS ORDERED: SOD CHLORIDE 0.9% 500 ML IV ONE (12:30)
--- NOTE | 2016-11-27 16:21 | PN ---
Date/Time of Note Date/Time of Note DATE: 11/27/16 TIME: 16:20 Assessment/Plan VTE Prophylaxis VTE Prophylaxis Intervention: SCD's Lines/Catheters IV Catheter Type (from Nrs): PICC Line Central line still needed: Yes Urinary Cath still in place: Yes Reason Cath still needed: urinary retention Assessment/Plan Chief Complaint/Hosp Course Patient is hypotensive and blood with blood pressure systolic and 70s, patient was high per tensive early in the morning and was keeping his medication and [place] as needed for pain. Will give IV fluids fluids obtain troponin urine and blood cultures and stat chest x-ray. ASSESSMENT AND PLAN: - CVA, Dr Lopez is following in neurology consultation. Continue PT OT. - Right knee swelling and tenderness, Dr. Hernandez is following in orthopedic surgery consultation. S/p steroid injection in R knee joint. 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 Dr. Rosen evaluated patient in urology consultation. Patient daughter refused any surgical interventions. - Vaginal bleeding with ultrasound suspicious for endometrial carcinoma. S/p D& C with biopsy by Dr. Bah. 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 Stress test is negative for ischemia with scar. Continue Lasix. - Atrial fibrillation, continue aspirin. Patient is not a candidate for anticoagulation due to bleeding. - History of [place]. - Hypertension, patient is currently hypotensive. - Hyperlipidemia. Continue statin. - Coronary artery disease with history of stent placement in 2011. Continue aspirin. Continue sequential compression device for deep venous thrombosis prophylaxis and Pepcid for peptic ulcer disease prophylaxis. Further recommendations based on clinical course. Plan of care discussed with Dr. An. Problems: Exam/Review of Systems Vital Signs Vitals Vital Signs Date Time Temp Pulse Resp B/P Pulse Ox O2 Delivery O2 Flow Rate FiO2 11/27/16 15:16 98.2 117 20 103/76 92 11/27/16 12:41 2.0 11/27/16 11:50 Nasal Cannula Intake and Output 11/26/16 11/26/16 11/27/16 15:00 23:00 07:00 Intake Total 100 ml 300 ml Output Total 1300 ml 400 ml Balance -1200 ml -100 ml Exam Constitutional: alert, oriented Head: normocephalic Neck: supple Respiratory: clear to auscultation Cardiovascular: nl pulses Gastrointestinal: soft, BS+ Extremities: normal pulses Results Result Diagram: 11/27/16 0640 11/27/16 0640 Results 24 hrs Laboratory Tests Test 11/27/16 06:40 11/27/16 13:45 White Blood Count 7.4 Red Blood Count 3.24 L Hemoglobin 10.5 L Hematocrit 31.0 L Mean Corpuscular Volume 95.7 Mean Corpuscular Hemoglobin 32.4 Mean Corpuscular Hemoglobin Concent 33.9 Red Cell Distribution Width 12.3 Platelet Count 393 # Mean Platelet Volume 9.9 Neutrophils % 65.9 Lymphocytes % 14.2 L Monocytes % 15.4 H Eosinophils % 3.8 Basophils % 0.3 Nucleated Red Blood Cells % 0.0 Neutrophils # 4.9 Lymphocytes # 1.1 Monocytes # 1.1 H Eosinophils # 0.3 Basophils # 0.0 Nucleated Red Blood Cells # 0.0 Sodium Level 135 Potassium Level 3.7 Chloride Level 100 Carbon Dioxide Level 28 Anion Gap 11 Blood Urea Nitrogen 8 Creatinine 0.61 Glucose Level 117 Calcium Level 8.9 Magnesium Level 1.8 Troponin I 0.338 *H Medications Medications Current Medications Acetaminophen (Tylenol Tab) 650 mg Q4H PRN PO PAIN AND OR ELEVATED TEMP Last administered on 11/25/16 23:36; Admin Dose 650 MG; Start 11/09/16 at 05:30 Atorvastatin Calcium (Lipitor) 40 mg DAILY PO Last administered on 11/27/16 08: 51; Admin Dose 40 MG; Start 11/10/16 at 09:00 Carvedilol (Coreg) 6.25 mg BID PO Last administered on 11/27/16 08:51; Admin Dose 6.25 MG; Start 11/09/16 at 21:00 Famotidine (Pepcid) 20 mg DAILY PO Last administered on 11/27/16 08:51; Admin Dose 20 MG; Start 11/10/16 at 09:00 Furosemide (Lasix) 20 mg DAILY PO Last administered on 11/27/16 08:51; Admin Dose 20 MG; Start 11/10/16 at 09:00 Zolpidem Tartrate (Ambien) 5 mg QHS PRN PO INSOMNIA Last administered on 21:51; Admin Dose 5 MG; Start 11/09/16 at 13:30 Acetaminophen/ Hydrocodone Bitart ([place] (5/325)) 1 tab Q4H PRN PO PAIN LEVEL 4 -7 Last administered on 11/27/16 08:51; Admin Dose 1 TAB; Start 11/09/16 at 13: 30 Bisacodyl (Dulcolax Supp) 10 mg DAILY PRN [place] CONSTIPATION Last administered on 11/25/16 10:32; Admin Dose 10 MG; Start 11/09/16 at 20:00 Lisinopril (Zestril) 5 mg DAILY PO Last administered on 11/27/16 08:51; Admin Dose 5 MG; Start 11/12/16 at 09:00 Morphine Sulfate (morphine) 1 mg Q3H PRN IV PAIN Last administered on 15:07; Admin Dose 1 MG; Start 11/18/16 at 15:03 Pantoprazole (Protonix Iv) 40 mg DAILY@06 IV Last administered on 11/27/16 05: 06; Admin Dose 40 MG; Start 11/22/16 at 06:00 Lorazepam (Ativan) 0.5 mg Q6H PRN IV AGITATION/ANXIETY; Start 11/21/16 at 12:00 IV Flush (NS 10 ml) 10 ml PRN PRN IV FLUSH LINE; Start 11/21/16 at 15:30 Docusate Sodium (Colace Liquid Cup) 100 mg BID PO Last administered on 10:32; Admin Dose 100 MG; Start 11/24/16 at 09:00 Aspirin (Aspirin) 325 mg DAILY PO Last administered on 11/27/16 08:50; Admin Dose 325 MG; Start 11/27/16 at 09:00 NILES LOPEZ Nov 27, 2016 16:21
--- NOTE | 2016-11-27 16:25 | RADRPT ---
PROCEDURE: XR Chest. CLINICAL INDICATION: 86-year-old female with clinical suspicion of pneumonia. TECHNIQUE: Single frontal view of the chest was obtained. COMPARISON: Chest x-ray 09/15/2011 07:43 a.m. FINDINGS: The soft tissues are normal. There are degenerative osteophytes in the thoracic and lumbar spine. A PICC line catheter enters the left arm with its tip in the proximal right atrium. The heart is mi ldly enlarged. There is a poor inspiratory effort. The cardiomediastinal silhouette and hilar stru ctures are normal. The pulmonary vasculature is equilibrated. There are vascular calcifications in the aortic arch. No acute infiltrate is identified. The costophrenic angles are normal. IMPRESSION: 1. The PICC line catheter enters the left arm with its tip in the right atrium. It could be withdra wn about 4.4 cm for positioning in the superior vena cava. 2. Cardiomegaly. 3. Atherosclerotic vascular disease. 4. Equilibration of the pulmonary vasculature. RPTAT:AAJJ Physician Noni Date Time Electronically viewed and signed by Physician Noni on 11/27/2016 16:25 VIDAL/
[2016-11-27 18:31] LABS: TROPONIN-I 0.301 ng/ml (0.00-0.12)
--- NOTE | 2016-11-27 18:45 | CONS ---
Date/Time of Note Date/Time of Note DATE: 11/27/16 TIME: 18:44 Assessment/Plan Assessment/Plan Additional Assessment/Plan 1. Hyponatremia, multifactorial secondary to hypovolemic hyponatremia and possible component of diastolic heart failure. 2. Hypokalemia. 3. Right knee swelling and erythema. 4. 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 5. History of coronary artery disease, status post previous stent placement in 2011. 6. History of atrial fibrillation. 7. History of vaginal bleeding, now status post dilatation and curettage with biopsy. 8. Coagulopathy, improved. 9. History of hypertension. 10. chest pain PLAN: K normal, Na 135, troponin becomes positive S/p IVF, on PO lasix will follow up BP stable Consultation Date/Type/Reason Admit Date/Time November 11, 2016 at 10:47 Type of Consultation: NEPHROLOGY Referring Provider: DEIRDRE MORSE 24 HR Interval Summary Free Text/Dictation no acute events, BP stable , chest pain Exam/Review of Systems Vital Signs Vitals Vital Signs Date Time Temp Pulse Resp B/P Pulse Ox O2 Delivery O2 Flow Rate FiO2 11/27/16 16:22 76 11/27/16 15:16 98.2 20 103/76 92 11/27/16 12:41 2.0 11/27/16 11:50 Nasal Cannula Intake and Output 11/26/16 11/26/16 11/27/16 15:00 23:00 07:00 Intake Total 100 ml 300 ml Output Total 1300 ml 400 ml Balance -1200 ml -100 ml Results Result Diagram: 11/27/16 0640 11/27/16 0640 Results 24 hrs Laboratory Tests Test 11/27/16 06:40 11/27/16 13:45 11/27/16 17:50 White Blood Count 7.4 Red Blood Count 3.24 L Hemoglobin 10.5 L Hematocrit 31.0 L Mean Corpuscular Volume 95.7 Mean Corpuscular Hemoglobin 32.4 Mean Corpuscular Hemoglobin Concent 33.9 Red Cell Distribution Width 12.3 Platelet Count 393 # Mean Platelet Volume 9.9 Neutrophils % 65.9 Lymphocytes % 14.2 L Monocytes % 15.4 H Eosinophils % 3.8 Basophils % 0.3 Nucleated Red Blood Cells % 0.0 Neutrophils # 4.9 Lymphocytes # 1.1 Monocytes # 1.1 H Eosinophils # 0.3 Basophils # 0.0 Nucleated Red Blood Cells # 0.0 Sodium Level 135 Potassium Level 3.7 Chloride Level 100 Carbon Dioxide Level 28 Anion Gap 11 Blood Urea Nitrogen 8 Creatinine 0.61 Glucose Level 117 Calcium Level 8.9 Magnesium Level 1.8 Troponin I 0.338 *H 0.301 *H Creatine Kinase 108 Creatine Kinase Index Pending Creatinine Kinase MB (Mass) Pending Medications Medications Current Medications Acetaminophen (Tylenol Tab) 650 mg Q4H PRN PO PAIN AND OR ELEVATED TEMP Last administered on 11/25/16 23:36; Admin Dose 650 MG; Start 11/09/16 at 05:30 Atorvastatin Calcium (Lipitor) 40 mg DAILY PO Last administered on 11/27/16 08: 51; Admin Dose 40 MG; Start 11/10/16 at 09:00 Carvedilol (Coreg) 6.25 mg BID PO Last administered on 11/27/16 08:51; Admin Dose 6.25 MG; Start 11/09/16 at 21:00 Famotidine (Pepcid) 20 mg DAILY PO Last administered on 11/27/16 08:51; Admin Dose 20 MG; Start 11/10/16 at 09:00 Furosemide (Lasix) 20 mg DAILY PO Last administered on 11/27/16 08:51; Admin Dose 20 MG; Start 11/10/16 at 09:00 Zolpidem Tartrate (Ambien) 5 mg QHS PRN PO INSOMNIA Last administered on 21:51; Admin Dose 5 MG; Start 11/09/16 at 13:30 Acetaminophen/ Hydrocodone Bitart ([place] (5/325)) 1 tab Q4H PRN PO PAIN LEVEL 4 -7 Last administered on 11/27/16 08:51; Admin Dose 1 TAB; Start 11/09/16 at 13: 30 Bisacodyl (Dulcolax Supp) 10 mg DAILY PRN [place] CONSTIPATION Last administered on 11/25/16 10:32; Admin Dose 10 MG; Start 11/09/16 at 20:00 Lisinopril (Zestril) 5 mg DAILY PO Last administered on 11/27/16 08:51; Admin Dose 5 MG; Start 11/12/16 at 09:00 Morphine Sulfate (morphine) 1 mg Q3H PRN IV PAIN Last administered on 15:07; Admin Dose 1 MG; Start 11/18/16 at 15:03 Pantoprazole (Protonix Iv) 40 mg DAILY@06 IV Last administered on 11/27/16 05: 06; Admin Dose 40 MG; Start 11/22/16 at 06:00 Lorazepam (Ativan) 0.5 mg Q6H PRN IV AGITATION/ANXIETY; Start 11/21/16 at 12:00 IV Flush (NS 10 ml) 10 ml PRN PRN IV FLUSH LINE; Start 11/21/16 at 15:30 Docusate Sodium (Colace Liquid Cup) 100 mg BID PO Last administered on 10:32; Admin Dose 100 MG; Start 11/24/16 at 09:00 Aspirin (Aspirin) 325 mg DAILY PO Last administered on 11/27/16 08:50; Admin Dose 325 MG; Start 11/27/16 at 09:00 DEMETRIO OLSEN MD Nov 27, 2016 18:45
[2016-11-27 18:54] LABS: CK-MB 1.78 ng/ml (0.0-2.4)
[2016-11-28] VITALS (12 sets, daily range): BP systolic 105–135; BP diastolic 56–82; PULSE 61–105; RESP 18–19
[2016-11-28 02:07] LABS: CK-MB 1.66 ng/ml (0.0-2.4)
[2016-11-28 02:08] LABS: TROPONIN-I 0.247 ng/ml (0.00-0.12)
[2016-11-28] MEDS: PANTOPRAZOLE 40 MG INJ IV SCH (05:54)
[2016-11-28 07:12] LABS: ADD SCAN DIFF NO
[2016-11-28 07:33] LABS: BASOPHILS % 0.2 % (0.0-2.0); EOSINOPHILS # 0.2 10^3/ul (0.0-0.5); EOSINOPHILS % 2.6 % (0.0-7.0); HEMATOCRIT 31.3 % (37.0-47.0); HEMOGLOBIN 10.4 g/dl (12.0-16.0); LYMPHOCYTES # 1.1 10^3/ul (0.8-2.9); LYMPHOCYTES % 13.3 % (15.0-51.0); MEAN CORPUSCULAR HEMOGLOBIN 32.1 pg (29.0-33.0); MEAN CORPUSCULAR HGB CONC 33.2 g/dl (32.0-37.0); MEAN CORPUSCULAR VOLUME 96.6 fl (82.0-101.0); MEAN PLATELET VOLUME 9.8 fl (7.4-10.4); MONOCYTE # 1.2 10^3/ul (0.3-0.9); MONOCYTES % 14.8 % (0.0-11.0); NEUTROPHIL # 5.5 10^3/ul (1.6-7.5); NEUTROPHILS % 68.7 % (39.0-77.0); PLATELET COUNT 379 10^3/UL (140-415); RED BLOOD COUNT 3.24 10^6/ul (4.20-5.40); RED CELL DISTRIBUTION WIDTH 12.5 % (11.5-14.5); WHITE BLOOD COUNT 8.1 10^3/ul (4.8-10.8)
[2016-11-28 08:02] LABS: CALCIUM 8.9 mg/dl (8.4-10.2); CREATININE 0.69 mg/dl (0.44-1.00); POTASSIUM 3.9 mmol/L (3.5-5.1)
[2016-11-28] MEDS: LISINOPRIL 5 MG TAB PO SCH (10:05)
[2016-11-28] MEDS: ASPIRIN 325 MG TAB PO SCH (10:05)
[2016-11-28] MEDS: FAMOTIDINE 20 MG TAB PO SCH (10:05)
[2016-11-28] MEDS: FUROSEMIDE 20 MG TAB PO SCH (10:06)
[2016-11-28] MEDS: ATORVASTATIN 40 MG TAB PO SCH (10:06)
[2016-11-28] MEDS: DOCUSATE SODIUM 10 MG/ML (10ML CUP) PO SCH ×2 (10:07→22:07)
--- NOTE | 2016-11-28 11:45 | PN ---
Date/Time of Note Date/Time of Note DATE: 11/28/16 TIME: 11:44 Assessment/Plan VTE Prophylaxis VTE Prophylaxis Intervention: other Lines/Catheters IV Catheter Type (from Nrs): PICC Line Central line still needed: Yes Urinary Cath still in place: Yes Reason Cath still needed: skin wounds contaminated by urine Assessment/Plan Chief Complaint/Hosp Course - CVA, Dr Lopez is following in neurology consultation. Continue PT OT. - Right knee swelling and tenderness, Dr. Hernandez is following in orthopedic surgery consultation. S/p steroid injection in R knee joint. 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 Dr. Rosen evaluated patient in urology consultation. Patient daughter refused any surgical interventions. - Vaginal bleeding with ultrasound suspicious for endometrial carcinoma. S/p D& C with biopsy by Dr. Bah. 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 Stress test is negative for ischemia with scar. Continue Lasix. - Atrial fibrillation, continue aspirin. Patient is not a candidate for anticoagulation due to bleeding. - History of MS. - Hypertension, patient is currently hypotensive. - Hyperlipidemia. Continue statin. - Coronary artery disease with history of stent placement in 2011. Continue aspirin. Problems: Subjective 24 Hr Interval Summary Free Text/Dictation Patient resting comfortably Exam/Review of Systems Vital Signs Vitals Vital Signs Date Time Temp Pulse Resp B/P Pulse Ox O2 Delivery O2 Flow Rate FiO2 11/28/16 08:41 76 11/28/16 07:01 98.4 19 135/68 98 11/27/16 12:41 2.0 11/27/16 11:50 Nasal Cannula Intake and Output 11/27/16 11/27/16 11/28/16 15:00 23:00 07:00 Intake Total 100 ml Output Total 350 ml Balance -250 ml Exam Constitutional: well developed Head: atraumatic, normocephalic Neck: supple Respiratory: diminished breath sounds Cardiovascular: regular rate and rhythm Gastrointestinal: non-tender, soft Extremities: normal pulses Results Result Diagram: 11/28/16 0623 11/28/16 0628 Results 24 hrs Laboratory Tests Test 11/27/16 13:45 11/27/16 17:50 11/28/16 01:05 11/28/16 06:23 Troponin I 0.338 *H 0.301 *H 0.247 *H Creatine Kinase 108 89 Creatine Kinase Index 1.6 1.9 Creatinine Kinase MB (Mass) 1.78 1.66 White Blood Count 8.1 Red Blood Count 3.24 L Hemoglobin 10.4 L Hematocrit 31.3 L Mean Corpuscular Volume 96.6 Mean Corpuscular Hemoglobin 32.1 Mean Corpuscular Hemoglobin Concent 33.2 Red Cell Distribution Width 12.5 Platelet Count 379 Mean Platelet Volume 9.8 Neutrophils % 68.7 Lymphocytes % 13.3 L Monocytes % 14.8 H Eosinophils % 2.6 Basophils % 0.2 Nucleated Red Blood Cells % 0.0 Neutrophils # 5.5 Lymphocytes # 1.1 Monocytes # 1.2 H Eosinophils # 0.2 Basophils # 0.0 Nucleated Red Blood Cells # 0.0 Test 11/28/16 06:28 Sodium Level 137 Potassium Level 3.9 Chloride Level 102 Carbon Dioxide Level 26 Anion Gap 13 Blood Urea Nitrogen 11 Creatinine 0.69 Glucose Level 118 Calcium Level 8.9 Medications Medications Current Medications Acetaminophen (Tylenol Tab) 650 mg Q4H PRN PO PAIN AND OR ELEVATED TEMP Last administered on 11/25/16 23:36; Admin Dose 650 MG; Start 11/09/16 at 05:30 Atorvastatin Calcium (Lipitor) 40 mg DAILY PO Last administered on 11/28/16 10 :06; Admin Dose 40 MG; Start 11/10/16 at 09:00 Carvedilol (Coreg) 6.25 mg BID PO Last administered on 11/28/16 10:06; Admin Dose 6.25 MG; Start 11/09/16 at 21:00 Famotidine (Pepcid) 20 mg DAILY PO Last administered on 11/28/16 10:05; Admin Dose 20 MG; Start 11/10/16 at 09:00 Furosemide (Lasix) 20 mg DAILY PO Last administered on 11/28/16 10:06; Admin Dose 20 MG; Start 11/10/16 at 09:00 Zolpidem Tartrate (Ambien) 5 mg QHS PRN PO INSOMNIA Last administered on 21:51; Admin Dose 5 MG; Start 11/09/16 at 13:30 Acetaminophen/ Hydrocodone Bitart ([place] (5/325)) 1 tab Q4H PRN PO PAIN LEVEL 4 -7 Last administered on 11/27/16 08:51; Admin Dose 1 TAB; Start 11/09/16 at 13: 30 Bisacodyl (Dulcolax Supp) 10 mg DAILY PRN [place] CONSTIPATION Last administered on 11/25/16 10:32; Admin Dose 10 MG; Start 11/09/16 at 20:00 Lisinopril (Zestril) 5 mg DAILY PO Last administered on 11/28/16 10:05; Admin Dose 5 MG; Start 11/12/16 at 09:00 Morphine Sulfate (morphine) 1 mg Q3H PRN IV PAIN Last administered on 15:07; Admin Dose 1 MG; Start 11/18/16 at 15:03 Pantoprazole (Protonix Iv) 40 mg DAILY@06 IV Last administered on 11/28/16 05: 54; Admin Dose 40 MG; Start 11/22/16 at 06:00 Lorazepam (Ativan) 0.5 mg Q6H PRN IV AGITATION/ANXIETY; Start 11/21/16 at 12:00 IV Flush (NS 10 ml) 10 ml PRN PRN IV FLUSH LINE; Start 11/21/16 at 15:30 Docusate Sodium (Colace Liquid Cup) 100 mg BID PO Last administered on 10:07; Admin Dose 100 MG; Start 11/24/16 at 09:00 Aspirin (Aspirin) 325 mg DAILY PO Last administered on 11/28/16 10:05; Admin Dose 325 MG; Start 11/27/16 at 09:00 LILLI RUIZ Nov 28, 2016 11:45
--- NOTE | 2016-11-28 12:05 | CONS ---
Date/Time of Note Date/Time of Note DATE: 11/28/16 TIME: 12:02 Assessment/Plan Assessment/Plan Chief Complaint/Hosp Course IMPRESSION: 1. Cardiomyopathy with decreased left ventricular ejection fraction last seen approximately 30% by echo at outside hospital 08/2016. EF 35% by echo this admit with lexiscan negative for ischemia with scar and EF 40%. 2. Hypotension-improved s/p IVF Bolus and tolerationg medications now 3. History of myocardial infarction. 4. History of percutaneous transluminal coronary angioplasty and stent placement last 2011. 5. Coagulopathy-improved 6. Anemia. 7. Vaginal bleed now post-op s/p D+C with Bx 8. Possible endometrial mass, abnormal thickening. 9. R knee pain and swelling acute s/p steroid injection with improvement in sx 10.Hyponatremia-ongoing and mildly labile 11.Probable CVA by CT. Family refusing MRI Rec: -Continue BB/ACEI as tolerated -ASA had been held given vaginal bleeding but now resumed as tolerated to prevent in possible further thromoembolic complications give likely CVA by head CT -Follow hgb closely back on asa -Neuro following -? PT -Willl hold lasix x 1 -2 days Problems: Consultation Date/Type/Reason Admit Date/Time November 11, 2016 at 10:47 Initial Consult Date 11/09/2016 Type of Consultation: cardiology Reason for Consultation CHF Referring Provider: DEIRDRE MORSE Exam/Review of Systems Vital Signs Vitals Vital Signs Date Time Temp Pulse Resp B/P Pulse Ox O2 Delivery O2 Flow Rate FiO2 11/28/16 11:58 98.2 80 19 132/79 97 11/27/16 12:41 2.0 11/27/16 11:50 Nasal Cannula Intake and Output 11/27/16 11/27/16 11/28/16 15:00 23:00 07:00 Intake Total 100 ml Output Total 350 ml Balance -250 ml Exam Review of Systems: CONSTITUTIONAL: No fevers, chills. PULMONARY: No sob CARDIOVASCULAR: No chest pain/palpitations GASTROINTESTINAL: No nausea/vomiting. GENITOURINARY: No hematuria/dysuria. MUSCULOSKELETAL: No myagias/arthalgias. PSYCHIATRIC: The patient denies depression. NEUROLOGIC: lethargic Constitutional: other (sleeping, arousable) Head: normocephalic ENMT: mucosa pink and moist Neck: jvd (7 cm water), supple Respiratory: clear to auscultation Cardiovascular: regular rate and rhythm Gastrointestinal: non-tender, soft Musculoskeletal: muscle weakness (generalized) Extremities: edema (none) Neurological: lethargic Results Result Diagram: 11/28/1662211/28/1628 Results 24 hrs Laboratory Tests Test 11/27/16 13:45 11/27/16 17:50 11/28/16 01:05 11/28/16 06:23 Troponin I 0.338 *H 0.301 *H 0.247 *H Creatine Kinase 108 89 Creatine Kinase Index 1.6 1.9 Creatinine Kinase MB (Mass) 1.78 1.66 White Blood Count 8.1 Red Blood Count 3.24 L Hemoglobin 10.4 L Hematocrit 31.3 L Mean Corpuscular Volume 96.6 Mean Corpuscular Hemoglobin 32.1 Mean Corpuscular Hemoglobin Concent 33.2 Red Cell Distribution Width 12.5 Platelet Count 379 Mean Platelet Volume 9.8 Neutrophils % 68.7 Lymphocytes % 13.3 L Monocytes % 14.8 H Eosinophils % 2.6 Basophils % 0.2 Nucleated Red Blood Cells % 0.0 Neutrophils # 5.5 Lymphocytes # 1.1 Monocytes # 1.2 H Eosinophils # 0.2 Basophils # 0.0 Nucleated Red Blood Cells # 0.0 Test 11/28/16 06:28 Sodium Level 137 Potassium Level 3.9 Chloride Level 102 Carbon Dioxide Level 26 Anion Gap 13 Blood Urea Nitrogen 11 Creatinine 0.69 Glucose Level 118 Calcium Level 8.9 Medications Medications Current Medications Acetaminophen (Tylenol Tab) 650 mg Q4H PRN PO PAIN AND OR ELEVATED TEMP Last administered on 11/25/16 23:36; Admin Dose 650 MG; Start 11/09/16 at 05:30 Atorvastatin Calcium (Lipitor) 40 mg DAILY PO Last administered on 11/28/16 10 :06; Admin Dose 40 MG; Start 11/10/16 at 09:00 Carvedilol (Coreg) 6.25 mg BID PO Last administered on 11/28/16 10:06; Admin Dose 6.25 MG; Start 11/09/16 at 21:00 Famotidine (Pepcid) 20 mg DAILY PO Last administered on 11/28/16 10:05; Admin Dose 20 MG; Start 11/10/16 at 09:00 Furosemide (Lasix) 20 mg DAILY PO Last administered on 11/28/16 10:06; Admin Dose 20 MG; Start 11/10/16 at 09:00 Zolpidem Tartrate (Ambien) 5 mg QHS PRN PO INSOMNIA Last administered on 21:51; Admin Dose 5 MG; Start 11/09/16 at 13:30 Acetaminophen/ Hydrocodone Bitart ([place] (5/325)) 1 tab Q4H PRN PO PAIN LEVEL 4 -7 Last administered on 11/27/16 08:51; Admin Dose 1 TAB; Start 11/09/16 at 13: 30 Bisacodyl (Dulcolax Supp) 10 mg DAILY PRN [place] CONSTIPATION Last administered on 11/25/16 10:32; Admin Dose 10 MG; Start 11/09/16 at 20:00 Lisinopril (Zestril) 5 mg DAILY PO Last administered on 11/28/16 10:05; Admin Dose 5 MG; Start 11/12/16 at 09:00 Morphine Sulfate (morphine) 1 mg Q3H PRN IV PAIN Last administered on 15:07; Admin Dose 1 MG; Start 11/18/16 at 15:03 Pantoprazole (Protonix Iv) 40 mg DAILY@06 IV Last administered on 11/28/16 05: 54; Admin Dose 40 MG; Start 11/22/16 at 06:00 Lorazepam (Ativan) 0.5 mg Q6H PRN IV AGITATION/ANXIETY; Start 11/21/16 at 12:00 IV Flush (NS 10 ml) 10 ml PRN PRN IV FLUSH LINE; Start 11/21/16 at 15:30 Docusate Sodium (Colace Liquid Cup) 100 mg BID PO Last administered on 10:07; Admin Dose 100 MG; Start 11/24/16 at 09:00 Aspirin (Aspirin) 325 mg DAILY PO Last administered on 11/28/16 10:05; Admin Dose 325 MG; Start 11/27/16 at 09:00 DEBBIE QUINTANA 10, 2017 12:05
--- NOTE | 2016-11-28 16:08 | CONS ---
Date/Time of Note Date/Time of Note DATE: 11/28/16 TIME: 16:01 Assessment/Plan Assessment/Plan Additional Assessment/Plan - chest pain -none at present, Elevated Troponin- cardiology follows. Cont on tele monitoring - Hyponatremia, multifactorial secondary to hypovolemic hyponatremia and possible component of diastolic heart failure- resolved - Hypokalemia- resolved - Right knee swelling and erythema. 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 - History of coronary artery disease, status post previous stent placement in 2011. - History of atrial fibrillation. - History of vaginal bleeding, now status post dilatation and curettage with biopsy. - Coagulopathy, improved. - History of hypertension. - Further recommendations depend upon patient's clinical course. Plan of care fanny Monroe /staff PLAN: -K normal, Na 137, troponin becomes positive -S/p IVF, on PO lasix -will follow up -BP stable -Further recommendations depend upon patient's clinical course. Plan of care fanny Monroe /staff Consultation Date/Type/Reason Admit Date/Time November 11, 2016 at 10:47 Initial Consult Date 11/21/16 Type of Consultation: nephrology Referring Provider: DEIRDRE MORSE 24 HR Interval Summary Free Text/Dictation resting, NAD, afebrile,seems comfortable daughter at bedside and speech is clear , more alert .fanny staff, Exam/Review of Systems Vital Signs Vitals Vital Signs Date Time Temp Pulse Resp B/P Pulse Ox O2 Delivery O2 Flow Rate FiO2 11/28/16 15:13 98.2 69 19 118/57 97 11/27/16 12:41 2.0 11/27/16 11:50 Nasal Cannula Intake and Output 11/27/16 11/27/16 11/28/16 15:00 23:00 07:00 Intake Total 100 ml Output Total 350 ml Balance -250 ml Exam Constitutional: alert, well developed Respiratory: clear to auscultation, normal air movement Cardiovascular: nl pulses, regular rate and rhythm Gastrointestinal: non-tender, soft Musculoskeletal: nl extremities to inspection Extremities: normal pulses Neurological: other (alert) Lymph: nontender Results Result Diagram: 11/28/16 0623 11/28/16 0628 Results 24 hrs Laboratory Tests Test 11/27/16 17:50 11/28/16 01:05 11/28/16 06:23 11/28/16 06:28 Creatine Kinase 108 89 Creatine Kinase Index 1.6 1.9 Creatinine Kinase MB (Mass) 1.78 1.66 Troponin I 0.301 *H 0.247 *H White Blood Count 8.1 Red Blood Count 3.24 L Hemoglobin 10.4 L Hematocrit 31.3 L Mean Corpuscular Volume 96.6 Mean Corpuscular Hemoglobin 32.1 Mean Corpuscular Hemoglobin Concent 33.2 Red Cell Distribution Width 12.5 Platelet Count 379 Mean Platelet Volume 9.8 Neutrophils % 68.7 Lymphocytes % 13.3 L Monocytes % 14.8 H Eosinophils % 2.6 Basophils % 0.2 Nucleated Red Blood Cells % 0.0 Neutrophils # 5.5 Lymphocytes # 1.1 Monocytes # 1.2 H Eosinophils # 0.2 Basophils # 0.0 Nucleated Red Blood Cells # 0.0 Sodium Level 137 Potassium Level 3.9 Chloride Level 102 Carbon Dioxide Level 26 Anion Gap 13 Blood Urea Nitrogen 11 Creatinine 0.69 Glucose Level 118 Calcium Level 8.9 Medications Medications Current Medications Acetaminophen (Tylenol Tab) 650 mg Q4H PRN PO PAIN AND OR ELEVATED TEMP Last administered on 11/25/16 23:36; Admin Dose 650 MG; Start 11/09/16 at 05:30 Atorvastatin Calcium (Lipitor) 40 mg DAILY PO Last administered on 11/28/16 10 :06; Admin Dose 40 MG; Start 11/10/16 at 09:00 Carvedilol (Coreg) 6.25 mg BID PO Last administered on 11/28/16 10:06; Admin Dose 6.25 MG; Start 11/09/16 at 21:00 Famotidine (Pepcid) 20 mg DAILY PO Last administered on 11/28/16 10:05; Admin Dose 20 MG; Start 11/10/16 at 09:00 Furosemide (Lasix) 20 mg DAILY PO Last administered on 11/28/16 10:06; Admin Dose 20 MG; Start 11/10/16 at 09:00; Status Future Hold Zolpidem Tartrate (Ambien) 5 mg QHS PRN PO INSOMNIA Last administered on 21:51; Admin Dose 5 MG; Start 11/09/16 at 13:30 Acetaminophen/ Hydrocodone Bitart ([place] (5/325)) 1 tab Q4H PRN PO PAIN LEVEL 4 -7 Last administered on 11/27/16 08:51; Admin Dose 1 TAB; Start 11/09/16 at 13: 30 Bisacodyl (Dulcolax Supp) 10 mg DAILY PRN [place] CONSTIPATION Last administered on 11/25/16 10:32; Admin Dose 10 MG; Start 11/09/16 at 20:00 Lisinopril (Zestril) 5 mg DAILY PO Last administered on 11/28/16 10:05; Admin Dose 5 MG; Start 11/12/16 at 09:00 Morphine Sulfate (morphine) 1 mg Q3H PRN IV PAIN Last administered on 15:07; Admin Dose 1 MG; Start 11/18/16 at 15:03 Pantoprazole (Protonix Iv) 40 mg DAILY@06 IV Last administered on 11/28/16 05: 54; Admin Dose 40 MG; Start 11/22/16 at 06:00 Lorazepam (Ativan) 0.5 mg Q6H PRN IV AGITATION/ANXIETY; Start 11/21/16 at 12:00 IV Flush (NS 10 ml) 10 ml PRN PRN IV FLUSH LINE; Start 11/21/16 at 15:30 Docusate Sodium (Colace Liquid Cup) 100 mg BID PO Last administered on 10:07; Admin Dose 100 MG; Start 11/24/16 at 09:00 Aspirin (Aspirin) 325 mg DAILY PO Last administered on 11/28/16 10:05; Admin Dose 325 MG; Start 11/27/16 at 09:00 DEIRDRE MORSE Nov 28, 2016 16:08
[2016-11-29] VITALS (12 sets, daily range): BP systolic 106–154; BP diastolic 56–95; PULSE 67–80; RESP 17–18
[2016-11-29] MEDS: PANTOPRAZOLE 40 MG INJ IV SCH (05:46)
[2016-11-29 07:13] LABS: ADD SCAN DIFF NO
[2016-11-29 07:18] LABS: BASOPHILS % 0.2 % (0.0-2.0); EOSINOPHILS # 0.2 10^3/ul (0.0-0.5); EOSINOPHILS % 2.4 % (0.0-7.0); HEMATOCRIT 27.6 % (37.0-47.0); LYMPHOCYTES % 15.6 % (15.0-51.0); MEAN CORPUSCULAR HEMOGLOBIN 31.8 pg (29.0-33.0); MEAN CORPUSCULAR HGB CONC 32.6 g/dl (32.0-37.0); MEAN CORPUSCULAR VOLUME 97.5 fl (82.0-101.0); MEAN PLATELET VOLUME 9.6 fl (7.4-10.4); MONOCYTES % 15.4 % (0.0-11.0); NEUTROPHIL # 4.1 10^3/ul (1.6-7.5); NEUTROPHILS % 66.1 % (39.0-77.0); PLATELET COUNT 335 10^3/UL (140-415); RED BLOOD COUNT 2.83 10^6/ul (4.20-5.40); RED CELL DISTRIBUTION WIDTH 12.6 % (11.5-14.5); WHITE BLOOD COUNT 6.2 10^3/ul (4.8-10.8)
[2016-11-29 08:00] LABS: CALCIUM 7.2 mg/dl (8.4-10.2); CREATININE 0.5 mg/dl (0.44-1.00)
[2016-11-29] MEDS: DOCUSATE SODIUM 10 MG/ML (10ML CUP) PO SCH ×2 (09:00→20:59)
[2016-11-29] MEDS: ASPIRIN 325 MG TAB PO SCH (09:22)
[2016-11-29] MEDS: LISINOPRIL 5 MG TAB PO SCH (09:22)
[2016-11-29] MEDS: FAMOTIDINE 20 MG TAB PO SCH (09:23)
[2016-11-29] MEDS: ATORVASTATIN 40 MG TAB PO SCH (09:23)
--- NOTE | 2016-11-29 11:10 | PN ---
Date/Time of Note Date/Time of Note DATE: 11/29/16 TIME: 11:09 Assessment/Plan VTE Prophylaxis VTE Prophylaxis Intervention: other Lines/Catheters IV Catheter Type (from Nrs): PICC Line Central line still needed: Yes Urinary Cath still in place: Yes Reason Cath still needed: skin wounds contaminated by urine Assessment/Plan Chief Complaint/Hosp Course - CVA, Dr Lopez is following in neurology consultation. Continue PT OT. - Right knee swelling and tenderness, Dr. Hernandez is following in orthopedic surgery consultation. S/p steroid injection in R knee joint. 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 Dr. Rosen evaluated patient in urology consultation. Patient daughter refused any surgical interventions. - Vaginal bleeding with ultrasound suspicious for endometrial carcinoma. S/p D& C with biopsy by Dr. Bah. 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 Stress test is negative for ischemia with scar. Continue Lasix. - Atrial fibrillation, continue aspirin. Patient is not a candidate for anticoagulation due to bleeding. - History of SD. - Hypertension, patient is currently hypotensive. - Hyperlipidemia. Continue statin. - Coronary artery disease with history of stent placement in 2011. Continue aspirin. Problems: Subjective 24 Hr Interval Summary Free Text/Dictation Patient has no complaints Exam/Review of Systems Vital Signs Vitals Vital Signs Date Time Temp Pulse Resp B/P Pulse Ox O2 Delivery O2 Flow Rate FiO2 11/29/16 08:21 73 11/29/16 07:22 98.3 18 136/71 97 11/27/16 12:41 2.0 11/27/16 11:50 Nasal Cannula Intake and Output 11/28/16 11/28/16 11/29/16 15:00 23:00 07:00 Intake Total 360 ml 120 ml Output Total 700 ml 650 ml Balance -340 ml -530 ml Exam Constitutional: well developed Head: atraumatic, normocephalic Neck: supple Respiratory: clear to auscultation Cardiovascular: regular rate and rhythm Gastrointestinal: non-tender, soft Extremities: normal pulses Results Result Diagram: 11/29/16 0555 11/29/16 0555 Results 24 hrs Laboratory Tests Test 11/29/16 05:55 White Blood Count 6.2 # Red Blood Count 2.83 L Hemoglobin 9.0 L Hematocrit 27.6 L Mean Corpuscular Volume 97.5 Mean Corpuscular Hemoglobin 31.8 Mean Corpuscular Hemoglobin Concent 32.6 Red Cell Distribution Width 12.6 Platelet Count 335 Mean Platelet Volume 9.6 Neutrophils % 66.1 Lymphocytes % 15.6 Monocytes % 15.4 H Eosinophils % 2.4 Basophils % 0.2 Nucleated Red Blood Cells % 0.0 Neutrophils # 4.1 Lymphocytes # 1.0 Monocytes # 1.0 H Eosinophils # 0.2 Basophils # 0.0 Nucleated Red Blood Cells # 0.0 Sodium Level 139 Potassium Level 3.0 L Chloride Level 109 Carbon Dioxide Level 24 Anion Gap 9 Blood Urea Nitrogen 8 Creatinine 0.50 Glucose Level 84 Calcium Level 7.2 L Medications Medications Current Medications Acetaminophen (Tylenol Tab) 650 mg Q4H PRN PO PAIN AND OR ELEVATED TEMP Last administered on 11/25/16 23:36; Admin Dose 650 MG; Start 11/09/16 at 05:30 Atorvastatin Calcium (Lipitor) 40 mg DAILY PO Last administered on 11/29/16 09 :23; Admin Dose 40 MG; Start 11/10/16 at 09:00 Carvedilol (Coreg) 6.25 mg BID PO Last administered on 11/29/16 09:23; Admin Dose 6.25 MG; Start 11/09/16 at 21:00 Famotidine (Pepcid) 20 mg DAILY PO Last administered on 11/29/16 09:23; Admin Dose 20 MG; Start 11/10/16 at 09:00 Furosemide (Lasix) 20 mg DAILY PO Last administered on 11/28/16 10:06; Admin Dose 20 MG; Start 11/10/16 at 09:00; Status Future Hold Zolpidem Tartrate (Ambien) 5 mg QHS PRN PO INSOMNIA Last administered on 21:51; Admin Dose 5 MG; Start 11/09/16 at 13:30 Acetaminophen/ Hydrocodone Bitart ([place] (5/325)) 1 tab Q4H PRN PO PAIN LEVEL 4 -7 Last administered on 11/27/16 08:51; Admin Dose 1 TAB; Start 11/09/16 at 13: 30 Bisacodyl (Dulcolax Supp) 10 mg DAILY PRN [place] CONSTIPATION Last administered on 11/25/16 10:32; Admin Dose 10 MG; Start 11/09/16 at 20:00 Lisinopril (Zestril) 5 mg DAILY PO Last administered on 11/29/16 09:22; Admin Dose 5 MG; Start 11/12/16 at 09:00 Morphine Sulfate (morphine) 1 mg Q3H PRN IV PAIN Last administered on 15:07; Admin Dose 1 MG; Start 11/18/16 at 15:03 Pantoprazole (Protonix Iv) 40 mg DAILY@06 IV Last administered on 11/29/16 05: 46; Admin Dose 40 MG; Start 11/22/16 at 06:00 Lorazepam (Ativan) 0.5 mg Q6H PRN IV AGITATION/ANXIETY; Start 11/21/16 at 12:00 IV Flush (NS 10 ml) 10 ml PRN PRN IV FLUSH LINE; Start 11/21/16 at 15:30 Docusate Sodium (Colace Liquid Cup) 100 mg BID PO Last administered on 22:07; Admin Dose 100 MG; Start 11/24/16 at 09:00 Aspirin (Aspirin) 325 mg DAILY PO Last administered on 11/29/16 09:22; Admin Dose 325 MG; Start 11/27/16 at 09:00 LILLI RUIZ Nov 29, 2016 11:10
[2016-11-29] MEDS ORDERED: POTASSIUM CHLORIDE (SR) 20 MEQ TAB PO STA (11:36)
--- NOTE | 2016-11-29 11:36 | CONS ---
Date/Time of Note Date/Time of Note DATE: 11/29/16 TIME: 11:34 Assessment/Plan Assessment/Plan Chief Complaint/Hosp Course IMPRESSION: 1. Cardiomyopathy with decreased left ventricular ejection fraction last seen approximately 30% by echo at outside hospital 08/2016. EF 35% by echo this admit with lexiscan negative for ischemia with scar and EF 40%. 2. Hypotension-improved s/p IVF Bolus and tolerationg medications now 3. History of myocardial infarction. 4. History of percutaneous transluminal coronary angioplasty and stent placement last 2011. 5. Coagulopathy-improved 6. Anemia. 7. Vaginal bleed now post-op s/p D+C with Bx 8. Possible endometrial mass, abnormal thickening. 9. R knee pain and swelling acute s/p steroid injection with improvement in sx 10.Hyponatremia-ongoing and mildly labile 11.Probable CVA by CT. Family refusing MRI Rec: -Continue BB/ACEI as tolerated -ASA had been held given vaginal bleeding but now resumed as tolerated to prevent in possible further thromboembolic complications give likely CVA by head CT -Follow hgb closely back on asa -Neuro following -? PT -Will hold lasix x 1 -2 days/follow volume status closely -REplete KCL Problems: Consultation Date/Type/Reason Admit Date/Time November 11, 2016 at 10:47 Initial Consult Date 11/09/2016 Type of Consultation: cardiology Reason for Consultation CHF Referring Provider: DEIRDRE MORSE Exam/Review of Systems Vital Signs Vitals Vital Signs Date Time Temp Pulse Resp B/P Pulse Ox O2 Delivery O2 Flow Rate FiO2 11/29/16 11:29 97.8 63 18 106/56 94 11/27/16 12:41 2.0 11/27/16 11:50 Nasal Cannula Intake and Output 11/28/16 11/28/16 11/29/16 15:00 23:00 07:00 Intake Total 360 ml 120 ml Output Total 700 ml 650 ml Balance -340 ml -530 ml Exam Review of Systems: CONSTITUTIONAL: No fevers, chills. PULMONARY: No sob CARDIOVASCULAR: No chest pain/palpitations GASTROINTESTINAL: No nausea/vomiting. GENITOURINARY: No hematuria/dysuria. MUSCULOSKELETAL: No myagias/arthalgias. PSYCHIATRIC: The patient denies depression. NEUROLOGIC: lethargic Constitutional: alert Head: normocephalic ENMT: mucosa pink and moist Neck: jvd (8 cm water), supple Respiratory: diminished breath sounds (at bases/B) Cardiovascular: regular rate and rhythm Gastrointestinal: non-tender, soft Musculoskeletal: muscle weakness (Mild generalized) Extremities: edema (none) Neurological: other (NO focal deficits) Results Result Diagram: 11/29/16 0555 11/29/16 0555 Results 24 hrs Laboratory Tests Test 11/29/16 05:55 White Blood Count 6.2 # Red Blood Count 2.83 L Hemoglobin 9.0 L Hematocrit 27.6 L Mean Corpuscular Volume 97.5 Mean Corpuscular Hemoglobin 31.8 Mean Corpuscular Hemoglobin Concent 32.6 Red Cell Distribution Width 12.6 Platelet Count 335 Mean Platelet Volume 9.6 Neutrophils % 66.1 Lymphocytes % 15.6 Monocytes % 15.4 H Eosinophils % 2.4 Basophils % 0.2 Nucleated Red Blood Cells % 0.0 Neutrophils # 4.1 Lymphocytes # 1.0 Monocytes # 1.0 H Eosinophils # 0.2 Basophils # 0.0 Nucleated Red Blood Cells # 0.0 Sodium Level 139 Potassium Level 3.0 L Chloride Level 109 Carbon Dioxide Level 24 Anion Gap 9 Blood Urea Nitrogen 8 Creatinine 0.50 Glucose Level 84 Calcium Level 7.2 L Medications Medications Current Medications Acetaminophen (Tylenol Tab) 650 mg Q4H PRN PO PAIN AND OR ELEVATED TEMP Last administered on 11/25/16 23:36; Admin Dose 650 MG; Start 11/09/16 at 05:30 Atorvastatin Calcium (Lipitor) 40 mg DAILY PO Last administered on 11/29/16 09 :23; Admin Dose 40 MG; Start 11/10/16 at 09:00 Carvedilol (Coreg) 6.25 mg BID PO Last administered on 11/29/16 09:23; Admin Dose 6.25 MG; Start 11/09/16 at 21:00 Famotidine (Pepcid) 20 mg DAILY PO Last administered on 11/29/16 09:23; Admin Dose 20 MG; Start 11/10/16 at 09:00 Furosemide (Lasix) 20 mg DAILY PO Last administered on 11/28/16 10:06; Admin Dose 20 MG; Start 11/10/16 at 09:00; Status Future Hold Zolpidem Tartrate (Ambien) 5 mg QHS PRN PO INSOMNIA Last administered on 21:51; Admin Dose 5 MG; Start 11/09/16 at 13:30 Acetaminophen/ Hydrocodone Bitart ([place] (5/325)) 1 tab Q4H PRN PO PAIN LEVEL 4 -7 Last administered on 11/27/16 08:51; Admin Dose 1 TAB; Start 11/09/16 at 13: 30 Bisacodyl (Dulcolax Supp) 10 mg DAILY PRN [place] CONSTIPATION Last administered on 11/25/16 10:32; Admin Dose 10 MG; Start 11/09/16 at 20:00 Lisinopril (Zestril) 5 mg DAILY PO Last administered on 11/29/16 09:22; Admin Dose 5 MG; Start 11/12/16 at 09:00 Morphine Sulfate (morphine) 1 mg Q3H PRN IV PAIN Last administered on 15:07; Admin Dose 1 MG; Start 11/18/16 at 15:03 Pantoprazole (Protonix Iv) 40 mg DAILY@06 IV Last administered on 11/29/16 05: 46; Admin Dose 40 MG; Start 11/22/16 at 06:00 Lorazepam (Ativan) 0.5 mg Q6H PRN IV AGITATION/ANXIETY; Start 11/21/16 at 12:00 IV Flush (NS 10 ml) 10 ml PRN PRN IV FLUSH LINE; Start 11/21/16 at 15:30 Docusate Sodium (Colace Liquid Cup) 100 mg BID PO Last administered on 22:07; Admin Dose 100 MG; Start 11/24/16 at 09:00 Aspirin (Aspirin) 325 mg DAILY PO Last administered on 11/29/16 09:22; Admin Dose 325 MG; Start 11/27/16 at 09:00 DEBBIE QUINTANA Nov 29, 2016 11:36
--- NOTE | 2016-11-29 15:29 | CONS ---
Date/Time of Note Date/Time of Note DATE: 11/29/16 TIME: 15:25 Assessment/Plan Assessment/Plan Additional Assessment/Plan - Hypokalemia- replaced, am BMP - chest pain -none at present, Elevated Troponin- cardiology follows. Cont on tele monitoring - Hyponatremia, multifactorial secondary to hypovolemic hyponatremia and possible component of diastolic heart failure- resolved - Right knee swelling and erythema. 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 - History of coronary artery disease, status post previous stent placement in 2011. - History of atrial fibrillation. - History of vaginal bleeding, now status post dilatation and curettage with biopsy. - Coagulopathy, improved. - History of hypertension. PLAN: -K normal, Na 139, troponin becomes positive -S/p IVF, on PO lasix -will follow up -BP stable -Further recommendations depend upon patient's clinical course. Plan of care fanny Monroe /staff Consultation Date/Type/Reason Admit Date/Time November 11, 2016 at 10:47 Initial Consult Date 11/21/16 Type of Consultation: cardiology Referring Provider: DEIRDRE MORSE 24 HR Interval Summary Free Text/Dictation resting, NAD, afebrile, eating well, seems comfortable daughter at bedside and speech is clear, more alert. no vaginal bleeding reported,.dw staff- no new issues reported. Exam/Review of Systems Vital Signs Vitals Vital Signs Date Time Temp Pulse Resp B/P Pulse Ox O2 Delivery O2 Flow Rate FiO2 11/29/16 12:17 67 11/29/16 11:29 97.8 18 106/56 94 11/27/16 12:41 2.0 11/27/16 11:50 Nasal Cannula Intake and Output 11/28/16 11/28/16 11/29/16 15:00 23:00 07:00 Intake Total 360 ml 120 ml Output Total 700 ml 650 ml Balance -340 ml -530 ml Exam Constitutional: alert, oriented, well developed Respiratory: clear to auscultation, normal air movement Cardiovascular: nl pulses, regular rate and rhythm Gastrointestinal: non-tender, soft Musculoskeletal: nl extremities to inspection Neurological: nl mental status, nl speech Skin: nl turgor Lymph: nontender Results Result Diagram: 11/29/16 0555 11/29/16 0555 Results 24 hrs Laboratory Tests Test 11/29/16 05:55 White Blood Count 6.2 # Red Blood Count 2.83 L Hemoglobin 9.0 L Hematocrit 27.6 L Mean Corpuscular Volume 97.5 Mean Corpuscular Hemoglobin 31.8 Mean Corpuscular Hemoglobin Concent 32.6 Red Cell Distribution Width 12.6 Platelet Count 335 Mean Platelet Volume 9.6 Neutrophils % 66.1 Lymphocytes % 15.6 Monocytes % 15.4 H Eosinophils % 2.4 Basophils % 0.2 Nucleated Red Blood Cells % 0.0 Neutrophils # 4.1 Lymphocytes # 1.0 Monocytes # 1.0 H Eosinophils # 0.2 Basophils # 0.0 Nucleated Red Blood Cells # 0.0 Sodium Level 139 Potassium Level 3.0 L Chloride Level 109 Carbon Dioxide Level 24 Anion Gap 9 Blood Urea Nitrogen 8 Creatinine 0.50 Glucose Level 84 Calcium Level 7.2 L Medications Medications Current Medications Acetaminophen (Tylenol Tab) 650 mg Q4H PRN PO PAIN AND OR ELEVATED TEMP Last administered on 11/25/16 23:36; Admin Dose 650 MG; Start 11/09/16 at 05:30 Atorvastatin Calcium (Lipitor) 40 mg DAILY PO Last administered on 11/29/16 09 :23; Admin Dose 40 MG; Start 11/10/16 at 09:00 Carvedilol (Coreg) 6.25 mg BID PO Last administered on 11/29/16 09:23; Admin Dose 6.25 MG; Start 11/09/16 at 21:00 Famotidine (Pepcid) 20 mg DAILY PO Last administered on 11/29/16 09:23; Admin Dose 20 MG; Start 11/10/16 at 09:00 Furosemide (Lasix) 20 mg DAILY PO Last administered on 11/28/16 10:06; Admin Dose 20 MG; Start 11/10/16 at 09:00; Status Future Hold Zolpidem Tartrate (Ambien) 5 mg QHS PRN PO INSOMNIA Last administered on 21:51; Admin Dose 5 MG; Start 11/09/16 at 13:30 Acetaminophen/ Hydrocodone Bitart ([place] (5/325)) 1 tab Q4H PRN PO PAIN LEVEL 4 -7 Last administered on 11/27/16 08:51; Admin Dose 1 TAB; Start 11/09/16 at 13: 30 Bisacodyl (Dulcolax Supp) 10 mg DAILY PRN [place] CONSTIPATION Last administered on 11/25/16 10:32; Admin Dose 10 MG; Start 11/09/16 at 20:00 Lisinopril (Zestril) 5 mg DAILY PO Last administered on 11/29/16 09:22; Admin Dose 5 MG; Start 11/12/16 at 09:00 Morphine Sulfate (morphine) 1 mg Q3H PRN IV PAIN Last administered on 15:07; Admin Dose 1 MG; Start 11/18/16 at 15:03 Pantoprazole (Protonix Iv) 40 mg DAILY@06 IV Last administered on 11/29/16 05: 46; Admin Dose 40 MG; Start 11/22/16 at 06:00 Lorazepam (Ativan) 0.5 mg Q6H PRN IV AGITATION/ANXIETY; Start 11/21/16 at 12:00 IV Flush (NS 10 ml) 10 ml PRN PRN IV FLUSH LINE; Start 11/21/16 at 15:30 Docusate Sodium (Colace Liquid Cup) 100 mg BID PO Last administered on 22:07; Admin Dose 100 MG; Start 11/24/16 at 09:00 Aspirin (Aspirin) 325 mg DAILY PO Last administered on 11/29/16 09:22; Admin Dose 325 MG; Start 11/27/16 at 09:00 DEIRDRE MORSE Nov 29, 2016 15:29
[2016-11-29] MEDS: HYDROCODONE/APAP (5/325) TAB PO PRN (21:09)
[2016-11-30] VITALS (13 sets, daily range): BP systolic 105–169; BP diastolic 59–98; PULSE 68–81; RESP 16–18
[2016-11-30 05:56] LABS: ADD SCAN DIFF NO
[2016-11-30 06:10] LABS: BASOPHILS % 0.3 % (0.0-2.0); EOSINOPHILS # 0.2 10^3/ul (0.0-0.5); EOSINOPHILS % 3.1 % (0.0-7.0); HEMATOCRIT 31.4 % (37.0-47.0); HEMOGLOBIN 10.5 g/dl (12.0-16.0); LYMPHOCYTES % 15.6 % (15.0-51.0); MEAN CORPUSCULAR HEMOGLOBIN 32.4 pg (29.0-33.0); MEAN CORPUSCULAR HGB CONC 33.4 g/dl (32.0-37.0); MEAN CORPUSCULAR VOLUME 96.9 fl (82.0-101.0); MEAN PLATELET VOLUME 9.6 fl (7.4-10.4); MONOCYTE # 0.8 10^3/ul (0.3-0.9); MONOCYTES % 13.3 % (0.0-11.0); NEUTROPHIL # 4.1 10^3/ul (1.6-7.5); NEUTROPHILS % 67.5 % (39.0-77.0); PLATELET COUNT 356 10^3/UL (140-415); RED BLOOD COUNT 3.24 10^6/ul (4.20-5.40); RED CELL DISTRIBUTION WIDTH 12.5 % (11.5-14.5); WHITE BLOOD COUNT 6.1 10^3/ul (4.8-10.8)
[2016-11-30] MEDS: PANTOPRAZOLE (EC) 40 MG TAB PO SCH (06:20)
[2016-11-30 06:43] LABS: CALCIUM 9.1 mg/dl (8.4-10.2); CREATININE 0.62 mg/dl (0.44-1.00); POTASSIUM 4.4 mmol/L (3.5-5.1)
[2016-11-30] MEDS: LISINOPRIL 5 MG TAB PO SCH (09:27)
[2016-11-30] MEDS: ATORVASTATIN 40 MG TAB PO SCH (09:27)
[2016-11-30] MEDS: DOCUSATE SODIUM 10 MG/ML (10ML CUP) PO SCH ×2 (09:27→21:20)
[2016-11-30] MEDS: ASPIRIN 325 MG TAB PO SCH (09:27)
[2016-11-30] MEDS ORDERED: VANCOMYCIN IV PER PHARMACY XX SCH (12:30)
--- NOTE | 2016-11-30 14:57 | PN ---
Date/Time of Note Date/Time of Note DATE: 11/30/16 TIME: 14:54 Assessment/Plan VTE Prophylaxis VTE Prophylaxis Intervention: SCD's Lines/Catheters IV C[facility]ter Type (from [facility]): PICC Line Central line still needed: Yes Urinary Cath still in place: Yes Reason Cath still needed: urinary retention Assessment/Plan Chief Complaint/Hosp Course Remains hemodynamically stable however complains of generalized weakness. ASSESSMENT AND PLAN: - Corynebacterium JK urinary tract infection, start vancomycin, Dr. Qureshi is asked to see patient in infection disease consultation. - CVA, Dr Lopez is following in neurology consultation. Continue PT OT. - Right knee osteoarthritis, Dr. Hernandez is following in orthopedic surgery consultation. S/p steroid injection in R knee joint. 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 Dr. Rosen evaluated patient in urology consultation. Patient daughter refused any surgical interventions. - Vaginal bleeding with ultrasound suspicious for endometrial carcinoma. S/p D& C with biopsy by Dr. Bah. 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 Stress test is negative for ischemia with scar. Continue Lasix. - Atrial fibrillation, continue aspirin. Patient is not a candidate for anticoagulation due to bleeding. - History of [place]. - Hypertension, patient is currently hypotensive. - Hyperlipidemia. Continue statin. - Coronary artery disease with history of stent placement in 2011. Continue aspirin. Patient's condition and plan of care discussed with patient's daughter at the bedside. Continue sequential compression device for deep venous thrombosis prophylaxis and Pepcid for peptic ulcer disease prophylaxis. Further recommendations based on clinical course. Plan of care discussed with Dr. An. Problems: Exam/Review of Systems Vital Signs Vitals Vital Signs Date Time Temp Pulse Resp B/P Pulse Ox O2 Delivery O2 Flow Rate FiO2 11/30/16 12:19 68 11/30/16 11:16 97.9 16 124/73 96 11/27/16 12:41 2.0 11/27/16 11:50 Nasal Cannula Intake and Output 11/29/16 11/29/16 11/30/16 15:00 23:00 07:00 Intake Total 720 ml 120 ml Output Total 1700 ml 350 ml Balance -980 ml -230 ml Exam Constitutional: alert, frail, oriented Head: normocephalic Neck: supple Respiratory: normal air movement Cardiovascular: nl pulses, other (Irregularly irregular rhythm) Gastrointestinal: non-tender, soft Genitourinary - Female: other (Alfaro catheter) Musculoskeletal: other (Mild left-sided weakness) Extremities: normal pulses Results Result Diagram: 11/30/1635 11/30/16 0535 Results 24 hrs Laboratory Tests Test 11/30/16 05:35 White Blood Count 6.1 Red Blood Count 3.24 L Hemoglobin 10.5 L Hematocrit 31.4 L Mean Corpuscular Volume 96.9 Mean Corpuscular Hemoglobin 32.4 Mean Corpuscular Hemoglobin Concent 33.4 Red Cell Distribution Width 12.5 Platelet Count 356 Mean Platelet Volume 9.6 Neutrophils % 67.5 Lymphocytes % 15.6 Monocytes % 13.3 H Eosinophils % 3.1 Basophils % 0.3 Nucleated Red Blood Cells % 0.0 Neutrophils # 4.1 Lymphocytes # 1.0 Monocytes # 0.8 Eosinophils # 0.2 Basophils # 0.0 Nucleated Red Blood Cells # 0.0 Sodium Level 136 Potassium Level 4.4 Chloride Level 101 Carbon Dioxide Level 25 Anion Gap 14 Blood Urea Nitrogen 10 Creatinine 0.62 Glucose Level 132 # Calcium Level 9.1 Medications Medications Current Medications Acetaminophen (Tylenol Tab) 650 mg Q4H PRN PO PAIN AND OR ELEVATED TEMP Last administered on 11/25/16 23:36; Admin Dose 650 MG; Start 11/09/16 at 05:30 Atorvastatin Calcium (Lipitor) 40 mg DAILY PO Last administered on 11/30/16 09 :27; Admin Dose 40 MG; Start 11/10/16 at 09:00 Carvedilol (Coreg) 6.25 mg BID PO Last administered on 11/30/16 09:28; Admin Dose 6.25 MG; Start 11/09/16 at 21:00 Furosemide (Lasix) 20 mg DAILY PO Last administered on 11/28/16 10:06; Admin Dose 20 MG; Start 11/10/16 at 09:00; Status Future Hold Zolpidem Tartrate (Ambien) 5 mg QHS PRN PO INSOMNIA Last administered on 21:51; Admin Dose 5 MG; Start 11/09/16 at 13:30 Acetaminophen/ Hydrocodone Bitart ([place] (5/325)) 1 tab Q4H PRN PO PAIN LEVEL 4 -7 Last administered on 11/29/16 21:09; Admin Dose 1 TAB; Start 11/09/16 at 13: 30 Bisacodyl (Dulcolax Supp) 10 mg DAILY PRN [place] CONSTIPATION Last administered on 11/25/16 10:32; Admin Dose 10 MG; Start 11/09/16 at 20:00 Lisinopril (Zestril) 5 mg DAILY PO Last administered on 11/30/16 09:27; Admin Dose 5 MG; Start 11/12/16 at 09:00 Morphine Sulfate (morphine) 1 mg Q3H PRN IV PAIN Last administered on 15:07; Admin Dose 1 MG; Start 11/18/16 at 15:03 Lorazepam (Ativan) 0.5 mg Q6H PRN IV AGITATION/ANXIETY; Start 11/21/16 at 12:00 IV Flush (NS 10 ml) 10 ml PRN PRN IV FLUSH LINE; Start 11/21/16 at 15:30 Docusate Sodium (Colace Liquid Cup) 100 mg BID PO Last administered on 09:27; Admin Dose 100 MG; Start 11/24/16 at 09:00 Aspirin (Aspirin) 325 mg DAILY PO Last administered on 11/30/16 09:27; Admin Dose 325 MG; Start 11/27/16 at 09:00 Pantoprazole 40 mg 40 mg DAILY@06 PO Last administered on 11/30/16 06:20; Admin Dose 40 MG; Start 11/30/16 at 06:00 Vancomycin HCl/ Sodium Chloride (Vancocin/NS) 250 ml @ 83.333 mls/ hr Q36H IVPB ; Start 11/30/16 at 14:00 NILES LOPEZ Nov 30, 2016 14:57
[2016-11-30] MEDS: VANCOMYCIN 1.5 GM in SOD CHLORIDE 0.9% 250 ML IVPB SCH (15:02)
--- NOTE | 2016-11-30 15:39 | CONS ---
Date/Time of Note Date/Time of Note DATE: 11/30/16 TIME: 15:37 Assessment/Plan Assessment/Plan Chief Complaint/Hosp Course IMPRESSION: 1. Cardiomyopathy with decreased left ventricular ejection fraction last seen approximately 30% by echo at outside hospital 08/2016. EF 35% by echo this admit with lexiscan negative for ischemia with scar and EF 40%. 2. Hypotension-improved s/p IVF Bolus and tolerating medications now 3. History of myocardial infarction. 4. History of percutaneous transluminal coronary angioplasty and stent placement last 2011. 5. Coagulopathy-improved 6. Anemia. 7. Vaginal bleed now post-op s/p D+C with Bx 8. Possible endometrial mass, abnormal thickening. 9. R knee pain and swelling acute s/p steroid injection with improvement in sx 10.Hyponatremia-ongoing and mildly labile 11.Probable CVA by CT. Family refusing MRI Rec: -Continue BB/ACEI as tolerated -ASA had been held given vaginal bleeding but now resumed as tolerated to prevent in possible further thromboembolic complications give likely CVA by head CT -Follow hgb closely back on asa -Neuro following -? PT -Will hold lasix x 1 -2 days/follow volume status closely Problems: Consultation Date/Type/Reason Admit Date/Time November 11, 2016 at 10:47 Initial Consult Date 11/09/2016 Type of Consultation: cardiology Reason for Consultation CHF Referring Provider: DEIRDRE MORSE Exam/Review of Systems Vital Signs Vitals Vital Signs Date Time Temp Pulse Resp B/P Pulse Ox O2 Delivery O2 Flow Rate FiO2 11/30/16 15:18 97.9 82 16 105/59 99 11/27/16 12:41 2.0 11/27/16 11:50 Nasal Cannula Intake and Output 11/29/16 11/29/16 11/30/16 15:00 23:00 07:00 Intake Total 720 ml 120 ml Output Total 1700 ml 350 ml Balance -980 ml -230 ml Exam Review of Systems: CONSTITUTIONAL: No fevers, chills. PULMONARY: No sob CARDIOVASCULAR: No chest pain/palpitations GASTROINTESTINAL: No nausea/vomiting. GENITOURINARY: No hematuria/dysuria. MUSCULOSKELETAL: No myagias/arthalgias. PSYCHIATRIC: The patient denies depression. NEUROLOGIC: Lethargic Constitutional: alert Psych: no complaints Head: normocephalic ENMT: mucosa pink and moist Neck: jvd (9 cm water), supple Respiratory: diminished breath sounds (at bases/B) Cardiovascular: regular rate and rhythm Gastrointestinal: non-tender, soft Musculoskeletal: muscle tone (normal) Extremities: edema (none) Neurological: other (No focal deficits) Results Result Diagram: 11/30/16 0535 11/30/16 0535 Results 24 hrs Laboratory Tests Test 11/30/16 05:35 White Blood Count 6.1 Red Blood Count 3.24 L Hemoglobin 10.5 L Hematocrit 31.4 L Mean Corpuscular Volume 96.9 Mean Corpuscular Hemoglobin 32.4 Mean Corpuscular Hemoglobin Concent 33.4 Red Cell Distribution Width 12.5 Platelet Count 356 Mean Platelet Volume 9.6 Neutrophils % 67.5 Lymphocytes % 15.6 Monocytes % 13.3 H Eosinophils % 3.1 Basophils % 0.3 Nucleated Red Blood Cells % 0.0 Neutrophils # 4.1 Lymphocytes # 1.0 Monocytes # 0.8 Eosinophils # 0.2 Basophils # 0.0 Nucleated Red Blood Cells # 0.0 Sodium Level 136 Potassium Level 4.4 Chloride Level 101 Carbon Dioxide Level 25 Anion Gap 14 Blood Urea Nitrogen 10 Creatinine 0.62 Glucose Level 132 # Calcium Level 9.1 Medications Medications Current Medications Acetaminophen (Tylenol Tab) 650 mg Q4H PRN PO PAIN AND OR ELEVATED TEMP Last administered on 11/25/16 23:36; Admin Dose 650 MG; Start 11/09/16 at 05:30 Atorvastatin Calcium (Lipitor) 40 mg DAILY PO Last administered on 11/30/16 09 :27; Admin Dose 40 MG; Start 11/10/16 at 09:00 Carvedilol (Coreg) 6.25 mg BID PO Last administered on 11/30/16 09:28; Admin Dose 6.25 MG; Start 11/09/16 at 21:00 Furosemide (Lasix) 20 mg DAILY PO Last administered on 11/28/16 10:06; Admin Dose 20 MG; Start 11/10/16 at 09:00; Status Future Hold Zolpidem Tartrate (Ambien) 5 mg QHS PRN PO INSOMNIA Last administered on 21:51; Admin Dose 5 MG; Start 11/09/16 at 13:30 Acetaminophen/ Hydrocodone Bitart ([place] (5/325)) 1 tab Q4H PRN PO PAIN LEVEL 4 -7 Last administered on 11/29/16 21:09; Admin Dose 1 TAB; Start 11/09/16 at 13: 30 Bisacodyl (Dulcolax Supp) 10 mg DAILY PRN [place] CONSTIPATION Last administered on 11/25/16 10:32; Admin Dose 10 MG; Start 11/09/16 at 20:00 Lisinopril (Zestril) 5 mg DAILY PO Last administered on 11/30/16 09:27; Admin Dose 5 MG; Start 11/12/16 at 09:00 Morphine Sulfate (morphine) 1 mg Q3H PRN IV PAIN Last administered on 15:07; Admin Dose 1 MG; Start 11/18/16 at 15:03 Lorazepam (Ativan) 0.5 mg Q6H PRN IV AGITATION/ANXIETY; Start 11/21/16 at 12:00 IV Flush (NS 10 ml) 10 ml PRN PRN IV FLUSH LINE; Start 11/21/16 at 15:30 Docusate Sodium (Colace Liquid Cup) 100 mg BID PO Last administered on 09:27; Admin Dose 100 MG; Start 11/24/16 at 09:00 Aspirin (Aspirin) 325 mg DAILY PO Last administered on 11/30/16 09:27; Admin Dose 325 MG; Start 11/27/16 at 09:00 Pantoprazole 40 mg 40 mg DAILY@06 PO Last administered on 11/30/16 06:20; Admin Dose 40 MG; Start 11/30/16 at 06:00 Vancomycin HCl/ Sodium Chloride (Vancocin/NS) 250 ml @ 83.333 mls/ hr Q36H IVPB Last administered on 11/30/16 15:02; Admin Dose 83.333 MLS/HR; Start 06/06 at 14:00 DEBBIE QUINTANA Nov 30, 2016 15:39
--- NOTE | 2016-11-30 19:22 | CONS ---
DATE OF ADMISSION: 11/11/2016 DATE OF CONSULTATION: 11/30/2016 TYPE OF CONSULTATION: Infectious disease. REASON FOR CONSULTATION: Antibiotic management. HISTORY OF PRESENT ILLNESS: Amanda Brown is an 86-year-old female who came in with vaginal bleeding . She is [place] speaking. Her problems include: 1. Vaginal bleeding for 2 weeks. She also has a history of: 2. Coronary artery disease and stent placement in 2011. 3. Atrial fibrillation. 4. Hypertension. 5. Hyperlipidemia. 6. Status post hip fracture. 7. Ischemic cardiomyopathy with ejection fraction of 25% to 30%. 8. History of anemia of chronic disease. 9. History of left femoral neck fracture. 10. Status post hemiarthroplasty in 2011. 11. Pelvic ultrasound with notion of a heterogeneous endometrium 7 mm thick, which is abnormal for postmenopausal patient's. Endometrial carcinoma cannot be excluded. The ovaries not visualized. LABS: Hemoglobin was 11.3, hematocrit 34.3, no leukocytosis. The patient denies any chills. She denies any chest pain. She denies nausea, vomiting or diarrhea. She is admitted for further evaluation and management. HOSPITAL COURSE: On admission, her white count was 5.6, H and H 11.6 and 34.3, platelet count 319,0 00. BUN and creatinine 16/1. She had vaginal bleeding with ultrasound suspicious for endometrial c arcinoma, history of atrial fibrillation, hypertension. The patient has had a long and stormy hospi luis course. She had a corynebacterium ____ or group JK found in the urine on the . Until that t ria, all of her cultures were negative. A chest x-ray on the also showed a PICC line in the lef t arm with its tip in the right atrium, no evidence of infiltrates. The patient has a PICC line, sh e has a central line she has a urinary catheter for urinary retention. She remains hemodynamically stable. Corynebacterium JK urinary tract infection. Vancomycin was started and infectious disease w as asked to see the patient. Patient has a CVA, ____ is following in neurology consultation. S he has right knee osteoarthritis. Dr. Hernandez is following her status post steroid injection in the rig ht knee. 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 Dr. Rosen evaluate d the patient in urology consultation. A daughter refused any surgical interventions. Vaginal blee ding with ultrasound is suspicious for endometrial carcinoma status post D and C with biopsy by Dr. Bah. She has systolic and diastolic dysfunction, congestive heart failure with ejection fracti on of 35% at stress test was negative for ischemia scar, atrial fibrillation. The patient is not a candidate for anticoagulation due to bleeding, history of ND, hypertension, currently hypotensive, h yperlipidemia, coronary artery disease. PAST MEDICAL HISTORY: Operations as outlined. FAMILY HISTORY: Noncontributory. SOCIAL HISTORY: She does not smoke, drink or abuse drugs. ALLERGIES: NONE TO PENICILLIN, SULFA OR FOODS. MEDICATIONS: Per chart. REVIEW OF SYSTEMS: As per HPI. PHYSICAL EXAMINATION: GENERAL: The patient is an elderly appearing, frail female who is awake, responsive, in no acute di stress. VITAL SIGNS: Stable. She is afebrile. SKIN: Without generalized rash. HEENT: Within normal limits. NECK: Supple. LYMPH NODES: None palpable. CHEST: Decreased breath sounds at the bases. HEART: Without murmur or gallop. ABDOMEN: Soft, nontender, without organosplenomegaly or masses. EXTREMITIES: Without cyanosis, clubbing, or edema. RECTAL/GENITAL: Shows a Alfaro catheter in place. NEUROLOGIC: Mild left-sided weakness. As noted, she has an irregularly irregular rhythm. ANCILLARY LABORATORY DATA: White count today is 6.1, H and H of 10.5 and 31.4, platelet count 356,0 00. BUN and creatinine 10/0.62 glucose of 132. IMPRESSION AND PLAN: We will continue her on vancomycin for her probable urinary tract infection, a lthough she could also be a colonized rather than infected. Nitrites are negative, leukocyte estera se is negative. My impression is that she probably will only need 1 or 2 doses of vancomycin becau se this may just be colonization. I will dictate my findings to the hospitalist and also to Dr. An and to the various home sales consultant s. Parenthetically, a biopsy was done which did not show any evidence of malignancy. Dictated By: SABRINA ROLLINS MD, JD/VIDA Conf#: [id number] DID#: [id number]
--- NOTE | 2016-11-30 19:55 | CONS ---
Date/Time of Note Date/Time of Note DATE: 11/30/16 TIME: 19:53 Assessment/Plan Assessment/Plan Additional Assessment/Plan 1. Hyponatremia, multifactorial secondary to hypovolemic hyponatremia and possible component of diastolic heart failure. 2. UTI 4. 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 5. History of coronary artery disease, status post previous stent placement in 2011. 6. History of atrial fibrillation. 7. History of vaginal bleeding, now status post dilatation and curettage with biopsy. 8. Coagulopathy, improved. 9. History of hypertension. PLAN: Cr normal< Electrolytes stable IV abx as per ID S/p IVF, on PO lasix will follow up BP stable Consultation Date/Type/Reason Admit Date/Time November 11, 2016 at 10:47 Type of Consultation: NEPHROLOGY Referring Provider: DEIRDRE MORSE Exam/Review of Systems Vital Signs Vitals Vital Signs Date Time Temp Pulse Resp B/P Pulse Ox O2 Delivery O2 Flow Rate FiO2 11/30/16 19:37 97.5 84 17 133/87 95 11/27/16 12:41 2.0 11/27/16 11:50 Nasal Cannula Intake and Output 11/29/16 11/29/16 11/30/16 15:00 23:00 07:00 Intake Total 720 ml 120 ml Output Total 1700 ml 350 ml Balance -980 ml -230 ml Exam Constitutional: alert, frail, oriented Head: normocephalic Neck: supple Respiratory: normal air movement Cardiovascular: nl pulses, other (Irregularly irregular rhythm) Gastrointestinal: non-tender, soft Genitourinary - Female: other (Alfaro catheter) Musculoskeletal: other (Mild left-sided weakness) Extremities: normal pulses Results Result Diagram: 11/30/16 0535 11/30/16 0535 Results 24 hrs Laboratory Tests Test 11/30/16 05:35 White Blood Count 6.1 Red Blood Count 3.24 L Hemoglobin 10.5 L Hematocrit 31.4 L Mean Corpuscular Volume 96.9 Mean Corpuscular Hemoglobin 32.4 Mean Corpuscular Hemoglobin Concent 33.4 Red Cell Distribution Width 12.5 Platelet Count 356 Mean Platelet Volume 9.6 Neutrophils % 67.5 Lymphocytes % 15.6 Monocytes % 13.3 H Eosinophils % 3.1 Basophils % 0.3 Nucleated Red Blood Cells % 0.0 Neutrophils # 4.1 Lymphocytes # 1.0 Monocytes # 0.8 Eosinophils # 0.2 Basophils # 0.0 Nucleated Red Blood Cells # 0.0 Sodium Level 136 Potassium Level 4.4 Chloride Level 101 Carbon Dioxide Level 25 Anion Gap 14 Blood Urea Nitrogen 10 Creatinine 0.62 Glucose Level 132 # Calcium Level 9.1 Medications Medications Current Medications Acetaminophen (Tylenol Tab) 650 mg Q4H PRN PO PAIN AND OR ELEVATED TEMP Last administered on 11/25/16 23:36; Admin Dose 650 MG; Start 11/09/16 at 05:30 Atorvastatin Calcium (Lipitor) 40 mg DAILY PO Last administered on 11/30/16 09 :27; Admin Dose 40 MG; Start 11/10/16 at 09:00 Carvedilol (Coreg) 6.25 mg BID PO Last administered on 11/30/16 09:28; Admin Dose 6.25 MG; Start 11/09/16 at 21:00 Furosemide (Lasix) 20 mg DAILY PO Last administered on 11/28/16 10:06; Admin Dose 20 MG; Start 11/10/16 at 09:00; Status Future Hold Zolpidem Tartrate (Ambien) 5 mg QHS PRN PO INSOMNIA Last administered on 21:51; Admin Dose 5 MG; Start 11/09/16 at 13:30 Acetaminophen/ Hydrocodone Bitart ([place] (5/325)) 1 tab Q4H PRN PO PAIN LEVEL 4 -7 Last administered on 11/29/16 21:09; Admin Dose 1 TAB; Start 11/09/16 at 13: 30 Bisacodyl (Dulcolax Supp) 10 mg DAILY PRN [place] CONSTIPATION Last administered on 11/25/16 10:32; Admin Dose 10 MG; Start 11/09/16 at 20:00 Lisinopril (Zestril) 5 mg DAILY PO Last administered on 11/30/16 09:27; Admin Dose 5 MG; Start 11/12/16 at 09:00 Morphine Sulfate (morphine) 1 mg Q3H PRN IV PAIN Last administered on 15:07; Admin Dose 1 MG; Start 11/18/16 at 15:03 Lorazepam (Ativan) 0.5 mg Q6H PRN IV AGITATION/ANXIETY; Start 11/21/16 at 12:00 IV Flush (NS 10 ml) 10 ml PRN PRN IV FLUSH LINE; Start 11/21/16 at 15:30 Docusate Sodium (Colace Liquid Cup) 100 mg BID PO Last administered on 09:27; Admin Dose 100 MG; Start 11/24/16 at 09:00 Aspirin (Aspirin) 325 mg DAILY PO Last administered on 11/30/16 09:27; Admin Dose 325 MG; Start 11/27/16 at 09:00 Pantoprazole 40 mg 40 mg DAILY@06 PO Last administered on 11/30/16 06:20; Admin Dose 40 MG; Start 11/30/16 at 06:00 Vancomycin HCl/ Sodium Chloride (Vancocin/NS) 250 ml @ 83.333 mls/ hr Q36H IVPB Last administered on 11/30/16 15:02; Admin Dose 83.333 MLS/HR; Start 06/06 at 14:00 DEMETRIO OLSEN MD Nov 30, 2016 19:55
[2016-11-30] MEDS: HYDROCODONE/APAP (5/325) TAB PO PRN (22:14)
[2016-12-01] VITALS (12 sets, daily range): BP systolic 87–146; BP diastolic 48–85; PULSE 60–83; RESP 16–20
[2016-12-01] MEDS: PANTOPRAZOLE (EC) 40 MG TAB PO SCH (06:04)
[2016-12-01 07:24] LABS: ADD SCAN DIFF NO
[2016-12-01 07:31] LABS: BASOPHILS % 0.3 % (0.0-2.0); EOSINOPHILS # 0.1 10^3/ul (0.0-0.5); EOSINOPHILS % 1.3 % (0.0-7.0); HEMATOCRIT 32.7 % (37.0-47.0); HEMOGLOBIN 10.7 g/dl (12.0-16.0); LYMPHOCYTES % 9.1 % (15.0-51.0); MEAN CORPUSCULAR HEMOGLOBIN 31.9 pg (29.0-33.0); MEAN CORPUSCULAR HGB CONC 32.7 g/dl (32.0-37.0); MEAN CORPUSCULAR VOLUME 97.6 fl (82.0-101.0); MEAN PLATELET VOLUME 9.7 fl (7.4-10.4); MONOCYTE # 0.9 10^3/ul (0.3-0.9); MONOCYTES % 7.9 % (0.0-11.0); PLATELET COUNT 385 10^3/UL (140-415); RED BLOOD COUNT 3.35 10^6/ul (4.20-5.40); RED CELL DISTRIBUTION WIDTH 12.7 % (11.5-14.5); WHITE BLOOD COUNT 11.1 10^3/ul (4.8-10.8)
[2016-12-01 07:57] LABS: CALCIUM 8.8 mg/dl (8.4-10.2); CREATININE 0.58 mg/dl (0.44-1.00); POTASSIUM 4.3 mmol/L (3.5-5.1)
[2016-12-01] MEDS: DOCUSATE SODIUM 10 MG/ML (10ML CUP) PO SCH ×2 (08:33→21:00)
[2016-12-01] MEDS: ASPIRIN 325 MG TAB PO SCH (08:37)
[2016-12-01] MEDS: LISINOPRIL 5 MG TAB PO SCH (08:37)
[2016-12-01] MEDS: ATORVASTATIN 40 MG TAB PO SCH (08:37)
--- NOTE | 2016-12-01 09:21 | CONS ---
Date/Time of Note Date/Time of Note DATE: 12/01/16 TIME: 09:19 Assessment/Plan Assessment/Plan Additional Assessment/Plan 1. Cardiomyopathy with decreased left ventricular ejection fraction last seen approximately 30% by echo at outside hospital 08/2016. EF 35% by echo this admit with lexiscan negative for ischemia with scar and EF 40%- no acute change , euvolemic by exam. 2. Hypotension-improved s/p IVF Bolus and tolerating medications now- better, in good fluid status now. 3. History of myocardial infarction- no cp, no intervention planned. 4. History of percutaneous transluminal coronary angioplasty and stent placement last 2011. 5. Coagulopathy-improved 6. Anemia- H/H stable - no active bleed. 7. Vaginal bleed now post-op s/p D+C with Bx 8. Possible endometrial mass, abnormal thickening. 9. R knee pain and swelling acute s/p steroid injection with improvement in sx 10.Hyponatremia-ongoing and mildly labile 11.Probable CVA by CT. Family refusing MRI Rec: -Continue BB/ACEI as tolerated -ASA had been held given vaginal bleeding but now resumed as tolerated to prevent in possible further thromboembolic complications give likely CVA by head CT -Follow hgb closely back on asa -Neuro following -? PT -Will hold lasix x 1 -2 days/follow volume status closely Consultation Date/Type/Reason Admit Date/Time November 11, 2016 at 10:47 Type of Consultation: NEPHROLOGY Referring Provider: DEIRDRE MORSE 24 HR Interval Summary Free Text/Dictation Stable - reasonable fluid satis - overall much improved s/p CVA ROS: No fever, no chills, no nausea, no vomiting, no diarrhea/constipation No recent weight changes No chest pain, no PND, no orthopnea No dizziness, blurred vision No thirst, no heat or cold intolerance Exam/Review of Systems Vital Signs Vitals Vital Signs Date Time Temp Pulse Resp B/P Pulse Ox O2 Delivery O2 Flow Rate FiO2 12/01/16 08:00 79 12/01/16 07:40 98.1 18 138/85 97 11/27/16 12:41 2.0 11/27/16 11:50 Nasal Cannula Intake and Output 11/30/16 11/30/16 12/01/16 15:00 23:00 07:00 Intake Total 1000 ml 700 ml Output Total 700 ml 550 ml Balance 300 ml 150 ml Exam General: WN/WD/NAD, AOx 1 confused, comfortable HEENT: Unicetric/atraumatic/EOMI (does not follow commands) NECK: JVD elevated, no thyromegaly Lymph: no lymphadenopathy HEART: regular with no S3, II/ systolic murmur at apex LUNGS: Coarse sounds ABD: soft, NT, ND, +BS : Intact Neuro: non focal SKIN: chronic changes EXT: trace edema Results Result Diagram: 12/01/1615 12/01/1615 Results 24 hrs Laboratory Tests Test 12/01/16 06:15 White Blood Count 11.1 #H Red Blood Count 3.35 L Hemoglobin 10.7 L Hematocrit 32.7 L Mean Corpuscular Volume 97.6 Mean Corpuscular Hemoglobin 31.9 Mean Corpuscular Hemoglobin Concent 32.7 Red Cell Distribution Width 12.7 Platelet Count 385 Mean Platelet Volume 9.7 Neutrophils % 81.0 H Lymphocytes % 9.1 L Monocytes % 7.9 Eosinophils % 1.3 Basophils % 0.3 Nucleated Red Blood Cells % 0.0 Neutrophils # 9.0 H Lymphocytes # 1.0 Monocytes # 0.9 Eosinophils # 0.1 Basophils # 0.0 Nucleated Red Blood Cells # 0.0 Sodium Level 136 Potassium Level 4.3 Chloride Level 103 Carbon Dioxide Level 26 Anion Gap 11 Blood Urea Nitrogen 8 Creatinine 0.58 Glucose Level 130 Calcium Level 8.8 Medications Medications Current Medications Acetaminophen (Tylenol Tab) 650 mg Q4H PRN PO PAIN AND OR ELEVATED TEMP Last administered on 11/25/16 23:36; Admin Dose 650 MG; Start 11/09/16 at 05:30 Atorvastatin Calcium (Lipitor) 40 mg DAILY PO Last administered on 12/01/16 08 :37; Admin Dose 40 MG; Start 11/10/16 at 09:00 Carvedilol (Coreg) 6.25 mg BID PO Last administered on 12/01/16 08:38; Admin Dose 6.25 MG; Start 11/09/16 at 21:00 Furosemide (Lasix) 20 mg DAILY PO Last administered on 11/28/16 10:06; Admin Dose 20 MG; Start 11/10/16 at 09:00; Status Future Hold Zolpidem Tartrate (Ambien) 5 mg QHS PRN PO INSOMNIA Last administered on 21:51; Admin Dose 5 MG; Start 11/09/16 at 13:30 Acetaminophen/ Hydrocodone Bitart ([place] (5/325)) 1 tab Q4H PRN PO PAIN LEVEL 4 -7 Last administered on 11/30/16 22:14; Admin Dose 1 TAB; Start 11/09/16 at 13: 30 Bisacodyl (Dulcolax Supp) 10 mg DAILY PRN [place] CONSTIPATION Last administered on 11/25/16 10:32; Admin Dose 10 MG; Start 11/09/16 at 20:00 Lisinopril (Zestril) 5 mg DAILY PO Last administered on 12/01/16 08:37; Admin Dose 5 MG; Start 11/12/16 at 09:00 Morphine Sulfate (morphine) 1 mg Q3H PRN IV PAIN Last administered on 15:07; Admin Dose 1 MG; Start 11/18/16 at 15:03 Lorazepam (Ativan) 0.5 mg Q6H PRN IV AGITATION/ANXIETY; Start 11/21/16 at 12:00 IV Flush (NS 10 ml) 10 ml PRN PRN IV FLUSH LINE; Start 11/21/16 at 15:30 Docusate Sodium (Colace Liquid Cup) 100 mg BID PO Last administered on 21:20; Admin Dose 100 MG; Start 11/24/16 at 09:00 Aspirin (Aspirin) 325 mg DAILY PO Last administered on 12/01/16 08:37; Admin Dose 325 MG; Start 11/27/16 at 09:00 Pantoprazole 40 mg 40 mg DAILY@06 PO Last administered on 12/01/16 06:04; Admin Dose 40 MG; Start 11/30/16 at 06:00 Vancomycin HCl/ Sodium Chloride (Vancocin/NS) 250 ml @ 83.333 mls/ hr Q36H IVPB Last administered on 11/30/16 15:02; Admin Dose 83.333 MLS/HR; Start 06/06 at 14:00 MICHAEL MORE MD Dec 01, 2016 09:21
--- NOTE | 2016-12-01 14:11 | PN ---
DATE: 12/01/2016 SUBJECTIVE: The patient is alert, looks comfortable, no fevers. Vital signs stable. LABORATORY DATA: WBC 11.1, neutrophils 81, no bands. BUN 8, creatinine 0.58. ANTIMICROBIALS: The patient is on vancomycin. MICROBIOLOGY: Urine culture grew Corynebacterium group JK more than 100,000 colonies. PHYSICAL EXAMINATION: GENERAL: This is fragile, well-developed, elderly woman who is awake, in no distress. HEENT: Head atraumatic, normocephalic. Sclerae anicteric. Buccal mucosa dry. NECK: Supple. CHEST: Rise symmetrical. Breath sounds clear. HEART: S1, S2. ABDOMEN: Soft. Bowel sounds present. ASSESSMENT: 1. Systemic inflammatory response syndrome. 2. Urinary tract infection, remains on vancomycin. 3. Coronary artery disease, history of stent placement. 4. Atrial fibrillation 5. Ischemic cardiomyopathy. PLAN: The patient remains stable. Continue present care, antibiotics. Dictated By: GINA SPENCER CERTIFIED SURGICAL FIRST ASSISTANT for SABRINA NOGUEIRA/VIDA Conf#: [id number] DID#: [id number]
--- NOTE | 2016-12-01 15:34 | PN ---
Date/Time of Note Date/Time of Note DATE: 12/01/16 TIME: 15:33 Assessment/Plan VTE Prophylaxis VTE Prophylaxis Intervention: SCD's Lines/Catheters IV [facility]atheter Type (from [facility]): PICC Line Central line still needed: Yes Urinary Cath still in place: Yes Reason Cath still needed: urinary retention Assessment/Plan Chief Complaint/Hosp Course Patient was able to get out of bed and work with physical therapy, currently is lethargic but easily arousable, complains of generalized weakness, continue PT. okay to transfer to [facility]. ASSESSMENT AND PLAN: - Corynebacterium JK urinary tract infection, continue vancomycin, Dr. Qureshi is following in infection disease consultation. - CVA, Dr Lopez is following in neurology consultation. Continue PT OT. - Right knee osteoarthritis, Dr. Hernandez is following in orthopedic surgery consultation. S/p steroid injection in R knee joint. 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 Dr. Rosen evaluated patient in urology consultation. Patient daughter refused any surgical interventions. - Vaginal bleeding with ultrasound suspicious for endometrial carcinoma. S/p D& C with biopsy by Dr. Bah. 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 Stress test is negative for ischemia with scar. Continue Lasix. - Atrial fibrillation, continue aspirin. Patient is not a candidate for anticoagulation due to bleeding. - History of IN. - Hypertension, patient is currently on Coreg and lisinopril, blood pressure is well controlled. - Hyperlipidemia. Continue statin. - Coronary artery disease with history of stent placement in 2011. Continue aspirin. Case management for DC planning. Patient's condition and plan of care discussed with patient's daughter at the bedside. Continue sequential compression device for deep venous thrombosis prophylaxis and Pepcid for peptic ulcer disease prophylaxis. Further recommendations based on clinical course. Plan of care discussed with Dr. An. Problems: Exam/Review of Systems Vital Signs Vitals Vital Signs Date Time Temp Pulse Resp B/P Pulse Ox O2 Delivery O2 Flow Rate FiO2 12/01/16 12:00 76 12/01/16 11:00 97.6 16 101/58 95 11/27/16 12:41 2.0 11/27/16 11:50 Nasal Cannula Intake and Output 11/30/16 11/30/16 12/01/16 15:00 23:00 07:00 Intake Total 1000 ml 700 ml Output Total 700 ml 550 ml Balance 300 ml 150 ml Exam Constitutional: alert, frail, oriented Head: normocephalic Neck: supple Respiratory: normal air movement Cardiovascular: nl pulses, other (Irregularly irregular rhythm) Gastrointestinal: non-tender, soft Genitourinary - Female: other (Alfaro catheter) Musculoskeletal: other (Mild left-sided weakness) Extremities: normal pulses Results Result Diagram: 12/01/1615 12/01/16 0615 Results 24 hrs Laboratory Tests Test 12/01/16 06:15 White Blood Count 11.1 #H Red Blood Count 3.35 L Hemoglobin 10.7 L Hematocrit 32.7 L Mean Corpuscular Volume 97.6 Mean Corpuscular Hemoglobin 31.9 Mean Corpuscular Hemoglobin Concent 32.7 Red Cell Distribution Width 12.7 Platelet Count 385 Mean Platelet Volume 9.7 Neutrophils % 81.0 H Lymphocytes % 9.1 L Monocytes % 7.9 Eosinophils % 1.3 Basophils % 0.3 Nucleated Red Blood Cells % 0.0 Neutrophils # 9.0 H Lymphocytes # 1.0 Monocytes # 0.9 Eosinophils # 0.1 Basophils # 0.0 Nucleated Red Blood Cells # 0.0 Sodium Level 136 Potassium Level 4.3 Chloride Level 103 Carbon Dioxide Level 26 Anion Gap 11 Blood Urea Nitrogen 8 Creatinine 0.58 Glucose Level 130 Calcium Level 8.8 Medications Medications Current Medications Acetaminophen (Tylenol Tab) 650 mg Q4H PRN PO PAIN AND OR ELEVATED TEMP Last administered on 11/25/16 23:36; Admin Dose 650 MG; Start 11/09/16 at 05:30 Atorvastatin Calcium (Lipitor) 40 mg DAILY PO Last administered on 12/01/16 08 :37; Admin Dose 40 MG; Start 11/10/16 at 09:00 Carvedilol (Coreg) 6.25 mg BID PO Last administered on 12/01/16 08:38; Admin Dose 6.25 MG; Start 11/09/16 at 21:00 Furosemide (Lasix) 20 mg DAILY PO Last administered on 11/28/16 10:06; Admin Dose 20 MG; Start 11/10/16 at 09:00; Status Future Hold Zolpidem Tartrate (Ambien) 5 mg QHS PRN PO INSOMNIA Last administered on 21:51; Admin Dose 5 MG; Start 11/09/16 at 13:30 Acetaminophen/ Hydrocodone Bitart ([place] (5/325)) 1 tab Q4H PRN PO PAIN LEVEL 4 -7 Last administered on 11/30/16 22:14; Admin Dose 1 TAB; Start 11/09/16 at 13: 30 Bisacodyl (Dulcolax Supp) 10 mg DAILY PRN [place] CONSTIPATION Last administered on 11/25/16 10:32; Admin Dose 10 MG; Start 11/09/16 at 20:00 Lisinopril (Zestril) 5 mg DAILY PO Last administered on 12/01/16 08:37; Admin Dose 5 MG; Start 11/12/16 at 09:00 Morphine Sulfate (morphine) 1 mg Q3H PRN IV PAIN Last administered on 15:07; Admin Dose 1 MG; Start 11/18/16 at 15:03 Lorazepam (Ativan) 0.5 mg Q6H PRN IV AGITATION/ANXIETY; Start 11/21/16 at 12:00 IV Flush (NS 10 ml) 10 ml PRN PRN IV FLUSH LINE; Start 11/21/16 at 15:30 Docusate Sodium (Colace Liquid Cup) 100 mg BID PO Last administered on 21:20; Admin Dose 100 MG; Start 11/24/16 at 09:00 Aspirin (Aspirin) 325 mg DAILY PO Last administered on 12/01/16 08:37; Admin Dose 325 MG; Start 11/27/16 at 09:00 Pantoprazole 40 mg 40 mg DAILY@06 PO Last administered on 12/01/16 06:04; Admin Dose 40 MG; Start 11/30/16 at 06:00 Vancomycin HCl/ Sodium Chloride (Vancocin/NS) 250 ml @ 83.333 mls/ hr Q36H IVPB Last administered on 11/30/16 15:02; Admin Dose 83.333 MLS/HR; Start 06/06 at 14:00 NILES LOPEZ Dec 01, 2016 15:34
[2016-12-01] MEDS ORDERED: LORAZEPAM 0.5 MG TAB PO PRN (17:00)
--- NOTE | 2016-12-01 21:05 | CONS ---
Date/Time of Note Date/Time of Note DATE: 12/01/16 TIME: 21:04 Assessment/Plan Assessment/Plan Additional Assessment/Plan 1. Hyponatremia, multifactorial secondary to hypovolemic hyponatremia and possible component of diastolic heart failure. 2. UTI 4. 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 5. History of coronary artery disease, status post previous stent placement in 2011. 6. History of atrial fibrillation. 7. History of vaginal bleeding, now status post dilatation and curettage with biopsy. 8. Coagulopathy, improved. 9. History of hypertension. PLAN: Cr normal< Electrolytes stable IV abx as per ID S/p IVF, on PO lasix will follow up BP stable Consultation Date/Type/Reason Admit Date/Time November 11, 2016 at 10:47 Type of Consultation: NEPHROLOGY Referring Provider: DEIRDRE MORSE 24 HR Interval Summary Free Text/Dictation no events, downgraded to medsurge floor Exam/Review of Systems Vital Signs Vitals Vital Signs Date Time Temp Pulse Resp B/P Pulse Ox O2 Delivery O2 Flow Rate FiO2 12/01/16 20:12 97.3 81 20 126/80 99 11/27/16 12:41 2.0 11/27/16 11:50 Nasal Cannula Intake and Output 11/30/16 11/30/16 12/01/16 15:00 23:00 07:00 Intake Total 1000 ml 700 ml Output Total 700 ml 550 ml Balance 300 ml 150 ml Results Result Diagram: 12/01/16 0615 12/01/16 0615 Results 24 hrs Laboratory Tests Test 12/01/16 06:15 White Blood Count 11.1 #H Red Blood Count 3.35 L Hemoglobin 10.7 L Hematocrit 32.7 L Mean Corpuscular Volume 97.6 Mean Corpuscular Hemoglobin 31.9 Mean Corpuscular Hemoglobin Concent 32.7 Red Cell Distribution Width 12.7 Platelet Count 385 Mean Platelet Volume 9.7 Neutrophils % 81.0 H Lymphocytes % 9.1 L Monocytes % 7.9 Eosinophils % 1.3 Basophils % 0.3 Nucleated Red Blood Cells % 0.0 Neutrophils # 9.0 H Lymphocytes # 1.0 Monocytes # 0.9 Eosinophils # 0.1 Basophils # 0.0 Nucleated Red Blood Cells # 0.0 Sodium Level 136 Potassium Level 4.3 Chloride Level 103 Carbon Dioxide Level 26 Anion Gap 11 Blood Urea Nitrogen 8 Creatinine 0.58 Glucose Level 130 Calcium Level 8.8 Medications Medications Current Medications Acetaminophen (Tylenol Tab) 650 mg Q4H PRN PO PAIN AND OR ELEVATED TEMP Last administered on 11/25/16 23:36; Admin Dose 650 MG; Start 11/09/16 at 05:30 Atorvastatin Calcium (Lipitor) 40 mg DAILY PO Last administered on 12/01/16 08 :37; Admin Dose 40 MG; Start 11/10/16 at 09:00 Carvedilol (Coreg) 6.25 mg BID PO Last administered on 12/01/16 08:38; Admin Dose 6.25 MG; Start 11/09/16 at 21:00 Furosemide (Lasix) 20 mg DAILY PO Last administered on 11/28/16 10:06; Admin Dose 20 MG; Start 11/10/16 at 09:00; Status Future Hold Zolpidem Tartrate (Ambien) 5 mg QHS PRN PO INSOMNIA Last administered on 21:51; Admin Dose 5 MG; Start 11/09/16 at 13:30 Acetaminophen/ Hydrocodone Bitart ([place] (5/325)) 1 tab Q4H PRN PO PAIN LEVEL 4 -7 Last administered on 11/30/16 22:14; Admin Dose 1 TAB; Start 11/09/16 at 13: 30 Bisacodyl (Dulcolax Supp) [address] CONSTIPATION Last administered on 11/25/16 10:32; Admin Dose 10 MG; Start 11/09/16 at 20:00 Lisinopril (Zestril) 5 mg DAILY PO Last administered on 12/01/16 08:37; Admin Dose 5 MG; Start 11/12/16 at 09:00 Morphine Sulfate (morphine) 1 mg Q3H PRN IV PAIN Last administered on 15:07; Admin Dose 1 MG; Start 11/18/16 at 15:03 IV Flush (NS 10 ml) 10 ml PRN PRN IV FLUSH LINE; Start 11/21/16 at 15:30 Docusate Sodium (Colace Liquid Cup) 100 mg BID PO Last administered on 21:20; Admin Dose 100 MG; Start 11/24/16 at 09:00 Aspirin (Aspirin) 325 mg DAILY PO Last administered on 12/01/16 08:37; Admin Dose 325 MG; Start 11/27/16 at 09:00 Pantoprazole 40 mg 40 mg DAILY@06 PO Last administered on 12/01/16 06:04; Admin Dose 40 MG; Start 11/30/16 at 06:00 Vancomycin HCl/ Sodium Chloride (Vancocin/NS) 250 ml @ 83.333 mls/ hr Q36H IVPB Last administered on 11/30/16 15:02; Admin Dose 83.333 MLS/HR; Start 06/06 at 14:00 Lorazepam (Ativan) 0.5 mg Q6H PRN PO AGITATION/ANXIETY; Start 12/01/16 at 17:00 DEMETRIO OLSEN MD Dec 01, 2016 21:05
[2016-12-02] MEDS: VANCOMYCIN 1.5 GM in SOD CHLORIDE 0.9% 250 ML IVPB SCH (02:10)
[2016-12-02] MEDS: PANTOPRAZOLE (EC) 40 MG TAB PO SCH (05:21)
[2016-12-02] MEDS: ACETAMINOPHEN 325 MG TAB PO PRN (05:21)
[2016-12-02 05:53] LABS: ADD SCAN DIFF NO
[2016-12-02 06:00] LABS: BASOPHILS % 0.5 % (0.0-2.0); EOSINOPHILS # 0.2 10^3/ul (0.0-0.5); EOSINOPHILS % 3.7 % (0.0-7.0); HEMATOCRIT 31.8 % (37.0-47.0); HEMOGLOBIN 10.4 g/dl (12.0-16.0); LYMPHOCYTES # 1.1 10^3/ul (0.8-2.9); LYMPHOCYTES % 18.1 % (15.0-51.0); MEAN CORPUSCULAR HEMOGLOBIN 31.6 pg (29.0-33.0); MEAN CORPUSCULAR HGB CONC 32.7 g/dl (32.0-37.0); MEAN CORPUSCULAR VOLUME 96.7 fl (82.0-101.0); MEAN PLATELET VOLUME 9.5 fl (7.4-10.4); MONOCYTE # 0.8 10^3/ul (0.3-0.9); MONOCYTES % 12.4 % (0.0-11.0); NEUTROPHIL # 4.1 10^3/ul (1.6-7.5); PLATELET COUNT 408 10^3/UL (140-415); RED BLOOD COUNT 3.29 10^6/ul (4.20-5.40); RED CELL DISTRIBUTION WIDTH 12.7 % (11.5-14.5); WHITE BLOOD COUNT 6.3 10^3/ul (4.8-10.8)
[2016-12-02 06:35] LABS: CALCIUM 8.8 mg/dl (8.4-10.2); CREATININE 0.59 mg/dl (0.44-1.00)
[2016-12-02 07:41] VITALS: BP 135/81; RESP 20
[2016-12-02] MEDS: HYDROCODONE/APAP (5/325) TAB PO PRN ×2 (08:31→21:51)
[2016-12-02] MEDS: ASPIRIN 325 MG TAB PO SCH (08:31)
[2016-12-02] MEDS: LISINOPRIL 5 MG TAB PO SCH (08:31)
[2016-12-02] MEDS: ATORVASTATIN 40 MG TAB PO SCH (08:31)
[2016-12-02] MEDS: DOCUSATE SODIUM 10 MG/ML (10ML CUP) PO SCH ×2 (08:32→21:50)
--- NOTE | 2016-12-02 13:15 | CONS ---
Date/Time of Note Date/Time of Note DATE: 12/02/16 TIME: 13:13 Assessment/Plan Assessment/Plan Chief Complaint/Hosp Course IMPRESSION: 1. Cardiomyopathy with decreased left ventricular ejection fraction last seen approximately 30% by echo at outside hospital 08/2016. EF 35% by echo this admit with lexiscan negative for ischemia with scar and EF 40%. 2. Hypotension-improved s/p IVF Bolus and tolerating medications now 3. History of myocardial infarction. 4. History of percutaneous transluminal coronary angioplasty and stent placement last 2011. 5. Coagulopathy-improved 6. Anemia. 7. Vaginal bleed now post-op s/p D+C with Bx 8. Possible endometrial mass, abnormal thickening. 9. R knee pain and swelling acute s/p steroid injection with improvement in sx 10.Hyponatremia-ongoing and mildly labile 11.Probable CVA by CT. Family refusing MRI Rec: -Continue BB/ACEI as tolerated -ASA had been held given vaginal bleeding but now resumed as tolerated to prevent in possible further thromboembolic complications give likely CVA by head CT -Follow hgb closely back on asa -Neuro following -? PT -REsume low dose lasix at d/c to rehab Problems: Consultation Date/Type/Reason Admit Date/Time November 11, 2016 at 10:47 Initial Consult Date 11/09/2016 Type of Consultation: cardiology Reason for Consultation CHF Referring Provider: DEIRDRE MORSE Exam/Review of Systems Vital Signs Vitals Vital Signs Date Time Temp Pulse Resp B/P Pulse Ox O2 Delivery O2 Flow Rate FiO2 12/02/16 07:41 98.0 82 20 135/81 97 Intake and Output 12/01/16 12/01/16 12/02/16 15:00 23:00 07:00 Intake Total 750 ml 140 ml Output Total 400 ml Balance 350 ml 140 ml Exam Review of Systems: CONSTITUTIONAL: No fevers, chills. PULMONARY: No sob CARDIOVASCULAR: No chest pain/palpitations GASTROINTESTINAL: No nausea/vomiting. GENITOURINARY: No hematuria/dysuria. MUSCULOSKELETAL: No myagias/arthalgias. PSYCHIATRIC: The patient denies depression. NEUROLOGIC: lethargic Constitutional: alert Psych: no complaints Head: normocephalic ENMT: mucosa pink and moist Neck: jvd (9 cm water), supple Respiratory: diminished breath sounds (at bases/B) Cardiovascular: regular rate and rhythm Gastrointestinal: non-tender, soft Musculoskeletal: muscle tone (normal) Extremities: edema (none) Neurological: other (No focal deficits) Results Result Diagram: 12/02/16 0504 12/02/16 0504 Results 24 hrs Laboratory Tests Test 12/02/16 05:04 White Blood Count 6.3 # Red Blood Count 3.29 L Hemoglobin 10.4 L Hematocrit 31.8 L Mean Corpuscular Volume 96.7 Mean Corpuscular Hemoglobin 31.6 Mean Corpuscular Hemoglobin Concent 32.7 Red Cell Distribution Width 12.7 Platelet Count 408 Mean Platelet Volume 9.5 Neutrophils % 65.0 Lymphocytes % 18.1 Monocytes % 12.4 H Eosinophils % 3.7 Basophils % 0.5 Nucleated Red Blood Cells % 0.0 Neutrophils # 4.1 Lymphocytes # 1.1 Monocytes # 0.8 Eosinophils # 0.2 Basophils # 0.0 Nucleated Red Blood Cells # 0.0 Sodium Level 138 Potassium Level 4.0 Chloride Level 104 Carbon Dioxide Level 27 Anion Gap 11 Blood Urea Nitrogen 10 Creatinine 0.59 Glucose Level 129 Calcium Level 8.8 Medications Medications Current Medications Acetaminophen (Tylenol Tab) 650 mg Q4H PRN PO PAIN AND OR ELEVATED TEMP Last administered on 12/02/16 05:21; Admin Dose 650 MG; Start 11/09/16 at 05:30 Atorvastatin Calcium (Lipitor) 40 mg DAILY PO Last administered on 12/02/16 08 :31; Admin Dose 40 MG; Start 11/10/16 at 09:00 Carvedilol (Coreg) 6.25 mg BID PO Last administered on 12/02/16 08:31; Admin Dose 6.25 MG; Start 11/09/16 at 21:00 Furosemide (Lasix) 20 mg DAILY PO Last administered on 11/28/16 10:06; Admin Dose 20 MG; Start 11/10/16 at 09:00; Status Future Hold Zolpidem Tartrate (Ambien) 5 mg QHS PRN PO INSOMNIA Last administered on 21:51; Admin Dose 5 MG; Start 11/09/16 at 13:30 Acetaminophen/ Hydrocodone Bitart ([place] (5/325)) 1 tab Q4H PRN PO PAIN LEVEL 4 -7 Last administered on 12/02/16 08:31; Admin Dose 1 TAB; Start 11/09/16 at 13: 30 Bisacodyl (Dulcolax Supp) 10 mg DAILY PRN [place] CONSTIPATION Last administered on 11/25/16 10:32; Admin Dose 10 MG; Start 11/09/16 at 20:00 Lisinopril (Zestril) 5 mg DAILY PO Last administered on 12/02/16 08:31; Admin Dose 5 MG; Start 11/12/16 at 09:00 Morphine Sulfate (morphine) 1 mg Q3H PRN IV PAIN Last administered on 15:07; Admin Dose 1 MG; Start 11/18/16 at 15:03 IV Flush (NS 10 ml) 10 ml PRN PRN IV FLUSH LINE; Start 11/21/16 at 15:30 Docusate Sodium (Colace Liquid Cup) 100 mg BID PO Last administered on 08:32; Admin Dose 100 MG; Start 11/24/16 at 09:00 Aspirin (Aspirin) 325 mg DAILY PO Last administered on 12/02/16 08:31; Admin Dose 325 MG; Start 11/27/16 at 09:00 Pantoprazole 40 mg 40 mg DAILY@06 PO Last administered on 12/02/16 05:21; Admin Dose 40 MG; Start 11/30/16 at 06:00 Vancomycin HCl/ Sodium Chloride (Vancocin/NS) 250 ml @ 83.333 mls/ hr Q36H IVPB Last administered on 12/02/16 02:10; Admin Dose 83.333 MLS/HR; Start 06/06 at 14:00 Lorazepam (Ativan) 0.5 mg Q6H PRN PO AGITATION/ANXIETY; Start 12/01/16 at 17:00 Miscellaneous Information (*Rx Drug Level Order Reminder*) VANCO TROUGH ON 11/19... ONCE ONCE XX ; Start 12/03/16 at 14:00; Stop 12/03/16 at 14:01 DEBBIE QUINTANA Dec 02, 2016 13:15
[2016-12-02] MEDS ORDERED: SOD CHLORIDE 0.9% 500 ML IV STA (14:11)
[2016-12-02 14:30] VITALS: BP 79/56; PULSE 44
--- NOTE | 2016-12-02 14:30 | DS ---
DATE OF ADMISSION: 11/11/2016 DATE OF DISCHARGE: 12/02/2016 FINAL DIAGNOSES: 1. Corynebacterium ____ JK urinary tract infection. 2. Cardioembolic cerebrovascular accident. 3. Right knee osteoarthritis, status post steroid injection to the right knee. 4. Urethral meatal mass. 5. Status post vaginal bleeding. 6. Systolic and diastolic dysfunction congestive heart failure with ejection fraction of 35%. 7. Atrial fibrillation. 8. History of myocardial infarction. 9. Hypertension. 10. Hyperlipidemia. 11. Coronary artery disease with history of stent placement in 2011. BRIEF HISTORY: The patient is an 86-year-old female with atrial fibrillation, coronary artery disea se and congestive heart failure. Patient was presented to a shelter facility to emergency r oom for vaginal bleeding. HOSPITAL COURSE: The patient underwent pelvic ultrasound with notion of thickened endometrium. HOSPITAL COURSE: The patient was evaluated by Dr. Bah in gynecologic surgery consultation. Th e patient underwent incision and drainage with endometrial biopsy was taken and which did not show a ny dysplasia or malignancy. However, patient during this surgery the patient had notion of urethral meatal mass and the patient was evaluated by Dr. Rosen in urology consultation with recommendatio ns for cystoscopy. Due to patient's probable urethral caruncle and urethral meatal collapse causing some bleeding; however, the patient's daughter who is the decision maker refused any surgery. Patien t's hemoglobin and hematocrit was closely monitored and was stable with no indication for transfusio n. The patient also had a flareup of right knee osteoarthritis with increased right knee swelling. Patient was evaluated by Dr. Hernandez in orthopedic surgery consultation, and the patient received stero id injection of the right knee. The patient had a change in altered mental status and was evaluated in neurology, underwent a CT scan of the head with notion of cardioembolic ____ . The patient was e valuated by ____ and Dr. Landry in neurology consultation with recommendation for MRI; however, the patient's daughter refused MRI due to patient's worried about that causing anxiety and agitation in patient. Patient was started on PT and OT and the patient noted to have hypotension; however, smith d no fever. Blood cultures were collected and urine culture came back positive with Corynebacterium jeikeium JK, patient was started on vancomycin and was evaluated by Dr. Qureshi in infectious diseas e consultation. The patient's condition overall improved. Patient was able to get out of back and work with PT and OT. The patient had some residual left-sided mild weakness, however, was able to r eturn to functional status. The patient's condition improved and the patient will be discharged to shelter facility. CONDITION ON DISCHARGE: Hemodynamically stable. ACTIVITY: As patient tolerates. DIET: A 2 g sodium, low fat, low cholesterol diet. DISCHARGE MEDICATIONS: 1. Tylenol p.r.n. 2. Aspirin 325 p.o. daily. 3. Lipitor. 4. Dulcolax. 5. Coreg 6.25. 6. Colace. 7. Lasix 20 mg p.o. daily. 8. [place] p.r.n. for pain. 9. Lisinopril. 10. Vancomycin, pharmacy to dose for 3 more days until 12/06/2016 to complete the treatment for uri nary tract infection. 11. Protonix 40 mg daily. 12. Ambien p.r.n. for insomnia at bedtime. The patient is recommended to discontinue PICC line upon completion of antibiotics. The patient als o had a monitor renal function, BMP in 2 days. ____ plan of care was established for this patient. Plan of care was discussed with Dr. Shah. Dictated By: NILES LOPEZ REFUSE DRIVER for EMILY SHAH MD SR/NTS Conf#: [id number] DID#: [id number]
[2016-12-02 14:45] VITALS: BP 100/59; PULSE 85
--- NOTE | 2016-12-02 14:46 | CONS ---
Date/Time of Note Date/Time of Note DATE: 12/02/16 TIME: 14:44 Assessment/Plan Assessment/Plan Chief Complaint/Hosp Course SUBJECTIVE: The patient is alert, sitting up in a chair, Alfaro dc'd, no fevers. Vital signs stable. ANTIMICROBIALS: The patient is on vancomycin. MICROBIOLOGY: Urine culture grew Corynebacterium group JK more than 100,000 colonies. PHYSICAL EXAMINATION: GENERAL: This is fragile, well-developed, elderly woman who is awake, in no distress. HEENT: Head atraumatic, normocephalic. Sclerae anicteric. Buccal mucosa dry. NECK: Supple. CHEST: Rise symmetrical. Breath sounds clear. HEART: S1, S2. ABDOMEN: Soft. Bowel sounds present. ASSESSMENT: 1. Systemic inflammatory response syndrome. 2. Urinary tract infection, remains on vancomycin. 3. Coronary artery disease, history of stent placement. 4. Atrial fibrillation 5. Ischemic cardiomyopathy. PLAN: The patient remains stable. Continue present care, monitor PVR and straight cath prn, antibiotics. DW daughter at bedside Problems: Consultation Date/Type/Reason Admit Date/Time November 11, 2016 at 10:47 Initial Consult Date 11/21/16 Type of Consultation: id Referring Provider: DEIRDRE MORSE Exam/Review of Systems Vital Signs Vitals Vital Signs Date Time Temp Pulse Resp B/P Pulse Ox O2 Delivery O2 Flow Rate FiO2 12/02/16 07:41 98.0 82 20 135/81 97 Intake and Output 12/01/16 12/01/16 12/02/16 15:00 23:00 07:00 Intake Total 750 ml 140 ml Output Total 400 ml Balance 350 ml 140 ml Results Result Diagram: 12/02/16 0504 12/02/16 0504 Results 24 hrs Laboratory Tests Test 12/02/16 05:04 12/02/16 13:56 White Blood Count 6.3 # Red Blood Count 3.29 L Hemoglobin 10.4 L Hematocrit 31.8 L Mean Corpuscular Volume 96.7 Mean Corpuscular Hemoglobin 31.6 Mean Corpuscular Hemoglobin Concent 32.7 Red Cell Distribution Width 12.7 Platelet Count 408 Mean Platelet Volume 9.5 Neutrophils % 65.0 Lymphocytes % 18.1 Monocytes % 12.4 H Eosinophils % 3.7 Basophils % 0.5 Nucleated Red Blood Cells % 0.0 Neutrophils # 4.1 Lymphocytes # 1.1 Monocytes # 0.8 Eosinophils # 0.2 Basophils # 0.0 Nucleated Red Blood Cells # 0.0 Sodium Level 138 Potassium Level 4.0 Chloride Level 104 Carbon Dioxide Level 27 Anion Gap 11 Blood Urea Nitrogen 10 Creatinine 0.59 Glucose Level 129 Calcium Level 8.8 Bedside Glucose 169 Medications Medications Current Medications Acetaminophen (Tylenol Tab) 650 mg Q4H PRN PO PAIN AND OR ELEVATED TEMP Last administered on 12/02/16 05:21; Admin Dose 650 MG; Start 11/09/16 at 05:30 Atorvastatin Calcium (Lipitor) 40 mg DAILY PO Last administered on 12/02/16 08 :31; Admin Dose 40 MG; Start 11/10/16 at 09:00 Furosemide (Lasix) 20 mg DAILY PO Last administered on 11/28/16 10:06; Admin Dose 20 MG; Start 11/10/16 at 09:00; Status Future hold Zolpidem Tartrate (Ambien) 5 mg QHS PRN PO INSOMNIA Last administered on 21:51; Admin Dose 5 MG; Start 11/09/16 at 13:30 Acetaminophen/ Hydrocodone Bitart ([place] (5/325)) 1 tab Q4H PRN PO PAIN LEVEL 4 -7 Last administered on 12/02/16 08:31; Admin Dose 1 TAB; Start 11/09/16 at 13: 30 Bisacodyl (Dulcolax Supp) 10 mg DAILY PRN [place] CONSTIPATION Last administered on 11/25/16 10:32; Admin Dose 10 MG; Start 11/09/16 at 20:00 Morphine Sulfate (morphine) 1 mg Q3H PRN IV PAIN Last administered on 15:07; Admin Dose 1 MG; Start 11/18/16 at 15:03 IV Flush (NS 10 ml) 10 ml PRN PRN IV FLUSH LINE; Start 11/21/16 at 15:30 Docusate Sodium (Colace Liquid Cup) 100 mg BID PO Last administered on 08:32; Admin Dose 100 MG; Start 11/24/16 at 09:00 Aspirin (Aspirin) 325 mg DAILY PO Last administered on 12/02/16 08:31; Admin Dose 325 MG; Start 11/27/16 at 09:00 Pantoprazole 40 mg 40 mg DAILY@06 PO Last administered on 12/02/16 05:21; Admin Dose 40 MG; Start 11/30/16 at 06:00 Vancomycin HCl/ Sodium Chloride (Vancocin/NS) 250 ml @ 83.333 mls/ hr Q36H IVPB Last administered on 12/02/16 02:10; Admin Dose 83.333 MLS/HR; Start 06/06 at 14:00 Lorazepam (Ativan) 0.5 mg Q6H PRN PO AGITATION/ANXIETY; Start 12/01/16 at 17:00 Miscellaneous Information (*Rx Drug Level Order Reminder*) VANCO TROUGH ON 11/19... ONCE ONCE XX ; Start 12/03/16 at 14:00; Stop 12/03/16 at 14:01 Carvedilol (Coreg) 3.125 mg BID PO ; Start 12/02/16 at 21:00 Lisinopril (Zestril) 2.5 mg DAILY PO ; Start 12/03/16 at 09:00 GINA SPENCER NP Dec 02, 2016 14:46
--- NOTE | 2016-12-02 15:47 | PN ---
Date/Time of Note Date/Time of Note DATE: 12/02/16 TIME: 15:45 Assessment/Plan VTE Prophylaxis VTE Prophylaxis Intervention: SCD's Lines/Catheters IV [facility] PICC Line Central line still needed: Yes Urinary Cath still in place: No Assessment/Plan Chief Complaint/Hosp Course Patient is hypotensive, awake alert, discharge to snf facility is held, IV fluid bolus is ordered, down titrated patient Coreg and lisinopril. ASSESSMENT AND PLAN: - Corynebacterium JK urinary tract infection, continue vancomycin, Dr. Qureshi is following in infection disease consultation. - CVA, Dr Lopez is following in neurology consultation. Continue PT OT. - Right knee osteoarthritis, Dr. Hernandez is following in orthopedic surgery consultation. S/p steroid injection in R knee joint. 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 Dr. Rosen evaluated patient in urology consultation. Patient daughter refused any surgical interventions. - Vaginal bleeding with ultrasound suspicious for endometrial carcinoma. S/p D& C with biopsy by Dr. Bah. 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 Stress test is negative for ischemia with scar. Continue Lasix. - Atrial fibrillation, continue aspirin. Patient is not a candidate for anticoagulation due to bleeding. - History of CT. - Hypertension, patient is currently hypotensive. - Hyperlipidemia. Continue statin. - Coronary artery disease with history of stent placement in 2011. Continue aspirin. Continue sequential compression device for deep venous thrombosis prophylaxis and Pepcid for peptic ulcer disease prophylaxis. Further recommendations based on clinical course. Plan of care discussed with Dr. An. Problems: Exam/Review of Systems Vital Signs Vitals Vital Signs Date Time Temp Pulse Resp B/P Pulse Ox O2 Delivery O2 Flow Rate FiO2 12/02/16 07:41 98.0 82 20 135/81 97 Intake and Output 12/01/16 12/01/16 12/02/16 15:00 23:00 07:00 Intake Total 750 ml 140 ml Output Total 400 ml Balance 350 ml 140 ml Exam Constitutional: alert, frail, oriented Head: normocephalic Neck: supple Respiratory: normal air movement Cardiovascular: nl pulses, other (Irregularly irregular rhythm) Gastrointestinal: non-tender, soft Genitourinary - Female: other (Alfaro catheter) Musculoskeletal: other (Mild left-sided weakness) Extremities: normal pulses Results Result Diagram: 12/02/16 0504 12/02/16 0504 Results 24 hrs Laboratory Tests Test 12/02/16 05:04 12/02/16 13:56 White Blood Count 6.3 # Red Blood Count 3.29 L Hemoglobin 10.4 L Hematocrit 31.8 L Mean Corpuscular Volume 96.7 Mean Corpuscular Hemoglobin 31.6 Mean Corpuscular Hemoglobin Concent 32.7 Red Cell Distribution Width 12.7 Platelet Count 408 Mean Platelet Volume 9.5 Neutrophils % 65.0 Lymphocytes % 18.1 Monocytes % 12.4 H Eosinophils % 3.7 Basophils % 0.5 Nucleated Red Blood Cells % 0.0 Neutrophils # 4.1 Lymphocytes # 1.1 Monocytes # 0.8 Eosinophils # 0.2 Basophils # 0.0 Nucleated Red Blood Cells # 0.0 Sodium Level 138 Potassium Level 4.0 Chloride Level 104 Carbon Dioxide Level 27 Anion Gap 11 Blood Urea Nitrogen 10 Creatinine 0.59 Glucose Level 129 Calcium Level 8.8 Bedside Glucose 169 Medications Medications Current Medications Acetaminophen (Tylenol Tab) 650 mg Q4H PRN PO PAIN AND OR ELEVATED TEMP Last administered on 12/02/16 05:21; Admin Dose 650 MG; Start 11/09/16 at 05:30 Atorvastatin Calcium (Lipitor) 40 mg DAILY PO Last administered on 12/02/16 08 :31; Admin Dose 40 MG; Start 11/10/16 at 09:00 Furosemide (Lasix) 20 mg DAILY PO Last administered on 11/28/16 10:06; Admin Dose 20 MG; Start 11/10/16 at 09:00; Status Future hold Zolpidem Tartrate (Ambien) 5 mg QHS PRN PO INSOMNIA Last administered on 21:51; Admin Dose 5 MG; Start 11/09/16 at 13:30 Acetaminophen/ Hydrocodone Bitart ([place] (5/325)) 1 tab Q4H PRN PO PAIN LEVEL 4 -7 Last administered on 12/02/16 08:31; Admin Dose 1 TAB; Start 11/09/16 at 13: 30 Bisacodyl (Dulcolax Supp) 10 mg DAILY PRN [place] CONSTIPATION Last administered on 11/25/16 10:32; Admin Dose 10 MG; Start 11/09/16 at 20:00 Morphine Sulfate (morphine) 1 mg Q3H PRN IV PAIN Last administered on 15:07; Admin Dose 1 MG; Start 11/18/16 at 15:03 IV Flush (NS 10 ml) 10 ml PRN PRN IV FLUSH LINE; Start 11/21/16 at 15:30 Docusate Sodium (Colace Liquid Cup) 100 mg BID PO Last administered on 08:32; Admin Dose 100 MG; Start 11/24/16 at 09:00 Aspirin (Aspirin) 325 mg DAILY PO Last administered on 12/02/16 08:31; Admin Dose 325 MG; Start 11/27/16 at 09:00 Pantoprazole 40 mg 40 mg DAILY@06 PO Last administered on 12/02/16 05:21; Admin Dose 40 MG; Start 11/30/16 at 06:00 Vancomycin HCl/ Sodium Chloride (Vancocin/NS) 250 ml @ 83.333 mls/ hr Q36H IVPB Last administered on 12/02/16 02:10; Admin Dose 83.333 MLS/HR; Start 06/06 at 14:00 Lorazepam (Ativan) 0.5 mg Q6H PRN PO AGITATION/ANXIETY; Start 12/01/16 at 17:00 Miscellaneous Information (*Rx Drug Level Order Reminder*) VANCO TROUGH ON 11/19... ONCE ONCE XX ; Start 12/03/16 at 14:00; Stop 12/03/16 at 14:01 Carvedilol (Coreg) 3.125 mg BID PO ; Start 12/02/16 at 21:00 Lisinopril (Zestril) 2.5 mg DAILY PO ; Start 12/03/16 at 09:00 NILES LOPEZ Dec 02, 2016 15:47
--- NOTE | 2016-12-02 17:55 | CONS ---
Date/Time of Note Date/Time of Note DATE: 12/02/16 TIME: 17:54 Assessment/Plan Assessment/Plan Additional Assessment/Plan 1. Hyponatremia, multifactorial secondary to hypovolemic hyponatremia and possible component of diastolic heart failure. 2. UTI 4. 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 5. History of coronary artery disease, status post previous stent placement in 2011. 6. History of atrial fibrillation. 7. History of vaginal bleeding, now status post dilatation and curettage with biopsy. 8. Coagulopathy, improved. 9. History of hypertension. PLAN: Cr normal< Electrolytes stable IV abx as per ID S/p IVF, on PO lasix will follow up BP stable Consultation Date/Type/Reason Admit Date/Time November 11, 2016 at 10:47 Type of Consultation: NEPHROLOGY Referring Provider: DEIRDRE MORSE Exam/Review of Systems Vital Signs Vitals Vital Signs Date Time Temp Pulse Resp B/P Pulse Ox O2 Delivery O2 Flow Rate FiO2 12/02/16 07:41 98.0 82 20 135/81 97 Intake and Output 12/01/16 12/01/16 12/02/16 15:00 23:00 07:00 Intake Total 750 ml 140 ml Output Total 400 ml Balance 350 ml 140 ml Exam GENERAL: no acute distress HEENT: Head atraumatic, normocephalic. Sclerae anicteric. Buccal mucosa dry. NECK: Supple. CHEST: Rise symmetrical. Breath sounds clear. HEART: S1, S2. ABDOMEN: Soft. Bowel sounds present Results Result Diagram: 12/02/16 0504 12/02/16 0504 Results 24 hrs Laboratory Tests Test 12/02/16 05:04 12/02/16 13:56 White Blood Count 6.3 # Red Blood Count 3.29 L Hemoglobin 10.4 L Hematocrit 31.8 L Mean Corpuscular Volume 96.7 Mean Corpuscular Hemoglobin 31.6 Mean Corpuscular Hemoglobin Concent 32.7 Red Cell Distribution Width 12.7 Platelet Count 408 Mean Platelet Volume 9.5 Neutrophils % 65.0 Lymphocytes % 18.1 Monocytes % 12.4 H Eosinophils % 3.7 Basophils % 0.5 Nucleated Red Blood Cells % 0.0 Neutrophils # 4.1 Lymphocytes # 1.1 Monocytes # 0.8 Eosinophils # 0.2 Basophils # 0.0 Nucleated Red Blood Cells # 0.0 Sodium Level 138 Potassium Level 4.0 Chloride Level 104 Carbon Dioxide Level 27 Anion Gap 11 Blood Urea Nitrogen 10 Creatinine 0.59 Glucose Level 129 Calcium Level 8.8 Bedside Glucose 169 Medications Medications Current Medications Acetaminophen (Tylenol Tab) 650 mg Q4H PRN PO PAIN AND OR ELEVATED TEMP Last administered on 12/02/16 05:21; Admin Dose 650 MG; Start 11/09/16 at 05:30 Atorvastatin Calcium (Lipitor) 40 mg DAILY PO Last administered on 12/02/16 08 :31; Admin Dose 40 MG; Start 11/10/16 at 09:00 Furosemide (Lasix) 20 mg DAILY PO Last administered on 11/28/16 10:06; Admin Dose 20 MG; Start 11/10/16 at 09:00; Status Future hold Zolpidem Tartrate (Ambien) 5 mg QHS PRN PO INSOMNIA Last administered on 21:51; Admin Dose 5 MG; Start 11/09/16 at 13:30 Acetaminophen/ Hydrocodone Bitart ([place] (5/325)) 1 tab Q4H PRN PO PAIN LEVEL 4 -7 Last administered on 12/02/16 08:31; Admin Dose 1 TAB; Start 11/09/16 at 13: 30 Bisacodyl (Dulcolax Supp) 10 mg DAILY PRN [place] CONSTIPATION Last administered on 11/25/16 10:32; Admin Dose 10 MG; Start 11/09/16 at 20:00 Morphine Sulfate (morphine) 1 mg Q3H PRN IV PAIN Last administered on 15:07; Admin Dose 1 MG; Start 11/18/16 at 15:03 IV Flush (NS 10 ml) 10 ml PRN PRN IV FLUSH LINE; Start 11/21/16 at 15:30 Docusate Sodium (Colace Liquid Cup) 100 mg BID PO Last administered on 08:32; Admin Dose 100 MG; Start 11/24/16 at 09:00 Aspirin (Aspirin) 325 mg DAILY PO Last administered on 12/02/16 08:31; Admin Dose 325 MG; Start 11/27/16 at 09:00 Pantoprazole 40 mg 40 mg DAILY@06 PO Last administered on 12/02/16 05:21; Admin Dose 40 MG; Start 11/30/16 at 06:00 Vancomycin HCl/ Sodium Chloride (Vancocin/NS) 250 ml @ 83.333 mls/ hr Q36H IVPB Last administered on 12/02/16t 02:10; Admin Dose 83.333 MLS/HR; Start 06/06 at 14:00 Lorazepam (Ativan) 0.5 mg Q6H PRN PO AGITATION/ANXIETY; Start 12/01/16 at 17:00 Miscellaneous Information (*Rx Drug Level Order Reminder*) VANCO TROUGH ON 11/19... ONCE ONCE XX ; Start 12/03/16 at 14:00; Stop 12/03/16 at 14:01 Carvedilol (Coreg) 3.125 mg BID PO ; Start 12/02/16 at 21:00 Lisinopril (Zestril) 2.5 mg DAILY PO ; Start 12/03/16 at 09:00 DEMETRIO OLSEN MD Dec 02, 2016 17:54
[2016-12-02 19:46] VITALS: BP 138/64; RESP 18
[2016-12-02 21:49] VITALS: BP 140/85; PULSE 97
[2016-12-03] MEDS: PANTOPRAZOLE (EC) 40 MG TAB PO SCH (05:43)
[2016-12-03] MEDS: ASPIRIN 325 MG TAB PO SCH (08:52)
[2016-12-03] MEDS: ATORVASTATIN 40 MG TAB PO SCH (08:52)
[2016-12-03] MEDS: DOCUSATE SODIUM 10 MG/ML (10ML CUP) PO SCH (08:53)
[2016-12-03] MEDS: FUROSEMIDE 20 MG TAB PO SCH (08:55)
[2016-12-03] MEDS ORDERED: LISINOPRIL 5 MG TAB PO SCH (09:00)
[2016-12-03 10:02] VITALS: BP 110/63; RESP 18
--- NOTE | 2016-12-03 10:42 | PN ---
Date/Time of Note Date/Time of Note DATE: 12/03/16 TIME: 10:36 Assessment/Plan VTE Prophylaxis VTE Prophylaxis Intervention: other Lines/Catheters IV Catheter Type (from Nrsg): PICC Line Central line still needed: Yes Urinary Cath still in place: No Reason Cath still needed: urinary retention Subjective 24 Hr Interval Summary Free Text/Dictation Alert, awake, talking, daughter at bed side- all Qs answered. BP stable -110/ 63. SNF transfer around 1530 if BP stable. Constitutional: improved Respiratory: no complaints Cardiovascular: no complaints Gastrointestinal: no complaints Genitourinary: no complaints Musculoskeletal: no complaints Skin: no complaints Exam/Review of Systems Vital Signs Vitals Vital Signs Date Time Temp Pulse Resp B/P Pulse Ox O2 Delivery O2 Flow Rate FiO2 12/03/16 10:02 97.8 76 18 110/63 99 12/02/16 21:49 Room Air Intake and Output 12/02/16 12/02/16 12/03/16 15:00 23:00 07:00 Intake Total 1880 ml 360 ml Balance 1880 ml 360 ml Exam Constitutional: alert, well developed Respiratory: clear to auscultation, normal air movement Cardiovascular: nl pulses, regular rate and rhythm Gastrointestinal: non-tender, soft Musculoskeletal: nl extremities to inspection Extremities: normal pulses Neurological: nl speech Results Result Diagram: 12/02/16 0504 12/02/16 0504 Results 24 hrs Laboratory Tests Test 12/02/16 13:56 Bedside Glucose 169 Medications Medications Current Medications Acetaminophen (Tylenol Tab) 650 mg Q4H PRN PO PAIN AND OR ELEVATED TEMP Last administered on 12/02/16 05:21; Admin Dose 650 MG; Start 11/09/16 at 05:30 Atorvastatin Calcium (Lipitor) 40 mg DAILY PO Last administered on 12/03/16 08 :52; Admin Dose 40 MG; Start 11/10/16 at 09:00 Furosemide (Lasix) 20 mg DAILY PO Last administered on 12/03/16 08:55; Admin Dose 20 MG; Start 11/10/16 at 09:00; Status Future hold Zolpidem Tartrate (Ambien) 5 mg QHS PRN PO INSOMNIA Last administered on 21:51; Admin Dose 5 MG; Start 11/09/16 at 13:30 Acetaminophen/ Hydrocodone Bitart ([place] (5/325)) 1 tab Q4H PRN PO PAIN LEVEL 4 -7 Last administered on 12/02/16 21:51; Admin Dose 1 TAB; Start 11/09/16 at 13: 30 Bisacodyl (Dulcolax Supp) 10 mg DAILY PRN [place] CONSTIPATION Last administered on 11/25/16 10:32; Admin Dose 10 MG; Start 11/09/16 at 20:00 Morphine Sulfate (morphine) 1 mg Q3H PRN IV PAIN Last administered on 15:07; Admin Dose 1 MG; Start 11/18/16 at 15:03 IV Flush (NS 10 ml) 10 ml PRN PRN IV FLUSH LINE; Start 11/21/16 at 15:30 Docusate Sodium (Colace Liquid Cup) 100 mg BID PO Last administered on 21:50; Admin Dose 100 MG; Start 11/24/16 at 09:00 Aspirin (Aspirin) 325 mg DAILY PO Last administered on 12/03/16 08:52; Admin Dose 325 MG; Start 11/27/16 at 09:00 Pantoprazole 40 mg 40 mg DAILY@06 PO Last administered on 12/03/16 05:43; Admin Dose 40 MG; Start 11/30/16 at 06:00 Vancomycin HCl/ Sodium Chloride (Vancocin/NS) 250 ml @ 83.333 mls/ hr Q36H IVPB Last administered on 12/02/16 02:10; Admin Dose 83.333 MLS/HR; Start 06/06 at 14:00 Lorazepam (Ativan) 0.5 mg Q6H PRN PO AGITATION/ANXIETY; Start 12/01/16 at 17:00 Miscellaneous Information (*Rx Drug Level Order Reminder*) VANCO TROUGH ON 11/19... ONCE ONCE XX ; Start 12/03/16 at 14:00; Stop 12/03/16 at 14:01 Carvedilol (Coreg) 3.125 mg BID PO Last administered on 12/02/16 21:52; Admin Dose 3.125 MG; Start 12/02/16 at 21:00 Lisinopril (Zestril) 2.5 mg DAILY PO Last administered on 12/03/16 08:54; Admin Dose 2.5 MG; Start 12/03/16 at 09:00 DEIRDRE MORSE Dec 03, 2016 10:42
--- NOTE | 2016-12-03 11:28 | CONS ---
Date/Time of Note Date/Time of Note DATE: 12/03/16 TIME: 11:23 Assessment/Plan Assessment/Plan Chief Complaint/Hosp Course IMPRESSION: 1. Cardiomyopathy with decreased left ventricular ejection fraction last seen approximately 30% by echo at outside hospital 08/2016. EF 35% by echo this admit with lexiscan negative for ischemia with scar and EF 40%. 2. Hypotension-REcurrenbt yesterday x one reading, ? if truly correct 3. History of myocardial infarction. 4. History of percutaneous transluminal coronary angioplasty and stent placement last 2011. 5. Coagulopathy-improved 6. Anemia. 7. Vaginal bleed now post-op s/p D+C with Bx 8. Possible endometrial mass, abnormal thickening. 9. R knee pain and swelling acute s/p steroid injection with improvement in sx 10.Hyponatremia-ongoing and mildly labile 11.Probable CVA by CT. Family refusing MRI Rec: -Continue BB/ACEI as tolerated at lower doses -ASA had been held given vaginal bleeding but now resumed as tolerated to prevent in possible further thromboembolic complications give CVA by head CT -Follow hgb closely back on asa -Neuro following -? PT as tolerated -D/C planning if BP remains stable Problems: Consultation Date/Type/Reason Admit Date/Time November 11, 2016 at 10:47 Initial Consult Date 11/09/2016 Type of Consultation: Cardiology Reason for Consultation Cardiomyopathy Referring Provider: DEIRDRE MORSE Exam/Review of Systems Vital Signs Vitals Vital Signs Date Time Temp Pulse Resp B/P Pulse Ox O2 Delivery O2 Flow Rate FiO2 12/03/16 10:02 97.8 76 18 110/63 99 12/02/16 21:49 Room Air Intake and Output 12/02/16 12/02/16 12/03/16 15:00 23:00 07:00 Intake Total 1880 ml 360 ml Balance 1880 ml 360 ml Exam Review of Systems: CONSTITUTIONAL: No fevers, chills. PULMONARY: No sob CARDIOVASCULAR: No chest pain/palpitations GASTROINTESTINAL: No nausea/vomiting. GENITOURINARY: No hematuria/dysuria. MUSCULOSKELETAL: No myagias/arthalgias. PSYCHIATRIC: The patient denies depression. NEUROLOGIC: lethargic Constitutional: other Psych: no complaints Head: normocephalic ENMT: mucosa pink and moist Neck: jvd (8-9 cm water), supple Respiratory: diminished breath sounds (at bases/B) Cardiovascular: regular rate and rhythm Gastrointestinal: non-tender, soft Musculoskeletal: muscle tone (normal) Extremities: edema (none) Neurological: other (No focal deficits) Results Result Diagram: 12/02/16 0504 12/02/16 0504 Results 24 hrs Laboratory Tests Test 12/02/16 13:56 Bedside Glucose 169 Medications Medications Current Medications Acetaminophen (Tylenol Tab) 650 mg Q4H PRN PO PAIN AND OR ELEVATED TEMP Last administered on 12/02/16 05:21; Admin Dose 650 MG; Start 11/09/16 at 05:30 Atorvastatin Calcium (Lipitor) 40 mg DAILY PO Last administered on 12/03/16 08 :52; Admin Dose 40 MG; Start 11/10/16 at 09:00 Furosemide (Lasix) 20 mg DAILY PO Last administered on 12/03/16 08:55; Admin Dose 20 MG; Start 11/10/16 at 09:00; Status Future hold Zolpidem Tartrate (Ambien) 5 mg QHS PRN PO INSOMNIA Last administered on 21:51; Admin Dose 5 MG; Start 11/09/16 at 13:30 Acetaminophen/ Hydrocodone Bitart ([place] (5/325)) 1 tab Q4H PRN PO PAIN LEVEL 4 -7 Last administered on 12/02/16 21:51; Admin Dose 1 TAB; Start 11/09/16 at 13: 30 Bisacodyl (Dulcolax Supp) 10 mg DAILY PRN [place] CONSTIPATION Last administered on 11/25/16 10:32; Admin Dose 10 MG; Start 11/09/16 at 20:00 Morphine Sulfate (morphine) 1 mg Q3H PRN IV PAIN Last administered on 15:07; Admin Dose 1 MG; Start 11/18/16 at 15:03 IV Flush (NS 10 ml) 10 ml PRN PRN IV FLUSH LINE; Start 11/21/16 at 15:30 Docusate Sodium (Colace Liquid Cup) 100 mg BID PO Last administered on 21:50; Admin Dose 100 MG; Start 11/24/16 at 09:00 Aspirin (Aspirin) 325 mg DAILY PO Last administered on 12/03/16 08:52; Admin Dose 325 MG; Start 11/27/16 at 09:00 Pantoprazole 40 mg 40 mg DAILY@06 PO Last administered on 12/03/16 05:43; Admin Dose 40 MG; Start 11/30/16 at 06:00 Vancomycin HCl/ Sodium Chloride (Vancocin/NS) 250 ml @ 83.333 mls/ hr Q36H IVPB Last administered on 12/02/16 02:10; Admin Dose 83.333 MLS/HR; Start 06/06 at 14:00 Lorazepam (Ativan) 0.5 mg Q6H PRN PO AGITATION/ANXIETY; Start 12/01/16 at 17:00 Miscellaneous Information (*Rx Drug Level Order Reminder*) VANCO TROUGH ON 11/19... ONCE ONCE XX ; Start 12/03/16 at 14:00; Stop 12/03/16 at 14:01 Carvedilol (Coreg) 3.125 mg BID PO Last administered on 12/02/16 21:52; Admin Dose 3.125 MG; Start 12/02/16 at 21:00 Lisinopril (Zestril) 2.5 mg DAILY PO Last administered on 12/03/16 08:54; Admin Dose 2.5 MG; Start 12/03/16 at 09:00 DEBBIE QUINTANA Dec 03, 2016 11:28
[2016-12-03] MEDS: VANCOMYCIN 1.5 GM in SOD CHLORIDE 0.9% 250 ML IVPB SCH (14:45)
--- NOTE | 2016-12-03 17:06 | CONS ---
Date/Time of Note Date/Time of Note DATE: 12/03/16 TIME: 17:05 Assessment/Plan Assessment/Plan Additional Assessment/Plan 1. Hyponatremia, multifactorial secondary to hypovolemic hyponatremia and possible component of diastolic heart failure. 2. UTI 4. 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 5. History of coronary artery disease, status post previous stent placement in 2011. 6. History of atrial fibrillation. 7. History of vaginal bleeding, now status post dilatation and curettage with biopsy. 8. Coagulopathy, improved. 9. History of hypertension. PLAN: Cr normal< Electrolytes stable IV abx as per ID S/p IVF, on PO lasix will follow up BP stable Consultation Date/Type/Reason Admit Date/Time November 11, 2016 at 10:47 Type of Consultation: NEPHROLOGY Referring Provider: DEIRDRE MORSE Exam/Review of Systems Vital Signs Vitals Vital Signs Date Time Temp Pulse Resp B/P Pulse Ox O2 Delivery O2 Flow Rate FiO2 12/03/16 10:02 97.8 76 18 110/63 99 12/02/16 21:49 Room Air Intake and Output 12/02/16 12/02/16 12/03/16 15:00 23:00 07:00 Intake Total 1880 ml 360 ml Balance 1880 ml 360 ml Results Result Diagram: 12/02/16 0504 12/02/16 0504 Results 24 hrs Laboratory Tests Test 12/03/16 13:15 Vancomycin Level Trough 10.2 Medications Medications Current Medications Acetaminophen (Tylenol Tab) 650 mg Q4H PRN PO PAIN AND OR ELEVATED TEMP Last administered on 12/02/16 05:21; Admin Dose 650 MG; Start 11/09/16 at 05:30 Atorvastatin Calcium (Lipitor) 40 mg DAILY PO Last administered on 12/03/16 08 :52; Admin Dose 40 MG; Start 11/10/16 at 09:00 Furosemide (Lasix) 20 mg DAILY PO Last administered on 12/03/16 08:55; Admin Dose 20 MG; Start 11/10/16 at 09:00; Status Future hold Zolpidem Tartrate (Ambien) 5 mg QHS PRN PO INSOMNIA Last administered on 21:51; Admin Dose 5 MG; Start 11/09/16 at 13:30 Acetaminophen/ Hydrocodone Bitart ([place] (5/325)) 1 tab Q4H PRN PO PAIN LEVEL 4 -7 Last administered on 12/02/16 21:51; Admin Dose 1 TAB; Start 11/09/16 at 13: 30 Bisacodyl (Dulcolax Supp) 10 mg DAILY PRN [place] CONSTIPATION Last administered on 11/25/16 10:32; Admin Dose 10 MG; Start 11/09/16 at 20:00 Morphine Sulfate (morphine) 1 mg Q3H PRN IV PAIN Last administered on 15:07; Admin Dose 1 MG; Start 11/18/16 at 15:03 IV Flush (NS 10 ml) 10 ml PRN PRN IV FLUSH LINE; Start 11/21/16 at 15:30 Docusate Sodium (Colace Liquid Cup) 100 mg BID PO Last administered on 21:50; Admin Dose 100 MG; Start 11/24/16 at 09:00 Aspirin (Aspirin) 325 mg DAILY PO Last administered on 12/03/16 08:52; Admin Dose 325 MG; Start 11/27/16 at 09:00 Pantoprazole 40 mg 40 mg DAILY@06 PO Last administered on 12/03/16 05:43; Admin Dose 40 MG; Start 11/30/16 at 06:00 Vancomycin HCl/ Sodium Chloride (Vancocin/NS) 250 ml @ 83.333 mls/ hr Q36H IVPB Last administered on 12/03/16 14:45; Admin Dose 83.333 MLS/HR; Start 06/06 at 14:00 Lorazepam (Ativan) 0.5 mg Q6H PRN PO AGITATION/ANXIETY; Start 12/01/16 at 17:00 Carvedilol (Coreg) 3.125 mg BID PO Last administered on 12/02/16 21:52; Admin Dose 3.125 MG; Start 12/02/16 at 21:00 Lisinopril (Zestril) 2.5 mg DAILY PO Last administered on 12/03/16 08:54; Admin Dose 2.5 MG; Start 12/03/16 at 09:00 DEMETRIO OLSEN MD Dec 03, 2016 17:06
--- NOTE | 2016-12-03 20:32 | CONS ---
Date/Time of Note Date/Time of Note DATE: 12/03/16 TIME: 20:31 Assessment/Plan Assessment/Plan Chief Complaint/Hosp Course SUBJECTIVE: No acute events, no fevers. Vital signs stable. ANTIMICROBIALS: Vancomycin. MICROBIOLOGY: Urine culture grew Corynebacterium group JK more than 100,000 colonies. PHYSICAL EXAMINATION: GENERAL: This is fragile, well-developed, elderly woman who is in no distress. HEENT: Head atraumatic, normocephalic. Sclerae anicteric. Buccal mucosa dry. NECK: Supple. CHEST: Rise symmetrical. Breath sounds clear. HEART: S1, S2. ABDOMEN: Soft. Bowel sounds present. ASSESSMENT: 1. Systemic inflammatory response syndrome. 2. Urinary tract infection, remains on vancomycin. 3. Coronary artery disease, history of stent placement. 4. Atrial fibrillation 5. Ischemic cardiomyopathy. PLAN: The patient remains stable. Complete abx. DW staff Problems: Consultation Date/Type/Reason Admit Date/Time November 11, 2016 at 10:47 Initial Consult Date 11/21/16 Type of Consultation: ID Referring Provider: DEIRDRE MORSE Exam/Review of Systems Vital Signs Vitals Vital Signs Date Time Temp Pulse Resp B/P Pulse Ox O2 Delivery O2 Flow Rate FiO2 12/03/16 10:02 97.8 76 18 110/63 99 12/02/16 21:49 Room Air Intake and Output 12/02/16 12/02/16 12/03/16 15:00 23:00 07:00 Intake Total 1880 ml 360 ml Balance 1880 ml 360 ml Results Result Diagram: 12/02/16 0504 12/02/16 0504 Results 24 hrs Laboratory Tests Test 12/03/16 13:15 Vancomycin Level Trough 10.2 GINA SPENCER NP Dec 03, 2016 20:32
== END 2016-12-03 19:45 | DRG 744 ==
LOC: E/R 01:35 → PP2 03:38 → UNDOADMOB 04:52 → OBSVTOIN 11-11 10:47 → ICU 11-21 10:16 → TEL 11-21 15:56 → MS2 12-01 20:45
PROVIDERS: ADMIT Internal Medicine; ATTEND Internal Medicine
PROC: 0TB Urinary System, Excision (ICD-10-PCS; 2016-11-12)
PROC: 0UDB7ZX Extraction of Endometrium, Via Natural or Artificial Opening, Diagnostic (ICD-10-PCS; principal; 2016-11-12 07:30)
PROC: 3E0U33Z Introduction of Anti-inflammatory into Joints, Percutaneous Approach (ICD-10-PCS; 2016-11-18)
DX: N81.0 Urethrocele (principal); I63.9 Cerebral infarction, unspecified; D68.9 Coagulation defect, unspecified; I50.43 Acute on chronic combined systolic (congestive) and diastolic (congestive) heart failure; I11.0 Hypertensive heart disease with heart failure; G81.94 Hemiplegia, unspecified affecting left nondominant side; N39.0 Urinary tract infection, site not specified; E87.1 Hypo-osmolality and hyponatremia; N36.2 Urethral caruncle; I48.91 Unspecified atrial fibrillation; M17.11 Unilateral primary osteoarthritis, right knee; N93.9 Abnormal uterine and vaginal bleeding, unspecified; I25.2 Old myocardial infarction; B96.89 Other specified bacterial agents as the cause of diseases classified elsewhere; I25.10 Atherosclerotic heart disease of native coronary artery without angina pectoris; E78.5 Hyperlipidemia, unspecified; I25.5 Ischemic cardiomyopathy; D64.9 Anemia, unspecified; Z66 Do not resuscitate; E87.6 Hypokalemia; Z95.5 Presence of coronary angioplasty implant and graft
CPT/HCPCS: 36415; 36569; 36600; 70450; 71010; 73560; 76830; 76856; 76937; 78452; 80048; 80053; 80061; 80202; 81001; 81003; 82550; 82553; 82803; 82962; 83605; 83735; 83880; 84443; 84484; 85025; 85049; 85610; 85670; 85730; 86850; 86900; 86901; 87040; 87081; 87086; 88307; 88331; 92526; 92610; 93005; 93017; 93306; 93880; 93971; 97110; 97116; 97162; 97164; 97530; G0378; J1940; A9500; A9505; C1769; C9113; J0690; J0702; J2250; J2270; J2405; J2785; J3010; J3370; J3480; J7030; J7040; J7042; J7050

== ENCOUNTER 2016-12-13 08:41 | Inpatient (IN) | payer OTHER ==
[~2016-12-13] VITALS: Ht 165.1 cm; Wt 65.1 kg
[2016-12-13] MEDS ORDERED: CEFEPIME 2GM/50 ML (PMX) 50 ML IVPB STA (09:04)
[2016-12-13] MEDS ORDERED: SODIUM CHLORIDE 0.9% 1L BAG IV* STA (09:04)
--- NOTE | 2016-12-13 09:07 | ERA ---
ER Documentation Chief Complaint Date/Time DATE: 12/13/16 TIME: 09:05 Chief Complaint lower grade fever in am, vomit x1 last night, BLE pain HPI Patient is an 86-year-old Ugandan-speaking female who presents with 1 day of gradual onset, constant fever associated with 2 episodes of vomiting and a large number of formed stools. There is no report of dark stool. There is no cough. History is limited due to underlying dementia. The daughter helped to translate. The patient lives in a [facility]. ROS All systems reviewed and are negative except as per history of present illness. Medications Home Meds Reported Medications Potassium Chloride (Klor-Con) 20 Meq/Pkt Packet, PO DAILY 09/22/11 Furosemide (Lasix) 40 Mg Tab, 1 TAB PO DAILY 09/22/11 Famotidine* (Pepcid*) 20 Mg Tablet, 1 TAB PO DAILY 09/22/11 Clopidogrel Bisulfate (Plavix) 75 Mg Tablet, 1 TAB PO DAILY 09/22/11 Carvedilol* (Coreg*) 3.125 Mg Tablet, 1 TAB PO BID 09/22/11 Atorvastatin (Lipitor) 40 Mg Tablet, 40 MG PO DAILY 09/22/11 Zolpidem Tartrate* (Ambien*) 5 Mg Tablet, 5 MG PO 09/15/11 Docusate Sodium* (Colace*) 100 Mg Capsule, 100 MG PO DAILY 09/15/11 Hydrocodone Bit-Acetaminophen (Roscoe) 1 Tab Tablet, 5 MG PO 09/15/11 Atenolol (Tenormin) 25 Mg Tab, 25 MG PO DAILY 09/15/11 Aspirin* (Aspirin*) 325 Mg Tablet, 325 MG PO DAILY 09/15/11 Allergies Allergies: Coded Allergies: No Known Drug Allergies (Verified Allergy, Unknown, 11/28/16) PMhx/Soc Past medical history: Coronary artery disease, hypertension, atrial fibrillation , peripheral vascular disease Past surgical history: Hip replacement, coronary stents Social history: Denies tobacco or alcohol. Lives in a SNF History of Surgery: Yes (RIGHT HIP REPLACEMENT ) Anesthesia Reaction: No Hx Neurological Disorder: Yes (dementia, SPINAL STENOSIS, ALZHEIMER) Hx Respiratory Disorders: No Hx Cardiac Disorders: Yes (HTN,HF, AFIB, HYPERLIPIDEMIA,PVD,NSTEMI, CARDIOMYOPATHY, CAD) Hx Psychiatric Problems: No Hx Miscellaneous Medical Probl: Yes (CAD,PA,A-FIB,PTCA WITH STENT,FALLS,L HIP HEMIARTHROPLASTY) Hx Alcohol Use: No Hx Substance Use: No Hx Tobacco Use: No FmHx Family History: No coronary disease, No diabetes Physical Exam Vitals Vital Signs Date Time Temp Pulse Resp B/P Pulse Ox O2 Delivery O2 Flow Rate FiO2 12/13/16 12:51 98 18 96 21 12/13/16 12:00 96 18 116/70 97 Room Air 12/13/16 10:15 114 18 158/99 98 Room Air 12/13/16 09:32 99.8 12/13/16 09:05 Nasal Cannula 2 12/13/16 08:52 98.4 79 20 152/98 96 Physical Exam Const: Alert, no acute distress Head: Atraumatic Eyes: Normal Conjunctiva, mild pallor, no icterus ENT: Normal External Ears, Nose and Mouth. Dry mucous membranes Neck: Full range of motion..~ No meningismus. No JVD Resp: Clear to auscultation bilaterally, trace left basilar rales, no wheezes or rhonchi Cardio: Irregularly irregular rhythm, tachycardia, 2/6 systolic murmur Abd: Soft, nondistended, mild epigastric tenderness, no rebound or guarding Skin: No petechiae or rashes, no decubitus ulcers Back: No midline or flank tenderness Ext: No cyanosis, or edema Neur: Awake and alert, cranial nerves II through XII intact bilaterally, moves and feels 4 extremities. Psych: Normal Mood and Affect Result Diagram: 12/13/16 0900 12/13/16 0900 Results 24 hrs Laboratory Tests Test 12/13/16 09:00 12/13/16 09:25 12/13/16 11:00 White Blood Count 24.210^3/ul Red Blood Count 3.5810^6/ul Hemoglobin 11.6g/dl Hematocrit 34.1% Mean Corpuscular Volume 95.3fl Mean Corpuscular Hemoglobin 32.4pg Mean Corpuscular Hemoglobin Concent 34.0g/dl Red Cell Distribution Width 13.3% Platelet Count 19958^3/UL Mean Platelet Volume 9.7fl Neutrophils % 87.0% Lymphocytes % 3.0% Monocytes % 9.3% Eosinophils % 0.0% Basophils % 0.1% Nucleated Red Blood Cells % 0.0/100WBC Neutrophils # 21.010^3/ul Lymphocytes # 0.710^3/ul Monocytes # 2.310^3/ul Eosinophils # 0.010^3/ul Basophils # 0.010^3/ul Nucleated Red Blood Cells # 0.010^3/ul Prothrombin Time 16.2Sec Prothrombin Time Ratio 1.3 INR International Normalized Ratio 1.29 Activated Partial Thromboplast Time 31.4Sec Sodium Level 130mmol/L Potassium Level 4.6mmol/L Chloride Level 96mmol/L Carbon Dioxide Level 22mmol/L Anion Gap 17 Blood Urea Nitrogen 20mg/dl Creatinine 0.79mg/dl Glucose Level 196mg/dl Lactic Acid Level 3.8mmol/L 4.6mmol/L Calcium Level 9.4mg/dl Total Bilirubin 1.0mg/dl Direct Bilirubin 0.00mg/dl Indirect Bilirubin 1.0mg/dl Aspartate Amino Transf (AST/SGOT) 37IU/L Alanine Aminotransferase (ALT/SGPT) 28IU/L Alkaline Phosphatase 75IU/L Troponin I 0.216ng/ml Total Protein 7.0g/dl Albumin 4.2g/dl Globulin 2.80g/dl Albumin/Globulin Ratio 1.50 Urine Color YELLOW Urine Clarity CLEAR Urine pH 5.0 Urine Specific [place] 1.018 Urine Ketones NEGATIVEmg/dL Urine Nitrite NEGATIVEmg/dL Urine Bilirubin NEGATIVEmg/dL Urine Urobilinogen 1+mg/dL Urine Leukocyte Esterase NEGATIVELeu/ul Urine Microscopic RBC 2/HPF Urine Microscopic WBC 3/HPF Urine Squamous Epithelial Cells FEW/HPF Urine Bacteria FEW/HPF Urine Mucus FEW/HPF Urine Hemoglobin 1+mg/dL Urine Glucose NEGATIVEmg/dL Urine Total Protein NEGATIVEmg/dl Current Medications Medications (Trade) Dose Ordered Sig/Khang Route PRN Reason Start Time Stop Time Status Last Admin Dose Admin Sodium Chloride 2250 ml 2,250 ml BOLUS OVER 2 HOURS STAT IV* 12/13/16 09:04 12/13/16 09:06 DC 12/13/16 09:17 Cefepime HCl (Maxipime 2gm/50 ml (Pmx)) 50 ml @ 100 mls/hr ONCE STAT IVPB 12/13/16 09:04 12/13/16 09:33 DC 12/13/16 09:27 Aspirin (Aspirin) 162 mg ONCE ONCE PO 12/13/16 10:30 12/13/16 10:32 DC 12/13/16 10:34 Iohexol 150 ml 150 ml STK-MED ONCE .ROUTE 12/13/16 10:43 12/13/16 10:44 DC Sodium Chloride 250 ml @ ud STK-MED ONCE .ROUTE 12/13/16 10:43 12/13/16 10:44 DC Vancomycin HCl (Vancocin) 250 ml @ 125 mls/hr ONCE IVPB 12/13/16 12:00 12/13/16 13:59 12/13/16 12:24 Haloperidol (Haldol) 2 mg ONCE ONCE IV 12/13/16 12:00 12/13/16 12:01 DC 12/13/16 11:56 Ondansetron HCl (Zofran Inj) 4 mg ER BRIDGE PRN IV NAUSEA AND/OR VOMITING 12/13/16 12:00 12/14/16 11:59 Acetaminophen (Tylenol Tab) 650 mg ER BRIDGE PRN PO MILD PAIN/FEVER 12/13/16 12:00 12/14/16 11:59 Diltiazem HCl 10 mg 10 mg ONCE ONCE IV 12/13/16 12:00 12/13/16 12:01 DC 12/13/16 11:55 Sodium Chloride (NS) 1,000 ml @ 100 mls/hr Q10H IV 12/13/16 12:08 12/13/16 12:21 DC IV Flush (NS 3 ml) 3 ml PER PROTOCOL IV 12/13/16 12:30 Ondansetron HCl (Zofran Inj) 4 mg Q6H PRN IV NAUSEA AND/OR VOMITING 12/13/16 12:30 Acetaminophen (Tylenol Tab) 650 mg Q6H PRN PO PAIN LEVEL 1-3 OR FEVER 12/13/16 12:30 Morphine Sulfate (morphine) 2 mg Q4H PRN IV PAIN LEVEL 7-10 12/13/16 12:30 Famotidine (Pepcid Iv) 20 mg Q12 IV 12/13/16 21:00 Enoxaparin Sodium 30 mg 30 mg DAILY SC 12/14/16 09:00 Cefepime HCl (Maxipime 1gm/50 ml (Pmx)) 50 ml @ 100 mls/hr Q8 IVPB 12/13/16 14:00 Albuterol (Proventil 0.083% (Neb)) 5 mg ONCE STAT HHN 12/13/16 12:20 12/13/16 12:21 DC 12/13/16 12:50 Procedures/MDM EKG read by me: Time 0 939, rate 129 Rhythm: Atrial fibrillation with rapid ventricular response [place]: Normal Intervals: Normal ST-T waves: no ischemic changes Ectopy: No Q-waves: Septal leads Impression: Rapid A. fib, no ischemia, evidence of old septal infarct. [facility] patient is a 86-year-old female who presents with 1 day of fever with vomiting and large volume of formed stool. There is no report of dark stool. Patient is found to be tachycardic and have significant leukocytosis, as well as elevated lactic acid, consistent with sepsis. Blood and urine cultures were sent. Weight-based fluids were administered and broad-spectrum antibiotics were given. The patient has no evidence of pneumonia on exam her chest x-ray. The patient has no evidence of UTI. CT of the abdomen did not reveal an intra- abdominal source of infection. The patient has no evidence of soft tissue infection on exam. The patient has no meningeal signs. The patient has not had a bowel movement in the ER. The patient has history of chronic A. fib and was found to be tachycardic. Her blood pressure was normal. She was given IV fluids, and developed mild shortness of breath but maintain normal O2 saturation. Her pulse did not improve. The patient was given a dose of diltiazem and had adequate rate control. Her blood pressure remains normal. Patient's lactic acid carmencita after receiving IV fluids. The patient is DNR/DNI, and her BNP is elevated with evidence of pulmonary vascular congestion on chest x-ray, so I withheld further fluids due to concern about worsening pulmonary edema. The patient will be admitted to a monitored bed for careful management of fluid status and hemodynamics and further septic workup. Patient has had no hypotension, is not tachycardic or tachypneic at this time, and I did not believe that a central line was necessary at this time. The daughter has also expressed desire for limited interventions. Critical Care Time: 32 minutes Treatments/Evaluations: Close monitoring and treatment of unstable vital signs, cardiorespiratory, and neurologic status, while maintaining tight balance of fluid, respiratory, and cardiac interventions. This time includes discussing the case with the patient and the patient's family. This time does not include all procedures stated elsewhere in this record. This time also includes reviewing old records, labs and radiological studies. This time includes examining and re-examining the patient. Additionally, this time also includes arranging care with admitting and consulting physicians. Departure Diagnosis: Primary Impression: Sepsis Qualified Code: A41.9 - Sepsis, due to unspecified organism Additional Impressions: Rapid atrial fibrillation Elevated troponin CHF (congestive heart failure) Qualified Code: I50.9 - Congestive heart failure, unspecified congestive heart failure chronicity, unspecified congestive heart failure type Condition: BELÉN Jacobson MD Dec 13, 2016 09:07
[2016-12-13 09:24] LABS: ADD SCAN DIFF NO
[2016-12-13 09:30] LABS: ABNORMAL IP MESSAGE 1; BASOPHILS % 0.1 % (0.0-2.0); HEMATOCRIT 34.1 % (37.0-47.0); HEMOGLOBIN 11.6 g/dl (12.0-16.0); LYMPHOCYTES # 0.7 10^3/ul (0.8-2.9); MEAN CORPUSCULAR HEMOGLOBIN 32.4 pg (29.0-33.0); MEAN CORPUSCULAR VOLUME 95.3 fl (82.0-101.0); MEAN PLATELET VOLUME 9.7 fl (7.4-10.4); MONOCYTE # 2.3 10^3/ul (0.3-0.9); MONOCYTES % 9.3 % (0.0-11.0); PLATELET COUNT 398 10^3/UL (140-415); RED BLOOD COUNT 3.58 10^6/ul (4.20-5.40); RED CELL DISTRIBUTION WIDTH 13.3 % (11.5-14.5); WHITE BLOOD COUNT 24.2 10^3/ul (4.8-10.8)
[2016-12-13 09:46] LABS: ALBUMIN 4.2 g/dl (3.3-4.9); ALBUMIN/GLOBULIN RATIO 1.5; CALCIUM 9.4 mg/dl (8.4-10.2); CREATININE 0.79 mg/dl (0.44-1.00); INR 1.29; POTASSIUM 4.6 mmol/L (3.5-5.1); PROTIME 16.2 Sec (12.2-14.2); PT RATIO 1.3
[2016-12-13 09:47] LABS: PARTIAL THROMBOPLASTIN TIME 31.4 Sec (25.0-35.0)
--- NOTE | 2016-12-13 09:51 | RADRPT ---
PROCEDURE: XR Chest. CLINICAL INDICATION: Shortness of breath. Sepsis and fever TECHNIQUE: A single portable view of the chest was obtained. COMPARISON: 11/27/2016 FINDINGS: Left PICC line has been removed. The aorta is tortuous and atherosclerotic. The cardiomediastinal silhouette is otherwise mildly enlarged and is unchanged. Mild pulmonary vascular congestion is seen . The left hemidiaphragm is elevated with bibasilar atelectasis. No dense consolidation or discrete pleural effusion is seen. The soft tissues and osseous structures demonstrate benign age related s enescent changes. IMPRESSION: 1. Stable mild cardiomegaly. 2. Mild pulmonary vascular congestion. RPTAT: HPNM Physician Caro Date Time Electronically viewed and signed by David Jordan Physician on 12/13/2016 09:51 /
[2016-12-13 09:52] LABS: ADD UMIC YES; UR ASCORBIC ACID NEGATIVE (NEGATIVE); UR BACTERIA FEW /HPF (NONE SEEN); UR BILIRUBIN (Dip) NEGATIVE (NEGATIVE); UR BLOOD (Dip) 1+ mg/dL (NEGATIVE); UR CLARITY CLEAR (CLEAR); UR COLOR YELLOW (YELLOW); UR GLUCOSE (Dip) NEGATIVE (NEGATIVE); UR KETONES (Dip) NEGATIVE (NEGATIVE); UR LEUKOCYTE ESTERASE (Dip) NEGATIVE Leu/ul (NEGATIVE); UR MUCUS FEW /HPF (NONE SEEN); UR NITRITE (Dip) NEGATIVE (NEGATIVE); UR RBC 2 /HPF (0-5); UR SPECIFIC GRAVITY (Dip) 1.018 (1.003-1.030); UR SQUAMOUS EPITHELIAL CELL FEW /HPF (FEW); UR TOTAL PROTEIN (Dip) NEGATIVE (NEGATIVE); UR UROBILINOGEN (Dip) 1+ mg/dL (NEGATIVE)
[2016-12-13 10:13] LABS: TROPONIN-I 0.216 ng/ml (0.00-0.12)
[2016-12-13] MEDS ORDERED: ASPIRIN 81 MG TAB PO ONE (10:30)
[2016-12-13] MEDS ORDERED: SOD CHLORIDE 0.9% 250 ML ONE (10:43)
[2016-12-13] MEDS ORDERED: IOHEXOL 300MG/ML 150 ML BTL ONE (10:43)
--- NOTE | 2016-12-13 11:34 | RADRPT ---
PROCEDURE: CT Abdomen and pelvis with contrast. CLINICAL INDICATION: abdominal pain, fever TECHNIQUE: CT scan of the abdomen and pelvis with contrast was performed on a multidetector high-r esolution CT scan. The patient was scanned following the uncomplicated intravenous administration o f 90 ml Omnipaque-300. Coronal and sagittal reformatted images were obtained from the axial source images. Standard CT of the abdomen pelvis with contrast protocols were performed. The total exam CTDI equals 16.11 mGy and the total exam DLP equals 909.19 mGy-cm. One or more of the following dose reduction techniques were used: - Automated exposure control. - Adjustment of the mA and/or kV according to patient size. Use of iterative reconstruction technique. COMPARISON: None. FINDINGS: There is a Alfaro catheter within the nondistended urinary bladder with nondependent air likely iatro genic however recommend clinical correlation. The bladder is otherwise unremarkable. There is a left hip prosthesis in place resulting in extensive artifact precluding optimal evaluatio n of the adjacent soft tissues and portions of the bony pelvis. There is no evidence of dislocation or loosening. There is exaggerated lumbar lordosis with a grade 1 anterior spondylolisthesis of L4 on L5 vertebral bodies. Old mild compression fractures of the T10, at the 11, T12 and L4 vertebral bodies. Additional old severe compression fracture of the T9 vertebral body. There is degenerativ e changes lower thoracic and lumbar spine. No acute osseous findings are osteoblastic/osteolytic le sions. There is atherosclerotic vascular disease of the aorta and its branches but no evidence of aneurysm or periaortic fluid collections. There is bilateral inguinal fat-containing hernias but no herniated bowel or strangulation. There are bilateral small pleural effusions. Bibasilar parenchymal changes are consistent with mini mal atelectasis and chronic interstitial lung disease. the heart is borderline normal limits in siz e. No evidence of pericardial effusion. The kidneys are atrophic with bilateral renal cortical scarring. Negative for renal calcified calcu li, hydronephrosis or intra renal masses bilaterally. The ureters are unremarkable. The liver spleen pancreas and adrenal glands are unremarkable. There is trace pericholecystic fluid in the gallbladder otherwise unremarkable. No evidence of biliary ductal dilation. There is a moderate-sized hiatal hernia with the stomach otherwise unremarkable. The stomach, small bowel and large bowel are unremarkable. What appears to be the appendix is unremarkable. Specific ally there is no CT evidence of appendicitis or diverticulitis. Negative for intra-abdominal free air, free fluid, abscesses or lymphadenopathy. IMPRESSION: 1. Left hip prosthesis in place resulting in artifact as described above. 2. Chronic osseous findings as described above. 3. Bilateral inguinal fat-containing hernia is but no herniated bowel or strangulation. 4. Moderate-sized hiatal hernia. No CT evidence of appendicitis or diverticulitis. 5. Atrophic kidneys without hydronephrosis calcified renal calculi or intra renal masses bilaterall y. 6. Trace pericholecystic fluid. No other abdominal free fluid, free air or abscesses. The gallbla dder is otherwise unremarkable and no biliary ductal dilation. RPTAT:AAJJ Physician Jitendra Date Time Electronically viewed and signed by Physician Jitendra on 12/13/2016 11:33 /
[2016-12-13] MEDS ORDERED: DILTIAZEM 25 MG INJ IV ONE (12:00)
[2016-12-13] MEDS ORDERED: HALOPERIDOL 5 MG INJ IV ONE (12:00)
[2016-12-13] MEDS ORDERED: ONDANSETRON 4 MG INJ IV PRN ×2 (12:00→12:30)
[2016-12-13] MEDS ORDERED: VANCOMYCIN 1 GM (PMX) 250 ML IVPB SCH (12:00)
[2016-12-13] MEDS ORDERED: SOD CHLORIDE 0.9% 1,000 ML IV SCH (12:08)
[2016-12-13] MEDS ORDERED: ALBUTEROL 0.083% (NEB) 2.5 MG/3 ML AMP HHN STA (12:20)
[2016-12-13] MEDS ORDERED: morphine 2 MG INJ IV PRN (12:30)
[2016-12-13] MEDS ORDERED: NACL 0.9% 3 ML SYG IV SCH (12:30)
[2016-12-13] MEDS ORDERED: ACETAMINOPHEN 325 MG TAB PO PRN (12:30)
[2016-12-13] MEDS ORDERED: ASPI325T4 PO (13:10)
[2016-12-13] MEDS ORDERED: ATOR40TA68 PO (13:10)
[2016-12-13] MEDS ORDERED: CARV3.12 PO (13:11)
[2016-12-13] MEDS ORDERED: FURO-110 PO (13:14)
[2016-12-13] MEDS ORDERED: LISI2.5T59 PO (13:15)
[2016-12-13] MEDS ORDERED: PANT40TA3 PO (13:16)
[2016-12-13] MEDS ORDERED: CRAN450C PO (13:17)
[2016-12-13] MEDS ORDERED: HYDR-906 PO (13:18)
[2016-12-13] MEDS ORDERED: ACET325T33 PO (13:20)
[2016-12-13] MEDS ORDERED: ZOLP5TAB PO (13:21)
[2016-12-13] MEDS ORDERED: LORA-441 PO (13:22)
[2016-12-13] MEDS ORDERED: DOCU-159 PO (13:23)
[2016-12-13] MEDS ORDERED: MAGN400O4 PO (13:24)
[2016-12-13] MEDS ORDERED: BISA10SU75 PR (13:25)
[2016-12-13] MEDS: CEFEPIME 1GM/50 ML (PMX) 50 ML IVPB SCH ×2 (13:42→21:41)
[2016-12-13] MEDS: ACETAMINOPHEN 325 MG TAB PO PRN ×2 (16:35→21:29)
[2016-12-13 21:02] VITALS: TEMP 100.2
[2016-12-13 21:30] VITALS: BP 117/65; PULSE 110; RESP 16
[2016-12-13 21:37] VITALS: PULSE 153
[2016-12-13] MEDS: FAMOTIDINE 20 MG INJ IV SCH (21:41)
[2016-12-13 22:20] VITALS: Ht 165.1 cm; Wt 65.1 kg
[2016-12-13 23:34] VITALS: BP 117/74; RESP 18
[2016-12-14] VITALS (13 sets, daily range): BP systolic 100–144; BP diastolic 58–102; PULSE 75–146; RESP 16–20
[2016-12-14] MEDS: DILTIAZEM-D5W 125MG/125ML DRIP 125 ML IV SCH ×4 (00:20→23:46)
[2016-12-14] MEDS: CEFEPIME 1GM/50 ML (PMX) 50 ML IVPB SCH ×3 (05:52→22:33)
[2016-12-14 07:21] LABS: ADD SCAN DIFF NO
[2016-12-14 07:31] LABS: ABNORMAL IP MESSAGE 1; MEAN CORPUSCULAR HEMOGLOBIN 31.7 pg (29.0-33.0); MEAN CORPUSCULAR HGB CONC 33.3 g/dl (32.0-37.0); MEAN CORPUSCULAR VOLUME 95.2 fl (82.0-101.0); MEAN PLATELET VOLUME 10.2 fl (7.4-10.4); PLATELET COUNT 370 10^3/UL (140-415); RED BLOOD COUNT 3.78 10^6/ul (4.20-5.40); RED CELL DISTRIBUTION WIDTH 13.9 % (11.5-14.5); WHITE BLOOD COUNT 21.2 10^3/ul (4.8-10.8)
[2016-12-14 08:02] LABS: ALBUMIN 3.9 g/dl (3.3-4.9); ALBUMIN/GLOBULIN RATIO 1.5; BILIRUBIN,INDIRECT 0.8 mg/dl (0-1.1); BILIRUBIN,TOTAL 0.8 mg/dl (0.2-1.3); CALCIUM 9.1 mg/dl (8.4-10.2); CREATININE 0.85 mg/dl (0.44-1.00); POTASSIUM 4.1 mmol/L (3.5-5.1); TOTAL PROTEIN 6.5 g/dl (6.1-8.1)
[2016-12-14] MEDS ORDERED: ENOXAPARIN 30 MG/0.3 ML SYG SC SCH (09:00)
[2016-12-14] MEDS: FAMOTIDINE 20 MG INJ IV SCH ×2 (09:47→22:33)
[2016-12-14 10:33] LABS: BURR CELLS 1+; LYMPHOCYTES # 0.8 10^3/ul (0.8-2.9); MONOCYTE # 2.5 10^3/ul (0.3-0.9); NEUTROPHIL # 12.5 10^3/ul (1.6-7.5)
--- NOTE | 2016-12-14 16:42 | HP ---
DATE OF ADMISSION: 12/13/2016 CHIEF COMPLAINT: Fever, nausea and vomiting and bilateral lower extremity pain. HISTORY OF PRESENT ILLNESS: The patient is an 86-year-old Kazakh speaking female known to me from previous admission. The patient with history of cardioembolic cerebrovascular accident, right knee osteoarthritis, urethral meatal mass, refused any surgical intervention, history of systolic and ashly stolic congestive heart failure with ejection fraction of 35%, chronic atrial fibrillation, history of myocardial infarction, hypertension, hyperlipidemia, history of coronary artery disease with hist ory of stent placement in 2011. The patient was recuperating at [facility] and noted to have fever and 2 episodes of vomiting. Patient also has underlying dementia. The patient also c omplains of abdominal and bilateral lower extremity pain. On the admission in the emergency room, th e patient was noted to have elevated white blood cells of 24,000. The patient's lactic acid was als o elevated to 4.6. The patient was noted to have a temperature of 100.9 on admission. The patient underwent a chest x-ray which revealed stable mild cardiomegaly and mild pulmonary vascular congesti on. The patient also underwent a CT of the abdomen and pelvis which revealed left hip prosthesis, i n place resulting in artifact as described. 2. Chronic bilateral inguinal fat-containing hernias, but no herniated bowel strangulation. 3. Moderate sized hiatal hernia. No CT evidence of appendicitis or diverticulitis, atrophic kidney s without hydronephrosis, calcified renal calculi or intrarenal masses bilaterally, trace pericholec ystic fluid and no other abdominal free fluid, free air, or abscess. The gallbladder is otherwise u nremarkable with no biliary ductal dilatation. 4. The patient also noted to have atrial fibrillation with rapid ventricular response and was start ed on Cardizem drip. Patient was diagnosed with sepsis and after blood cultures and urine cultures collected the patient started on broad spectrum antibiotics. The patient's urinalysis had few bacte carisa, and negative leukocyte esterase, negative nitrites, the patient was given cefepime and vancomyc in and the patient is admitted for further evaluation and management. PAST MEDICAL HISTORY: Per HPI. PAST SURGICAL HISTORY: Status post left hip arthroplasty, status post PTCA with stent placement to the mid left anterior descending artery in 2011. FAMILY HISTORY: Noncontributory. SOCIAL HISTORY: The patient lives at [facility]. No tobacco use, alcohol use, illici t drug use reported. ALLERGIES: NO KNOWN ALLERGIES. MEDICATIONS ON ADMISSION: Includes: 1. Klor-Con. 2. Lasix. 3. Pepcid. 4. Plavix. 5. Coreg. 6. Lipitor. 7. Ambien. 8. Colace. 9. Matthews. 10. Tenormin. 11. Aspirin. REVIEW OF SYSTEMS: A 12-point review of systems is negative unless what mentioned in the HPI. PHYSICAL ASSESSMENT: GENERAL: Well-developed, well-nourished female currently is awake, alert to name, otherwise pleasan tly confused, follows immediate commands in absentee-shaw[place] language. VITAL SIGNS: Temperature is 98.0, pulse is 107, blood pressure 123/76, respiratory rate 18, oxygen saturation 97% on 2 liters nasal cannula. HEENT: Head is atraumatic, normocephalic. Pupils equal, round, reactive to light and accommodation . Oral mucosa is pink and moist. NECK: Supple, no cervical lymphadenopathy, no thyromegaly. CHEST: Clear bilaterally. No wheezing or rhonchi noted. CARDIOVASCULAR: Irregularly irregular rhythm, II/ systolic murmur. ABDOMEN: Round, soft, nondistended. Patient complains of epigastric tenderness, no guarding, no re bound tenderness. SKIN: No rash, petechiae noted. EXTREMITIES: Mild edema bilaterally 2+. NEUROLOGIC: The patient is awake, alert and oriented to name. Otherwise confused. Follows immediat e commands, moves all extremities. LABORATORY DATA: On admission, CBC: White blood cell 24.2, hemoglobin 11.6, hematocrit 34.1, plate lets 398. Chemistry: Sodium is 130, potassium 4.6, chloride 96, carbon dioxide 22, anion gap 17, B UN is 20, creatinine 0.79, glucose 196. Lactic acid is 3.8 on admission, AST is 37, ALT 28, alkalin e phosphatase 75. Troponin 0.216, albumin 4.2. PT 16.2, INR is 1.29, PTT is 31.4. ASSESSMENT AND PLAN 1. Sepsis of unknown etiology. We are going to follow up on urine and blood cultures. Monitor ches t x-ray. Dr. Qureshi will be following patient in infectious disease consultation. Continue broad-s pectrum antibiotics. 2. Atrial fibrillation with rapid ventricular response. Continue the patient on Cardizem drip. Dr Zaina Egan will be following in cardiology consultation. 3. Elevated troponin. Continue aspirin and nitroglycerin and morphine p.r.n. for pain. Obtain car diac enzymes q.8 hours x3. 4. Coronary artery disease with history of stent placement. 5. Systolic and diastolic dysfunction congestive heart failure with ejection fraction of 35%. Urethral and meatal mass. 6. Osteoarthritis. 7. History of cardioembolic CVA. 8. Dementia. We will continue patient's home medication. 9. Lovenox for deep venous thrombosis prophylaxis. 10. Pepcid for peptic ulcer disease prophylaxis. 11. Zofran p.r.n. for nausea. Further recommendations based on clinical course. Plan of care discussed with Dr. Shah. Dictated By: NILES LOPEZ SHOE SHANKER for MEILY SHAH MD SR/NTS Conf#: [id number] DID#: [id number]
[2016-12-14 19:17] LABS: CK-MB 2.72 ng/ml (0.0-2.4); TROPONIN-I 0.121 ng/ml (0.00-0.12)
--- NOTE | 2016-12-14 19:33 | CONS ---
DATE OF ADMISSION: 12/13/2016 DATE OF CONSULTATION: TYPE OF CONSULTATION: Gastroenterology. Dear Dr. Shah: Thank you for asking me to see Mrs. Brown in GI consultation. HISTORY OF PRESENT ILLNESS: As you know, the patient is an 86-year-old [place] female who is admitt ed to the hospital because of fever and vomiting. Detailed history is not available, cannot reach t he family member at this time. The nursing notes and the information that I have so far is that faiza king is a resident of a correction, had a gradual onset of fever and 2 episodes of vomiting prior to the admission, and also she had several bowel movements. No history of GI bleeding. The patient has dementia. She is unable to give me adequate history. According to the nursing and the history here, patient had history of sudden onset of atrial fibrill ation, and she is on a Cardizem drip. MEDICATIONS: Prior to the admission, she has been on multiple medications, includin. Klor-Con. 2. Lasix. 3. Pepcid. 4. Plavix. 5. Coreg. 6. Lipitor. 7. Ambien. 8. Colace. 9. Tenormin. 10. Aspirin. REVIEW OF SYSTEM: Positive for as mentioned earlier, coronary artery disease, hypertension, atrial fibrillation, peripheral vascular disease. PAST SURGICAL HISTORY: Includes hip replacement and coronary stents. SOCIAL HISTORY: No history of smoking or drinking. PHYSICAL EXAMINATION: GENERAL: The patient is an 86-year-old white female who, at this time, she is alert, but she is con fused. She has been restrained. VITAL SIGNS: Temperature is 98, pulse is 91. CARDIOVASCULAR: Showed irregular heart rate, heart sounds are heard. LUNGS: Showed normal breath sounds. ABDOMEN: Showed soft abdomen with no palpable masses, some minimal distention noted. Some tenderne ss noted as well of the abdomen. LABORATORY WORKUP: On admission yesterday, white count was 24,200, WBCs today 21,200, hemoglobin is 12.0, neutrophils 59, bands 25. The chemistry shows bilirubin 0.8, AST is 60, ALT is 28, alk phos is 270. Troponin 0.216, which is high. DIAGNOSTIC DATA: The CAT scan of the abdomen shows evidence of pericholecystic fluid around the gal lbladder, left hip prosthesis, chronic osseous changes, bilateral inguinal fat-containing hernia, mo derate sized hiatal hernia, atrophic kidneys. CLINICAL IMPRESSION: The patient is presenting with history of abdominal pain, vomiting. Urine cul ture no growth. Blood culture no growth. Pericholecystic fluid noted on the CAT scan of the abdome n; hence, cholecystitis is a good possibility. Doubt ischemic bowel. CAT scan did not show any ischemic bowel. The history of coronary artery disease, atrial fibrillation and other medical conditions I mentioned in my history and physical, particularly in the history part. PLAN: At this time, recommend ultrasound of the upper abdomen. Follow the liver functions closely, and we may need a surgical consultation. Once again, doctor, thank you for this consultation. Dictated By: MEÑO COX MD NC/NTS Conf#: [id number] DID#: [id number] CC: EMILY SHAH MD;*EndCC*
--- NOTE | 2016-12-14 20:04 | RADRPT ---
PROCEDURE: Complete abdominal ultrasound. CLINICAL INDICATION: Abdominal pain TECHNIQUE: Haynes scale and color doppler ultrasound images of the abdomen. COMPARISON: CT abdomen pelvis 12/13/2016 FINDINGS: Pancreas: Not adequately visualized due to overlying bowel gas. Liver: Morphology: Normal in size and contour. Echogenicity: Increased echogenicity of the liver parenchyma suggestive of hepatic steatosis. Focal lesions: None. Main portal vein: Patent with hepatopetal flow. Biliary System: Normal appearing gallbladder wall. No gallstones seen. No intrahepatic biliary dilatation. Common bile duct diameter: 2.9 mm Kidneys: Right length: 7.9 cm. Mild cortical thinning. Left length: 7.0 cm. Moderate cortical thinning. Normal echogenicity. No hydronephrosis. No renal calculi. No focal renal lesions. Spleen: Not visualized. No free fluid identified. Normal caliber of the partially visualized aorta. IMPRESSION: Normal gallbladder without gallstones. Increased echogenicity of the liver parenchyma suggestive of hepatic steatosis. Mild atrophic changes of the right kidney moderate atrophic changes of the left kidney without hydro nephrosis. RPTAT: AADD .Efrain Hernandez MD, MD Date Time Electronically viewed and signed by .Efrain Hernandez MD, on 12/14/2016 20:04 .B/
[2016-12-14] MEDS ORDERED: DOCUSATE SODIUM 100 MG CAP PO SCH (21:00)
[2016-12-14] MEDS ORDERED: ATORVASTATIN 40 MG TAB PO SCH (21:00)
--- NOTE | 2016-12-14 22:07 | CONS ---
DATE OF ADMISSION: 12/13/2016 DATE OF CONSULTATION: 12/14/2016 TYPE OF CONSULTATION: Infectious disease. REASON FOR CONSULTATION: Antibiotic management. HISTORY OF PRESENT ILLNESS: Amanda Brown is an 86-year-old Turkish-speaking female who presents wit h 1-day history of constant fever associated with 2 episodes of vomiting and a large number of forme d stools. The patient also has senile dementia. Her past problems include: 1. Senile dementia. 2. Hypertension. 3. Hyperlipidemia. 4. Coronary artery disease. 5. Atrial fibrillation. 6. Peripheral vascular disease. 7. Hip replacement. 8. Coronary stents. 9. Spinal stenosis. 10. Non-ST elevation myocardial infarction. 11. Cardiomyopathy. Acutely, the patient comes in with fevers. On admission, her white count was 24.2, platelet count 3 98,000. BUN and creatinine is 11.6/34.1, platelet count 398,000. BUN and creatinine 20/0.79, gluco se of 196. PAST MEDICAL HISTORY: Operations as outlined. FAMILY HISTORY: Noncontributory. SOCIAL HISTORY: She does not smoke, drink, or abuse drugs. ALLERGIES: NONE TO PENICILLIN, SULFA, OR FOODS. MEDICATIONS: Per chart. REVIEW OF SYSTEMS: As per HPI. PHYSICAL EXAMINATION: GENERAL: The patient is a well-developed elderly appearing female who is awake, confused, in no acu te distress. VITAL SIGNS: Stable. T-max 99.8. SKIN: Without generalized rash. HEENT: Within normal limits. NECK: Supple. LYMPH NODES: None palpable. CHEST: Decreased breath sounds at the bases. HEART: Without gallop. She has an irregularly irregular rhythm. She is tachycardic. She has a gr dario II/ systolic ejection murmur along the left sternal border without radiation to carotids. ABDOMEN: Soft, nontender without organosplenomegaly or masses. EXTREMITIES: Without cyanosis, clubbing, or edema. RECTAL AND GENITAL: Deferred. NEUROLOGIC: No focal neurological abnormalities. LABORATORY DATA: Blood cultures are negative. Urine cultures are negative. Chest x-ray shows mild cardiomegaly, mild pulmonary vascular congestion. CT scan of the abdomen and pelvis with contrast shows left hip prosthesis in place, chronic osseous findings as described with extensive artifacts, bilateral inguinal hernia, no herniated bowel or strangulation, moderate sized hiatal hernia, atroph ic kidneys without hydronephrosis. Gallbladder is unremarkable. No free air, free fluid, or absces ses. IMPRESSION AND PLAN: The patient comes in now with fever, etiology of which is unclear. Her urine shows negative for nitrite, negative for leukocyte esterase. The patient was begun on cefepime for broad spectrum coverage. She had blood cultures done, urine cultures done which were negative. MRS A screen. We will continue her for the time being on cefepime. I will dictate my findings to the ospitalist. Dictated By: SABRINA ROLLINS MD, JD/NTS Conf#: [id number] DID#: [id number] CC: LILLI RUIZ MD;*End*
[2016-12-14] MEDS ORDERED: LACTULOSE 30ML CUP PO PRN (23:00)
[2016-12-14] MEDS ORDERED: BISACODYL 10 MG SUPP PR PRN (23:00)
[2016-12-15 00:28] VITALS: PULSE 100
[2016-12-15 01:35] LABS: CK-MB 4.7 ng/ml (0.0-2.4); TROPONIN-I 0.109 ng/ml (0.00-0.12)
[2016-12-15 02:00] VITALS: BP 135/65; PULSE 110; PULSE 68; RESP 20
[2016-12-15 04:12] VITALS: PULSE 80
[2016-12-15] MEDS: CEFEPIME 1GM/50 ML (PMX) 50 ML IVPB SCH (05:34)
[2016-12-15 05:57] VITALS: PULSE 40
[2016-12-15 07:22] VITALS: BP 128/84; RESP 18
[2016-12-15] MEDS ORDERED: FUROSEMIDE 20 MG TAB PO SCH (09:00)
== END 2016-12-15 05:58 | disposition expired | DRG 872 ==
LOC: E/R 08:41 → TEL 11:48
PROVIDERS: ADMIT Internal Medicine; ATTEND Internal Medicine
DX: A41.9 Sepsis, unspecified organism (principal); I42.9 Cardiomyopathy, unspecified; I11.0 Hypertensive heart disease with heart failure; I50.40 Unspecified combined systolic (congestive) and diastolic (congestive) heart failure; I25.10 Atherosclerotic heart disease of native coronary artery without angina pectoris; I73.9 Peripheral vascular disease, unspecified; G30.9 Alzheimer's disease, unspecified; F02.80 Dementia in other diseases classified elsewhere, unspecified severity, without behavioral disturbance, psychotic disturbance, mood disturbance, and anxiety; I25.2 Old myocardial infarction; E78.5 Hyperlipidemia, unspecified; R74.8 Abnormal levels of other serum enzymes; Z91.81 History of falling; I48.2 Chronic atrial fibrillation; Z79.82 Long term (current) use of aspirin; Z95.5 Presence of coronary angioplasty implant and graft; Z96.643 Presence of artificial hip joint, bilateral; Z86.73 Personal history of transient ischemic attack (TIA), and cerebral infarction without residual deficits; M17.11 Unilateral primary osteoarthritis, right knee; Z79.02 Long term (current) use of antithrombotics/antiplatelets
CPT/HCPCS: 36415; 71010; 74177; 76700; 80053; 81001; 82550; 82553; 83605; 84484; 85025; 85610; 85730; 87040; 87086; 93005; 94664; 96361; 96365; 96366; 96367; 96368; 96375; J0692; J1630; J1650; J2270; J2405; J3370; J7030; J7050; Q9967